=== PATIENT | male | born 1970 | race Caucasian/White ===

== ENCOUNTER → 2016-04-16 | Outpatient (CLI) | payer OTHER ==
--- NOTE | 2016-04-16 21:50 | PN ---
This patient is 45 with an established diagnosis of obstructive sleep apnea. His disease is severe. He has an AHI of 47.5. He was given CPAP therapy at a pressure of 11 cm of water. He is clinically better; however, his compliancy data has not been reflecting adequately his use and clinical improvement. I checked the data his CPAP machine today, and his average CPAP use is less than 4 hours, specifically around 3.2 hours per night. The patient is utilizing his CPAP only 25% of the time for more than 4 hours. His AHI while on treatment is only 5. His leak factor is at 20 liters. He needs to improve his compliance with the treatment, and he was made aware of that. BP is 141/97, pulse 94, respirations 18, temperature 98.0. Weight is 197. [place] score is at 8. GENERAL APPEARANCE: Calm, comfortable. HEENT: Negative for goiter or neck mass. LUNGS: Clear to auscultation. HEART: Sounds are regular rate and rhythm. Normal S1, S2. No S3. No S4. No murmurs. ABDOMEN: Soft, nontender. No organomegaly. EXTREMITIES: No edema. No cyanosis or clubbing. IMPRESSION: 1. Obstructive sleep apnea, severe. AHI of 45. Clinically improved, yet the compliancy with CPAP is suboptimal. 2. Hypersomnia, improving. PLAN: Will need to improve the compliance with his CPAP machine. He was asked to average at least 4 hours per night. He will be asked to come back in 3 months' time for a recheck, and we will make further recommendations regarding CPAP therapy. For now, he needs to wear it every night and become more compliant with the treatment; otherwise, he runs the risk of losing his CPAP machine. He was made aware of that.
== END ==
LOC: SLEEP 14:39
PROVIDERS: ATTEND Internal Medicine Critical Care Medicine
DX: G47.33 Obstructive sleep apnea (adult) (pediatric) (principal)

== ENCOUNTER 2016-08-16 12:20 | Emergency (ER) | payer OTHER ==
[2016-08-16 12:39] VITALS: TEMP 98.6
[2016-08-16 13:08] VITALS: RESP 18
[2016-08-16] MEDS ORDERED: LORazepam 1 MG TAB PO STA (13:10)
--- NOTE | 2016-08-16 13:34 | ED ---
Skin/Abscess/FB HPI - General Chief complaint: Skin/Abscess/Foreign Body Stated complaint: Rash Time Seen by Provider: 08/16/16 13:07 Source: patient, RN notes reviewed Mode of arrival: ambulatory Limitations: no limitations - History of Present Illness Initial comments: 46 yo male presents to the ER with cc of skin rash. Patient states that he was cutting hedges and he was exposed to poison aurelia. Patient states symptoms had an itchy rash to hands and legs. Patient states that he was concerned because just continued H they thought he might need steroids. Patient denies any other exposure to the poison aurelia patient denies any rash to the abdomen back or groin area. Patient denies any rash to the face. Patient states he is also feeling somewhat anxious today. Patient states that his father was recently diagnosed with cancer on top of his Parkinson dementia. Patient states he does have hypertension and he did take his blood pressure medication today but he came from that appointment and he is feeling anxious. Patient denies any suicidal or homicidal ideation with this he just is concerned about his father. Patient denies any recent fever, chills, shortness of breath, chest pain, back pain, abdominal pain, nausea vomiting, numbness or tingling, dysuria or hematuria, constipation or diarrhea, headaches or visual changes, or any other current symptoms. - Related Data Home Medications Medication Instructions Recorded Confirmed Levothyroxine Sodium [Synthroid] 75 mcg PO DAILY 11/05/13 10/05/15 Cholecalciferol [Vitamin D3] 1,000 unit PO DAILY 10/03/15 10/05/15 buPROPion HCL [Wellbutrin SR] 150 mg PO DAILY 10/03/15 10/05/15 Previous Rx's Medication Instructions Recorded methylPREDNISolone Dose Pack 4 mg PO DIRECTED #21 package 08/16/16 [Medrol Dose Pack] Allergies Allergy/AdvReac Type Severity Reaction Status Date / Time No Known Allergies Allergy Verified 08/16/16 12:39 Review of Systems ROS Statement: Those systems with pertinent positive or pertinent negative responses have been documented in the HPI. ROS Other: All systems not noted in ROS Statement are negative. Past Medical History Past Medical History: Hypertension, Thyroid Disorder Additional Past Medical History / Comment(s): VITAMIN B12 DEFICIENCY ANEMIA, rhabdomyolysis History of Any Multi-Drug Resistant Organisms: None Reported Past Surgical History: Orthopedic Surgery Additional Past Surgical History / Comment(s): BILAT Shoulder Surgery Past Anesthesia/Blood Transfusion Reactions: No Reported Reaction Past Psychological History: No Psychological Hx Reported Smoking Status: Current every day smoker Past Alcohol Use History: Occasional Past Drug Use History: None Reported - Past Family History Mother Family Medical History: No Reported History Father Family Medical History: Cancer General Exam Limitations: no limitations General appearance: alert, in no apparent distress Head exam: Present: atraumatic, normocephalic, normal inspection ENT exam: Present: normal exam, mucous membranes moist Neck exam: Present: normal inspection. Absent: tenderness, meningismus, lymphadenopathy Respiratory exam: Present: normal lung sounds bilaterally. Absent: respiratory distress, wheezes, rales, rhonchi, stridor Cardiovascular Exam: Present: regular rate, normal rhythm, normal heart sounds. Absent: systolic murmur, diastolic murmur, rubs, gallop, clicks Neurological exam: Present: alert, oriented X3 Psychiatric exam: Present: normal affect, normal mood Skin exam: Present: warm, dry, intact, normal color. Absent: rash Course Vital Signs 08/16/16 08/16/16 08/16/16 12:36 13:07 13:43 Temperature 98.6 F 98.6 F Pulse Rate 107 H 95 94 Respiratory 20 18 18 Rate Blood Pressure 164/103 151/106 158/110 O2 Sat by Pulse 97 97 97 Oximetry Medical Decision Making - Medical Decision Making 46-year-old male presents to the emergency department with a chief complaint of poison aurelia to arms and legs. Patient is also having a lot of anxiety and is found to have elevated blood pressure. We did give Ativan which did help with his blood pressure. We did discuss follow-up and they gave him counselors referral sheet to talk to. We did discuss return parameters all patient's questions. He stated he understood the plan. Patient will be discharged Disposition Clinical Impression: Anxiety, Poison aurelia dermatitis Disposition: HOME SELF-CARE Condition: Stable Instructions: Poison A[place]lia (ED) Additional Instructions: Please use medication as discussed. Please follow up with family doctor if symptoms have not improved over the next two days. Please return to the emergency room if your symptoms increase or worsen or for any other concerns. Prescriptions: methylPREDNISolone Dose Pack [Medrol Dose Pack] 4 mg PO DIRECTED #21 package Referrals: Deion Alvarez MD [Primary Care Provider] - 1-2 days Time of Disposition: 18:33
[2016-08-16 13:45] VITALS: BP 158/110; PULSE 94
== END 2016-08-16 13:43 | disposition home or self-care (01) ==
LOC: EC 12:20
DX: L23.7 Allergic contact dermatitis due to plants, except food (principal); F41.9 Anxiety disorder, unspecified; E07.9 Disorder of thyroid, unspecified; F17.200 Nicotine dependence, unspecified, uncomplicated; Z79.899 Other long term (current) drug therapy
CPT/HCPCS: 99282

== ENCOUNTER → 2016-08-21 | Outpatient (CLI) | payer OTHER ==
--- NOTE | 2016-08-21 15:35 | XR ---
EXAMINATION TYPE: XR hand complete RT DATE OF EXAM: 08/21/2016 COMPARISON: NONE HISTORY: Injury to right wrist pain 2-3 weeks TECHNIQUE: Three-view right hand FINDINGS: No acute fractures evident. Soft tissues appear normal. Joint spaces are preserved. IMPRESSION: 1. Normal three-view right hand
== END | disposition home or self-care (01) ==
LOC: RADXRMAIN 15:09
PROVIDERS: ATTEND Family Medicine
DX: S69.81XA Other specified injuries of right wrist, hand and finger(s), initial encounter (principal)

== ENCOUNTER → 2016-10-04 | Outpatient (CLI) | payer OTHER ==
--- NOTE | 2016-10-04 12:16 | XR ---
EXAMINATION TYPE: XR chest 2V DATE OF EXAM: 10/04/2016 COMPARISON: 11/05/2013 INDICATION: Contusion of the thorax TECHNIQUE: Frontal and lateral views of the chest are obtained. FINDINGS: The heart size is normal. The pulmonary vasculature is normal. The lungs are clear. Left nipple ring is present. No pneumothorax is evident. No displaced rib fractures are evident. IMPRESSION: 1. No acute pulmonary process. 2. No acute posttraumatic change is evident.
== END | disposition home or self-care (01) ==
LOC: RADXRMAIN 11:37
PROVIDERS: ATTEND Physician Assistant
DX: S20.20XA Contusion of thorax, unspecified, initial encounter (principal)
CPT/HCPCS: 71020

== ENCOUNTER 2016-11-24 18:31 | Inpatient (IN) | payer OTHER ==
[2016-11-24] MEDS ORDERED: SODIUM CHLORIDE 0.9% 1,000 ML IV ONE ×2 (18:46)
--- NOTE | 2016-11-24 18:52 | ED ---
General Adult HPI - General Chief complaint: Altered Mental Status Stated complaint: Alter Mental Status Time Seen by Provider: 11/24/16 18:37 Source: patient, EMS, RN notes reviewed Mode of arrival: EMS Limitations: no limitations - History of Present Illness Initial comments: Patient is a pleasant 46-year-old male presenting to the emergency department for possible syncopal episode. Patient states he was loading boats up after kayaking and then passed out. Patient denies any significant injury. Patient states he has felt somewhat lightheaded recently. Patient states he was recently told by his doctor to increase his lisinopril. Patient is unclear what dose she currently is on. Patient states several days prior to that his blood pressure was as high as 178/100. Patient only feels lightheaded at this time without any other complaints. No chest pain or dyspnea. No neck or back pain. No abdominal pain. No headache or confusion or weakness. EMS reports that patient was picked up from the [facility]. Nursing staff reports patient' s history is not consistent with history provided by EMS or provided to her. - Related Data Home Medications Medication Instructions Recorded Confirmed Disulfiram [Antabuse] 250 mg PO DAILY 11/24/16 11/24/16 LORazepam [Ativan] 1 mg PO TID 11/24/16 11/24/16 Zolpidem [Ambien] 10 mg PO HS PRN 11/24/16 11/24/16 buPROPion XL [Wellbutrin Xl] 150 mg PO DAILY 11/24/16 11/24/16 Allergies Allergy/AdvReac Type Severity Reaction Status Date / Time No Known Allergies Allergy Verified 08/16/16 12:39 Review of Systems ROS Statement: Those systems with pertinent positive or pertinent negative responses have been documented in the HPI. ROS Other: All systems not noted in ROS Statement are negative. Constitutional: Denies: fever Eyes: Denies: eye pain ENT: Denies: ear pain Respiratory: Denies: cough Cardiovascular: Denies: chest pain, palpitations Endocrine: Reports: fatigue Gastrointestinal: Denies: abdominal pain Genitourinary: Denies: dysuria Musculoskeletal: Denies: back pain Skin: Denies: rash Neurological: Denies: headache Psychiatric: Denies: depression Past Medical History Past Medical History: Hypertension, Thyroid Disorder Additional Past Medical History / Comment(s): VITAMIN B12 DEFICIENCY ANEMIA, rhabdomyolysis History of Any Multi-Drug Resistant Organisms: None Reported Past Surgical History: Orthopedic Surgery Additional Past Surgical History / Comment(s): BILAT Shoulder Surgery Past Anesthesia/Blood Transfusion Reactions: No Reported Reaction Past Psychological History: No Psychological Hx Reported Smoking Status: Current some day smoker Past Alcohol Use History: Occasional Past Drug Use History: None Reported - Past Family History Mother Family Medical History: No Reported History Father Family Medical History: Cancer General Exam Limitations: no limitations General appearance: alert, in no apparent distress Head exam: Present: atraumatic Eye exam: Present: normal appearance, PERRL, EOMI. Absent: nystagmus ENT exam: Present: normal oropharynx Neck exam: Present: normal inspection. Absent: tenderness, meningismus Respiratory exam: Present: normal lung sounds bilaterally Cardiovascular Exam: Present: regular rate, normal rhythm GI/Abdominal exam: Present: soft. Absent: tenderness Extremities exam: Present: normal inspection Neurological exam: Present: alert, CN II-XII intact. Absent: motor sensory deficit Expanded Patient oriented to: Present: person, place, time Speech: Present: fluid speech Cranial nerves: EOM's Intact: Normal, Facial Sensation: Normal Sensory exam: Upper Extremity Light Touch: Normal, Lower Extremity Light Touch: Normal Motor strength exam: RUE: 5, LUE: 5, RLE: 5, LLE: 5 Eye Response: (4) open spontaneously Motor Response: (6) obeys commands Verbal Response: (5) oriented Psychiatric exam: Present: normal affect, normal mood Skin exam: Present: normal color Course Vital Signs 11/24/16 11/24/16 11/24/16 18:42 19:16 20:05 Temperature 98.3 F Pulse Rate 119 H 110 H 110 H Respiratory 18 16 18 Rate Blood Pressure 76/43 86/52 109/56 O2 Sat by Pulse 99 99 99 Oximetry EKG Findings - EKG Comments: EKG Findings:: Sinus tachycardia 110. IL 132. QRS 84. QT 332. QTC 449. Normal axis. Normal QRS. Normal ST-T. Medical Decision Making - Medical Decision Making Patient reexamined and improved. Blood pressure has improved to 90 systolic. Patient updated on results and plan. Case discussed in detail with Dr. Brown, who will admit for Dr. Alvarez. - Lab Data Result diagrams: 11/24/16 18:59 11/24/16 18:59 Lab Results 11/24/16 11/24/16 11/24/16 Range/Units 18:59 18:59 18:59 WBC 8.7 (3.8-10.6) k/uL RBC 4.08 L (4.30-5.90) m/uL Hgb 14.5 (13.0-17.5) gm/dL Hct 45.1 (39.0-53.0) % MCV 110.3 H (80.0-100.0) fL MCH 35.6 H (25.0-35.0) pg MCHC 32.3 (31.0-37.0) g/dL RDW 13.6 (11.5-15.5) % Plt Count 240 (150-450) k/uL Neutrophils % 83 % Lymphocytes % 8 % Monocytes % 6 % Eosinophils % 1 % Basophils % 1 % Neutrophils # 7.3 (1.3-7.7) k/uL Lymphocytes # 0.7 L (1.0-4.8) k/uL Monocytes # 0.5 (0-1.0) k/uL Eosinophils # 0.1 (0-0.7) k/uL Basophils # 0.1 (0-0.2) k/uL Manual Slide Review Performed Macrocytosis Marked PT (9.0-12.0) sec INR (<1.2) APTT (22.0-30.0) sec D-Dimer (<0.60) mg/L FEU Sodium 141 (137-145) mmol/L Potassium 4.5 (3.5-5.1) mmol/L Chloride 107 (98-107) mmol/L Carbon Dioxide 17 L (22-30) mmol/L Anion Gap 17 mmol/L BUN 32 H (9-20) mg/dL Creatinine 3.23 H (0.66-1.25) mg/dL Est GFR (MDRD) Af Amer 25 (>60 ml/min/1.73 sqM) Est GFR (MDRD) Non-Af 21 (>60 ml/min/1.73 sqM) Glucose 100 H (74-99) mg/dL POC Glucose (mg/dL) (75-99) mg/dL POC Glu [place] ID Calcium 10.0 (8.4-10.2) mg/dL Total Bilirubin 0.9 (0.2-1.3) mg/dL AST 114 H (17-59) U/L ALT 165 H (21-72) U/L Alkaline Phosphatase 175 H (38-126) U/L Total Creatine Kinase 336 H (55-170) U/L CK-MB (CK-2) 3.8 H* (0.0-2.4) ng/mL CK-MB (CK-2) Rel Index 1.1 Troponin I <0.012 (0.000-0.034) ng/mL Total Protein 7.7 (6.3-8.2) g/dL Albumin 4.3 (3.5-5.0) g/dL Urine Color Urine Appearance (Clear) Urine pH (5.0-8.0) Ur Specific [place] (1.001-1.035) Urine Protein (Negative) Urine Glucose (UA) (Negative) Urine Ketones (Negative) Urine Blood (Negative) Urine Nitrite (Negative) Urine Bilirubin (Negative) Urine Urobilinogen (<2.0) mg/dL Ur Leukocyte Esterase (Negative) Urine RBC (0-5) /hpf Urine WBC (0-5) /hpf Ur Squamous Epith Cells (0-4) /hpf Hyaline Casts (0-2) /lpf Granular Casts (0) /lpf Urine Mucus (None) /hpf Urine Opiates Screen (NotDetected) Ur Oxycodone Screen (NotDetected) Urine Methadone Screen (NotDetected) Ur Propoxyphene Screen (NotDetected) Ur Barbiturates Screen (NotDetected) U Tricyclic Antidepress (NotDetected) Ur Phencyclidine Scrn (NotDetected) Ur Amphetamines Screen (NotDetected) U Methamphetamines Scrn (NotDetected) U Benzodiazepines Scrn (NotDetected) Urine Cocaine Screen (NotDetected) U Marijuana (THC) Screen (NotDetected) Serum Alcohol <10 mg/dL 11/24/16 11/24/16 11/24/16 Range/Units 18:59 18:59 18:59 WBC (3.8-10.6) k/uL RBC (4.30-5.90) m/uL Hgb (13.0-17.5) gm/dL Hct (39.0-53.0) % MCV (80.0-100.0) fL MCH (25.0-35.0) pg MCHC (31.0-37.0) g/dL RDW (11.5-15.5) % Plt Count (150-450) k/uL Neutrophils % % Lymphocytes % % Monocytes % % Eosinophils % % Basophils % % Neutrophils # (1.3-7.7) k/uL Lymphocytes # (1.0-4.8) k/uL Monocytes # (0-1.0) k/uL Eosinophils # (0-0.7) k/uL Basophils # (0-0.2) k/uL Manual Slide Review Macrocytosis PT 10.6 (9.0-12.0) sec INR 1.1 (<1.2) APTT 21.8 L (22.0-30.0) sec D-Dimer 0.34 (<0.60) mg/L FEU Sodium (137-145) mmol/L Potassium (3.5-5.1) mmol/L Chloride (98-107) mmol/L Carbon Dioxide (22-30) mmol/L Anion Gap mmol/L BUN (9-20) mg/dL Creatinine (0.66-1.25) mg/dL Est GFR (MDRD) Af Amer (>60 ml/min/1.73 sqM) Est GFR (MDRD) Non-Af (>60 ml/min/1.73 sqM) Glucose (74-99) mg/dL POC Glucose (mg/dL) (75-99) mg/dL POC Glu [place] ID Calcium (8.4-10.2) mg/dL Total Bilirubin (0.2-1.3) mg/dL AST (17-59) U/L ALT (21-72) U/L Alkaline Phosphatase (38-126) U/L Total Creatine Kinase (55-170) U/L CK-MB (CK-2) (0.0-2.4) ng/mL CK-MB (CK-2) Rel Index Troponin I (0.000-0.034) ng/mL Total Protein (6.3-8.2) g/dL Albumin (3.5-5.0) g/dL Urine Color Dark Yellow Urine Appearance Cloudy (Clear) Urine pH 5.5 (5.0-8.0) Ur Specific [place] 1.023 (1.001-1.035) Urine Protein 2+ H (Negative) Urine Glucose (UA) Negative (Negative) Urine Ketones Negative (Negative) Urine Blood Negative (Negative) Urine Nitrite Negative (Negative) Urine Bilirubin Negative (Negative) Urine Urobilinogen 2.0 (<2.0) mg/dL Ur Leukocyte Esterase Moderate H (Negative) Urine RBC 4 (0-5) /hpf Urine WBC 20 H (0-5) /hpf Ur Squamous Epith Cells <1 (0-4) /hpf Hyaline Casts 32 H (0-2) /lpf Granular Casts 6 (0) /lpf Urine Mucus Moderate H (None) /hpf Urine Opiates Screen Detected H (NotDetected) Ur Oxycodone Screen Not Detected (NotDetected) Urine Methadone Screen Not Detected (NotDetected) Ur Propoxyphene Screen Not Detected (NotDetected) Ur Barbiturates Screen Not Detected (NotDetected) U Tricyclic Antidepress Detected H (NotDetected) Ur Phencyclidine Scrn Not Detected (NotDetected) Ur Amphetamines Screen Detected H (NotDetected) U Methamphetamines Scrn Not Detected (NotDetected) U Benzodiazepines Scrn Detected H (NotDetected) Urine Cocaine Screen Not Detected (NotDetected) U Marijuana (THC) Screen Not Detected (NotDetected) Serum Alcohol mg/dL 11/24/16 Range/Units 19:14 WBC (3.8-10.6) k/uL RBC (4.30-5.90) m/uL Hgb (13.0-17.5) gm/dL Hct (39.0-53.0) % MCV (80.0-100.0) fL MCH (25.0-35.0) pg MCHC (31.0-37.0) g/dL RDW (11.5-15.5) % Plt Count (150-450) k/uL Neutrophils % % Lymphocytes % % Monocytes % % Eosinophils % % Basophils % % Neutrophils # (1.3-7.7) k/uL Lymphocytes # (1.0-4.8) k/uL Monocytes # (0-1.0) k/uL Eosinophils # (0-0.7) k/uL Basophils # (0-0.2) k/uL Manual Slide Review Macrocytosis PT (9.0-12.0) sec INR (<1.2) APTT (22.0-30.0) sec D-Dimer (<0.60) mg/L FEU Sodium (137-145) mmol/L Potassium (3.5-5.1) mmol/L Chloride (98-107) mmol/L Carbon Dioxide (22-30) mmol/L Anion Gap mmol/L BUN (9-20) mg/dL Creatinine (0.66-1.25) mg/dL Est GFR (MDRD) Af Amer (>60 ml/min/1.73 sqM) Est GFR (MDRD) Non-Af (>60 ml/min/1.73 sqM) Glucose (74-99) mg/dL POC Glucose (mg/dL) 122 H (75-99) mg/dL POC Glu [place] ID Edilma Mcdonald Calcium (8.4-10.2) mg/dL Total Bilirubin (0.2-1.3) mg/dL AST (17-59) U/L ALT (21-72) U/L Alkaline Phosphatase (38-126) U/L Total Creatine Kinase (55-170) U/L CK-MB (CK-2) (0.0-2.4) ng/mL CK-MB (CK-2) Rel Index Troponin I (0.000-0.034) ng/mL Total Protein (6.3-8.2) g/dL Albumin (3.5-5.0) g/dL Urine Color Urine Appearance (Clear) Urine pH (5.0-8.0) Ur Specific [place] (1.001-1.035) Urine Protein (Negative) Urine Glucose (UA) (Negative) Urine Ketones (Negative) Urine Blood (Negative) Urine Nitrite (Negative) Urine Bilirubin (Negative) Urine Urobilinogen (<2.0) mg/dL Ur Leukocyte Esterase (Negative) Urine RBC (0-5) /hpf Urine WBC (0-5) /hpf Ur Squamous Epith Cells (0-4) /hpf Hyaline Casts (0-2) /lpf Granular Casts (0) /lpf Urine Mucus (None) /hpf Urine Opiates Screen (NotDetected) Ur Oxycodone Screen (NotDetected) Urine Methadone Screen (NotDetected) Ur Propoxyphene Screen (NotDetected) Ur Barbiturates Screen (NotDetected) U Tricyclic Antidepress (NotDetected) Ur Phencyclidine Scrn (NotDetected) Ur Amphetamines Screen (NotDetected) U Methamphetamines Scrn (NotDetected) U Benzodiazepines Scrn (NotDetected) Urine Cocaine Screen (NotDetected) U Marijuana (THC) Screen (NotDetected) Serum Alcohol mg/dL - Radiology Data Radiology results: report reviewed (Computed tomography scan of the brain shows no acute process), image reviewed (Chest x-ray shows no acute process.) Disposition Clinical Impression: Acute renal insufficiency, Altered mental status Disposition: ADMITTED IP TO THIS [facility] Referrals: Deion Alvarez MD [Primary Care Provider] - 1-2 days Decision Time: 20:10
[2016-11-24 19:25] LABS: Basophils # (A) 0.1 k/uL (0-0.2); Basophils % (A) 1 %; CH 37.1; CHCM 33.8; Eosinophils # (A) 0.1 k/uL (0-0.7); Eosinophils % (A) 1 %; HCT 45.1 % (39.0-53.0); HDW 2.18; HGB 14.5 gm/dL (13.0-17.5); Luc # (Auto) 0.12; Luc % (Auto) 1; Lymphocytes # (A) 0.7 k/uL (1.0-4.8); Lymphocytes % (A) 8 %; MCH 35.6 pg (25.0-35.0); MCHC 32.3 g/dL (31.0-37.0); MCV 110.3 fL (80.0-100.0); Macrocytosis Marked; Mean Platelet Volume 8.2; Monocytes # (A) 0.5 k/uL (0-1.0); Monocytes % (A) 6 %; Neutrophils # (A) 7.3 k/uL (1.3-7.7); Neutrophils % (A) 83 %; RBC 4.08 m/uL (4.30-5.90); RDW 13.6 % (11.5-15.5); WBC 8.7 k/uL (3.8-10.6); WBC (Perox) 8.91
[2016-11-24 19:31] LABS: Appearance,Urine Cloudy (Clear); Bilirubin,Urine Negative (Negative); Glucose,Urine (UA) Negative (Negative); Granular Casts,Urine 6 /lpf (0); Ketones,Urine Negative (Negative); Leukocyte Esterase,Urine Moderate (Negative); Mucus,Urine Moderate /hpf; Nitrite,Urine Negative (Negative); PH, Urine 5.5 (5.0-8.0); Particle Count 19482; Protein,Urine 2+ (Negative); RBC,Urine 4 /hpf (0-5); Specific Gravity,Urine 1.023 (1.001-1.035); Squamous Epithelial Cell,Urine <1 /hpf (0-4); UA Billing (MACRO vs. MICRO) MICRO; WBC,Urine 20 /hpf (0-5)
--- NOTE | 2016-11-24 19:33 | XR ---
EXAMINATION TYPE: XR chest 2V DATE OF EXAM: 11/24/2016 COMPARISON: 10/04/2016 HISTORY: Chest pain TECHNIQUE: Frontal and lateral views of the chest are obtained. FINDINGS: Heart and mediastinum are normal. Lungs are clear. Diaphragm is normal. Bony thorax is int act. IMPRESSION: Normal chest. No change.
[2016-11-24 19:34] LABS: Glucose,Whole Blood 122 mg/dL (75-99)
[2016-11-24 19:36] LABS: ALT 165 U/L (21-72); AST 114 U/L (17-59); Alcohol <10 mg/dL; Alkaline Phosphatase 175 U/L (38-126); Anion Gap 17 mmol/L; Blood Urea Nitrogen 32 mg/dL (9-20); Carbon Dioxide 17 mmol/L (22-30); Chloride 107 mmol/L (98-107); Glucose 100 mg/dL (74-99); Non-African American GFR(MDRD) 21 (>60 ml/min/1.73 sqM); Potassium 4.5 mmol/L (3.5-5.1); Sodium 141 mmol/L (137-145); Total Bilirubin 0.9 mg/dL (0.2-1.3); Total Protein 7.7 g/dL (6.3-8.2)
[2016-11-24 19:37] LABS: Manual Review Performed
[2016-11-24 19:39] LABS: Creatine Kinase 336 U/L (55-170); INR 1.1 (<1.2); Prothrombin Time 10.6 sec (9.0-12.0)
--- NOTE | 2016-11-24 19:50 | CT ---
EXAMINATION TYPE: CT brain wo con DATE OF EXAM: 11/24/2016 COMPARISON: NONE HISTORY: Mental status changes CT DLP: 1064.3 mGycm. Automated Exposure Control for Dose Reduction was Utilized. TECHNIQUE: CT scan of the head is performed without contrast. FINDINGS: Ventricles have normal size. There is no mass effect nor midline shift. There is no sign of intracranial hemorrhage. Calvarium is intact. CONCLUSION: Normal unenhanced head CT scan.
[2016-11-24 19:52] LABS: Troponin I <0.012 ng/mL (0.000-0.034)
[2016-11-24 19:53] LABS: Partial Thromboplastin Time 21.8 sec (22.0-30.0)
[2016-11-24 19:55] LABS: Creatine Kinase MB 3.8 ng/mL (0.0-2.4)
[2016-11-24] MEDS ORDERED: NALOXONE 0.4 MG/ML 1 ML VIAL IV PRN (20:10)
[2016-11-24] MEDS: SODIUM CHLORIDE 0.9% 1,000 ML IV SCH (22:26)
[2016-11-24 22:42] VITALS: BMI 25.4
[2016-11-25 02:02] VITALS: RESP 16
[2016-11-25] MEDS: SODIUM CHLORIDE 0.9% 1,000 ML IV SCH ×3 (05:41→20:33)
[2016-11-25 07:08] LABS: Calcium 8.9 mg/dL (8.4-10.2); Potassium 4.5 mmol/L (3.5-5.1); Total Bilirubin 0.6 mg/dL (0.2-1.3); Total Protein 6.4 g/dL (6.3-8.2)
[2016-11-25] MEDS ORDERED: ACETAMINOPHEN TAB 325 MG TAB PO PRN (08:47)
--- NOTE | 2016-11-25 14:21 | P.CN ---
Psychiatric Consult - . Consult date: 11/25/16 Consult:: Identification and Reason for Consult: Patient is a 46-year-old male who is admitted for altered mental status and a consultation was requested for that. Patient was brought to hospital by EMS. Patient's chart was reviewed, spoke with nursing staff, patient was seen in his room and his girlfriend was present during the interview. History of Present Illness: Patient states that he was recently seen by his primary care physician's nurse practitioner told the patient to double up on his antihypertensive medications the patient states that yesterday he thinks he took too many muscle relaxers versus taking double his antihypertensives. Patient is also taking Ativan 1 mg 3 times a day, Wellbutrin 150 mg a day, Antabuse daily Ambien 10 mg at bedtime and an unknown dosage of Adderall extended release on an as-needed basis. Patient states that he was doing well until things are all a blur late in the afternoon, his girlfriend commented that she had seen him around 2:15 in the afternoon and when she spoke with him at 5 PM he was not making sense. 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 He states he went there and apparently was not making sense and they called EMS. Patient states he recalls nothing after that. Patient was admitted and was found to have an elevated creatinine and also has elevated liver enzymes. Patient states he has a history of alcohol use over 20 years ago where he was using it on a daily basis, did have blackouts and reports no seizures her difficulties when he withdrew states he was sober for the last 14 years until the last several months when he relapsed. He states he began Antabuse at the beginning of November when he returned his PCP he had relapsed. Patient also states that he has been treated in the past at [facility] where he was started on Wellbutrin for depression. He was then seen at [facility] by Dr. Del Toro and he discontinued going there when he was told that he no longer needed treatment. He states that he stopped everything over 8 years ago and only recently restarted the Wellbutrin. Patient is also receiving Ativan 1 mg 3 times a day which the patient states he used twice a day and for the last week she's been using 2 mg a day for his anxiety. Patient also states he is on Ambien because he has sleep apnea but is unable to use a CPAP machine. Patient also states that he was diagnosed with ADD and is on Adderall at an unknown dosage and he uses this when necessary. Patient denied denies any prior suicide attempts, is unable to endorse any manic symptoms or psychotic symptoms. Patient states he was not feeling suicidal and was was not a suicide attempt, he denies any alcohol use recently or any other drug use. Past Psychiatric History: Patient states that he has no prior inpatient psychiatric treatment but was treated as an inpatient for alcohol regret at [facility] in the past. He has been seen as an outpatient at [facility] and then at [facility] but has not been seen in the last 8 years. Patient is currently on Ativan 1 mg 3 times a day, Wellbutrin 150 mg extended release every morning, Antabuse, Ambien 10 mg and an unknown dose of Adderall Past Medical/Surgical History: A she has a history of hypertension, hypothyroidism, pernicious anemia, sleep apnea and states he has degenerative disc disease in his back. He states he has had laparoscopic surgery on his right shoulder for rotator cuff injury as well as on his left shoulder after he fell at work. Home Medications Medication Instructions Recorded Confirmed Disulfiram [Antabuse] 250 mg PO DAILY 11/24/16 11/25/16 LORazepam [Ativan] 1 mg PO TID 11/24/16 11/25/16 Lisinopril [Zestril] 10 mg PO DAILY 11/24/16 11/25/16 Zolpidem [Ambien] 10 mg PO HS PRN 11/24/16 11/25/16 buPROPion XL [Wellbutrin Xl] 150 mg PO DAILY 11/24/16 11/25/16 Albuterol Inhaler [Ventolin Hfa 1 - 2 puff INHALATION RT-Q6H PRN 11/25/16 Inhaler] Cyanocobalamin [Vitamin B-12 1,000 mcg SQ QMONTH 11/25/16 11/25/16 Injection] Ibuprofen [Motrin] 800 mg PO TID-W/MEALS 11/25/16 11/25/16 Levothyroxine Sodium [Synthroid] 75 mcg PO DAILY 11/25/16 11/25/16 Montelukast [Singulair] 10 mg PO DAILY 11/25/16 11/25/16 Triamcinolone Acetonide 1 applic TOPICAL BID 11/25/16 11/25/16 [Triamcinolone Acetonide 0.025%] Social History: Patient was born and raised in [place] both of his parents are alive and he has 2 siblings. Patient completed high school and has a college degree in criminal justice. 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 Patient has been 2 times in the past and is and has 4 children ages 21 , 20, 8 and 7 years of age. The youngest 2 are living with their mother. Patient's girlfriend was present during the interview. 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 He reports no history of abuse in the past. Substance Use History: Patient states that he began using alcohol heavily 20 years ago, drank daily for 6 years and reported he had blackouts but no seizures and states he has been sober for the last 14 years but several months ago he had a relapse. Patient denies any current or prior drug use and states that he does use tobacco products. Legal History: Patient denies any legal history. Mental Status:Appearance/Attitude: Patient is sitting up in his bed in no acute distress and makes good eye contact and is cooperative. Behavior: Patient does not display any psychomotor agitation or retardation. Speech/Language: Patient's speech is spontaneous, normal volume and rhythm and he is coherent. Thought Process: Patient is goal-directed there is no evidence of circumstantial or tangential thought and no loose associations or flight of ideas. Thought Content: Patient denies any auditory or visual hallucinations no delusions or paranoid ideation were elicited. Patient states that he thinks he took too much of his muscle relaxer combined with his other medications and became confused. Patient states he had recently begun earlier this month Antabuse 250 mg daily and has been using Ambien, Ativan as well. Suicidal/Homicidal Ideation: Patient denies any current suicidal or homicidal ideation Sensorium/Cognition: Patient is alert and oriented to person, place, and time and his memory is grossly intact. Mood/Affect: Patient's mood is pleasant and his affect is appropriate Insight/Judgement: Patient's insight and judgment are fair. Assessment: Patient has a history of alcohol use and has been using Ativan 2 mg a day for the last week prior to that he was using it on an as-needed basis, he is also on Wellbutrin to treat his depression which he states worked well as well as Ambien for his insomnia and Adderall for his attention deficit disorder. Patient has been seen by his primary care physician who is being treating the patient's anxiety and depression. Patient had a relapse several months ago and requested Antabuse from his primary care physician which he has been taking. Patient prior to this had a 14 year history of sobriety. Patient is not currently having any suicidal ideation, homicidal ideation and there is no evidence of a psychotic process. Laboratory Last Values WBC 8.7 k/uL (3.8-10.6) 11/24/16 18:59 RBC 4.08 m/uL (4.30-5.90) L 11/24/16 18:59 Hgb 14.5 gm/dL (13.0-17.5) 11/24/16 18:59 Hct 45.1 % (39.0-53.0) 11/24/16 18:59 MCV 110.3 fL (80.0-100.0) H 11/24/16 18:59 MCH 35.6 pg (25.0-35.0) H 11/24/16 18:59 MCHC 32.3 g/dL (31.0-37.0) 11/24/16 18:59 RDW 13.6 % (11.5-15.5) 11/24/16 18:59 Plt Count 240 k/uL (150-450) 11/24/16 18:59 Neutrophils % 83 % 11/24/16 18:59 Lymphocytes % 8 % 11/24/16 18:59 Monocytes % 6 % 11/24/16 18:59 Eosinophils % 1 % 11/24/16 18:59 Basophils % 1 % 11/24/16 18:59 Neutrophils # 7.3 k/uL (1.3-7.7) 11/24/16 18:59 Lymphocytes # 0.7 k/uL (1.0-4.8) L 11/24/16 18:59 Monocytes # 0.5 k/uL (0-1.0) 11/24/16 18:59 Eosinophils # 0.1 k/uL (0-0.7) 11/24/16 18:59 Basophils # 0.1 k/uL (0-0.2) 11/24/16 18:59 Manual Slide Review Performed 11/24/16 18:59 Macrocytosis Marked 11/24/16 18:59 PT 10.6 sec (9.0-12.0) 11/24/16 18:59 INR 1.1 (<1.2) 11/24/16 18:59 APTT 21.8 sec (22.0-30.0) L 11/24/16 18:59 D-Dimer 0.34 mg/L FEU (<0.60) 11/24/16 18:59 Sodium 140 mmol/L (137-145) 11/25/16 05:39 Potassium 4.5 mmol/L (3.5-5.1) 11/25/16 05:39 Chloride 112 mmol/L (98-107) H 11/25/16 05:39 Carbon Dioxide 17 mmol/L (22-30) L 11/25/16 05:39 Anion Gap 11 mmol/L 11/25/16 05:39 BUN 35 mg/dL (9-20) H 11/25/16 05:39 Creatinine 2.17 mg/dL (0.66-1.25) H 11/25/16 05:39 Est GFR (MDRD) Af Amer 40 (>60 ml/min/1.73 sqM) 11/25/16 05:39 Est GFR (MDRD) Non-Af 33 (>60 ml/min/1.73 sqM) 11/25/16 05:39 Glucose 90 mg/dL (74-99) 11/25/16 05:39 POC Glucose (mg/dL) 122 mg/dL (75-99) H 11/24/16 19:14 POC Glu [employer] [facility]AR[facility] Edilma Mcdonald 11/24/16 19:14 Calcium 8.9 mg/dL (8.4-10.2) 11/25/16 05:39 Total Bilirubin 0.6 mg/dL (0.2-1.3) 11/25/16 05:39 AST 84 U/L (17-59) H 11/25/16 05:39 ALT 131 U/L (21-72) H 11/25/16 05:39 Alkaline Phosphatase 137 U/L (38-126) H 11/25/16 05:39 Total Creatine Kinase 336 U/L (55-170) H 11/24/16 18:59 CK-MB (CK-2) 3.8 ng/mL (0.0-2.4) H* 11/24/16 18:59 CK-MB (CK-2) Rel Index 1.1 11/24/16 18:59 Troponin I <0.012 ng/mL (0.000-0.034) 11/24/16 18:59 Total Protein 6.4 g/dL (6.3-8.2) 11/25/16 05:39 Albumin 3.4 g/dL (3.5-5.0) L 11/25/16 05:39 Urine Color Dark Yellow 11/24/16 18:59 Urine Appearance Cloudy (Clear) 11/24/16 18:59 Urine pH 5.5 (5.0-8.0) 11/24/16 18:59 Ur Specific [place] 1.023 (1.001-1.035) 11/24/16 18:59 Urine Protein 2+ (Negative) H 11/24/16 18:59 Urine Glucose (UA) Negative (Negative) 11/24/16 18:59 Urine Ketones Negative (Negative) 11/24/16 18:59 Urine Blood Negative (Negative) 11/24/16 18:59 Urine Nitrite Negative (Negative) 11/24/16 18:59 Urine Bilirubin Negative (Negative) 11/24/16 18:59 Urine Urobilinogen 2.0 mg/dL (<2.0) 11/24/16 18:59 Ur Leukocyte Esterase Moderate (Negative) H 11/24/16 18:59 Urine RBC 4 /hpf (0-5) 11/24/16 18:59 Urine WBC 20 /hpf (0-5) H 11/24/16 18:59 Ur Squamous Epith Cells <1 /hpf (0-4) 11/24/16 18:59 Hyaline Casts 32 /lpf (0-2) H 11/24/16 18:59 Granular Casts 6 /lpf (0) 11/24/16 18:59 Urine Mucus Moderate /hpf (None) H 11/24/16 18:59 Urine Opiates Screen Detected (NotDetected) H 11/24/16 18:59 Ur Oxycodone Screen Not Detected (NotDetected) 11/24/16 18:59 Urine Methadone Screen Not Detected (NotDetected) 11/24/16 18:59 Ur Propoxyphene Screen Not Detected (NotDetected) 11/24/16 18:59 Ur Barbiturates Screen Not Detected (NotDetected) 11/24/16 18:59 U Tricyclic Antidepress Detected (NotDetected) H 11/24/16 18:59 Ur Phencyclidine Scrn Not Detected (NotDetected) 11/24/16 18:59 Ur Amphetamines Screen Detected (NotDetected) H 11/24/16 18:59 U Methamphetamines Scrn Not Detected (NotDetected) 11/24/16 18:59 U Benzodiazepines Scrn Detected (NotDetected) H 11/24/16 18:59 Urine Cocaine Screen Not Detected (NotDetected) 11/24/16 18:59 U Marijuana (THC) Screen Not Detected (NotDetected) 11/24/16 18:59 Serum Alcohol <10 mg/dL 11/24/16 18:59 Diagnosis: Depressive disorder not otherwise specified, alcohol use disorder Plan: Patient can be continued on Wellbutrin 150 mg in the morning extended release to target his depression, but I would not recommend and I discussed this with the patient continuing Ativan due to his prior history of alcohol use disorder. Patient and I discussed a referral for outpatient psychiatric care which at this time he declined but is aware of how to obtain services in the future. Patient is not currently suicidal or homicidal, there is no evidence of a psychotic process and the patient does not require inpatient psychiatric treatment. I also discussed with the patient that a camper state or naltrexone could also be considered in place of Antabuse to treat his cravings for alcohol. I will sign off the case please don't hesitate to contact me should there be any further questions or concerns. 11/25/16 14:09 11/25/16 14:20
[2016-11-25] MEDS: HEPARIN SODIUM,PORCINE 5,000 UNIT/ML 1 ML VIAL SQ SCH (20:31)
--- NOTE | 2016-11-25 21:54 | P.HPIM ---
History of Present Illness H&P Date: 11/25/16 Chief Complaint: Altered mental status Patient is a pleasant 46-year-old male with a known history of hypertension, history of alcohol abuse, depression and hypothyroidism presenting to the emergency department for possible syncopal episode. Patient states he was loading boats up after kayaking and then passed out. Patient denies any significant injury. Patient was told to double up his blood pressure medications by his primary care physician recently. Patient is also taking Ativan 1 mg 3 times a day, Wellbutrin 150 mg a day, Antabuse daily Ambien 10 mg at bedtime and an unknown dosage of Adderall extended release on an as-needed basis. Patient states he has felt somewhat lightheaded recently. Patient was found to be confused at home and EMS was called. Patient is more awake and oriented today. No fever no chills. No recent illnesses. Patient denied any suicidal ideation and says that he took medications accidentally. UDS is positive for opiates, benzodiazepines, tricyclic antidepressants and amphetamines. Review of Systems CONSTITUTIONAL: No fever, no malaise, no fatigue. HEENT: No recent visual problems or hearing problems. Denied any sore throat. CARDIOVASCULAR: No chest pain, orthopnea, PND, no palpitations, no syncope. PULMONARY: , no hemoptysis. GASTROINTESTINAL: No diarrhea, no nausea, no vomiting, no abdominal pain. Normoactive bowel sounds. NEUROLOGICAL: No headaches, no weakness, no numbness. Patient is confused. HEMATOLOGICAL: Denies any bleeding or petechiae. GENITOURINARY: Denies any burning micturition, frequency, or urgency. MUSCULOSKELETAL/RHEUMATOLOGICAL: Denies any joint pain, swelling, or any muscle pain. ENDOCRINE: Denies any polyuria or polydipsia. The rest of the 14-point review of systems is negative. Past Medical History Past Medical History: Hypertension, Thyroid Disorder Additional Past Medical History / Comment(s): VITAMIN B12 DEFICIENCY ANEMIA, rhabdomyolysis History of Any Multi-Drug Resistant Organisms: None Reported Past Surgical History: Orthopedic Surgery Additional Past Surgical History / Comment(s): BILAT Shoulder Surgery; 2 surgery on left side; one surgery on right Past Anesthesia/Blood Transfusion Reactions: No Reported Reaction Past Psychological History: Anxiety, Depression Additional Psychological History / Comment(s): Major depresion disorder Smoking Status: Current some day smoker Past Alcohol Use History: Occasional Additional Past Alcohol Use History / Comment(s): < 1/2 PPD FOR 20 YRS Past Drug Use History: None Reported - Past Family History Mother Family Medical History: No Reported History Father Family Medical History: Cancer Medications and Allergies Home Medications Medication Instructions Recorded Confirmed Type Disulfiram [Antabuse] 250 mg PO DAILY 11/24/16 11/25/16 History LORazepam [Ativan] 1 mg PO TID 11/24/16 11/25/16 History Lisinopril [Zestril] 10 mg PO DAILY 11/24/16 11/25/16 History Zolpidem [Ambien] 10 mg PO HS PRN 11/24/16 11/25/16 History buPROPion XL [Wellbutrin Xl] 150 mg PO DAILY 11/24/16 11/25/16 History Albuterol Inhaler [Ventolin Hfa 1 - 2 puff INHALATION RT-Q6H PRN 11/25/16 History Inhaler] Cyanocobalamin [Vitamin B-12 1,000 mcg SQ QMONTH 11/25/16 11/25/16 History Injection] Ibuprofen [Motrin] 800 mg PO TID-W/MEALS 11/25/16 11/25/16 History Levothyroxine Sodium [Synthroid] 75 mcg PO DAILY 11/25/16 11/25/16 History Montelukast [Singulair] 10 mg PO DAILY 11/25/16 11/25/16 History Triamcinolone Acetonide 1 applic TOPICAL BID 11/25/16 11/25/16 History [Triamcinolone Acetonide 0.025%] Allergies Allergy/AdvReac Type Severity Reaction Status Date / Time No Known Allergies Allergy Verified 11/25/16 10:34 Physical Exam Vitals: Vital Signs Temp Pulse Pulse Resp BP BP BP 11/25/16 12:00 83 16 129/90 133/90 11/25/16 08:00 98.3 F 95 16 11/25/16 03:42 97 F L 84 16 11/25/16 00:00 97 F L 97 16 11/24/16 21:52 98.2 F 86 18 92/57 11/24/16 21:23 97 F L 98 16 11/24/16 21:17 105 H 16 99/55 11/24/16 20:05 110 H 18 109/56 11/24/16 19:16 110 H 16 86/52 11/24/16 18:42 98.3 F 119 H 18 76/43 BP Pulse Ox 11/25/16 12:00 99 11/25/16 08:00 114/78 97 11/25/16 03:42 102/59 97 11/25/16 00:00 97/56 97 11/24/16 21:52 100 11/24/16 21:23 99/61 96 11/24/16 21:17 99 11/24/16 20:05 99 11/24/16 19:16 99 11/24/16 18:42 99 Intake and Output 11/24/16 11/25/16 11/25/16 22:59 06:59 14:59 Intake Total 100 700 860 Output Total 400 200 Balance 100 300 660 Intake: IV 100 700 500 Sodium Chloride 0.9% 1, 100 700 500 000 ml @ 100 mls/hr IV . Q10H ONE Rx#:[id number] Oral 360 Output: Urine 400 200 Other: Voiding Method Urinal # Voids 1 Weight 80.5 kg 80.6 kg 80.6 kg Patient Weight 11/26/16 06:59 Weight 80.6 kg PHYSICAL EXAMINATION: Patient is lying in the bed comfortably, no acute distress, awake alert and oriented. But confused and lethargic. HEENT: Normocephalic. Neck is supple. Pupils reactive. Nostrils clear. Oral cavity is moist. Ears reveal no drainage. Neck reveals no JVD, carotid bruits, or thyromegaly. CHEST EXAMINATION: Trachea is central. Symmetrical expansion. Lung hilliard clear to auscultation and percussion. CARDIAC: Normal S1, S2 with no gallops. No murmurs ABDOMEN: Soft. Bowel sounds normal. No organomegaly. No abdominal bruits. Extremities reveal no edema. No clubbing or cyanosis Neurologically awake, alert, oriented x3 with well-coordinated movements. Skin: no rash or skin lesions Musculoskeletal: no joint swelling or deformity. Results CBC & Chem 7: 11/24/16 18:59 11/25/16 05:39 Labs: Abnormal Lab Results - Last 24 Hours (Table) 11/24/16 11/24/16 11/24/16 Range/Units 18:59 18:59 18:59 RBC 4.08 L (4.30-5.90) m/uL MCV 110.3 H (80.0-100.0) fL MCH 35.6 H (25.0-35.0) pg Lymphocytes # 0.7 L (1.0-4.8) k/uL APTT (22.0-30.0) sec Chloride (98-107) mmol/L Carbon Dioxide 17 L (22-30) mmol/L BUN 32 H (9-20) mg/dL Creatinine 3.23 H (0.66-1.25) mg/dL Glucose 100 H (74-99) mg/dL POC Glucose (mg/dL) (75-99) mg/dL AST 114 H (17-59) U/L ALT 165 H (21-72) U/L Alkaline Phosphatase 175 H (38-126) U/L Total Creatine Kinase 336 H (55-170) U/L CK-MB (CK-2) 3.8 H* (0.0-2.4) ng/mL Albumin (3.5-5.0) g/dL Urine Protein (Negative) Ur Leukocyte Esterase (Negative) Urine WBC (0-5) /hpf Hyaline Casts (0-2) /lpf Urine Mucus (None) /hpf Urine Opiates Screen (NotDetected) U Tricyclic Antidepress (NotDetected) Ur Amphetamines Screen (NotDetected) U Benzodiazepines Scrn (NotDetected) 11/24/16 11/24/16 11/24/16 Range/Units 18:59 18:59 18:59 RBC (4.30-5.90) m/uL MCV (80.0-100.0) fL MCH (25.0-35.0) pg Lymphocytes # (1.0-4.8) k/uL APTT 21.8 L (22.0-30.0) sec Chloride (98-107) mmol/L Carbon Dioxide (22-30) mmol/L BUN (9-20) mg/dL Creatinine (0.66-1.25) mg/dL Glucose (74-99) mg/dL POC Glucose (mg/dL) (75-99) mg/dL AST (17-59) U/L ALT (21-72) U/L Alkaline Phosphatase (38-126) U/L Total Creatine Kinase (55-170) U/L CK-MB (CK-2) (0.0-2.4) ng/mL Albumin (3.5-5.0) g/dL Urine Protein 2+ H (Negative) Ur Leukocyte Esterase Moderate H (Negative) Urine WBC 20 H (0-5) /hpf Hyaline Casts 32 H (0-2) /lpf Urine Mucus Moderate H (None) /hpf Urine Opiates Screen Detected H (NotDetected) U Tricyclic Antidepress Detected H (NotDetected) Ur Amphetamines Screen Detected H (NotDetected) U Benzodiazepines Scrn Detected H (NotDetected) 11/24/16 11/25/16 Range/Units 19:14 05:39 RBC (4.30-5.90) m/uL MCV (80.0-100.0) fL MCH (25.0-35.0) pg Lymphocytes # (1.0-4.8) k/uL APTT (22.0-30.0) sec Chloride 112 H (98-107) mmol/L Carbon Dioxide 17 L (22-30) mmol/L BUN 35 H (9-20) mg/dL Creatinine 2.17 H (0.66-1.25) mg/dL Glucose (74-99) mg/dL POC Glucose (mg/dL) 122 H (75-99) mg/dL AST 84 H (17-59) U/L ALT 131 H (21-72) U/L Alkaline Phosphatase 137 H (38-126) U/L Total Creatine Kinase (55-170) U/L CK-MB (CK-2) (0.0-2.4) ng/mL Albumin 3.4 L (3.5-5.0) g/dL Urine Protein (Negative) Ur Leukocyte Esterase (Negative) Urine WBC (0-5) /hpf Hyaline Casts (0-2) /lpf Urine Mucus (None) /hpf Urine Opiates Screen (NotDetected) U Tricyclic Antidepress (NotDetected) Ur Amphetamines Screen (NotDetected) U Benzodiazepines Scrn (NotDetected) Thrombosis Risk Factor Assmnt - DVT/VTE Prophylaxis DVT/VTE Prophylaxis: Pharmacologic Prophylaxis ordered - Choose All That Apply Each Factor Represents 1 point: Age 41-60 years, Obesity (BMI >25) Each Risk Factor Represents 2 Points: Major surgery Thrombosis Risk Factor Assessment Total Risk Factor Score: 4 Thrombosis Risk Factor Assessment Level: Moderate Risk Assessment and Plan Plan: #1 acute metabolic and toxic encephalopathy due to drug overdose #2 history of alcohol abuse. #3 elevated liver enzymes/transaminitis #4 acute kidney injury most likely prerenal with creatinine level 3.23 #5 macrocytosis due to history of alcohol abuse #6 uncontrolled hypertension #7 metabolic acidosis Plan: Patient will be continued on IV hydration. Continue with symptomatic management. Blood pressure is not elevated this time. Psychiatric has been consulted. Recommended outpatient mental health clinic follow-up. Continue the current management and follow closely. We will repeat CBC and BMP for tomorrow and monitor renal function. Further recommendations based on the clinical course. Time with Patient: Greater than 30
[2016-11-26] MEDS: SODIUM CHLORIDE 0.9% 1,000 ML IV SCH ×2 (04:18→16:48)
[2016-11-26 05:56] LABS: CH 36.5; CHCM 33.1; HCT 39.8 % (39.0-53.0); HDW 2.18; HGB 12.9 gm/dL (13.0-17.5); MCH 35.9 pg (25.0-35.0); MCHC 32.4 g/dL (31.0-37.0); MCV 110.6 fL (80.0-100.0); Macrocytosis Marked; RDW 13.3 % (11.5-15.5); WBC 4.7 k/uL (3.8-10.6); WBC (Perox) 4.64
[2016-11-26 06:14] LABS: Anion Gap 8 mmol/L; Blood Urea Nitrogen 23 mg/dL (9-20); Calcium 9.4 mg/dL (8.4-10.2); Carbon Dioxide 21 mmol/L (22-30); Chloride 111 mmol/L (98-107); Glucose 85 mg/dL (74-99); Non-African American GFR(MDRD) >60 (>60 ml/min/1.73 sqM); Potassium 4.8 mmol/L (3.5-5.1); Sodium 140 mmol/L (137-145)
[2016-11-26 07:09] LABS: Add Differential Manual Differential
[2016-11-26 07:14] LABS: Band Neutrophils % 1 %; Nucleated Red Blood Cells 0 /100 WBC (0-0); Total Cells Counted 100
[2016-11-26 07:19] LABS: Polychromasia Present
[2016-11-26 07:22] LABS: Manual Review Performed
[2016-11-26] MEDS: HEPARIN SODIUM,PORCINE 5,000 UNIT/ML 1 ML VIAL SQ SCH ×2 (08:34→08:40)
--- NOTE | 2016-11-26 09:13 | CONS ---
CONSULTATION DATE OF CONSULTATION: 11/25/2016 CHIEF COMPLAINT: Syncope. HISTORY OF PRESENT ILLNESS: Mr. Sun is a 46-year-old, male, who was being evaluated by the Neurology Service today on 11/25/2016 per the request of Dr. Deion Alvarez for a syncopal spell. The patient was brought into [facility] Emergency Room after he had an episode where he did pass out. The patient was loading his kayak after he had been kayaking and did pass out. According to the chart, no seizure-like activity was described. He does report that he has been having some dizziness recently which he described as a lightheaded sensation. The patient has history of hypertension and was on lisinopril but he informs me that his lisinopril was recently increased due to continued elevation of his blood pressure. In the emergency room, his blood pressure was found to be low at 76/43. The patient was started on IV hydration and admitted for further workup and management. I did review his laboratory workup. His CBC was normal. His comprehensive metabolic profile showed renal insufficiency with a BUN of 35 and creatinine of 2.17. He also had hepatic insufficiency with an AST of 114 and an ALT of 165. His urinalysis showed 20 WBCs with moderate leukocyte esterase. His urine drug screen was positive for opiates, benzodiazepine, barbiturates, and amphetamine. According to the hospital admission, it is unclear why the urine drug screen was positive for amphetamines and opiates, but the patient does tell me that he has been on Adderall for several years and he was recently prescribed [place] for back pain. At the time of my evaluation, the patient is sitting in his bed and appears to be in no acute distress. He has been ambulating down the hallway with no difficulties. He denies any recurrence of any presyncopal or syncopal symptoms. His cardiac enzymes showed slightly elevated CPK and CK-MB but his troponin I was normal. PAST MEDICAL HISTORY: Hypertension, attention deficit disorder, hypothyroidism, anxiety disorder. PAST SURGICAL HISTORY: Orthopedic surgeries. FAMILY HISTORY: Noncontributory. HOME MEDICATIONS: Reviewed in the chart. ALLERGIES: No known drug allergies. REVIEW OF SYSTEM: As mentioned above and otherwise negative. PHYSICAL EXAM: Vital signs show a temperature of 98.3, pulse 95, respirations 16, blood pressure 114/78. GENERAL APPEARANCE: The patient is a well-developed male, who appears to be in no acute distress. HEENT: Normocephalic, atraumatic, no facial asymmetry is seen. Neck is supple with no masses felt. CARDIOVASCULAR: Regular rate and rhythm. ABDOMEN: Nontender nondistended. Extremities showed no edema or clubbing. NEUROLOGICAL EXAM: The patient is alert, aware and oriented x3. No lateralizing weakness is seen. Sensory exam was normal to light touch in all 4 extremities. No tremors or seizure-like activity is seen. No facial asymmetry is noticed on cranial nerve testing. IMPRESSION: 1. Syncopal spell. 2. Renal insufficiency. 3. Hepatic insufficiency. 4. Hypotension. 5. History of hypertension. 6. Acute urinary tract infection. RECOMMENDATION: The patient's syncopal spell was likely due to hypotensive episode. The patient had been feeling lightheaded and his blood pressure was very low when he arrived to the emergency room. His lisinopril was recently increased as mentioned above. I do recommend adjustments of his blood pressure medications. An EEG has been ordered. Continue IV hydration for his renal insufficiency. I do recommend antibiotic therapy for his urinary tract infection. I also recommend further workup for his abnormal hepatic profile. I will continue to follow with you as needed. Thank you, Dr. Alvarez for allowing me to participate in the care of your patient. If you have any questions, please feel free to contact me. JORDAN / ELIZABETH: [id number] /
--- NOTE | 2016-11-26 10:50 | P.PN ---
Subjective Patient resting in bed without complaint at this point. Patient states accidental overdose of his medication. Patient has had psychiatric rate evaluation recommended outpatient therapy. Had neurology consultation regarding syncope Objective - Vital Signs Vital signs: Vital Signs Temp 97.2 F L 11/26/16 08:00 Pulse 77 11/26/16 08:00 Resp 16 11/26/16 08:00 BP 124/79 11/26/16 08:00 Pulse Ox 98 11/26/16 08:00 Intake & Output 11/25/16 11/26/16 11/26/16 18:59 06:59 18:59 Intake Total 980 900 Output Total 200 1475 400 Balance 780 575 -400 Weight 80.6 kg 82.1 kg Intake: IV 500 900 Sodium Chloride 0.9% 1, 500 900 000 ml @ 100 mls/hr IV . Q10H ONE Rx#:[id number] Oral 480 Output: Urine 200 1475 400 Other: Voiding Method Urinal Urinal # Voids 1 1 # Bowel Movements 0 1 - Constitutional General appearance: Present: average body habitus - EENT Eyes: Present: PERRLA Ears: bilateral: normal - Neck Neck: Present: normal ROM - Respiratory Respiratory: bilateral: CTA - Cardiovascular Rhythm: regular - Gastrointestinal General gastrointestinal: Present: soft - Integumentary Integumentary: Present: normal - Neurologic Neurologic: Present: CNII-XII intact - Psychiatric Psychiatric: Present: A&O x's 3, appropriate affect, intact judgment & insight - Labs CBC & Chem 7: 11/26/16 05:38 11/26/16 05:38 Labs: Abnormal Lab Results - Last 24 Hours (Table) 11/26/16 11/26/16 Range/Units 05:38 05:38 RBC 3.60 L (4.30-5.90) m/uL Hgb 12.9 L (13.0-17.5) gm/dL MCV 110.6 H (80.0-100.0) fL MCH 35.9 H (25.0-35.0) pg Chloride 111 H (98-107) mmol/L Carbon Dioxide 21 L (22-30) mmol/L BUN 23 H (9-20) mg/dL - Imaging and Cardiology Chest x-ray: report reviewed CT Scan - head: report reviewed Assessment and Plan Plan: Assessment Acute metabolic and toxic encephalopathy secondary to drug abuse History of alcohol abuse Elevated liver enzymes secondary to alcohol use enzymes improving Acute kidney injury most likely prerenal recovering Macro cytosis secondary to alcohol abuse Hypotension history of hypertension Syncope metabolic acidosis Plan Hopeful discharge home soon to follow-up with psychiatry will adjust the medication
[2016-11-26 15:32] VITALS: BP 135/86; PULSE 71; TEMP 96.2
--- NOTE | 2016-11-26 15:49 | P.PN ---
Subjective Principal diagnosis: Patient is a pleasant 46-year-old male who is being followed by the neurology service for syncopal episode. Patient states he had taken his pain medication, Ativan, and muscle relaxer all at the same time. Patient states less than an hour later he felt dizzy and lightheaded and had a syncopal episode. Patient does have history of hypertension and is also on lisinopril. On admission patient's blood pressure was 76/43. Computed tomography scan of the brain at admission was without any acute abnormality. Patient was given IV hydration and was admitted for further workup. At the time of my evaluation, patient is ambulating well in the hallway. Patient appears to be in no acute distress. Objective - Vital Signs Vital signs: Vital Signs Temp 96.2 F L 11/26/16 12:00 Pulse 71 11/26/16 12:00 Resp 16 11/26/16 12:00 BP 135/86 11/26/16 12:00 Pulse Ox 97 11/26/16 12:00 Intake & Output 11/25/16 11/26/16 11/26/16 18:59 06:59 18:59 Intake Total 980 900 240 Output Total 200 1475 400 Balance 780 -575 -160 Weight 80.6 kg 82.1 kg Intake: IV 500 900 Sodium Chloride 0.9% 1, 500 900 000 ml @ 100 mls/hr IV . Q10H ONE Rx#:[id number] Oral 480 240 Output: Urine 200 1475 400 Other: Voiding Method Urinal Toilet # Voids 1 1 # Bowel Movements 0 1 - Exam PHYSICAL EXAM: GENERAL APPEARANCE: Patient is a well-developed, male who appears to be in no acute distress. HEENT: Normocephalic, atraumatic, no facial asymmetry is seen. Neck is supple with no masses felt. CARDIOVASCULAR: Regular rate and rhythm. ABDOMEN: Nontender, nondistended. EXTREMITIES: Show no edema or clubbing. NEUROLOGICAL EXAM: Patient is awake, alert, and oriented 3. Speech and language are normal. Strength is full in all 4 extremities. Sensory exam is normal to light touch in all 4 extremities. No facial asymmetry is seen on cranial nerve testing. No tremors or seizure-like activity is noted. - Labs CBC & Chem 7: 11/26/16 05:38 11/26/16 05:38 Labs: Abnormal Lab Results - Last 24 Hours (Table) 11/26/16 11/26/16 Range/Units 05:38 05:38 RBC 3.60 L (4.30-5.90) m/uL Hgb 12.9 L (13.0-17.5) gm/dL MCV 110.6 H (80.0-100.0) fL MCH 35.9 H (25.0-35.0) pg Chloride 111 H (98-107) mmol/L Carbon Dioxide 21 L (22-30) mmol/L BUN 23 H (9-20) mg/dL Assessment and Plan Plan: Impression: 1. Syncopal episode 2. Renal insufficiency 3. Hepatic insufficiency 4. Hypotension 5. History of hypertension 6. Acute urinary tract infection Recommendations: Patient syncopal episode was most likely related to hypotensive episode. Patient recently had KRISHNA inhibitor increased. Patient also took multiple medications together which could have contributed to his syncopal episode. Patient was cautioned not to take his pain medication, Ativan , and muscle relaxer together. I advised patient stop either muscle relaxer or Ativan and he agrees. EEG was done and results are pending. I recommend continuing antibiotic therapy for urinary tract infection. Continue medical management. Continue neurological checks. From a neurological standpoint, patient is stable for discharge. I will continue to follow with you on an as- needed basis. Feel free to call with any questions or concerns. I performed an examination of the patient and discussed the management with the PROTECTION OFFICER. I have reviewed the PROTECTION OFFICER notes and agree with the findings and plan of care.
--- NOTE | 2016-11-26 16:28 | P.DS ---
Providers Date of admission: 11/24/16 20:10 Expected date of discharge: 11/26/16 Attending physician: Deion Alvarez Consults: 11/24/16 20:11 Consult Physician Urgent Consulting Provider: Monica Basurto Consult Reason/Comments: ams Do you want consulting provider notified?: Yes Consult Physician Urgent Consulting Provider: Zahra Pizarro Consult Reason/Comments: ams Do you want consulting provider notified?: Yes Primary care physician: Deion Alvarez Hospital Course: 46-year-old male presented to the emergency room for EMS with the change in mental status patient had taken several medications altogether and made them hypotensive. Patient states that he was not being suicidal. Patient was evaluated by psychiatry and neurology and cleared for discharge. Patient is follow up with family physician. Control medication antihypertensive medication held at this time. Patient had recently restarted use of alcohol Assessment acute metabolic and toxic encephalopathy secondary drug overdose history of alcohol abuse elevated liver enzymes improved acute kidney injury improved macros psychosis secondary to alcohol abuse history of hypertension treated for hypotension metabolic acidosis syncope secondary to hypotension Plan discharge home follow up with family physician and psychiatry Plan - Discharge Summary New Discharge Prescriptions: Continue Disulfiram [Antabuse] 250 mg PO DAILY buPROPion XL [Wellbutrin XL] 150 mg PO DAILY Albuterol Inhaler [Ventolin Hfa Inhaler] 1 - 2 puff INHALATION RT-Q6H PRN PRN Reason: Shortness Of Breath Triamcinolone Acetonide [Triamcinolone Acetonide 0.025%] 1 applic TOPICAL BID Montelukast [Singulair] 10 mg PO DAILY Levothyroxine Sodium [Synthroid] 75 mcg PO DAILY Discontinued LORazepam [Ativan] 1 mg PO TID Zolpidem [Ambien] 10 mg PO HS PRN PRN Reason: Insomnia Lisinopril [Zestril] 10 mg PO DAILY Ibuprofen [Motrin] 800 mg PO TID-W/MEALS No Action Cyanocobalamin [Vitamin B-12 Injection] 1,000 mcg SQ QMONTH Discharge Medication List Disulfiram [Antabuse] 250 mg PO DAILY 11/24/16 [History] buPROPion XL [Wellbutrin XL] 150 mg PO DAILY 11/24/16 [History] Albuterol Inhaler [Ventolin Hfa Inhaler] 1 - 2 puff INHALATION RT-Q6H PRN [History] Cyanocobalamin [Vitamin B-12 Injection] 1,000 mcg SQ QMONTH 11/25/16 [History] Levothyroxine Sodium [Synthroid] 75 mcg PO DAILY 11/25/16 [History] Montelukast [Singulair] 10 mg PO DAILY 11/25/16 [History] Triamcinolone Acetonide [Triamcinolone Acetonide 0.025%] 1 applic TOPICAL BID [History] Follow up Appointment(s)/Referral(s): Deion Alvarez MD [Primary Care Provider] - 11/29/16 9:40 am Ray Romero DO [Medical Doctor] - 1 Week Discharge Disposition: HOME SELF-CARE
--- NOTE | 2016-11-26 19:18 | EEG ---
ELECTROENCEPHALOGRAM REPORT DATE OF SERVICE: 11/26/2016. REASON FOR TESTING: Syncope. PROCEDURE: This EEG was performed using a 21 channel digital electroencephalograph, following international 10-20 system. DESCRIPTION OF THE RECORDING: From the beginning of the tracing, and with patient's eyes closed, the background rhythm was mostly consisting of 9-10 hertz alpha frequency in the posterior occipital leads. No obvious asymmetry is seen. Frequent movement and muscle artifacts are seen. Hyperventilation was not performed. The patient remains awake throughout the tracing. No epileptiform discharges were seen. His EKG lead showed a regular rate and rhythm. INTERPRETATION: This awake EEG can be considered within normal limits. There was no asymmetry seen. No epileptiform discharges were noticed. The absence of epileptiform discharges does not rule out the diagnosis of epilepsy, therefore clinical correlation is recommended. MMODL / IJN: [id number] /
== END 2016-11-26 16:56 | disposition home or self-care (01) | DRG 917 ==
LOC: EC 18:31 → 6SEL 20:10
PROVIDERS: ADMIT Family Medicine; ATTEND Family Medicine
DX: T50.901A Poisoning by unspecified drugs, medicaments and biological substances, accidental (unintentional), initial encounter (principal); G92 Toxic encephalopathy; N17.9 Acute kidney failure, unspecified; E87.2 Acidosis; D51.9 Vitamin B12 deficiency anemia, unspecified; I95.2 Hypotension due to drugs; N39.0 Urinary tract infection, site not specified; F10.188 Alcohol abuse with other alcohol-induced disorder; I10 Essential (primary) hypertension; R74.0 Nonspecific elevation of levels of transaminase and lactic acid dehydrogenase [LDH]; M54.9 Dorsalgia, unspecified; G47.00 Insomnia, unspecified; R00.0 Tachycardia, unspecified; G47.30 Sleep apnea, unspecified; E03.9 Hypothyroidism, unspecified; F41.9 Anxiety disorder, unspecified; F32.9 Major depressive disorder, single episode, unspecified; D75.89 Other specified diseases of blood and blood-forming organs; F17.200 Nicotine dependence, unspecified, uncomplicated; Z79.899 Other long term (current) drug therapy; Z79.1 Long term (current) use of non-steroidal anti-inflammatories (NSAID); Z71.3 Dietary counseling and surveillance; Z80.9 Family history of malignant neoplasm, unspecified; Z79.891 Long term (current) use of opiate analgesic; Z91.81 History of falling; Z87.828 Personal history of other (healed) physical injury and trauma; Y90.0 Blood alcohol level of less than 20 mg/100 ml
CPT/HCPCS: 36415; 70450; 71020; 80048; 80053; 80306; 80320; 81001; 82550; 82553; 84484; 85025; 85379; 85610; 85730; 93005; 95819; 96360; 96361; 99285

== ENCOUNTER 2016-12-12 12:46 | Emergency (ER) | payer OTHER ==
[2016-12-12] MEDS ORDERED: SODIUM CHLORIDE 0.9% 500 ML IV STA (13:14)
[2016-12-12 14:22] LABS: ALT 76 U/L (21-72); AST 92 U/L (17-59); Alkaline Phosphatase 150 U/L (38-126); Anion Gap 19 mmol/L; Blood Urea Nitrogen 27 mg/dL (9-20); Calcium 8.6 mg/dL (8.4-10.2); Carbon Dioxide 18 mmol/L (22-30); Chloride 101 mmol/L (98-107); Glucose 91 mg/dL (74-99); Magnesium 1.5 mg/dL (1.6-2.3); Non-African American GFR(MDRD) 52 (>60 ml/min/1.73 sqM); Potassium 3.7 mmol/L (3.5-5.1); Sodium 138 mmol/L (137-145); Total Bilirubin 0.4 mg/dL (0.2-1.3); Total Protein 7.3 g/dL (6.3-8.2)
[2016-12-12 14:23] LABS: Basophils % (A) 0 %; CH 36.6; CHCM 35.5; Eosinophils % (A) 0 %; HCT 45.9 % (39.0-53.0); HDW 2.32; HGB 15.5 gm/dL (13.0-17.5); Luc # (Auto) 0.16; Luc % (Auto) 2; Lymphocytes # (A) 0.9 k/uL (1.0-4.8); Lymphocytes % (A) 10 %; MCHC 33.8 g/dL (31.0-37.0); Macrocytosis Slight; Monocytes # (A) 0.5 k/uL (0-1.0); Monocytes % (A) 6 %; Neutrophils # (A) 6.8 k/uL (1.3-7.7); Neutrophils % (A) 81 %; RBC 4.44 m/uL (4.30-5.90); RDW 13.5 % (11.5-15.5); WBC 8.5 k/uL (3.8-10.6); WBC (Perox) 8.28
[2016-12-12 14:24] LABS: Appearance,Urine Cloudy (Clear); Bacteria,Urine Occasional /hpf; Bilirubin,Urine Negative (Negative); Glucose,Urine (UA) Negative (Negative); Ketones,Urine Negative (Negative); Leukocyte Esterase,Urine Trace (Negative); Mucus,Urine Rare /hpf; Nitrite,Urine Negative (Negative); PH, Urine 5.5 (5.0-8.0); Particle Count 3230; Protein,Urine Trace (Negative); RBC,Urine <1 /hpf (0-5); Specific Gravity,Urine 1.007 (1.001-1.035); Squamous Epithelial Cell,Urine <1 /hpf (0-4); UA Billing (MACRO vs. MICRO) MICRO; Urobilinogen,Urine <2.0 mg/dL (<2.0); WBC,Urine 19 /hpf (0-5)
--- NOTE | 2016-12-12 14:25 | ED ---
Arrhythmia/Palpitations HPI - General Chief Complaint: Arrhythmia/Palpitations Stated Complaint: Tachycardia Time Seen by Provider: 12/12/16 13:07 Source: patient, RN notes reviewed Mode of arrival: ambulatory Limitations: no limitations - History of Present Illness Initial Comments: 45-year-old male presents emergency department to complaint of tachycardia. Patient was sent over here from care physician's office to be evaluated secondary to elevated heart rate. Patient states he was in the 130s. Patient states he has no pain, shortness breath, headache, dizziness. 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 Patient denies any nausea, vomiting diarrhea constipation. Patient does have a history of hypertension. Patient has no focal weakness. Patient offers no other complaints. - Related Data Home Medications Medication Instructions Recorded Confirmed Disulfiram [Antabuse] 250 mg PO DAILY 11/24/16 12/12/16 buPROPion XL [Wellbutrin XL] 150 mg PO DAILY 11/24/16 12/12/16 Albuterol Inhaler [Ventolin Hfa 1 - 2 puff INHALATION RT-Q6H PRN 11/25/16 Inhaler] Cyanocobalamin [Vitamin B-12 1,000 mcg SQ QMONTH 11/25/16 12/12/16 Injection] Levothyroxine Sodium [Synthroid] 75 mcg PO DAILY 11/25/16 12/12/16 Montelukast [Singulair] 10 mg PO DAILY 11/25/16 12/12/16 Cyclobenzaprine [Flexeril] 10 mg PO HS PRN 12/12/16 12/12/16 Ibuprofen [Motrin] 800 mg PO TID PRN 12/12/16 12/12/16 LORazepam [Ativan] 1 mg PO HS PRN 12/12/16 12/12/16 Allergies Allergy/AdvReac Type Severity Reaction Status Date / Time No Known Allergies Allergy Verified 12/12/16 13:13 Review of Systems ROS Statement: Those systems with pertinent positive or pertinent negative responses have been documented in the HPI. ROS Other: All systems not noted in ROS Statement are negative. Past Medical History Past Medical History: Hypertension, Thyroid Disorder Additional Past Medical History / Comment(s): VITAMIN B12 DEFICIENCY ANEMIA, rhabdomyolysis History of Any Multi-Drug Resistant Organisms: None Reported Past Surgical History: Orthopedic Surgery Additional Past Surgical History / Comment(s): BILAT Shoulder Surgery; 2 surgery on left side; one surgery on right Past Anesthesia/Blood Transfusion Reactions: No Reported Reaction Past Psychological History: Anxiety, Depression Smoking Status: Current some day smoker Past Alcohol Use History: Occasional Past Drug Use History: None Reported - Past Family History Mother Family Medical History: No Reported History Father Family Medical History: Cancer General Exam Limitations: no limitations General appearance: alert, in no apparent distress Head exam: Present: atraumatic, normocephalic, normal inspection Neck exam: Present: normal inspection, full ROM. Absent: tenderness, meningismus, lymphadenopathy Respiratory exam: Present: normal lung sounds bilaterally. Absent: respiratory distress, wheezes, rales, rhonchi, stridor Cardiovascular Exam: Present: normal rhythm, tachycardia, normal heart sounds. Absent: systolic murmur, diastolic murmur, rubs, gallop, clicks GI/Abdominal exam: Present: soft, normal bowel sounds. Absent: distended, tenderness, guarding, rebound, rigid Neurological exam: Present: alert, oriented X3, CN II-XII intact Skin exam: Present: warm, dry, intact, normal color. Absent: rash Course Vital Signs 12/12/16 12/12/16 12/12/16 12:50 14:06 14:30 Temperature 98.4 F Pulse Rate 127 H 109 H 111 H Respiratory 18 18 20 Rate Blood Pressure 124/85 114/69 108/73 O2 Sat by Pulse 97 99 97 Oximetry 12/12/16 15:45 Temperature Pulse Rate 119 H Respiratory 16 Rate Blood Pressure 116/66 O2 Sat by Pulse 97 Oximetry EKG Findings - EKG Comments: EKG Findings:: EKG performed at 13:17 sinus tachycardia with a rate of 112 WI interval 134 QRS duration 90 QT/QTC 338/461 Medical Decision Making - Medical Decision Making 46-year-old male presented for tachycardia. Patient tolerated improved after some IV fluids. Patient CT does not show any evidence of PE secondary to elevated d-dimer this was performed. Patient is intoxicated though mother is here to take patient home. I did discuss case with Holly Streeter his primary physician who didn't hear. She felt that if he is able: The patient may be discharged. Patient is advised to discontinue all as directed by PCP she is to follow-up for recheck and return for any worsening symptoms. - Lab Data Result diagrams: 12/12/16 13:47 12/12/16 13:47 Lab Results 12/12/16 12/12/16 12/12/16 Range/Units 13:47 13:47 13:47 WBC 8.5 (3.8-10.6) k/uL RBC 4.44 (4.30-5.90) m/uL Hgb 15.5 (13.0-17.5) gm/dL Hct 45.9 (39.0-53.0) % MCV 103.5 H D (80.0-100.0) fL MCH 35.0 (25.0-35.0) pg MCHC 33.8 (31.0-37.0) g/dL RDW 13.5 (11.5-15.5) % Plt Count 100 L (150-450) k/uL Neutrophils % 81 % Lymphocytes % 10 % Monocytes % 6 % Eosinophils % 0 % Basophils % 0 % Neutrophils # 6.8 (1.3-7.7) k/uL Lymphocytes # 0.9 L (1.0-4.8) k/uL Monocytes # 0.5 (0-1.0) k/uL Eosinophils # 0.0 (0-0.7) k/uL Basophils # 0.0 (0-0.2) k/uL Macrocytosis Slight PT (9.0-12.0) sec INR (<1.2) APTT (22.0-30.0) sec D-Dimer (<0.60) mg/L FEU Sodium 138 (137-145) mmol/L Potassium 3.7 (3.5-5.1) mmol/L Chloride 101 (98-107) mmol/L Carbon Dioxide 18 L (22-30) mmol/L Anion Gap 19 mmol/L BUN 27 H (9-20) mg/dL Creatinine 1.48 H (0.66-1.25) mg/dL Est GFR (MDRD) Af Amer >60 (>60 ml/min/1.73 sqM) Est GFR (MDRD) Non-Af 52 (>60 ml/min/1.73 sqM) Glucose 91 (74-99) mg/dL Calcium 8.6 (8.4-10.2) mg/dL Magnesium 1.5 L (1.6-2.3) mg/dL Total Bilirubin 0.4 (0.2-1.3) mg/dL AST 92 H (17-59) U/L ALT 76 H (21-72) U/L Alkaline Phosphatase 150 H (38-126) U/L Total Creatine Kinase 214 H (55-170) U/L CK-MB (CK-2) 1.8 (0.0-2.4) ng/mL CK-MB (CK-2) Rel Index 0.8 Troponin I <0.012 (0.000-0.034) ng/mL Total Protein 7.3 (6.3-8.2) g/dL Albumin 4.1 (3.5-5.0) g/dL TSH 1.020 (0.465-4.680) mIU/L Urine Color Urine Appearance (Clear) Urine pH (5.0-8.0) Ur Specific [place] (1.001-1.035) Urine Protein (Negative) Urine Glucose (UA) (Negative) Urine Ketones (Negative) Urine Blood (Negative) Urine Nitrite (Negative) Urine Bilirubin (Negative) Urine Urobilinogen (<2.0) mg/dL Ur Leukocyte Esterase (Negative) Urine RBC (0-5) /hpf Urine WBC (0-5) /hpf Ur Squamous Epith Cells (0-4) /hpf Urine Bacteria (None) /hpf Urine Mucus (None) /hpf Urine Opiates Screen (NotDetected) Ur Oxycodone Screen (NotDetected) Urine Methadone Screen (NotDetected) Ur Propoxyphene Screen (NotDetected) Ur Barbiturates Screen (NotDetected) U Tricyclic Antidepress (NotDetected) Ur Phencyclidine Scrn (NotDetected) Ur Amphetamines Screen (NotDetected) U Methamphetamines Scrn (NotDetected) U Benzodiazepines Scrn (NotDetected) Urine Cocaine Screen (NotDetected) U Marijuana (THC) Screen (NotDetected) Serum Alcohol 224 mg/dL 12/12/16 12/12/16 Range/Units 13:47 13:51 WBC (3.8-10.6) k/uL RBC (4.30-5.90) m/uL Hgb (13.0-17.5) gm/dL Hct (39.0-53.0) % MCV (80.0-100.0) fL MCH (25.0-35.0) pg MCHC (31.0-37.0) g/dL RDW (11.5-15.5) % Plt Count (150-450) k/uL Neutrophils % % Lymphocytes % % Monocytes % % Eosinophils % % Basophils % % Neutrophils # (1.3-7.7) k/uL Lymphocytes # (1.0-4.8) k/uL Monocytes # (0-1.0) k/uL Eosinophils # (0-0.7) k/uL Basophils # (0-0.2) k/uL Macrocytosis PT 10.4 (9.0-12.0) sec INR 1.0 (<1.2) APTT 24.7 (22.0-30.0) sec D-Dimer 1.24 H (<0.60) mg/L FEU Sodium (137-145) mmol/L Potassium (3.5-5.1) mmol/L Chloride (98-107) mmol/L Carbon Dioxide (22-30) mmol/L Anion Gap mmol/L BUN (9-20) mg/dL Creatinine (0.66-1.25) mg/dL Est GFR (MDRD) Af Amer (>60 ml/min/1.73 sqM) Est GFR (MDRD) Non-Af (>60 ml/min/1.73 sqM) Glucose (74-99) mg/dL Calcium (8.4-10.2) mg/dL Magnesium (1.6-2.3) mg/dL Total Bilirubin (0.2-1.3) mg/dL AST (17-59) U/L ALT (21-72) U/L Alkaline Phosphatase (38-126) U/L Total Creatine Kinase (55-170) U/L CK-MB (CK-2) (0.0-2.4) ng/mL CK-MB (CK-2) Rel Index Troponin I (0.000-0.034) ng/mL Total Protein (6.3-8.2) g/dL Albumin (3.5-5.0) g/dL TSH (0.465-4.680) mIU/L Urine Color Yellow Urine Appearance Cloudy (Clear) Urine pH 5.5 (5.0-8.0) Ur Specific [place] 1.007 (1.001-1.035) Urine Protein Trace H (Negative) Urine Glucose (UA) Negative (Negative) Urine Ketones Negative (Negative) Urine Blood Negative (Negative) Urine Nitrite Negative (Negative) Urine Bilirubin Negative (Negative) Urine Urobilinogen <2.0 (<2.0) mg/dL Ur Leukocyte Esterase Trace H (Negative) Urine RBC <1 (0-5) /hpf Urine WBC 19 H (0-5) /hpf Ur Squamous Epith Cells <1 (0-4) /hpf Urine Bacteria Occasional H (None) /hpf Urine Mucus Rare H (None) /hpf Urine Opiates Screen Not Detected (NotDetected) Ur Oxycodone Screen Not Detected (NotDetected) Urine Methadone Screen Not Detected (NotDetected) Ur Propoxyphene Screen Not Detected (NotDetected) Ur Barbiturates Screen Not Detected (NotDetected) U Tricyclic Antidepress Not Detected (NotDetected) Ur Phencyclidine Scrn Not Detected (NotDetected) Ur Amphetamines Screen Not Detected (NotDetected) U Methamphetamines Scrn Not Detected (NotDetected) U Benzodiazepines Scrn Detected H (NotDetected) Urine Cocaine Screen Not Detected (NotDetected) U Marijuana (THC) Screen Not Detected (NotDetected) Serum Alcohol mg/dL Disposition Clinical Impression: Dehydration, Tachycardia, Alcohol intoxication Disposition: HOME SELF-CARE Condition: Stable Instructions: Tachycardia (ED) Additional Instructions: Increase your fluid intake and follow-up with PCP.Please return to the Emergency Department if symptoms worsen or any other concerns. Referrals: Deion Alvarez MD [Primary Care Provider] - 1-2 days Time of Disposition: 16:09
[2016-12-12 14:26] LABS: MCV 103.5 fL (80.0-100.0)
[2016-12-12 14:29] LABS: Partial Thromboplastin Time 24.7 sec (22.0-30.0); Prothrombin Time 10.4 sec (9.0-12.0)
[2016-12-12] MEDS ORDERED: RX INFO: IV CONTRAST WAS GIVEN 1 EACH MISC MISCELLANE PRN (14:31)
[2016-12-12 14:35] LABS: Creatine Kinase 214 U/L (55-170)
[2016-12-12 14:48] LABS: Creatine Kinase MB 1.8 ng/mL (0.0-2.4); Troponin I <0.012 ng/mL (0.000-0.034)
--- NOTE | 2016-12-12 14:49 | XR ---
EXAMINATION TYPE: XR chest 2V DATE OF EXAM: 12/12/2016 CLINICAL HISTORY: Chest pain TECHNIQUE: Frontal and lateral views of the chest are obtained. COMPARISON: 11/24/2016 FINDINGS: There is no focal air space opacity, pleural effusion, or pneumothorax seen. The cardiac silhouette size is within normal limits. The osseous structures are intact. IMPRESSION: No acute cardiopulmonary process.
[2016-12-12 14:53] LABS: Alcohol 224 mg/dL
[2016-12-12] MEDS ORDERED: SODIUM CHLORIDE 0.9% 1,000 ML IV ONE (14:56)
--- NOTE | 2016-12-12 15:38 | CT ---
EXAMINATION TYPE: CT chest angio for PE DATE OF EXAM: 12/12/2016 COMPARISON: NONE HISTORY: Patient complains of tachycardia. CT DLP: 460 mGycm CONTRAST: CT chest with contrast and 3D reconstruction with MIP imaging is performed with IV Contrast, patient injected with 80 mL of Visipaque 320. Contrast-enhanced CT of the chest was performed through the course of the pulmonary arteries with ilana g and mediastinal window settings submitted. 3D reconstruction with MIP imaging was also performed. PULMONARY ARTERIES: The pulmonary arteries and their major tributaries are patent. I do not see ash dence for sizable filling defect to suggest pulmonary embolic process. LUNGS: The lungs are clear and free of infiltrate. No evidence for atelectasis. No pulmonary nodule or mass is detected. No pleural effusion. MEDIASTINUM: Thoracic aorta is of normal caliber . The heart is not enlarged. No evidence for media stinal mass. No mediastinal lymph nodes greater than 1cm. HILAR STRUCTURES: No evidence for mass. No hilar lymph nodes greater than 1 cm. UPPER ABDOMEN: No significant abnormality is seen. IMPRESSION: 1. No evidence for Pulmonary embolism at this time.
[2016-12-12 16:41] VITALS: BP 125/66; PULSE 118; RESP 18; TEMP 97.8
== END 2016-12-12 16:40 | disposition home or self-care (01) ==
LOC: EC 12:46
DX: E86.0 Dehydration (principal); R00.0 Tachycardia, unspecified; F10.120 Alcohol abuse with intoxication, uncomplicated; I10 Essential (primary) hypertension; E07.9 Disorder of thyroid, unspecified; D51.9 Vitamin B12 deficiency anemia, unspecified; F41.9 Anxiety disorder, unspecified; F32.9 Major depressive disorder, single episode, unspecified; F17.200 Nicotine dependence, unspecified, uncomplicated; Z79.899 Other long term (current) drug therapy
CPT/HCPCS: 99285 ×2; 96360 ×2; 36415; 93005; 85379; 80053; 82550; 82553; 83735; 84443; 84484; 85025; 85610; 85730; 81001; 80306; 80320; 87086; 71020; 71275; Q9967

== ENCOUNTER 2017-01-25 15:17 | Observation (INO) | payer OTHER ==
[2017-01-25] MEDS ORDERED: ONDANSETRON 4 MG/2 ML VIAL IVP STA (15:39)
[2017-01-25] MEDS ORDERED: SODIUM CHLORIDE 0.9% 1,000 ML IV STA (15:39)
--- NOTE | 2017-01-25 15:50 | ED ---
General Adult HPI - General Chief complaint: Nausea/Vomiting/Diarrhea Stated complaint: Syncope Time Seen by Provider: 01/25/17 15:32 Source: patient, family, RN notes reviewed Mode of arrival: wheelchair Limitations: no limitations - History of Present Illness Initial comments: Patient 46-year-old male significant past medical history for alcohol use, who presents emergency room today with a chief complaint of withdrawal type symptoms. He doesn't that he's had increased nausea vomiting over the last 2 days. He states last drink was 2 days ago. He does admit that he had a syncopal episode prior to coming in the emergency room today. His mother is at bedside stating that she didn't witness. States that he was just talking to her when he fell down. Patient states he did not hurt himself. He states he did not remember getting lightheaded or dizzy. He states stillsome nausea at this time. Some abdominal cramping. Denies any other complaints. Patient denies any recent fever, chills, shortness of breath, chest pain, back pain, numbness or tingling, dysuria or hematuria, constipation or diarrhea, headaches or visual changes, or any other complaints. - Related Data Home Medications Medication Instructions Recorded Confirmed Disulfiram [Antabuse] 250 mg PO DAILY 11/24/16 01/25/17 buPROPion XL [Wellbutrin XL] 150 mg PO DAILY 11/24/16 01/25/17 Albuterol Inhaler [Ventolin Hfa 1 - 2 puff INHALATION RT-Q6H PRN 11/25/16 Inhaler] Cyanocobalamin [Vitamin B-12 1,000 mcg SQ QMONTH 11/25/16 01/25/17 Injection] Levothyroxine Sodium [Synthroid] 75 mcg PO DAILY 11/25/16 01/25/17 Montelukast [Singulair] 10 mg PO DAILY 11/25/16 01/25/17 Cyclobenzaprine [Flexeril] 10 mg PO HS PRN 12/12/16 01/25/17 Ibuprofen [Motrin] 800 mg PO TID PRN 12/12/16 01/25/17 LORazepam [Ativan] 1 mg PO HS PRN 12/12/16 01/25/17 Allergies Allergy/AdvReac Type Severity Reaction Status Date / Time No Known Allergies Allergy Verified 01/25/17 15:43 Review of Systems ROS Statement: Those systems with pertinent positive or pertinent negative responses have been documented in the HPI. ROS Other: All systems not noted in ROS Statement are negative. Past Medical History Past Medical History: Hypertension, Thyroid Disorder Additional Past Medical History / Comment(s): VITAMIN B12 DEFICIENCY ANEMIA, rhabdomyolysis History of Any Multi-Drug Resistant Organisms: None Reported Past Surgical History: Orthopedic Surgery Additional Past Surgical History / Comment(s): BILAT Shoulder Surgery; 2 surgery on left side; one surgery on right Past Anesthesia/Blood Transfusion Reactions: No Reported Reaction Past Psychological History: Anxiety, Depression Smoking Status: Current some day smoker Past Alcohol Use History: Abuse, Daily, Heavy Past Drug Use History: None Reported - Past Family History Mother Family Medical History: No Reported History Father Family Medical History: Cancer General Exam - General Exam Comments Initial Comments: General: The patient is awake and alert, in no distress, and does not appear acutely ill. Eye: Pupils are equal, round and reactive to light, extra-ocular movements are intact. No nystagmus. There is normal conjunctiva bilaterally. No signs of icterus. Ears, nose, mouth and throat: There are moist mucous membranes and no oral lesions. Neck: The neck is supple, there is no tenderness or JVD. Cardiovascular: There is a regular rate and rhythm. No murmur, rub or gallop is appreciated. Respiratory: Lungs are clear to auscultation, respirations are non-labored, breath sounds are equal. No wheezes, stridor, rales, or rhonchi. Gastrointestinal: Soft, non-distended. Mild tenderness epigastric. There is no rebound or guarding present. No CVA tenderness. Bowel sounds are unremarkable. Musculoskeletal: Normal ROM, no tenderness. Strength 5/5. Sensation intact. Pulses equal bilaterally 2+. Neurological: A&O x 3. CN II-XII intact, There are no obvious motor or sensory deficits. Coordination appears grossly intact. Speech is normal. Skin: Skin is warm and dry and no rashes or lesions are noted. Psychiatric: Cooperative, appropriate mood & affect, normal judgment. Limitations: no limitations Course Vital Signs 01/25/17 01/25/17 15:26 17:30 Temperature 97.0 F L Pulse Rate 93 Respiratory 18 18 Rate Blood Pressure 167/98 O2 Sat by Pulse 99 Oximetry Medical Decision Making - Medical Decision Making Case discussed in detail with attending physician Patient reexamined at this time shows no signs of distress resting comfortably. Patient labs been reviewed does show mild elevation of the liver enzymes compared to previous. Patient's EKG shows normal sinus rhythm no acute abnormalities. Patient did have similar episode. Patient is an alcoholic. Patient's been monitored by nursing staff with CIWA scale requiring doses of Ativan. He'll be admitted for sickle episode and alcohol withdrawal. - Lab Data Result diagrams: 01/25/17 15:45 01/25/17 15:45 Lab Results 01/25/17 01/25/17 01/25/17 Range/Units 15:45 15:45 15:45 WBC 5.5 (3.8-10.6) k/uL RBC 4.29 L (4.30-5.90) m/uL Hgb 14.2 (13.0-17.5) gm/dL Hct 42.7 (39.0-53.0) % MCV 99.7 (80.0-100.0) fL MCH 33.0 (25.0-35.0) pg MCHC 33.1 (31.0-37.0) g/dL RDW 15.5 (11.5-15.5) % Plt Count 110 L (150-450) k/uL Neutrophils % 75 % Lymphocytes % 12 % Monocytes % 10 % Eosinophils % 1 % Basophils % 1 % Neutrophils # 4.1 (1.3-7.7) k/uL Lymphocytes # 0.6 L (1.0-4.8) k/uL Monocytes # 0.6 (0-1.0) k/uL Eosinophils # 0.0 (0-0.7) k/uL Basophils # 0.0 (0-0.2) k/uL Macrocytosis Slight Sodium 141 (137-145) mmol/L Potassium 3.5 (3.5-5.1) mmol/L Chloride 102 (98-107) mmol/L Carbon Dioxide 25 (22-30) mmol/L Anion Gap 14 mmol/L BUN 21 H (9-20) mg/dL Creatinine 0.69 (0.66-1.25) mg/dL Est GFR (MDRD) Af Amer >60 (>60 ml/min/1.73 sqM) Est GFR (MDRD) Non-Af >60 (>60 ml/min/1.73 sqM) Glucose 103 H (74-99) mg/dL Calcium 9.6 (8.4-10.2) mg/dL Total Bilirubin 2.4 H (0.2-1.3) mg/dL AST 256 H (17-59) U/L ALT 138 H (21-72) U/L Alkaline Phosphatase 211 H (38-126) U/L Total Creatine Kinase 116 (55-170) U/L CK-MB (CK-2) 1.1 (0.0-2.4) ng/mL CK-MB (CK-2) Rel Index 0.9 Troponin I <0.012 (0.000-0.034) ng/mL Total Protein 8.5 H (6.3-8.2) g/dL Albumin 4.5 (3.5-5.0) g/dL Urine Color Urine Appearance (Clear) Urine pH (5.0-8.0) Ur Specific [place] (1.001-1.035) Urine Protein (Negative) Urine Glucose (UA) (Negative) Urine Ketones (Negative) Urine Blood (Negative) Urine Nitrite (Negative) Urine Bilirubin (Negative) Urine Urobilinogen (<2.0) mg/dL Ur Leukocyte Esterase (Negative) Urine WBC (0-5) /hpf Ur Squamous Epith Cells (0-4) /hpf Urine Mucus (None) /hpf 01/25/17 Range/Units 15:45 WBC (3.8-10.6) k/uL RBC (4.30-5.90) m/uL Hgb (13.0-17.5) gm/dL Hct (39.0-53.0) % MCV (80.0-100.0) fL MCH (25.0-35.0) pg MCHC (31.0-37.0) g/dL RDW (11.5-15.5) % Plt Count (150-450) k/uL Neutrophils % % Lymphocytes % % Monocytes % % Eosinophils % % Basophils % % Neutrophils # (1.3-7.7) k/uL Lymphocytes # (1.0-4.8) k/uL Monocytes # (0-1.0) k/uL Eosinophils # (0-0.7) k/uL Basophils # (0-0.2) k/uL Macrocytosis Sodium (137-145) mmol/L Potassium (3.5-5.1) mmol/L Chloride (98-107) mmol/L Carbon Dioxide (22-30) mmol/L Anion Gap mmol/L BUN (9-20) mg/dL Creatinine (0.66-1.25) mg/dL Est GFR (MDRD) Af Amer (>60 ml/min/1.73 sqM) Est GFR (MDRD) Non-Af (>60 ml/min/1.73 sqM) Glucose (74-99) mg/dL Calcium (8.4-10.2) mg/dL Total Bilirubin (0.2-1.3) mg/dL AST (17-59) U/L ALT (21-72) U/L Alkaline Phosphatase (38-126) U/L Total Creatine Kinase (55-170) U/L CK-MB (CK-2) (0.0-2.4) ng/mL CK-MB (CK-2) Rel Index Troponin I (0.000-0.034) ng/mL Total Protein (6.3-8.2) g/dL Albumin (3.5-5.0) g/dL Urine Color Light Brown Urine Appearance Clear (Clear) Urine pH 7.0 (5.0-8.0) Ur Specific [place] 1.026 (1.001-1.035) Urine Protein 2+ H (Negative) Urine Glucose (UA) Negative (Negative) Urine Ketones 3+ H (Negative) Urine Blood Negative (Negative) Urine Nitrite Negative (Negative) Urine Bilirubin 2+ H (Negative) Urine Urobilinogen >12.0 (<2.0) mg/dL Ur Leukocyte Esterase Negative (Negative) Urine WBC 1 (0-5) /hpf Ur Squamous Epith Cells <1 (0-4) /hpf Urine Mucus Many H (None) /hpf Disposition Clinical Impression: Syncope, Alcohol withdrawal Disposition: ADMITTED IP TO THIS HOSP Condition: Stable Referrals: Deion Alvarez MD [Primary Care Provider] - 1-2 days Time of Disposition: 17:40
[2017-01-25] MEDS ORDERED: THIAMINE 100 MG/ML 2 ML VIAL IM STA (16:04)
[2017-01-25] MEDS ORDERED: LORazepam 2 MG/ML INJ IV PRN ×2 (16:04)
[2017-01-25 16:20] LABS: Basophils % (A) 1 %; Eosinophils % (A) 1 %; HCT 42.7 % (39.0-53.0); HGB 14.2 gm/dL (13.0-17.5); Lymphocytes # (A) 0.6 k/uL (1.0-4.8); Lymphocytes % (A) 12 %; MCHC 33.1 g/dL (31.0-37.0); MCV 99.7 fL (80.0-100.0); Macrocytosis Slight; Mean Platelet Volume 8.1; Monocytes # (A) 0.6 k/uL (0-1.0); Monocytes % (A) 10 %; Neutrophils # (A) 4.1 k/uL (1.3-7.7); Neutrophils % (A) 75 %; Platelet Count 110 k/uL (150-450); RBC 4.29 m/uL (4.30-5.90); RDW 15.5 % (11.5-15.5); WBC 5.5 k/uL (3.8-10.6)
[2017-01-25 16:21] LABS: Appearance,Urine Clear (Clear); Bilirubin,Urine 2+ (Negative); Blood,Urine Negative (Negative); Color,Urine Light Brown; Glucose,Urine (UA) Negative (Negative); Ketones,Urine 3+ (Negative); Leukocyte Esterase,Urine Negative (Negative); Mucus,Urine Many /hpf; Nitrite,Urine Negative (Negative); Protein,Urine 2+ (Negative); Specific Gravity,Urine 1.026 (1.001-1.035); Squamous Epithelial Cell,Urine <1 /hpf (0-4); Urobilinogen,Urine >12.0 mg/dL (<2.0); WBC,Urine 1 /hpf (0-5)
[2017-01-25 16:26] LABS: ALT 138 U/L (21-72); AST 256 U/L (17-59); Albumin 4.5 g/dL (3.5-5.0); Alkaline Phosphatase 211 U/L (38-126); Anion Gap 14 mmol/L; Blood Urea Nitrogen 21 mg/dL (9-20); Calcium 9.6 mg/dL (8.4-10.2); Carbon Dioxide 25 mmol/L (22-30); Chloride 102 mmol/L (98-107); Glucose 103 mg/dL (74-99); Potassium 3.5 mmol/L (3.5-5.1); Sodium 141 mmol/L (137-145); Total Bilirubin 2.4 mg/dL (0.2-1.3); Total Protein 8.5 g/dL (6.3-8.2)
[2017-01-25 16:27] LABS: Creatine Kinase 116 U/L (55-170)
--- NOTE | 2017-01-25 16:36 | XR ---
EXAMINATION TYPE: XR chest 2V DATE OF EXAM: 01/25/2017 COMPARISON: 12/12/2016 HISTORY: 46-year-old male with syncope TECHNIQUE: PA and lateral views FINDINGS: The cardiomediastinal silhouette, aorta, and pulmonary vasculature are within normal limits. Lungs an d pleural spaces are clear. IMPRESSION: No acute cardiopulmonary process.
[2017-01-25 16:39] LABS: Creatine Kinase MB 1.1 ng/mL (0.0-2.4); Troponin I <0.012 ng/mL (0.000-0.034)
[2017-01-25] MEDS: LORazepam 2 MG/ML INJ IV PRN ×2 (16:44→20:27)
[2017-01-25] MEDS ORDERED: SODIUM CHLORIDE 0.9% 1,000 ML with MVI, ADULT NO.4 WITH VIT K 10 ML, THIAMINE 100 MG, F... IV ONE ×4 (17:36)
[2017-01-25] MEDS ORDERED: ONDANSETRON 4 MG/2 ML VIAL IVP PRN (17:52)
[2017-01-25] MEDS ORDERED: NALOXONE 0.4 MG/ML 1 ML VIAL IV PRN (17:52)
--- NOTE | 2017-01-25 17:59 | CT ---
EXAMINATION TYPE: CT brain wo con DATE OF EXAM: 01/25/2017 COMPARISON: 11/24/2016 HISTORY: 46-year-old male Syncope today. TECHNIQUE: Examination was done in axial plane without intravenous contrast. Coronal and sagittal r econstructions performed. CT DLP: 1123.5 mGycm Automated exposure control for dose reduction was used. FINDINGS: There is no evidence of acute intracranial hemorrhage, acute ischemic changes, mass, mass-effect, or extra-axial fluid collection. There is no effacement of cerebral sulci or basal subarachnoid cister ns. There is no hydrocephalus. There is no midline shift. Williamson-white matter distinction is preserv ed. Incidental minimal 3 mm right-sided cerebellar tonsillar ectopia. 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 Paranasal sinuses and mastoid air cells are well pneumatized. Orbits and globes are intact. IMPRESSION: No acute intracranial abnormality seen.
[2017-01-25] MEDS ORDERED: CYCLOBENZAPRINE 10 MG TAB PO PRN (18:40)
[2017-01-25] MEDS ORDERED: IBUPROFEN 800 MG TAB PO PRN (18:40)
[2017-01-25] MEDS ORDERED: hydrALAZINE HCL 20 MG/ML 1 ML VIAL IVP PRN (19:17)
[2017-01-25] MEDS ORDERED: cloNIDine HCL 0.1 MG TAB PO PRN (19:17)
[2017-01-25] MEDS ORDERED: HYDROcodone/APAP 5-325MG 1 EACH TAB PO PRN (19:17)
[2017-01-25] MEDS ORDERED: TEMAZEPAM 15 MG CAP PO PRN (19:17)
[2017-01-25] MEDS ORDERED: ALBUTEROL NEBULIZED 2.5 MG/3 ML INHALATION SCH (20:00)
[2017-01-25] MEDS: cloNIDine HCL 0.1 MG TAB PO SCH (20:29)
[2017-01-25] MEDS: HEPARIN SODIUM,PORCINE 5,000 UNIT/ML 1 ML VIAL SQ SCH (20:29)
--- NOTE | 2017-01-25 20:40 | HP ---
HISTORY AND PHYSICAL CHIEF COMPLAINT: Syncope. HISTORY OF PRESENT ILLNESS: This 46-year-old gentleman the past medical history significant for history of alcohol as well as history of hypertension, hypothyroidism, history of vitamin D deficiency, anemia, history of bilateral shoulder surgery, anxiety and depression being followed by Dr. Deion Alvarez in the outpatient setting. Apparently drank up to a fifth of alcohol. Patient stopped alcohol a couple days ago, but today when the patient was talking to the mother, the patient had a syncopal episode lasting about 10 seconds. Patient taken to [facility] for further evaluation and treatment. The patient also complaining of tingling and numbness of the feet, also. A CT scan of the brain was done to rule out the possibility of acute stroke, which showed no acute abnormality. Chest x-ray was also noted. Blood pressure is found to be elevated. There is no history of any fever, rigors, chills. No history of any chest pain, palpitations, hematochezia or melena at this time. PAST MEDICAL HISTORY: Hypertension, hypothyroidism, vitamin B12, deficiency, anemia, orthopedic surgery, anxiety, depression. MEDICATIONS PRIOR TO ADMISSION: Include: 1. Wellbutrin XR 150 mg daily. 2. Singulair 10 mg daily. 3. Synthroid 100 mcg p.o. daily. 4. Ativan 1 mg q.h.s. p.r.n. 5. Motrin 800 mg t.i.d. p.r.n. 6. Antabuse 250 mg q.i.d. 7. Flexeril 10 mg q.h.s. 8. Vitamin B12 1000 mcg p.o. daily. 9. Ventolin HFA 1 to 2 puffs q.i.d. ALLERGIES: None. FAMILY HISTORY: History of cancer in the family. SOCIAL HISTORY: History of smoking. Occasional alcohol intake as mentioned. REVIEW OF SYSTEMS: ENT: No diminished hearing. No diminished vision. CARDIOVASCULAR: No angina, palpitations. RESPIRATORY: As mentioned earlier. GI: No nausea. : No dysuria. NERVOUS: No numbness, weakness. ALLERGY/IMMUNOLOGY: No asthma, hay fever. MUSCULOSKELETAL: As mentioned earlier. HEMATOLOGY/ONCOLOGY: No history of anemia. ENDOCRINE: As mentioned earlier. CONSTITUTIONAL: As mentioned earlier. DERMATOLOGY: Negative. RHEUMATOLOGY: As mentioned earlier. PSYCHIATRIC: As mentioned earlier. PHYSICAL EXAM: Patient is alert and oriented x3. Pulse is 88, blood pressure 140/78, respirations 18, temperature 98 degrees, pulse ox 98% room air. Blood pressure is 170/110. HEENT: Conjunctivae normal. NECK: No jugular venous distention. CARDIOVASCULAR: S1, S2 muffled. RESPIRATORY: Breath sounds diminished in the bases. A few rhonchi. No crackles. ABDOMEN: Soft, nontender. No mass palpable. LEGS: No edema. No swelling. NERVOUS SYSTEM: Higher functions as mentioned earlier. Moves all 4 limbs. No focal motor or sensory deficit. LYMPHATIC: No lymphadenopathy in neck, axillae or groins. SKIN: No ulcers, rash or bleeding. LABS: WBC 5.8, hemoglobin is 14.2. Total bilirubin is 2.4, AST is 256, ALT is 138. ASSESSMENT: 1. Syncope for evaluation, possible acute delirium tremens or vasovagal syncope. 2. Elevated LFTs as well as bilirubin, acute alcoholic hepatitis. 3. Peripheral neuropathy. 4. Thrombocytopenia, possibly secondary to alcohol. 5. Hypertension. 6. Hypothyroidism. 7. Vitamin B12 deficiency. 8. History of rhabdomyolysis. 9. Degenerative joint disease, bilateral shoulder surgery. 10.Anxiety and depression. 11.History of nicotine dependence. 12.FULL CODE. RECOMMENDATIONS AND DISCUSSION: In this 46-year-old gentleman who presented with multiple complex medical issues, will monitor the patient closely continue the current medical management and continue symptomatic treatment. Otherwise at this time, I would recommend to continue with the current medication, vitamin supplementation, orthostatic vitals, to have clonidine and use p.r.n., CIWA protocol. Patient addressed alcohol withdrawal precautions and recommend outpatient rehab and AA meetings. Otherwise, currently the patient did not have any and significant features of stroke; however, will continue to monitor. Prognosis guarded because of multiple complex medical issues and further recommendations to follow. Discussed with the patient. See orders for further details. MMODL / IJN: [id number] /
[2017-01-25] MEDS: FAMOTIDINE 20 MG TAB PO SCH (21:55)
[2017-01-25] MEDS ORDERED: ALBUTEROL NEBULIZED 2.5 MG/3 ML INHALATION PRN (22:14)
[2017-01-26] MEDS: LORazepam 2 MG/ML INJ IV PRN ×6 (04:38→21:27)
[2017-01-26] MEDS: LEVOTHYROXINE 75 MCG TAB PO SCH (06:35)
[2017-01-26] MEDS: ALBUTEROL NEBULIZED 2.5 MG/3 ML INHALATION SCH ×3 (07:36→21:50)
[2017-01-26] MEDS: MONTELUKAST 10 MG TAB PO SCH (07:53)
[2017-01-26] MEDS: cloNIDine HCL 0.1 MG TAB PO SCH ×3 (07:53→21:26)
[2017-01-26] MEDS: NICOTINE 14MG/24HR PATCH TRANSDERM SCH (07:53)
[2017-01-26] MEDS: HEPARIN SODIUM,PORCINE 5,000 UNIT/ML 1 ML VIAL SQ SCH ×2 (07:53→21:37)
[2017-01-26] MEDS: FAMOTIDINE 20 MG TAB PO SCH ×2 (07:53→21:27)
[2017-01-26] MEDS: buPROPion XL 150 MG TAB.ER.24H PO SCH (07:53)
[2017-01-26 08:02] LABS: Basophils % (A) 1 %; Eosinophils # (A) 0.1 k/uL (0-0.7); Eosinophils % (A) 3 %; HCT 36.8 % (39.0-53.0); HGB 12.2 gm/dL (13.0-17.5); Lymphocytes # (A) 0.8 k/uL (1.0-4.8); Lymphocytes % (A) 27 %; MCH 33.7 pg (25.0-35.0); MCHC 33.2 g/dL (31.0-37.0); MCV 101.5 fL (80.0-100.0); Macrocytosis Slight; Monocytes # (A) 0.3 k/uL (0-1.0); Monocytes % (A) 9 %; Neutrophils # (A) 1.6 k/uL (1.3-7.7); Neutrophils % (A) 56 %; RBC 3.62 m/uL (4.30-5.90); WBC 2.9 k/uL (3.8-10.6)
[2017-01-26 08:04] LABS: ALT 143 U/L (21-72); AST 268 U/L (17-59); Albumin 3.3 g/dL (3.5-5.0); Alkaline Phosphatase 157 U/L (38-126); Anion Gap 9 mmol/L; Blood Urea Nitrogen 17 mg/dL (9-20); Calcium 9.1 mg/dL (8.4-10.2); Carbon Dioxide 26 mmol/L (22-30); Chloride 105 mmol/L (98-107); Glucose 93 mg/dL (74-99); Potassium 3.5 mmol/L (3.5-5.1); Sodium 140 mmol/L (137-145); Total Bilirubin 1.7 mg/dL (0.2-1.3); Total Protein 6.7 g/dL (6.3-8.2)
[2017-01-26 08:16] LABS: Platelet Count 84 k/uL (150-450)
[2017-01-27] MEDS: LEVOTHYROXINE 75 MCG TAB PO SCH (06:20)
[2017-01-27 07:28] VITALS: BP 146/99; RESP 20; TEMP 97.3
[2017-01-27] MEDS: ALBUTEROL NEBULIZED 2.5 MG/3 ML INHALATION SCH (07:49)
[2017-01-27 08:00] VITALS: PULSE 90
[2017-01-27] MEDS: cloNIDine HCL 0.1 MG TAB PO SCH (08:01)
[2017-01-27] MEDS: NICOTINE 14MG/24HR PATCH TRANSDERM SCH (08:02)
[2017-01-27] MEDS: FAMOTIDINE 20 MG TAB PO SCH (08:02)
[2017-01-27] MEDS: MONTELUKAST 10 MG TAB PO SCH (08:02)
[2017-01-27] MEDS: HEPARIN SODIUM,PORCINE 5,000 UNIT/ML 1 ML VIAL SQ SCH (08:02)
[2017-01-27] MEDS: buPROPion XL 150 MG TAB.ER.24H PO SCH (08:03)
--- NOTE | 2017-01-27 08:19 | PN ---
PROGRESS NOTE DATE OF SERVICE: 01/26/2017 This is a 46-year-old gentleman who was admitted with syncope, also had features of acute delirium tremens. No chest pain. No palpitations. No fever. Patient also with alcoholic hepatitis, also. PHYSICAL EXAM: Alert and oriented x3. The pulse is 84, blood pressure 160/99, respirations 16, temperature 98.4, pulse ox 98% on room air. HEENT: Conjunctivae normal. CARDIOVASCULAR: S1, S2, muffled. RESPIRATORY: Breath sounds diminished at the bases, a few scattered rhonchi, no crackles. ABDOMEN: Soft, nontender. LEGS: No edema, no swelling. NERVOUS SYSTEM: Diffuse tremors and weakness present. LABS: WBC is 2.9, hemoglobin is 12.2, platelets 84. ASSESSMENT: 1. Syncope for evaluation and possible acute delirium tremens with vasovagal syncope. 2. Elevated LFTs as well as bilirubin and acute alcoholic hepatitis. 3. 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 4. Thrombocytopenia, positive secondary to alcohol. 5. Hypertension. 6. Hypothyroidism. 7. Vitamin B12 deficiency. 8. History of rhabdomyolysis. 9. Degenerative joint disease, bilateral shoulder surgery. 10.Anxiety, depression. 11.History of nicotine dependence. 12.FULL CODE. RECOMMENDATION: Recommend to continue current medication, continue with symptomatic treatment. Otherwise at this time, will monitor the patient closely. Continue to monitor. Prognosis guarded. Further recommendations to follow. Continue with AtBENJAMIN schroeder protocol, multivitamin supplements. MMODL / IJN: [id number] /
[2017-01-27 08:52] LABS: Basophils # (A) 0.1 k/uL (0-0.2); Basophils % (A) 1 %; Eosinophils # (A) 0.1 k/uL (0-0.7); Eosinophils % (A) 3 %; HCT 38.3 % (39.0-53.0); HGB 12.7 gm/dL (13.0-17.5); Lymphocytes # (A) 0.6 k/uL (1.0-4.8); Lymphocytes % (A) 19 %; MCH 33.7 pg (25.0-35.0); MCV 102.1 fL (80.0-100.0); Macrocytosis Slight; Mean Platelet Volume 8.1; Monocytes # (A) 0.4 k/uL (0-1.0); Monocytes % (A) 12 %; Neutrophils # (A) 1.9 k/uL (1.3-7.7); Neutrophils % (A) 60 %; RBC 3.75 m/uL (4.30-5.90); RDW 14.2 % (11.5-15.5); WBC 3.2 k/uL (3.8-10.6)
[2017-01-27 09:01] LABS: ALT 179 U/L (21-72); AST 303 U/L (17-59); Albumin 3.7 g/dL (3.5-5.0); Alkaline Phosphatase 161 U/L (38-126); Anion Gap 10 mmol/L; Blood Urea Nitrogen 12 mg/dL (9-20); Calcium 9.2 mg/dL (8.4-10.2); Carbon Dioxide 24 mmol/L (22-30); Chloride 104 mmol/L (98-107); Glucose 87 mg/dL (74-99); Potassium 3.7 mmol/L (3.5-5.1); Sodium 138 mmol/L (137-145); Total Bilirubin 1.8 mg/dL (0.2-1.3); Total Protein 7.4 g/dL (6.3-8.2)
[2017-01-27] MEDS: LORazepam 2 MG/ML INJ IV PRN ×2 (09:13→11:18)
[2017-01-27 09:52] LABS: Platelet Count 92 k/uL (150-450); Poikilocytosis (M) Present
--- NOTE | 2017-01-27 14:18 | P.DS ---
Providers Date of admission: 01/25/17 17:52 Attending physician: Andrey Torres Primary care physician: Deion Alvarez [facility] Course: This 46-year-old [employer] was admitted with syncope possibly vasovagal and acute delirium tremens. Patient treated with ciwa protocol. Patient improved significantly. Recommended outpatient follow-up and as well as AA meetings. Patient is discharged in a stable condition with guarded prognosis. Alcohol cessation has been advised. On exam vitals are stable. Abdomen soft nontender. Nervous system minimal tremors present abdomen soft nontender. cardio system S1-S2 normal. Final diagnosis 1. Acute delirium tremens from alcohol withdrawal. 2. Syncope possibly vasovagal. 3. Acute alcoholic hepatitis with elevated LFTs. 4. Peripheral neuropathy. 5. Thrombocytopenia secondary to alcohol. 6. Hypertension. Patient Condition at Discharge: Stable Plan - Discharge Summary Discharge Rx Participant: No New Discharge Prescriptions: New cloNIDine HCL [Catapres] 0.1 mg PO TID #30 tab Famotidine [Pepcid] 20 mg PO BID #60 tab Nicotine 14Mg/24Hr Patch [Habitrol] 1 patch TRANSDERM DAILY #30 patch Continue Disulfiram [Antabuse] 250 mg PO DAILY buPROPion XL [Wellbutrin XL] 150 mg PO DAILY Montelukast [Singulair] 10 mg PO DAILY Levothyroxine Sodium [Synthroid] 75 mcg PO DAILY Cyanocobalamin [Vitamin B-12 Injection] 1,000 mcg SQ QMONTH Cyclobenzaprine [Flexeril] 10 mg PO HS PRN PRN Reason: Muscle Spasm Ibuprofen [Motrin] 800 mg PO TID PRN PRN Reason: Pain Changed Albuterol Inhaler [Ventolin Hfa Inhaler] 2 puff INHALATION RT-Q6H #1 inh LORazepam [Ativan] 1 mg PO TID #20 tab Discharge Medication List Disulfiram [Antabuse] 250 mg PO DAILY 11/24/16 [History] buPROPion XL [Wellbutrin XL] 150 mg PO DAILY 11/24/16 [History] Cyanocobalamin [Vitamin B-12 Injection] 1,000 mcg SQ QMONTH 11/25/16 [History] Levothyroxine Sodium [Synthroid] 75 mcg PO DAILY 11/25/16 [History] Montelukast [Singulair] 10 mg PO DAILY 11/25/16 [History] Cyclobenzaprine [Flexeril] 10 mg PO HS PRN 12/12/16 [History] Ibuprofen [Motrin] 800 mg PO TID PRN 12/12/16 [History] Albuterol Inhaler [Ventolin Hfa Inhaler] 2 puff INHALATION RT-Q6H #1 inh [Rx] Famotidine [Pepcid] 20 mg PO BID #60 tab 01/27/17 [Rx] LORazepam [Ativan] 1 mg PO TID #20 tab 01/27/17 [Rx] Nicotine 14Mg/24Hr Patch [Habitrol] 1 patch TRANSDERM DAILY #30 patch 01/27/17 [ Rx] cloNIDine HCL [Catapres] 0.1 mg PO TID #30 tab 01/27/17 [Rx] Follow up Appointment(s)/Referral(s): Deion Alvarez MD [Primary Care Provider] - 01/29/17 9:00 am Ambulatory/Diagnostic Orders: Comprehensive Metabolic Panel [LAB.AMB] Time Frame: 3 Days, Location: Determined By Patient Patient Instructions/Handouts: How to Stop Smoking (DC), Abuse of Alcohol (DC) Discharge Disposition: HOME SELF-CARE
== END 2017-01-27 11:34 | disposition home or self-care (01) ==
LOC: EC 15:17 → INTOOBSV 17:52 → 4MS4W 17:52 → UNDODISIN 01-27 11:34
PROVIDERS: ADMIT Hospitalist; ATTEND Hospitalist
DX: F10.231 Alcohol dependence with withdrawal delirium (principal); R55 Syncope and collapse; D69.59 Other secondary thrombocytopenia; K70.10 Alcoholic hepatitis without ascites; E03.9 Hypothyroidism, unspecified; D51.9 Vitamin B12 deficiency anemia, unspecified; G62.9 Polyneuropathy, unspecified; F17.200 Nicotine dependence, unspecified, uncomplicated; I10 Essential (primary) hypertension; F32.9 Major depressive disorder, single episode, unspecified; F41.9 Anxiety disorder, unspecified; M19.90 Unspecified osteoarthritis, unspecified site; E55.9 Vitamin D deficiency, unspecified; Z79.899 Other long term (current) drug therapy; W18.30XA Fall on same level, unspecified, initial encounter; Z87.39 Personal history of other diseases of the musculoskeletal system and connective tissue
CPT/HCPCS: 96375 ×3; 96361 ×2; 96372 ×2; 99285 ×2; 96376 ×3; 96365; 96366 ×2; 36415; 94640 ×4; 93005; 80053 ×3; 82550; 82553; 84484; 85025 ×3; 81001; 71020; 70450; G0378 ×3; J2060 ×3; J3411; J2405; 96374

== ENCOUNTER → 2017-02-28 | Outpatient (CLI) | payer OTHER ==
--- NOTE | 2017-02-28 14:38 | XR ---
EXAMINATION TYPE: XR chest 2V DATE OF EXAM: 02/28/2017 COMPARISON: Chest x-ray January 25, 2017. CTA chest December 12, 2016 HISTORY: Hiccups. Hiccoughs (R06.6 per order) TECHNIQUE: Frontal and lateral views of the chest are obtained. FINDINGS: There is no focal air space opacity, pleural effusion, or pneumothorax seen. The cardiac silhouette size is within normal limits. The osseous structures are intact. IMPRESSION: No acute cardiopulmonary process. No significant change from prior.
== END | disposition home or self-care (01) ==
LOC: RADXRMAIN 14:20
PROVIDERS: ATTEND Family Medicine
DX: R06.6 Hiccough (principal)
CPT/HCPCS: 71020

== ENCOUNTER → 2017-04-11 | Outpatient (CLI) | payer OTHER ==
--- NOTE | 2017-04-11 12:03 | US ---
EXAMINATION TYPE: US abdomen complete DATE OF EXAM: 04/11/2017 COMPARISON: NONE CLINICAL HISTORY: R94.5 Abnormal Liver Function Test. EXAM MEASUREMENTS: Liver Length: 14.9 cm Gallbladder Wall: 0.5 cm CBD: 0.4 cm Spleen: 13.4 cm Right Kidney: 12.2 x 4.6 x 5.5 cm Left Kidney: 10.9 x 5.5 x 5.8 cm Pancreas: visualized portions wnl Liver: wnl Gallbladder: full of shadowing stones, very little lumen seen. Gallbladder wall is 0.5 cm. Normal le ss than 0.3 cm. No pericholecystic fluid is evident. Evidence for sonographic Peralta's sign: No CBD: wnl Spleen: wnl Right Kidney: No hydronephrosis or masses seen Left Kidney: No hydronephrosis or masses seen Upper IVC: wnl Abd Aorta: wnl IMPRESSION: 1. Cholelithiasis. Gallbladder wall is 0.5 cm. This is thickened. Consider cholecystitis within the d ifferential.
== END | disposition home or self-care (01) ==
LOC: RADUSWWP 10:59
PROVIDERS: ATTEND Family Medicine
DX: K80.20 Calculus of gallbladder without cholecystitis without obstruction (principal); R94.5 Abnormal results of liver function studies
CPT/HCPCS: 76700

== ENCOUNTER 2017-05-15 11:08 | Day surgery (SDC) | payer OTHER ==
[~2017-05-15 11:08] MED LIST: LACTATED RINGERS 1,000 ML IV SCH
[2017-05-15 12:19] VITALS: RESP 16; TEMP 97.9
[2017-05-15] MEDS ORDERED: LIDOCAINE 1% 20 ML VIAL (10MG/ML) FOR IV START INTRADERMA ONE (12:27)
[2017-05-15] MEDS ORDERED: LIDOCAINE 1% INJ 10MG/ML (20 ML MDV) ONE (12:40)
[2017-05-15] MEDS ORDERED: PROPOFOL 10 MG/ML 20 ML VIAL IV ONE (12:40)
--- NOTE | 2017-05-15 13:18 | P.PCN ---
Date of Procedure: 05/15/17 Procedure(s) Performed: BRIEF HISTORY: Patient is a 46-year-old, pleasant, white male, scheduled for an upper endoscopy as a part of evaluation of epigastric discomfort and down long- standing history of pernicious anemia.. PROCEDURE PERFORMED: Esophagogastroduodenoscopy with biopsy. PREOPERATIVE DIAGNOSIS: Epigastric pain and history of pernicious anemia. IV sedation per anesthesia. PROCEDURE: After informed consent was obtained, the patient was brought into the endoscopy unit. IV sedation was administered by Anesthesia under continuous monitoring. Initially the Olympus GIF-140 video endoscope was inserted into the mouth. Esophagus intubated without any difficulty. It was gradually advanced into the stomach and duodenum and carefully examined. The bulb and the second part of the duodenum appeared normal. The scope at this time was withdrawn to the stomach, adequately insufflated with air, and upon careful examination, mucosa of the antrum, body, had changes consistent with gastritis and biopsies were done from this area. There was a 2-3 mm small polyp in the distal body of the stomach which was also biopsied. There was large amount of retained solid food noted in the cardia and the fundus and hence the mucosa could not be visualized.. The scope was then withdrawn into the esophagus. The GE junction was located at 39 cm from the incisors. It appeared irregular but there were no erosions or ulcerations seen. The rest of the esophagus appeared normal and the patient tolerated the procedure well. IMPRESSION: 1. Diffuse gastritis and a 3 mm polyp in the distal body the stomach status post biopsy. 2. Retained food in the stomach suggestive of gastroparesis but no evidence of gastric outlet obstruction RECOMMENDATIONS: The findings of this examination were discussed with the patient well as his family. He was advised to follow with the biopsy results. He was recommended to have small frequent meals.
[2017-05-15 13:23] VITALS: BP 122/88; PULSE 99
== END 2017-05-15 13:43 | disposition home or self-care (01) ==
LOC: ORWHC2ENDO 11:08
PROVIDERS: ATTEND Internal Medicine Gastroenterology
DX: K29.50 Unspecified chronic gastritis without bleeding (principal); K20.9 Esophagitis, unspecified; K31.7 Polyp of stomach and duodenum; D51.0 Vitamin B12 deficiency anemia due to intrinsic factor deficiency; F17.200 Nicotine dependence, unspecified, uncomplicated; I10 Essential (primary) hypertension; E07.9 Disorder of thyroid, unspecified; Z79.890 Hormone replacement therapy; Z79.899 Other long term (current) drug therapy
CPT/HCPCS: 88305; 43239; J2001; J2704

== ENCOUNTER → 2017-10-15 | Outpatient (CLI) | payer OTHER ==
--- NOTE | 2017-10-15 15:23 | CT ---
EXAMINATION TYPE: CT brain wo/w con DATE OF EXAM: 10/15/2017 COMPARISON: 01/25/2017 HISTORY: Benign tremors that are increasing, dizziness, gait disturbances, memory issues, stuttering CT DLP: 1997.9 mGycm, Automated exposure control for dose reduction was used. CONTRAST: Patient injected with 100 mL of Isovue 300. CT of the brain is performed utilizing 3 mm thick sections through the posterior fossa and 3 mm thick sections through the remaining calvarium. Study is performed within 24 hours of arrival to the hospital. No abnormal hyperdensity is present to suggest an acute intracranial hemorrhage. No mass lesion is evident. No acute infarcts are evident. Ventricles and sulci are appropriate for the patient age. Paranasal sinuses and mastoid air cells within the [id number] are clear. IMPRESSIONS: 1. Normal pre and postcontrast CT brain.
== END | disposition home or self-care (01) ==
LOC: RADCTMAIN 14:24
PROVIDERS: ATTEND Midwife
DX: R49.0 Dysphonia (principal)
CPT/HCPCS: 70470; Q9967

== ENCOUNTER → 2017-10-16 | Outpatient (CLI) | payer OTHER ==
--- NOTE | 2017-10-20 19:04 | EEG ---
ELECTROENCEPHALOGRAM REPORT DATE OF SERVICE: 08/16/2017. REASON FOR TESTING: Syncope, slurred speech, weakness. DESCRIPTION OF THE PROCEDURE: This EEG was performed using a 21 channel digital electroencephalograph, following international 10-20 system. DESCRIPTION OF THE RECORDING: From the beginning of the tracing, and with patient's eyes closed, the background rhythm was mostly consisting of 9 Hz alpha frequency in the posterior occipital leads. No obvious asymmetry is seen. Frequent movement artifacts and muscle artifacts are seen. Photic stimulation was performed with a good driving response seen. No pathological waves were elicited. Hyperventilation was not performed. The patient remains awake throughout the tracing. No epileptiform discharges were seen. His EKG lead showed a regular rate and rhythm. INTERPRETATION: This awake EEG can be considered within normal limits. There was no asymmetry seen. No epileptiform discharges were noticed. The absence of epileptiform discharges does not rule out the diagnosis of epilepsy; therefore clinical correlation is recommended. Thank you, Dr. Alvarez for allowing me to participate in the care of your patient. If you have any questions, please feel free to contact me. MMSHANIQUEL / IJN: [id number] /
== END | disposition home or self-care (01) ==
LOC: NEUROMAIN 09:02
PROVIDERS: ATTEND Family Medicine
DX: R26.9 Unspecified abnormalities of gait and mobility (principal)
CPT/HCPCS: 95816

== ENCOUNTER → 2017-10-17 | Outpatient (CLI) | payer OTHER ==
--- NOTE | 2017-10-17 16:26 | US ---
EXAMINATION TYPE: US carotid duplex BILAT DATE OF EXAM: 10/17/2017 COMPARISON: NONE CLINICAL HISTORY: R49.0 Dysphonia. Slurred speech, loss of balance, memory loss. EXAM MEASUREMENTS: RIGHT: Peak Systolic Velocity (PSV) cm/sec ----- Right CCA: 104.3 ----- Right ICA: 76.9 ----- Right ECA: 87.9 ICA/CCA ratio: 0.7 RIGHT: End Diastole cm/sec ----- Right CCA: 34.9 ----- Right ICA: 32.7 ----- Right ECA: 13.6 LEFT: Peak Systolic Velocity (PSV) cm/sec ----- Left CCA: 94.9 ----- Left ICA: 77.5 ----- Left ECA: 85.1 ICA/CCA ratio: 0.8 LEFT: End Diastole cm/sec ----- Left CCA: 34.1 ----- Left ICA: 36.8 ----- Left ECA: 28.1 VERTEBRALS (direction of flow): Right Vertebral: Antegrade Left Vertebral: Antegrade Rhythm: Normal No elevated velocities, no significant stenosis. Grayscale images show no significant focal plaque at carotid bulb level bilaterally. IMPRESSION: No hemodynamically significant stenosis is seen in either internal carotid artery. Criteria for Assigning % of Stenosis / Diameter reduction (Estimation based on the indirect measurements of the internal carotid artery velocities (ICA PSV). 1. Normal (no stenosis)=ICA PSV < 125 cm/s: ratio < 2.0: ICA EDV<40 cm/s. 2. Less than 50% stenosis=ICA PSV < 125 cm/s: ratio < 2.0: ICA EDV<40 cm/s. 3. 50 to 69% stenosis=ICA PSV of 125 to 230 cm/s: ration 2.0 ? 4.0: ICA EDV 40-100 cm/s. 4. Greater than 70% stenosis to near occlusion= ICA PSV > 230 cm/s: ratio > 4.0: ICA EDV > 100 cm/s. 5. Near occlusion= ICA PSV velocities may be low or undetectable: variable ratio and ICA EDV. 6. Total occlusion=unable to detect flow.
[2017-10-17 16:52] LABS: Blood Urea Nitrogen 22 mg/dL (9-20)
--- NOTE | 2017-10-18 10:43 | MR ---
EXAMINATION TYPE: MR brain wo/w con DATE OF EXAM: 10/17/2017 COMPARISON: Most recent CT brain from 2 days ago and older studies HISTORY: Dysphonia per order. Speech stuttering and memory loss per patient with left-sided weakness. TECHNIQUE: Multiplanar, multisequence images of the brain and brainstem is performed without and with IV contras t, utilizing 10 mL intravenous Gadavist . FINDINGS: Diffusion weighted images demonstrate no evidence of a recent infarct or other diffusion ab normality. There is no extra-axial fluid collection or significant white matter signal abnormality. The ventricular system and cisternal spaces are normal in size and appearance. The brain volume is age appropriate. Midline structures demonstrate normal morphology. The craniocervical junction appears within normal limits. Post contrast images demonstrate no abnormal enhancement. The dural venous sinuses appear pa tent. The visualized sinuses are clear and the globes are intact. IMPRESSION: Unremarkable study. No significant finding is seen to account for patient's symptoms.
--- NOTE | 2017-10-18 10:46 | MR ---
EXAMINATION TYPE: MR angio head wo con DATE OF EXAM: 10/17/2017 COMPARISON: Same day contrast-enhanced brain MRI. CT brain from 2 days earlier. HISTORY: Dysphonia per order. Speech stuttering and memory loss per patient with left-sided weakness. TECHNIQUE: Time of flight images focusing on the [place] of [place] were performed without contrast.. 2-D and 3-D postprocessing imaging is performed in MRI scanner.. FINDINGS: There is codominant vertebrobasilar system. Vertebral arteries are patent basilar junction. There are hypoplastic posterior to indicating arteries noted bilaterally. There is no significant fo maria m stenosis or aneurysmal change in the posterior circulation. Images of the anterior circulation show abnormal eccentric outpouching along the medial aspect of the distal right internal carotid artery supraclinoid segment measuring 1.7 x 2.7 mm on raw dataset imag e 65 consistent with small saccular type aneurysm. There is a patent anterior communicating artery se en on image 93. No significant stenosis or an additional aneurysmal change is present. 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
== END | disposition home or self-care (01) ==
LOC: RADMRIMAIN 15:42
PROVIDERS: ATTEND Family Medicine
DX: I67.1 Cerebral aneurysm, nonruptured (principal); R49.0 Dysphonia
CPT/HCPCS: 82565; 84520; 93880; 70544; 70553; 36415; A9581

== ENCOUNTER → 2017-10-22 | Outpatient (CLI) | payer OTHER ==
[2017-10-22 08:47] LABS: Cholesterol 167 mg/dL (<200); HDL Cholesterol 25 mg/dL (40-60); LDL Cholesterol,Calculated 83 mg/dL (0-99); Triglycerides 295 mg/dL (<150)
== END | disposition home or self-care (01) ==
LOC: LABWHC1 07:52
PROVIDERS: ATTEND Nurse Practitioner Acute Care
DX: G45.9 Transient cerebral ischemic attack, unspecified (principal)
CPT/HCPCS: 36415; 80061; 83090

== ENCOUNTER → 2017-11-10 | Outpatient (CLI) | payer OTHER ==
--- NOTE | 2017-11-10 23:08 | MR ---
EXAMINATION TYPE: MR lumbar spine wo con DATE OF EXAM: 11/10/2017 COMPARISON: MRI lumbar spine September 12, 2011 HISTORY: Low back pain for 10 years. TECHNIQUE: Multiplanar, multisequence imaging of the lumbar spine is performed without IV contrast. FINDINGS: Same counting system that was utilized on prior MRI is used on current report. Sagittal mattie ges of the lumbar spine show vertebral body heights to remain satisfactory. There is new slight grade 1 retrolisthesis of L2 on L3. There is multilevel disc desiccation moderate disc space narrowing wit h progression from prior MRI. Multilevel posterior disc herniations are now seen on sagittal images m ore prominent from prior study except L1-L2 level which is less prominent. The conus medullaris [place] ins normal in position and signal ending T12-L1 disc space level. Heterogeneous endplate changes are seen in anterior and posterior L3-L4 and posterior L5-S1 levels predominantly Modic type III degenera tive changes. Hemangioma is redemonstrated L1 vertebra on sagittal image 9. Axial images at the T12-L1 level remains within normal limits. Axial images at the L1-L2 level shows broad disc bulge mildly effacing anterior thecal sac and extend s 23, bilateral neuroforamina are patent. Herniation less prominent versus prior. Axial images at L2-L3 level show new moderate broad-based left paracentral/foraminal disc protrusion effacing anterolateral thecal sac and causing mild to moderate anterior-inferior left-sided neural fo raminal narrowing maximum of 17. Right-sided neuroforamen is patent. Axial images at the L3-L4 level shows new broad-based posterior disc protrusion mildly facing anterio r thecal sac and causing mild to moderate bilateral anterior inferior neural foraminal narrowing. Axial images at the L4-L5 level shows central disc protrusion mildly effacing the anterior thecal sac with mild bilateral neural foraminal narrowing. No significant change from prior. Axial images at L5-S1 level are felt within normal limits on axial image 1. No suspicious retroperitoneal findings are seen. IMPRESSION: Multilevel degenerative changes in the lumbar spine with new findings mid lumbar spine no ana from prior MRI.
== END | disposition home or self-care (01) ==
LOC: RADMRIMAIN 15:46
PROVIDERS: ATTEND Psychiatry & Neurology Neurology
DX: M47.816 Spondylosis without myelopathy or radiculopathy, lumbar region (principal)
CPT/HCPCS: 72148

== ENCOUNTER → 2017-11-25 | Outpatient (CLI) | payer OTHER ==
--- NOTE | 2017-11-25 22:50 | CT ---
EXAMINATION TYPE: CT angio head DATE OF EXAM: 11/25/2017 COMPARISON: Correlation brain 10/16/2019 HISTORY: 47-year-old male Slurred speech, stuttering, memory loss and dizziness x couple days. Ruptured cerebral aneurysm. TECHNIQUE: Contiguous axial scanning of the head performed without and with IV Contrast, patient inje cted with 100 mL of Isovue 370. Coronal/sagittal MIP reconstructions performed. 3-D reconstructions g enerated on a dedicated independent workstation. CT DLP: 1412.6 mGycm Automated exposure control for dose reduction was used. FINDINGS: No evidence for acute intracranial hemorrhage, acute ischemic change, mass, mass effect, midline shif t, or extra-axial fluid collection. No hydrocephalus. No effacement of cerebral sulci or basal subara chnoid cisterns. Williamson-white matter differentiation is maintained. 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 No aneurysmal change. No significant stenosis or arterial occlusion seen. Paranasal sinuses and mastoid air cells well pneumatized. Orbits and globes are intact. IMPRESSION: 1. NO ACUTE INTRACRANIAL ABNORMALITY SEEN. 2. LOW-LYING RIGHT-SIDED CEREBELLAR TONSILS MEASURING 4.5 MM BELOW THE FORAMEN MAGNUM SUGGESTS BENIGN CEREBELLAR TONSILLAR ECTOPIA RATHER THAN CHIARI I MALFORMATION. CLINICALLY CORRELATE. 3. NO EVIDENCE FOR SIGNIFICANT STENOSIS, ARTERIAL OCCLUSION, OR ANEURYSMAL CHANGE.
== END ==
LOC: RADCTMAIN 16:48
PROVIDERS: ATTEND Neurological Surgery
DX: I67.1 Cerebral aneurysm, nonruptured (principal)
CPT/HCPCS: 70496; Q9967

== ENCOUNTER 2018-04-07 10:25 | Emergency (ER) | payer OTHER ==
[2018-04-07 10:31] VITALS: RESP 18
--- NOTE | 2018-04-07 12:39 | XR ---
EXAMINATION TYPE: XR chest 2V DATE OF EXAM: 04/07/2018 COMPARISON: 02/28/2017 INDICATION: Pain cough congestion, hemoptysis TECHNIQUE: Frontal and lateral views of the chest are obtained. FINDINGS: The heart size is normal. The pulmonary vasculature is normal. Very vague infiltrates are within the right upper and left midlung. These aren't interval change. Ear ly for infectious etiology. Follow-up is recommended. IMPRESSION: 1. Probable infectious infiltrates within the left midlung and right upper lobes. Correlate for pneum onia. Consider atypical forms of pneumonia. Follow-up exams are recommended.
--- NOTE | 2018-04-07 13:29 | ED ---
URI HPI - General Chief Complaint: Recheck/Abnormal Lab/Rx Stated Complaint: hemoptysis Time Seen by Provider: 04/07/18 12:06 Source: patient, RN notes reviewed, old records reviewed Mode of arrival: ambulatory Limitations: no limitations - History of Present Illness Initial Comments: This is a 47-year-old male to the ER for evaluation of cough and coughing up blood. Positive for hemoptysis. At this point patient states he is not having active fevers but has been on antibiotics as of recent for bronchitis. No recent travel history no sick contacts. Patient has been on outpatient antibiotics with no help. Patient coughing up blood today. MD Complaint: cough -: week(s) Severity: mild Severity scale (1-10): 3 Quality: other (No pain) Consistency: constant Worsens With: nothing Associated Symptoms: fever Treatments Prior to Arrival: none - Related Data Home Medications Medication Instructions Recorded Confirmed Levothyroxine Sodium [Synthroid] 75 mcg PO DAILY 11/25/16 04/07/18 Cyclobenzaprine [Flexeril] 10 mg PO HS PRN 12/12/16 04/07/18 Ibuprofen [Motrin] 800 mg PO TID PRN 12/12/16 04/07/18 Cetirizine HCl [Zyrtec] 10 mg PO DAILY 04/07/18 04/07/18 Lisinopril [Prinivil] 10 mg PO DAILY 04/07/18 04/07/18 Montelukast Sodium [Singulair] 10 mg PO DAILY 04/07/18 04/07/18 Ranitidine HCl [Zantac] 150 mg PO BID 04/07/18 04/07/18 buPROPion XL [Wellbutrin Xl] 150 mg PO DAILY 04/07/18 04/07/18 traZODone HCL [Desyrel] 50 mg PO HS 04/07/18 04/07/18 Previous Rx's Medication Instructions Recorded LORazepam [Ativan] 1 mg PO TID #20 tab 01/27/17 Levofloxacin 750 mg PO DAILY #7 tablet 04/07/18 Allergies Allergy/AdvReac Type Severity Reaction Status Date / Time No Known Allergies Allergy Verified 04/07/18 13:44 Review of Systems ROS Statement: Those systems with pertinent positive or pertinent negative responses have been documented in the HPI. ROS Other: All systems not noted in ROS Statement are negative. Past Medical History Past Medical History: Hypertension, Thyroid Disorder Additional Past Medical History / Comment(s): VITAMIN B12 DEFICIENCY ANEMIA, rhabdomyolysis History of Any Multi-Drug Resistant Organisms: None Reported Past Surgical History: Orthopedic Surgery Additional Past Surgical History / Comment(s): BILAT Shoulder Surgery; 2 surgery on left side; one surgery on right Past Anesthesia/Blood Transfusion Reactions: No Reported Reaction Past Psychological History: Anxiety, Depression Smoking Status: Current some day smoker Past Alcohol Use History: Abuse, Daily, Heavy Past Drug Use History: None Reported - Past Family History Mother Family Medical History: No Reported History Father Family Medical History: Cancer General Exam Limitations: no limitations General appearance: alert, in no apparent distress Head exam: Present: atraumatic, normocephalic, normal inspection Eye exam: Present: normal appearance, PERRL, EOMI. Absent: scleral icterus, conjunctival injection, periorbital swelling ENT exam: Present: normal exam, mucous membranes moist Neck exam: Present: normal inspection. Absent: tenderness, meningismus, lymphadenopathy Respiratory exam: Present: normal lung sounds bilaterally. Absent: respiratory distress, wheezes, rales, rhonchi, stridor Cardiovascular Exam: Present: regular rate, normal rhythm, normal heart sounds. Absent: systolic murmur, diastolic murmur, rubs, gallop, clicks GI/Abdominal exam: Present: soft, normal bowel sounds. Absent: distended, tenderness, guarding, rebound, rigid Extremities exam: Present: normal inspection, full ROM, normal capillary refill. Absent: tenderness, pedal edema, joint swelling, calf tenderness Back exam: Present: normal inspection Neurological exam: Present: alert, oriented X3, CN II-XII intact Psychiatric exam: Present: normal affect, normal mood Skin exam: Present: warm, dry, intact, normal color. Absent: rash Course Vital Signs 04/07/18 04/07/18 04/07/18 10:29 13:11 13:54 Temperature 98.3 F 98.5 F Pulse Rate 98 99 Respiratory 18 18 18 Rate Blood Pressure 128/86 131/92 O2 Sat by Pulse 96 96 Oximetry - Reevaluation(s) Reevaluation #1: Medical record is reviewed Patient no acute distress no respiratory distress Medical Decision Making - Medical Decision Making 47 male the ER for evaluation of cough congestion or hemoptysis. Positive to be required pneumonia. Will place on Levaquin patient does not want inpatient evaluation currently. Patient return if symptoms worse - Radiology Data Radiology results: report reviewed (Chest x-rays positive for pneumonia), image reviewed Disposition Clinical Impression: Community acquired pneumonia Disposition: HOME SELF-CARE Condition: Good Instructions (If sedation given, give patient instructions): Community Acquired Pneumonia (ED) Prescriptions: Levofloxacin 750 mg PO DAILY #7 tablet Is patient prescribed a controlled substance at d/c from ED?: No Referrals: Deion Alvarez MD [Primary Care Provider] - 1-2 days
[2018-04-07 13:57] VITALS: BP 131/92; PULSE 99; TEMP 98.5
== END 2018-04-07 13:57 | disposition home or self-care (01) ==
LOC: EC 10:25
DX: J18.9 Pneumonia, unspecified organism (principal); I10 Essential (primary) hypertension; E07.9 Disorder of thyroid, unspecified; F32.9 Major depressive disorder, single episode, unspecified; F17.200 Nicotine dependence, unspecified, uncomplicated; Z79.890 Hormone replacement therapy; Z79.899 Other long term (current) drug therapy
CPT/HCPCS: 71046; 99284

== ENCOUNTER → 2018-05-20 | Outpatient (CLI) | payer OTHER ==
[2018-05-20 16:42] LABS: T4, Free (Free Thyroxine) 1.3 ng/dL (0.80-1.80)
== END | disposition home or self-care (01) ==
LOC: LABWHC1 11:58
PROVIDERS: ATTEND Internal Medicine Cardiovascular Disease
DX: R00.2 Palpitations (principal)
CPT/HCPCS: 36415; 84439; 84443

== ENCOUNTER → 2018-07-30 | Outpatient (CLI) | payer OTHER ==
--- NOTE | 2018-07-30 10:44 | XR ---
EXAMINATION TYPE: XR chest 2V DATE OF EXAM: 07/30/2018 COMPARISON: 04/07/2018 INDICATION: Cough x2 weeks TECHNIQUE: Frontal and lateral views of the chest are obtained. FINDINGS: The heart size is normal. The pulmonary vasculature is normal. The lungs are clear. IMPRESSION: 1. No acute pulmonary process.
== END | disposition home or self-care (01) ==
LOC: RADXRMAIN 10:20
PROVIDERS: ATTEND Family Medicine
DX: J18.9 Pneumonia, unspecified organism (principal)
CPT/HCPCS: 71046

== ENCOUNTER 2018-08-15 08:23 | Emergency (ER) | payer OTHER ==
[2018-08-15 08:30] VITALS: BP 134/83; PULSE 117; RESP 18; TEMP 98.5
--- NOTE | 2018-08-15 08:40 | ED ---
Fall HPI - General Chief Complaint: Fall Stated Complaint: Poss fx tailbone Time Seen by Provider: 08/15/18 08:32 Source: patient, RN notes reviewed Mode of arrival: ambulatory Limitations: no limitations - History of Present Illness Initial Comments: 48-year-old male presents emergency Department chief complaint of low back, tailbone pain. Patient states his rollerblading yesterday states that he fell directly onto his buttocks. Denies any bowel bladder incontinence or retention. Patient states he is able to ambulate but is painful to sit down. Patient that there is bruising swollen. He denies any head injury no loss conscious. Denies any prior fractures of his lower lumbar sacral region - Related Data Home Medications Medication Instructions Recorded Confirmed Levothyroxine Sodium [Synthroid] 75 mcg PO DAILY 11/25/16 04/07/18 Cyclobenzaprine [Flexeril] 10 mg PO HS PRN 12/12/16 04/07/18 Ibuprofen [Motrin] 800 mg PO TID PRN 12/12/16 04/07/18 Cetirizine HCl [Zyrtec] 10 mg PO DAILY 04/07/18 04/07/18 Lisinopril [Prinivil] 10 mg PO DAILY 04/07/18 04/07/18 Montelukast Sodium [Singulair] 10 mg PO DAILY 04/07/18 04/07/18 Ranitidine HCl [Zantac] 150 mg PO BID 04/07/18 04/07/18 buPROPion XL [Wellbutrin Xl] 150 mg PO DAILY 04/07/18 04/07/18 traZODone HCL [Desyrel] 50 mg PO HS 04/07/18 04/07/18 Previous Rx's Medication Instructions Recorded LORazepam [Ativan] 1 mg PO TID #20 tab 01/27/17 Levofloxacin 750 mg PO DAILY #7 tablet 04/07/18 Ibuprofen [Motrin] 600 mg PO Q8HR PRN #30 tab 08/15/18 Allergies Allergy/AdvReac Type Severity Reaction Status Date / Time No Known Allergies Allergy Verified 08/15/18 08:31 Review of Systems ROS Statement: Those systems with pertinent positive or pertinent negative responses have been documented in the HPI. ROS Other: All systems not noted in ROS Statement are negative. Past Medical History Past Medical History: Hypertension, Thyroid Disorder Additional Past Medical History / Comment(s): VITAMIN B12 DEFICIENCY ANEMIA, rhabdomyolysis History of Any Multi-Drug Resistant Organisms: None Reported Past Surgical History: Orthopedic Surgery Additional Past Surgical History / Comment(s): BILAT Shoulder Surgery; 2 surgery on left side; one surgery on right Past Anesthesia/Blood Transfusion Reactions: No Reported Reaction Past Psychological History: Anxiety, Depression Smoking Status: Current some day smoker Past Alcohol Use History: Abuse, Daily, Heavy Past Drug Use History: None Reported - Past Family History Mother Family Medical History: No Reported History Father Family Medical History: Cancer General Exam Limitations: no limitations General appearance: alert, in no apparent distress Head exam: Present: atraumatic, normocephalic, normal inspection Respiratory exam: Present: normal lung sounds bilaterally. Absent: respiratory distress, wheezes, rales, rhonchi, stridor Cardiovascular Exam: Present: regular rate (Patient was tachycardic on triage no heart rate 99 exam), normal rhythm, normal heart sounds. Absent: systolic murmur, diastolic murmur, rubs, gallop, clicks GI/Abdominal exam: Present: soft, normal bowel sounds. Absent: distended, tenderness, guarding, rebound, rigid Back exam: Present: full ROM, tenderness (Lower lumbar, sacral region), vertebral tenderness. Absent: CVA tenderness (R), CVA tenderness (L), paraspinal tenderness Neurological exam: Present: alert, oriented X3, CN II-XII intact, reflexes normal. Absent: motor sensory deficit Skin exam: Present: warm, dry, intact, normal color. Absent: rash Course Vital Signs 08/15/18 08:29 Temperature 98.5 F Pulse Rate 117 H Respiratory 18 Rate Blood Pressure 134/83 O2 Sat by Pulse 99 Oximetry Medical Decision Making - Medical Decision Making 48-year-old male presented for a fall, low back Pain. X-rays reviewed there are no acute fracture that noted on x-ray. Clinically I feel that he has sacral coccyx fracture. Patient will be discharged with, codeine. We discussed sitting on a pillow or donut. Patient will follow-up PCP and return for any worsening symptoms. Disposition Clinical Impression: Fall, Injury of coccyx Disposition: HOME SELF-CARE Condition: Stable Instructions (If sedation given, give patient instructions): Coccyx Injury (ED) Additional Instructions: Please return to the Emergency Department if symptoms worsen or any other concerns. Prescriptions: Ibuprofen [Motrin] 600 mg PO Q8HR PRN #30 tab PRN Reason: Pain Is patient prescribed a controlled substance at d/c from ED?: No Referrals: Deion Alvarez MD [Primary Care Provider] - 1-2 days Time of Disposition: 09:04
[2018-08-15] MEDS ORDERED: ACET/COD 300 MG/30 MG STARTER PACK 6 TAB BTL PO STA (09:04)
--- NOTE | 2018-08-15 09:06 | XR ---
EXAMINATION TYPE: XR pelvis AP view , ONE VIEW DATE OF EXAM ORDERED: 08/15/2018 HISTORY: Pain following trauma. COMPARISON: None. FINDINGS: Bony structures about the pelvis are unremarkable. No fracture is identified. The hip join ts are maintained. IMPRESSION: NO ACUTE OSSEOUS LESION.
--- NOTE | 2018-08-15 09:08 | XR ---
EXAMINATION TYPE: XR lumbosacral spine min 4V , 6 VIEWS DATE OF EXAM ORDERED: 08/15/2018 HISTORY: Pain following trauma. COMPARISON: Previous study dated 06/17/2014. FINDINGS: Vertebral body height and alignment are maintained. There is no spondylolisthesis or spond ylolysis. There is disc space loss at L5-S1 and also at L3-4. There is mild hypertrophic spondylosis present at L3-4. There is mild facet arthropathy at L4-5 and L5-S1. The pedicles are intact. IMPRESSION: 1. NO ACUTE OSSEOUS LESION. 2. DEGENERATIVE DISC DISEASE.
== END 2018-08-15 09:24 | disposition home or self-care (01) ==
LOC: EC 08:23
DX: S39.92XA Unspecified injury of lower back, initial encounter (principal); I10 Essential (primary) hypertension; E07.9 Disorder of thyroid, unspecified; F41.9 Anxiety disorder, unspecified; F32.9 Major depressive disorder, single episode, unspecified; F17.200 Nicotine dependence, unspecified, uncomplicated; Z79.890 Hormone replacement therapy; Z79.899 Other long term (current) drug therapy; W19.XXXA Unspecified fall, initial encounter; Y93.51 Activity, roller skating (inline) and skateboarding; Y92.89 Other specified places as the place of occurrence of the external cause
CPT/HCPCS: 72110; 72170; 99283

== ENCOUNTER 2018-11-09 17:12 | Emergency (ER) | payer OTHER ==
[2018-11-09 17:18] VITALS: TEMP 98.2
[2018-11-09] MEDS ORDERED: MULTIVITAMINS, THERA 1 EACH TAB PO STA (18:21)
[2018-11-09] MEDS ORDERED: LORazepam 2 MG/ML INJ IV STA ×2 (18:21→20:33)
[2018-11-09] MEDS ORDERED: THIAMINE 100 MG/ML 2 ML VIAL IVPB STA (18:21)
[2018-11-09] MEDS ORDERED: SODIUM CHLORIDE 0.9% 1,000 ML IV STA ×2 (18:21)
[2018-11-09] MEDS ORDERED: SODIUM CHLORIDE 0.9% 500 ML 500 ML IV STA (18:21)
[2018-11-09] MEDS ORDERED: ONDANSETRON 4 MG/2 ML VIAL IVP STA (18:22)
--- NOTE | 2018-11-09 18:22 | ED ---
Alcohol HPI - General Chief Complaint: Psychiatric Symptoms Stated Complaint: detox Time Seen by Provider: 11/09/18 17:37 Source: patient, family, RN notes reviewed, old records reviewed Mode of arrival: wheelchair Limitations: no limitations - History of Present Illness Initial Comments: This is a 48-year-old male the ER today. He presents today for evaluation possible need for alcoholism or alcohol detox. Patient admits to depression is a depression medication. Not actively suicidal. Patient's last drink was at about 9 AM this morning. Patient denies any other issues, no other drug abuse. No current thoughts of suicide MD Complaint: alcohol intoxication, alcohol withdrawal, alcohol dependence, desires rehab Last Drink: just [employer] ([id number]) -: hour(s) Previous Visits for Alcohol Intoxication?: Yes Recent Trauma: No Associated Symptoms: hematemesis, depression Chronic Alcohol Use: Yes - Related Data Home Medications Medication Instructions Recorded Confirmed Levothyroxine Sodium [Synthroid] 75 mcg PO DAILY 11/25/16 11/09/18 Cetirizine HCl [Zyrtec] 10 mg PO DAILY 04/07/18 11/09/18 Lisinopril [Prinivil] 10 mg PO DAILY 04/07/18 11/09/18 buPROPion XL [Wellbutrin Xl] 150 mg PO DAILY 04/07/18 11/09/18 Fluticasone Nasal [place] [Flonase 1 spray EA NOSTRIL DAILY PRN 08/15/18 11/09/18 Nasal [place]] Albuterol Inhaler [Ventolin Hfa 1 - 2 puff INHALATION RT-Q6H PRN 11/09/18 11/09/18 Inhaler] Cyanocobalamin [Vitamin B-12 1,000 mcg SQ Q28D 11/09/18 11/09/18 Injection] Meloxicam [Mobic] 15 mg PO DAILY 11/09/18 11/09/18 Allergies Allergy/AdvReac Type Severity Reaction Status Date / Time No Known Allergies Allergy Verified 11/09/18 18:34 Review of Systems ROS Statement: Those systems with pertinent positive or pertinent negative responses have been documented in the HPI. ROS Other: All systems not noted in ROS Statement are negative. Past Medical History Past Medical History: Hypertension, Thyroid Disorder Additional Past Medical History / Comment(s): VITAMIN B12 DEFICIENCY ANEMIA, rhabdomyolysis History of Any Multi-Drug Resistant Organisms: None Reported Past Surgical History: Orthopedic Surgery Additional Past Surgical History / Comment(s): BILAT Shoulder Surgery; 2 surgery on left side; one surgery on right Past Anesthesia/Blood Transfusion Reactions: No Reported Reaction Past Psychological History: Anxiety, Depression Smoking Status: Current some day smoker Past Alcohol Use History: Abuse, Daily, Heavy Past Drug Use History: None Reported - Past Family History Mother Family Medical History: No Reported History Father Family Medical History: Cancer General Exam Limitations: no limitations General appearance: alert, in no apparent distress Head exam: Present: atraumatic, normocephalic, normal inspection Eye exam: Present: normal appearance, EOMI. Absent: scleral icterus, conjunctival injection, periorbital swelling ENT exam: Present: normal exam, mucous membranes moist Neck exam: Present: normal inspection. Absent: tenderness, meningismus, lymphadenopathy Respiratory exam: Present: normal lung sounds bilaterally. Absent: respiratory distress, wheezes, rales, rhonchi, stridor Cardiovascular Exam: Present: regular rate, normal rhythm, normal heart sounds. Absent: systolic murmur, diastolic murmur, rubs, gallop, clicks GI/Abdominal exam: Present: soft, normal bowel sounds. Absent: distended, tenderness, guarding, rebound, rigid Extremities exam: Present: normal inspection, full ROM, normal capillary refill. Absent: tenderness, pedal edema, joint swelling, calf tenderness Back exam: Present: normal inspection Neurological exam: Present: alert, oriented X3, CN II-XII intact Psychiatric exam: Present: normal affect, depressed Skin exam: Present: warm, dry, intact, normal color. Absent: rash Course Vital Signs 11/09/18 11/09/18 17:14 19:39 Temperature 98.2 F Pulse Rate 80 105 H Respiratory 16 18 Rate Blood Pressure 91/63 144/95 O2 Sat by Pulse 96 98 Oximetry - Reevaluation(s) Reevaluation #1: 11/09/18 18:32 Medical record is reviewed Reevaluation #2: 11/09/18 20:19 Patient advised at length regarding with elevated alcohol not going thru withdrawal, patient for return if symptoms worsen and he can stop drinking Medical Decision Making - Medical Decision Making 48 male the ER for evaluation, patient's here for depression and alcohol intoxication. Patient can be discharged home - Lab Data Result diagrams: 11/09/18 15:32 11/09/18 15:32 Lab Results 11/09/18 11/09/18 11/09/18 Range/Units 15:32 15:32 15:32 WBC 5.8 (3.8-10.6) k/uL RBC 5.16 (4.30-5.90) m/uL Hgb 17.4 (13.0-17.5) gm/dL Hct 52.9 (39.0-53.0) % MCV 102.5 H (80.0-100.0) fL MCH 33.6 (25.0-35.0) pg MCHC 32.8 (31.0-37.0) g/dL RDW 15.5 (11.5-15.5) % Plt Count 203 (150-450) k/uL Neutrophils % 72 % Lymphocytes % 17 % Monocytes % 6 % Eosinophils % 2 % Basophils % 2 % Neutrophils # 4.1 (1.3-7.7) k/uL Lymphocytes # 1.0 (1.0-4.8) k/uL Monocytes # 0.3 (0-1.0) k/uL Eosinophils # 0.1 (0-0.7) k/uL Basophils # 0.1 (0-0.2) k/uL Macrocytosis Slight PT 10.9 (9.0-12.0) sec INR 1.0 (<1.2) Sodium 144 (137-145) mmol/L Potassium 4.9 (3.5-5.1) mmol/L Chloride 106 (98-107) mmol/L Carbon Dioxide 24 (22-30) mmol/L Anion Gap 14 mmol/L BUN 17 (9-20) mg/dL Creatinine 1.13 (0.66-1.25) mg/dL Est GFR (CKD-EPI)AfAm >90 (>60 ml/min/1.73 sqM) Est GFR (CKD-EPI)NonAf 78 (>60 ml/min/1.73 sqM) Glucose 101 H (74-99) mg/dL Calcium 9.0 (8.4-10.2) mg/dL Phosphorus 4.2 (2.5-4.5) mg/dL Magnesium 1.6 (1.6-2.3) mg/dL Total Bilirubin 0.9 (0.2-1.3) mg/dL AST 277 H (17-59) U/L ALT 211 H (21-72) U/L Alkaline Phosphatase 151 H (38-126) U/L Total Protein 8.7 H (6.3-8.2) g/dL Albumin 4.7 (3.5-5.0) g/dL Lipase 222 (23-300) U/L Serum Alcohol 214 H* mg/dL Disposition Clinical Impression: Depression, Alcohol intoxication Disposition: HOME SELF-CARE Condition: Good Instructions (If sedation given, give patient instructions): Alcohol Intoxication (ED) Is patient prescribed a controlled substance at d/c from ED?: No Referrals: Deion Alvarez MD [Primary Care Provider] - 1-2 days
[2018-11-09 18:58] LABS: Basophils # (A) 0.1 k/uL (0-0.2); Basophils % (A) 2 %; Eosinophils # (A) 0.1 k/uL (0-0.7); Eosinophils % (A) 2 %; HCT 52.9 % (39.0-53.0); HGB 17.4 gm/dL (13.0-17.5); Lymphocytes % (A) 17 %; MCH 33.6 pg (25.0-35.0); MCHC 32.8 g/dL (31.0-37.0); MCV 102.5 fL (80.0-100.0); Macrocytosis Slight; Mean Platelet Volume 6.9; Monocytes # (A) 0.3 k/uL (0-1.0); Monocytes % (A) 6 %; Neutrophils # (A) 4.1 k/uL (1.3-7.7); Neutrophils % (A) 72 %; Platelet Count 203 k/uL (150-450); RBC 5.16 m/uL (4.30-5.90); RDW 15.5 % (11.5-15.5); WBC 5.8 k/uL (3.8-10.6)
[2018-11-09 19:03] LABS: Prothrombin Time 10.9 sec (9.0-12.0)
[2018-11-09 19:07] LABS: ALT 211 U/L (21-72); AST 277 U/L (17-59); African American GFR (CKD) >90 (>60 ml/min/1.73 sqM); Albumin 4.7 g/dL (3.5-5.0); Alkaline Phosphatase 151 U/L (38-126); Anion Gap 14 mmol/L; Blood Urea Nitrogen 17 mg/dL (9-20); Carbon Dioxide 24 mmol/L (22-30); Chloride 106 mmol/L (98-107); Glucose 101 mg/dL (74-99); Magnesium 1.6 mg/dL (1.6-2.3); Phosphorus 4.2 mg/dL (2.5-4.5); Potassium 4.9 mmol/L (3.5-5.1); Sodium 144 mmol/L (137-145); Total Bilirubin 0.9 mg/dL (0.2-1.3); Total Protein 8.7 g/dL (6.3-8.2)
[2018-11-09 19:19] LABS: Alcohol 214 mg/dL
[2018-11-09 19:41] VITALS: BP 144/95; PULSE 105; RESP 18
== END 2018-11-09 20:51 | disposition home or self-care (01) ==
LOC: EC 17:12
DX: F10.229 Alcohol dependence with intoxication, unspecified (principal); F32.9 Major depressive disorder, single episode, unspecified; F10.239 Alcohol dependence with withdrawal, unspecified; E07.9 Disorder of thyroid, unspecified; I10 Essential (primary) hypertension; D51.9 Vitamin B12 deficiency anemia, unspecified; F17.200 Nicotine dependence, unspecified, uncomplicated; Z79.899 Other long term (current) drug therapy; Z79.890 Hormone replacement therapy
CPT/HCPCS: 99284; 96374; 96376; 96375; 96361 ×2; 36415; 80053; 83690; 83735; 84100; 85025; 85610; G0480; J2060; J3411; J2405; 80320

== ENCOUNTER → 2018-12-16 | Outpatient (CLI) | payer OTHER ==
--- NOTE | 2018-12-16 16:56 | CT ---
EXAMINATION TYPE: CT abdomen pelvis wo con DATE OF EXAM: 12/16/2018 HISTORY: Left upper quadrant abdominal pain. Diverticulitis per order. CT DLP: 636.1 mGycm. Automated Exposure Control for Dose Reduction was Utilized. TECHNIQUE: CT scan of the abdomen and pelvis is performed without oral or IV contrast. COMPARISON: NONE FINDINGS: Within the limitations of a non-contrast study, the following observations are made. LUNG BASES: No significant abnormality is appreciated. LIVER/GB: Liver is diffusely low dense consistent with diffuse fatty infiltration. Gallbladder not vi sualized presumably surgically absent. PANCREAS: No significant abnormality is seen. SPLEEN: No significant abnormality is seen. ADRENALS: No significant abnormality is seen. KIDNEYS: No ureteral calculi or hydronephrosis is seen bilaterally. BOWEL: Evaluation while suboptimal study due to lack of enteric contrast. No suspicious small or larg e bowel dilatation. Normal-appearing appendix from base of cecum in the right upper pelvis. Focal mil d wall thickening proximal transverse colon axial image 50 and coronal image 19. Areas of mild wall t hickening throughout the sigmoid colon are present. Some scattered colonic diverticula in the left an d sigmoid colon. No CT evidence for acute diverticulitis. GENITAL ORGANS: No gross abnormality seen. LYMPH NODES: No greater than 1cm abdominal or pelvic lymph nodes are appreciated. OSSEOUS STRUCTURES: Transitional-type vertebra at lumbosacral junction. OTHER: No significant additional abnormality is seen. IMPRESSION: A few scattered colonic diverticula without CT evidence for acute diverticulitis. Cannot exclude areas of mild colitis. Favor focal nondistention cannot exclude small concentric neoplasm pro ximal transverse colon level. Consider colonoscopy follow-up to better evaluate.
== END | disposition home or self-care (01) ==
LOC: RADCTMAIN 14:38
PROVIDERS: ATTEND Surgery Plastic and Reconstructive Surgery
DX: K57.30 Diverticulosis of large intestine without perforation or abscess without bleeding (principal)
CPT/HCPCS: 74176

== ENCOUNTER 2019-01-21 12:12 | Day surgery (SDC) | payer OTHER ==
[2019-01-19 16:04] VITALS: BMI 27.2
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
[~2019-01-21 12:12] MED LIST changes: +LIDOCAINE 1% 20 ML VIAL (10MG/ML) FOR IV START INTRADERMA PRN
[2019-01-21 12:35] VITALS: TEMP 97.1
[2019-01-21] MEDS ORDERED: fentaNYL (PF) 50 MCG/ML 2 ML AMP ONE (13:14)
[2019-01-21] MEDS ORDERED: LIDOCAINE 1% INJ 10MG/ML (20 ML MDV) ONE (13:14)
[2019-01-21] MEDS ORDERED: PROPOFOL 10 MG/ML 20 ML VIAL IV ONE (13:14)
[2019-01-21] MEDS ORDERED: MIDAZOLAM 2 MG/2 ML VIAL ONE (13:14)
[2019-01-21 13:51] VITALS: RESP 18
[2019-01-21 14:00] VITALS: BP 143/89; PULSE 109
--- NOTE | 2019-01-21 14:04 | P.PCN ---
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 SURGEON: Manjula Webster MD. ANESTHESIA: MAC. INDICATIONS: The patient is a 48-year-old male who had a CT of the abdomen pelvis demonstrated findings of transverse colon neoplasm including change in bowel habits. He has family history of colon cancer. Endoscopy was offered for assessment. Benefits and risks were described and informed consent was obtained. DESCRIPTION OF PROCEDURE: The patient had undergone Gatorade, MiraLAX and Dulcolax prep. He had been brought into the operating room and laid in the left lateral decubitus position. After adequate intravenous sedation, the rectum was examined with 2% lidocaine jelly. No external hemorrhoids were encountered. The rectal tone was within normal limits. No lesions were palpated in the rectal vault. An Olympus colonoscope was advanced until the ileocecal valve was clearly viewed. The prep was poor. Scattered diverticulosis was encountered. No colonic polyps were found. Active sigmoid colitis was found. Retroflexion of the scope demonstrated grade 1 internal hemorrhoids without active bleeding or inflammation. The colon was desufflated. The patient had tolerated the procedure well. Withdrawal time was over 6 minutes. FINDINGS: Aronchick preparation quality scale 3 (1-5) Internal hemorrhoids, grade 1 No external prolapsed hemorrhoids. No arteriovenous malformations. No adenomatous polyps. Active sigmoid diverticulitis No findings of transverse colon neoplasm RECOMMENDATIONS: Repeat colonoscopy at age 52 Plan - Discharge Summary New Discharge Prescriptions: New Ciprofloxacin HCl [Cipro] 500 mg PO Q12HR #20 tablet metroNIDAZOLE [Flagyl] 500 mg PO TID #30 tab No Action Levothyroxine Sodium [Synthroid] 75 mcg PO DAILY buPROPion XL [Wellbutrin Xl] 150 mg PO DAILY Lisinopril [Prinivil] 10 mg PO DAILY Cetirizine HCl [Zyrtec] 10 mg PO DAILY Fluticasone Nasal [place] [Flonase Nasal [place]] 1 spray EA NOSTRIL DAILY PRN PRN Reason: Allergy Symptoms Meloxicam [Mobic] 15 mg PO DAILY Cyanocobalamin [Vitamin B-12 Injection] 1,000 mcg SQ QMONTH Albuterol Inhaler [Ventolin Hfa Inhaler] 1 - 2 puff INHALATION RT-Q6H PRN PRN Reason: Shortness Of Breath Ibuprofen [Motrin] 800 mg PO TID PRN PRN Reason: Pain Discharge Medication List Levothyroxine Sodium [Synthroid] 75 mcg PO DAILY 11/25/16 [History] Cetirizine HCl [Zyrtec] 10 mg PO DAILY 04/07/18 [History] Lisinopril [Prinivil] 10 mg PO DAILY 04/07/18 [History] buPROPion XL [Wellbutrin Xl] 150 mg PO DAILY 04/07/18 [History] Fluticasone Nasal [place] [Flonase Nasal [place]] 1 spray EA NOSTRIL DAILY PRN 08/15/18 [History] Albuterol Inhaler [Ventolin Hfa Inhaler] 1 - 2 puff INHALATION RT-Q6H PRN 11/09/18 [History] Cyanocobalamin [Vitamin B-12 Injection] 1,000 mcg SQ QMONTH 11/09/18 [History] Meloxicam [Mobic] 15 mg PO DAILY 11/09/18 [History] Ibuprofen [Motrin] 800 mg PO TID PRN 01/19/19 [History] Ciprofloxacin HCl [Cipro] 500 mg PO Q12HR #20 tablet 01/21/19 [Rx] metroNIDAZOLE [Flagyl] 500 mg PO TID #30 tab 01/21/19 [Rx] Follow up Appointment(s)/Referral(s): Manjula Webster MD [STAFF PHYSICIAN] - 01/26/19 Patient Instructions/Handouts: *[facility]gery [facility] - (Anesthesia) Endoscopy Discharge Instructions, Diverticulitis (GEN), Diverticulitis Diet (DC), Colonoscopy (DC) Discharge Disposition: HOME SELF-CARE
== END 2019-01-21 14:30 | disposition home or self-care (01) ==
LOC: ORWHC2ENDO 12:12
PROVIDERS: ATTEND Surgery Plastic and Reconstructive Surgery
DX: K57.30 Diverticulosis of large intestine without perforation or abscess without bleeding (principal); K52.9 Noninfective gastroenteritis and colitis, unspecified; K64.0 First degree hemorrhoids; I10 Essential (primary) hypertension; E78.5 Hyperlipidemia, unspecified; G47.33 Obstructive sleep apnea (adult) (pediatric); K21.9 Gastro-esophageal reflux disease without esophagitis; E07.9 Disorder of thyroid, unspecified; D51.0 Vitamin B12 deficiency anemia due to intrinsic factor deficiency; Z87.39 Personal history of other diseases of the musculoskeletal system and connective tissue; Z90.49 Acquired absence of other specified parts of digestive tract; F41.9 Anxiety disorder, unspecified; F32.9 Major depressive disorder, single episode, unspecified; F17.210 Nicotine dependence, cigarettes, uncomplicated; Z80.9 Family history of malignant neoplasm, unspecified; Z79.1 Long term (current) use of non-steroidal anti-inflammatories (NSAID); Z79.890 Hormone replacement therapy; Z79.899 Other long term (current) drug therapy
CPT/HCPCS: 45378; J2250; J2001; J3010; J2704

== ENCOUNTER 2019-01-25 16:50 | Inpatient (IN) | payer OTHER ==
[2019-01-25 17:42] LABS: Appearance,Urine Clear (Clear); Bilirubin,Urine Negative (Negative); Blood,Urine Negative (Negative); Color,Urine Yellow; Glucose,Urine (UA) Negative (Negative); Ketones,Urine 1+ (Negative); Leukocyte Esterase,Urine Negative (Negative); Nitrite,Urine Negative (Negative); Protein,Urine Trace (Negative); Urobilinogen,Urine <2.0 mg/dL (<2.0)
[2019-01-25 17:52] LABS: Amphetamine Screen,Urine Not Detected (NotDetected); Barbiturate Screen,Urine Not Detected (NotDetected); Benzodiazepines Screen,Urine Detected (NotDetected); Cocaine Screen,Urine Not Detected (NotDetected); Methadone Screen, Urine Not Detected (NotDetected); Opiate Screen,Urine Not Detected (NotDetected); Oxycodone Screen, Urine Not Detected (NotDetected); Phencyclidine Screen,Urine Not Detected (NotDetected); Tricyclic Antidepressant,Urine Not Detected (NotDetected); Urn Cannabinoid Scrn Detected (NotDetected)
[2019-01-25 18:41] LABS: Basophils % (A) 1 %; Eosinophils # (A) 0.1 k/uL (0-0.7); Eosinophils % (A) 1 %; HCT 44.2 % (39.0-53.0); HGB 15.4 gm/dL (13.0-17.5); Lymphocytes # (A) 2.1 k/uL (1.0-4.8); Lymphocytes % (A) 26 %; MCH 33.5 pg (25.0-35.0); MCHC 34.9 g/dL (31.0-37.0); MCV 95.8 fL (80.0-100.0); Mean Platelet Volume 5.7; Monocytes # (A) 0.4 k/uL (0-1.0); Monocytes % (A) 5 %; Neutrophils # (A) 5.4 k/uL (1.3-7.7); Neutrophils % (A) 66 %; Platelet Count 188 k/uL (150-450); RBC 4.61 m/uL (4.30-5.90); RDW 12.6 % (11.5-15.5); WBC 8.2 k/uL (3.8-10.6)
[2019-01-25 19:10] LABS: ALT 46 U/L (21-72); AST 68 U/L (17-59); African American GFR (CKD) >90 (>60 ml/min/1.73 sqM); Albumin 4.3 g/dL (3.5-5.0); Alkaline Phosphatase 113 U/L (38-126); Anion Gap 14 mmol/L; Blood Urea Nitrogen 18 mg/dL (9-20); Calcium 8.7 mg/dL (8.4-10.2); Carbon Dioxide 24 mmol/L (22-30); Chloride 107 mmol/L (98-107); Glucose 85 mg/dL (74-99); Non-African American GFR(CKD) >90 (>60 ml/min/1.73 sqM); Potassium 3.8 mmol/L (3.5-5.1); Sodium 145 mmol/L (137-145); Total Bilirubin 0.5 mg/dL (0.2-1.3); Total Protein 7.4 g/dL (6.3-8.2)
[2019-01-25 19:25] LABS: Alcohol 357 mg/dL
--- NOTE | 2019-01-25 19:30 | ED ---
General Adult HPI - General Chief complaint: Psychiatric Symptoms Stated complaint: EPS eval Time Seen by Provider: 01/25/19 17:08 Source: patient Mode of arrival: wheelchair Limitations: no limitations - History of Present Illness Initial comments: The patient is a 48 year old male with past medical history of hypertension, thyroid disorder and alcohol abuse who presents to the emergency room with reported alcohol intoxication and suicidal ideations. The patient reports that he has been drinking daily for the past month. He normally drinks more than 2 5th a day. States that he last drank around 3 PM today. He ingested a fifth. He has been having thoughts of suicide. States that he wants to drink himself to . Reports that he has been in rehab before for etoh abuse however has not had treatment for mental health. Patient reports that he has fallen and injured his left shoulder. Also reports to pain in his lumbar spine. No saddle anesthesia or bowel/bladder incontinence. Denies any blunt head trauma. Denies any other substance abuse. Reports to visual hallucinations. There are no other alleviating, precipitating or modifying factors - Related Data Home Medications Medication Instructions Recorded Confirmed Levothyroxine Sodium [Synthroid] 75 mcg PO DAILY 11/25/16 01/25/19 Cetirizine HCl [Zyrtec] 10 mg PO DAILY 04/07/18 01/25/19 Lisinopril [Prinivil] 10 mg PO DAILY 04/07/18 01/25/19 buPROPion XL [Wellbutrin XL] 150 mg PO DAILY 04/07/18 01/25/19 Fluticasone Nasal [place] [Flonase 2 spray EA NOSTRIL DAILY PRN 08/15/18 01/26/19 Nasal [place]] Cyanocobalamin [Vitamin B-12 1,000 mcg SQ QMONTH 11/09/18 01/25/19 Injection] Meloxicam [Mobic] 15 mg PO DAILY 11/09/18 01/25/19 Cyclobenzaprine [Flexeril] 10 mg PO TID PRN 01/25/19 01/25/19 Gabapentin [Neurontin] 300 mg PO DIRECTED 01/25/19 01/25/19 Glycopyrrolate 1 mg PO BID 01/25/19 01/25/19 HYDROcodone/APAP 7.5-325MG [[place] 1 tab PO BID 01/25/19 01/25/19 7.5-325] Metoprolol Tartrate [Lopressor] 25 mg PO BID 01/25/19 01/25/19 Previous Rx's Medication Instructions Recorded Ciprofloxacin HCl [Cipro] 500 mg PO Q12HR #20 tablet 01/21/19 metroNIDAZOLE [Flagyl] 500 mg PO TID #30 tab 01/21/19 LORazepam [Ativan] 1 mg PO TID PRN #9 tab 01/27/19 Thiamine [Vitamin B-1] 100 mg PO BID-W/MEALS tab 01/27/19 Allergies Allergy/AdvReac Type Severity Reaction Status Date / Time No Known Allergies Allergy Verified 01/25/19 19:15 Review of Systems ROS Statement: Those systems with pertinent positive or pertinent negative responses have been documented in the HPI. ROS Other: All systems not noted in ROS Statement are negative. Past Medical History Past Medical History: Hypertension, Thyroid Disorder Additional Past Medical History / Comment(s): VITAMIN B12 DEFICIENCY ANEMIA, rhabdomyolysis History of Any Multi-Drug Resistant Organisms: None Reported Past Surgical History: Orthopedic Surgery Additional Past Surgical History / Comment(s): BILAT Shoulder Surgery; 2 surgery on left side; one surgery on right Past Anesthesia/Blood Transfusion Reactions: No Reported Reaction Past Psychological History: Anxiety, Depression Past Alcohol Use History: Abuse, Daily, Heavy - Past Family History Mother Family Medical History: No Reported History Father Family Medical History: Cancer General Exam Limitations: no limitations General appearance: alert, appears intoxicated, anxious Head exam: Present: atraumatic, normocephalic Eye exam: Present: normal appearance, PERRL ENT exam: Present: normal exam Neck exam: Present: normal inspection. Absent: tenderness, meningismus Respiratory exam: Present: normal lung sounds bilaterally. Absent: respiratory distress, wheezes Cardiovascular Exam: Present: regular rate, tachycardia GI/Abdominal exam: Present: soft. Absent: tenderness, guarding, rebound, rigid Extremities exam: Present: normal inspection, full ROM, tenderness (right shoulder to palpation. No deformities or external signs of injury) Back exam: Present: normal inspection Neurological exam: Present: alert Psychiatric exam: Present: depressed, suicidal ideation Skin exam: Present: warm, dry, intact Course Vital Signs 01/25/19 01/25/19 01/25/19 16:57 21:01 22:30 Temperature 98.3 F 97.9 F Pulse Rate 131 H 115 H 106 H Respiratory 20 10 L Rate Blood Pressure 135/91 136/86 136/90 O2 Sat by Pulse 99 94 L Oximetry 01/26/19 01/26/19 08:03 10:50 Temperature 98.6 F 98.2 F Pulse Rate 82 80 Respiratory 18 18 Rate Blood Pressure 123/73 134/85 O2 Sat by Pulse 96 99 Oximetry EKG Findings - EKG Comments: EKG Findings:: EKG demonstrates a sinus tachycardia with ventricular rate of 106. SD interval 142. QRS E4. QTC of 446. No acute ST segment elevations or depressions concerning for ischemic changes. Medical Decision Making - Medical Decision Making Upon arrival the patient is placed in room 9. Vitals are obtain and the patient is tachycardic at 130. I did recommend laboratory studies. CBC and CMP are unremarkable. Urinalysis shows 1+ ketones. UDS is positive for benzodiazepines and marijuana. Alcohol is elevated at 357. Shoulder x-ray demonstrates no fracture seen widening of the AC joint. X-ray of the low spine demonstrates no acute fracture. I discussed results with the patient. Because of his elevated alcohol level of 354 I did recommend hospitalization with psychiatric consult. I called and discussed the case with Dr. Alvarez who accepted admission. Patient is awaiting a bed on the floor - Lab Data Result diagrams: 01/25/19 18:30 01/25/19 18:30 Lab Results 01/25/19 01/25/19 01/25/19 Range/Units 17:30 18:30 18:30 WBC 8.2 (3.8-10.6) k/uL RBC 4.61 (4.30-5.90) m/uL Hgb 15.4 (13.0-17.5) gm/dL Hct 44.2 (39.0-53.0) % MCV 95.8 (80.0-100.0) fL MCH 33.5 (25.0-35.0) pg MCHC 34.9 (31.0-37.0) g/dL RDW 12.6 (11.5-15.5) % Plt Count 188 (150-450) k/uL Neutrophils % 66 % Lymphocytes % 26 % Monocytes % 5 % Eosinophils % 1 % Basophils % 1 % Neutrophils # 5.4 (1.3-7.7) k/uL Lymphocytes # 2.1 (1.0-4.8) k/uL Monocytes # 0.4 (0-1.0) k/uL Eosinophils # 0.1 (0-0.7) k/uL Basophils # 0.0 (0-0.2) k/uL Sodium 145 (137-145) mmol/L Potassium 3.8 (3.5-5.1) mmol/L Chloride 107 (98-107) mmol/L Carbon Dioxide 24 (22-30) mmol/L Anion Gap 14 mmol/L BUN 18 (9-20) mg/dL Creatinine 0.79 (0.66-1.25) mg/dL Est GFR (CKD-EPI)AfAm >90 (>60 ml/min/1.73 sqM) Est GFR (CKD-EPI)NonAf >90 (>60 ml/min/1.73 sqM) Glucose 85 (74-99) mg/dL Calcium 8.7 (8.4-10.2) mg/dL Total Bilirubin 0.5 (0.2-1.3) mg/dL AST 68 H (17-59) U/L ALT 46 (21-72) U/L Alkaline Phosphatase 113 (38-126) U/L Total Protein 7.4 (6.3-8.2) g/dL Albumin 4.3 (3.5-5.0) g/dL Lipase 332 H (23-300) U/L Urine Color Yellow Urine Appearance Clear (Clear) Urine pH 6.0 (5.0-8.0) Ur Specific [place] 1.010 (1.001-1.035) Urine Protein Trace H (Negative) Urine Glucose (UA) Negative (Negative) Urine Ketones 1+ H (Negative) Urine Blood Negative (Negative) Urine Nitrite Negative (Negative) Urine Bilirubin Negative (Negative) Urine Urobilinogen <2.0 (<2.0) mg/dL Ur Leukocyte Esterase Negative (Negative) Urine Opiates Screen Not Detected (NotDetected) Ur Oxycodone Screen Not Detected (NotDetected) Urine Methadone Screen Not Detected (NotDetected) Ur Propoxyphene Screen Not Detected (NotDetected) Ur Barbiturates Screen Not Detected (NotDetected) U Tricyclic Antidepress Not Detected (NotDetected) Ur Phencyclidine Scrn Not Detected (NotDetected) Ur Amphetamines Screen Not Detected (NotDetected) U Methamphetamines Scrn Not Detected (NotDetected) U Benzodiazepines Scrn Detected H (NotDetected) Urine Cocaine Screen Not Detected (NotDetected) U Marijuana (THC) Screen Detected H (NotDetected) Serum Alcohol 357 H* mg/dL Disposition Clinical Impression: Alcohol intoxication, Depression, Impending delirium tremens Disposition: ADMITTED IP TO THIS [facility] Condition: Stable Is patient prescribed a controlled substance at d/c from ED?: No Decision to Admit Reason: Admit from EC Decision Date: 01/25/19 Decision Time: 19:32
--- NOTE | 2019-01-25 19:46 | XR ---
EXAMINATION TYPE: XR lumbar spine 2 or 3V DATE OF EXAM: 01/25/2019 COMPARISON: 08/15/2018 HISTORY: Pain TECHNIQUE: 3 views FINDINGS: There is some narrowing at the L5-S1 disc space. There is a rudimentary disc at S1-S2. Vert ebra have normal alignment. Posterior elements are intact. There is no compression fracture. IMPRESSION: No acute abnormality of the lumbar spine. No change. Disc space narrowing at L5-S1.
--- NOTE | 2019-01-25 19:47 | XR ---
EXAMINATION TYPE: XR shoulder complete LT DATE OF EXAM: 01/25/2019 COMPARISON: 06/17/2014 HISTORY: Pain. TECHNIQUE: 3 views. FINDINGS: There is some widening of the AC joint space. I see no fracture nor dislocation. There are no patholo gic calcifications. IMPRESSION: No fracture seen. Widening of the AC joint space suggestive of ligamentous tear that is n ew compared to old exam.
[2019-01-25] MEDS ORDERED: NALOXONE 0.4 MG/ML 1 ML VIAL IV PRN (19:53)
[2019-01-25] MEDS ORDERED: THIAMINE 100 MG/ML 2 ML VIAL IM STA (20:08)
[2019-01-25] MEDS ORDERED: LORazepam 2 MG/ML INJ IV PRN ×2 (20:08)
[2019-01-25] MEDS: SODIUM CHLORIDE 0.9% 1,000 ML IV SCH (20:44)
[2019-01-26] MEDS: SODIUM CHLORIDE 0.9% 1,000 ML IV SCH ×2 (05:57→21:05)
[2019-01-26] MEDS: LORazepam 2 MG/ML INJ IV PRN ×3 (05:58→21:04)
[2019-01-26] MEDS: THIAMINE 100 MG TAB PO SCH ×2 (08:04→17:26)
[2019-01-26] MEDS: METOPROLOL TARTRATE 25 MG TAB PO SCH ×3 (08:04→21:04)
[2019-01-26] MEDS: LEVOTHYROXINE 75 MCG TAB PO SCH (08:05)
[2019-01-26] MEDS: LISINOPRIL 10 MG TAB PO SCH (08:05)
--- NOTE | 2019-01-26 11:25 | P.HPIM ---
History of Present Illness 48-year-old male was brought to the emergency room with overall intoxication. Patient has a history of same. Patient states he has chronic shoulder pain from a industrial accident. X-ray shows some progressive injury. On exam patient awake and alert denies suicidal ideation. Patient states he was drinking alcohol to control the pain and he has in his low back. Patient sees pain management for chronic back pain Review of Systems Constitutional: Reports chronic pain Musculoskeletal: left: shoulder pain Past Medical History Past Medical History: Hypertension, Thyroid Disorder Additional Past Medical History / Comment(s): VITAMIN B12 DEFICIENCY ANEMIA, rhabdomyolysis History of Any Multi-Drug Resistant Organisms: None Reported Past Surgical History: Orthopedic Surgery Additional Past Surgical History / Comment(s): BILAT Shoulder Surgery; 2 surgery on left side; one surgery on right Past Anesthesia/Blood Transfusion Reactions: No Reported Reaction Past Psychological History: Anxiety, Depression Past Alcohol Use History: Abuse, Daily, Heavy - Past Family History Mother Family Medical History: No Reported History Father Family Medical History: Cancer Medications and Allergies Home Medications Medication Instructions Recorded Confirmed Type Levothyroxine Sodium [Synthroid] 75 mcg PO DAILY 11/25/16 01/25/19 History Cetirizine HCl [Zyrtec] 10 mg PO DAILY 04/07/18 01/25/19 History Lisinopril [Prinivil] 10 mg PO DAILY 04/07/18 01/25/19 History buPROPion XL [Wellbutrin Xl] 150 mg PO DAILY 04/07/18 01/25/19 History Fluticasone Nasal [place] [Flonase 2 spray EA NOSTRIL DAILY PRN 08/15/18 01/26/19 History Nasal [place]] Cyanocobalamin [Vitamin B-12 1,000 mcg SQ QMONTH 11/09/18 01/25/19 History Injection] Meloxicam [Mobic] 15 mg PO DAILY 11/09/18 01/25/19 History Ciprofloxacin HCl [Cipro] 500 mg PO Q12HR #20 tablet 01/21/19 01/25/19 Rx metroNIDAZOLE [Flagyl] 500 mg PO TID #30 tab 01/21/19 01/25/19 Rx Cyclobenzaprine [Flexeril] 10 mg PO TID PRN 01/25/19 01/25/19 History Gabapentin [Neurontin] 300 mg PO DIRECTED 01/25/19 01/25/19 History Glycopyrrolate 1 mg PO BID 01/25/19 01/25/19 History HYDROcodone/APAP 7.5-325MG [[place] 1 tab PO BID 01/25/19 01/25/19 History 7.5-325] LORazepam [Ativan] 1 mg PO TID PRN 01/25/19 01/25/19 History Metoprolol Tartrate [Lopressor] 25 mg PO BID 01/25/19 01/25/19 History Allergies Allergy/AdvReac Type Severity Reaction Status Date / Time No Known Allergies Allergy Verified 01/25/19 19:15 Physical Exam Vitals: Vital Signs Temp Pulse Resp BP Pulse Ox 01/26/19 10:50 98.2 F 80 18 134/85 99 01/26/19 08:03 98.6 F 82 18 123/73 96 01/25/19 22:30 106 H 10 L 136/90 01/25/19 21:01 97.9 F 115 H 136/86 94 L 01/25/19 16:57 98.3 F 131 H 20 135/91 99 Intake and Output 01/25/19 01/26/19 01/26/19 22:59 06:59 14:59 Other: Weight 86.183 kg - Constitutional General appearance: mild distress - EENT Eyes: PERRLA Ears: bilateral: normal - Neck Neck: normal ROM - Respiratory Respiratory: bilateral: CTA - Cardiovascular Rhythm: regular - Gastrointestinal General gastrointestinal: soft - Integumentary Integumentary: normal - Neurologic Neurologic: CNII-XII intact - Musculoskeletal Left shoulder pain - Psychiatric Psychiatric: A&O x's 3, appropriate affect, intact judgment & insight Results CBC & Chem 7: 01/25/19 18:30 01/25/19 18:30 Labs: Abnormal Lab Results - Last 24 Hours (Table) 01/25/19 01/25/19 Range/Units 17:30 18:30 AST 68 H (17-59) U/L Lipase 332 H (23-300) U/L Urine Protein Trace H (Negative) Urine Ketones 1+ H (Negative) U Benzodiazepines Scrn Detected H (NotDetected) U Marijuana (THC) Screen Detected H (NotDetected) Serum Alcohol 357 H* mg/dL Assessment and Plan Plan: Assessment Acute alcoholic intoxication history of alcohol abuse Depression Left shoulder pain History of hypertension Thyroid disorder History of low shoulder surgery Plan Psychiatric evaluation Orthopedic evaluation left shoulder patient may decline History of Workmen's Comp. case
[2019-01-27] MEDS: LEVOTHYROXINE 75 MCG TAB PO SCH (05:57)
[2019-01-27] MEDS: SODIUM CHLORIDE 0.9% 1,000 ML IV SCH ×2 (05:57→08:38)
[2019-01-27] MEDS: METOPROLOL TARTRATE 25 MG TAB PO SCH (08:27)
[2019-01-27] MEDS: LISINOPRIL 10 MG TAB PO SCH (08:27)
[2019-01-27] MEDS: THIAMINE 100 MG TAB PO SCH (08:27)
[2019-01-27] MEDS: LORazepam 2 MG/ML INJ IV PRN (08:35)
--- NOTE | 2019-01-27 10:53 | P.CN ---
Psychiatric Consult - . Consult date: 01/27/19 Consult:: IDENTIFYING DATA: He is a 48-year-old male admitted to medicine service for of acute alcohol intoxication and chronic pain. The emergency physician consult to psychiatry because he apparently made suicidal statements while he was in the emergency room. HISTORY OF PRESENT ILLNESS: I reviewed the medical record and interviewed the patient. He has no recollection of making suicidal statements or talking about suicide when he presented to the emergency room. He recognizes that he has an alcohol use problems and was intoxicated. He stated that he experiences blackouts when he is intoxicated. He has a long history of alcohol use problems and has received both residential and outpatient treatment. He currently attends Alcoholics Anonymous "several days per week." He alleges that his alcohol use has increased recently and he was drinking most days over the week prior to his presentation. He was vague about the amount and frequency of his alcohol use. He alleged that he uses alcohol to relieve some of the chronic pain from a degenerative disc disease and a shoulder injury. He admits to feeling depressed but denied thoughts of or suicide. His primary care provider prescribes Wellbutrin for the treatment of depression and he is [facility] He has been meeting with Nella Cheng'Brien for about 2 years. He alleges that he feels depressed most days. He lost interest in many activities and feels fatigued nearly every day. He has persistent feelings of worthlessness but denies significant weight loss, persistent insomnia, psychomotor agitation or retardation, indecisiveness reincarnate thoughts of . He described persistent anxiety for which his primary care provider prescribes Ativan 1 mg 3 times a day when necessary. He denied periods of increased anxiety consistent with panic attacks, obsessions or compulsions. He denied experiencing such psychotic symptoms as auditory, visual or olfactory hallucinations, ideas reference, thought insertion etc. PAST PSYCHIATRIC HISTORY: He is never met with a psychiatrist. He still been admitted to psychiatric hospital. As mentioned above, he is been involved with water counseling/to 3 years. ALLERGIES: NO KNOWN DRUG ALLERGIES. SUBSTANCE USE HISTORY:. He has been using alcohol throughout his adult life. He is had multiple operating under the influence convictions and had a felony conviction following his third offense resulting in incarceration. FAMILY PSYCHIATRIC/SUBSTANCE USE HISTORY: He is unaware of family history of substance abuse or mental health problems in his family. SOCIAL HISTORY: His born and raised in [place] to an intact family. He graduated from high school and earned a associates degree from [employer]. He was once. He has 4 children from 2 relationships. He has been on disability for 4 years following an industrial actual accident resulted in injury to her shoulder. He lives with his parents. He is had multiple felony convictions related to multiple domestic violence convictions, multiple operating under the influence convictions and resisting arrest. He was released from legal supervision in June 2018. MENTAL STATUS EXAM: He presented as a casually groomed middle-aged male who is laying comfortably in bed. He made eye contact and attended to the interview. He had no distinguishing features or prominent physical abnormalities. He had a blunted facial expression. He was alert and oriented to person, place and time. He showed some slight psychomotor retardation but no abnormal movements. His speech was spontaneous with decreased rate, rhythm and volume. His affect was depressed but stable and appropriate. He denied suicidal ideation or wishes. He denied homicidal ideation he expressed feelings of worthlessness but denied hopelessness or helplessness. He did not express phobias, ideas reference, paranoid ideation, magical ideation or delusions. His thinking was abstract and associations were coherent, logical and goal directed. He denied hallucinations did not appear to be responding to internal stimuli. Global impression of intellect is average. He is aware of his alcohol use problem and need for substance abuse treatment.. IMPRESSIONS: Alcohol use disorder severe, alcohol withdrawal, alcohol induced mood disorder, rule out major depressive disorder PLAN: There is no indication for inpatient psychiatric hospitalization at this time. He may benefit from referral for residential substance abuse treatment. Continue outpatient mental health treatment through [facility] counseling and continued attendance to Alcoholics Anonymous. Thank you for the consult.. 01/27/19 10:36
--- NOTE | 2019-01-27 11:05 | P.DS ---
Providers Date of admission: 01/27/19 08:31 Expected date of discharge: 01/27/19 Attending physician: Deion Alvarez Consults: 01/25/19 19:58 Consult Physician Urgent Consulting Provider: Audi Lopez Consult Reason/Comments: depression, suicidal statements Do you want consulting provider notified?: Yes 01/26/19 08:59 Consult Physician Urgent Consulting Provider: Ghanshyam Peralta Consult Reason/Comments: lt shoulder internal derangement fall Do you want consulting provider notified?: Yes Primary care physician: Deion Alvarez Hospital Course: 48-year-old male was admitted to the emergency room with alcohol intoxication. Patient had an made some suicidal ideation comments while under the influence. Patient was evaluated by mental health nurse and psychiatry and cleared for discharge. Patient states he has support with AA. Patient states he drinks alcohol to try to control his back pain Assessment Alcohol intoxication Depression Hypertension Thyroid disorder Chronic low back pain History of bilateral shoulder surgery Plan Follow-up with family physician Dr. Deion Alvarez I continue AA meetings Patient Condition at Discharge: Stable Plan - Discharge Summary Discharge Rx Participant: No New Discharge Prescriptions: New Thiamine [Vitamin B-1] 100 mg PO BID-W/MEALS tab Continue Levothyroxine Sodium [Synthroid] 75 mcg PO DAILY buPROPion XL [Wellbutrin XL] 150 mg PO DAILY Lisinopril [Prinivil] 10 mg PO DAILY Cetirizine HCl [Zyrtec] 10 mg PO DAILY Fluticasone Nasal [place] [Flonase Nasal [place]] 2 spray EA NOSTRIL DAILY PRN PRN Reason: Allergy Symptoms Meloxicam [Mobic] 15 mg PO DAILY Cyanocobalamin [Vitamin B-12 Injection] 1,000 mcg SQ QMONTH Ciprofloxacin HCl [Cipro] 500 mg PO Q12HR #20 tablet metroNIDAZOLE [Flagyl] 500 mg PO TID #30 tab Cyclobenzaprine [Flexeril] 10 mg PO TID PRN PRN Reason: Spasms Gabapentin [Neurontin] 300 mg PO DIRECTED Glycopyrrolate 1 mg PO BID HYDROcodone/APAP 7.5-325MG [[place] 7.5-325] 1 tab PO BID Metoprolol Tartrate [Lopressor] 25 mg PO BID LORazepam [Ativan] 1 mg PO TID PRN #9 tab PRN Reason: Anxiety Discharge Medication List Levothyroxine Sodium [Synthroid] 75 mcg PO DAILY 11/25/16 [History] Cetirizine HCl [Zyrtec] 10 mg PO DAILY 04/07/18 [History] Lisinopril [Prinivil] 10 mg PO DAILY 04/07/18 [History] buPROPion XL [Wellbutrin XL] 150 mg PO DAILY 04/07/18 [History] Fluticasone Nasal [place] [Flonase Nasal [place]] 2 spray EA NOSTRIL DAILY PRN 08/15/18 [History] Cyanocobalamin [Vitamin B-12 Injection] 1,000 mcg SQ QMONTH 11/09/18 [History] Meloxicam [Mobic] 15 mg PO DAILY 11/09/18 [History] Ciprofloxacin HCl [Cipro] 500 mg PO Q12HR #20 tablet 01/21/19 [Rx] metroNIDAZOLE [Flagyl] 500 mg PO TID #30 tab 01/21/19 [Rx] Cyclobenzaprine [Flexeril] 10 mg PO TID PRN 01/25/19 [History] Gabapentin [Neurontin] 300 mg PO DIRECTED 01/25/19 [History] Glycopyrrolate 1 mg PO BID 01/25/19 [History] HYDROcodone/APAP 7.5-325MG [[place] 7.5-325] 1 tab PO BID 01/25/19 [History] Metoprolol Tartrate [Lopressor] 25 mg PO BID 01/25/19 [History] LORazepam [Ativan] 1 mg PO TID PRN #9 tab 01/27/19 [Rx] Thiamine [Vitamin B-1] 100 mg PO BID-W/MEALS tab 01/27/19 [Rx] Follow up Appointment(s)/Referral(s): Deion Alvarez MD [Primary Care Provider] - 1-2 days
[2019-01-27 11:47] VITALS: BP 144/91; PULSE 79; RESP 16; TEMP 96.7
== END 2019-01-27 12:20 | disposition home or self-care (01) | DRG 897 ==
LOC: EC 16:50 → 3NMEDONC 19:53 → OBSVTOIN 01-27 08:31
PROVIDERS: ADMIT Family Medicine; ATTEND Family Medicine
DX: F10.129 Alcohol abuse with intoxication, unspecified (principal); R45.851 Suicidal ideations; F32.9 Major depressive disorder, single episode, unspecified; E07.9 Disorder of thyroid, unspecified; F41.9 Anxiety disorder, unspecified; I10 Essential (primary) hypertension; G89.29 Other chronic pain; Y90.8 Blood alcohol level of 240 mg/100 ml or more; Z79.1 Long term (current) use of non-steroidal anti-inflammatories (NSAID); Z79.890 Hormone replacement therapy; Z79.899 Other long term (current) drug therapy
CPT/HCPCS: 36415; 72100; 80053; 80306; 80320; 81003; 82075; 83690; 85025; 93005; 96361; 96372; 96374; 99285

== ENCOUNTER → 2019-02-18 | Outpatient (CLI) | payer OTHER ==
--- NOTE | 2019-02-18 14:11 | MR ---
EXAMINATION TYPE: MR angio head wo con DATE OF EXAM: 02/18/2019 COMPARISON: 10/18/2019 HISTORY: Cerebral Aneurysm TECHNIQUE: Time of flight images focusing on the [place] were performed without contrast.. 2-D and 3-D postprocessing imaging is performed. FINDINGS: There is no interval enlargement of the medial projecting saccular aneurysm of the supracli noid portion of the distal right internal carotid artery measuring 2 x 3 mm on images 80 and 81. No n ew intracranial aneurysm is seen. Vertebral arteries are codominant. Posterior circulation is patent and unremarkable. No focal hemodyn amically significant stenosis. Anterior [place] arteries are seen however they do not clearly conne ct with the posterior circulation and [place] cannot be definitively said to be intact. [place] cerebral arteries and anterior cerebral arteries are grossly unremarkable. Atherosclerosis is seen of the supraclinoid portions and cavernous portions of the internal carotid arteries although mild. 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 No new intracranial aneurysm.
== END | disposition home or self-care (01) ==
LOC: RADMRIMAIN 10:51
PROVIDERS: ATTEND Neurological Surgery
DX: I67.1 Cerebral aneurysm, nonruptured (principal)
CPT/HCPCS: 70544

== ENCOUNTER → 2019-02-23 | Outpatient (CLI) | payer OTHER ==
--- NOTE | 2019-02-23 13:02 | CT ---
EXAMINATION TYPE: CT sinus wo con DATE OF EXAM: 02/23/2019 COMPARISON: MRI brain October 17, 2017 HISTORY: Sinus congestion. Headache with double and change in vision and dizziness per patient. CT DLP: 679.3 mGycm. Automated Exposure Control for Dose Reduction was Utilized. TECHNIQUE: CT scan of the sinuses is performed without contrast, axial images are obtained, coronal r eformatted images are also reviewed. FINDINGS: There is mild mucosal thickening involving anterior ethmoid sinuses bilaterally redemonstra ana. Remainder of paranasal sinuses are clear without suspicious opacification or air-fluid levels. The ostiomeatal complex is patent bilaterally seen best on coronal image 26. Visualized portion of mastoid air cells show no abnormal opacification. The globes are intact bilate rally. Visualized brain parenchyma is unremarkable. IMPRESSION: Mild anterior chronic ethmoid sinus disease. No acute sinusitis.
== END | disposition home or self-care (01) ==
LOC: RADCTMAIN 12:35
DX: J32.2 Chronic ethmoidal sinusitis (principal); J32.4 Chronic pansinusitis
CPT/HCPCS: 70486

== ENCOUNTER → 2019-03-17 | Outpatient (CLI) | payer OTHER ==
[2019-03-17 14:57] LABS: Basophils # (A) 0.1 k/uL (0-0.2); Basophils % (A) 1 %; Eosinophils # (A) 0.2 k/uL (0-0.7); Eosinophils % (A) 3 %; HCT 44.5 % (39.0-53.0); HGB 14.7 gm/dL (13.0-17.5); Lymphocytes # (A) 1.4 k/uL (1.0-4.8); Lymphocytes % (A) 20 %; MCH 31.6 pg (25.0-35.0); MCV 95.9 fL (80.0-100.0); Monocytes # (A) 0.4 k/uL (0-1.0); Monocytes % (A) 6 %; Neutrophils # (A) 4.6 k/uL (1.3-7.7); Neutrophils % (A) 67 %; Platelet Count 177 k/uL (150-450); RBC 4.63 m/uL (4.30-5.90); RDW 12.8 % (11.5-15.5); WBC 6.9 k/uL (3.8-10.6)
== END | disposition home or self-care (01) ==
LOC: LABPAT 13:41
PROVIDERS: ATTEND Anesthesiology
DX: Z01.812 Encounter for preprocedural laboratory examination (principal)
CPT/HCPCS: 85025

== ENCOUNTER 2019-03-19 06:05 | Day surgery (SDC) | payer OTHER ==
[2019-03-17 11:17] VITALS: BMI 27.6
--- NOTE | 2019-03-18 20:18 | P.GSHP ---
History of Present Illness H&P Date: 03/19/19 CHIEF COMPLAINT: Ventral hernia HISTORY OF PRESENT ILLNESS: The patient is a 48-year-old male who presents with a history of swelling and pain along the abdomen from a hernia. Now he presents for surgical intervention. PAST MEDICAL HISTORY: Please see list. PAST SURGICAL HISTORY: Please see list. MEDICATIONS: Please see list. ALLERGIES: Please see list. SOCIAL HISTORY: No illicit drug use FAMILY HISTORY: No reports of Crohn disease or ulcerative colitis. REVIEW OF ORGAN SYSTEMS: CONSTITUTIONAL: No reports of fevers or chills. No reports of weight loss despite prior attempts. GI: Denies any blood in stools or constipation. PHYSICAL EXAM: VITAL SIGNS: Stable GENERAL: Well-developed pleasant male in no acute distress. HEENT: No scleral icterus. Extraocular movements grossly intact. Moist buccal mucosa. NECK: Supple without lymphadenopathy. CHEST: Unlabored respirations. Equal bilateral excursions. CARDIOVASCULAR: Regular rate and rhythm. Distal 2+ pulses. ABDOMEN: Soft, nondistended. Palpable defect of the abdomen of the left upper quadrant pain. No peritoneal signs. MUSCULOSKELETAL: No clubbing, cyanosis, or edema. ASSESSMENT: 1. Ventral hernia, left upper quadrant. PLAN: 1. Recommend proceeding with robotic ventral hernia repair with mesh. 2. Benefits and risks of surgical intervention was discussed including possibility of open technique. 3. DVT prophylaxis. 4. Antibiotic prophylaxis. Past Medical History Past Medical History: Hypertension, Thyroid Disorder Additional Past Medical History / Comment(s): VITAMIN B12 DEFICIENCY ANEMIA, rhabdomyolysis, hypothyroidism History of Any Multi-Drug Resistant Organisms: None Reported Past Surgical History: Orthopedic Surgery Additional Past Surgical History / Comment(s): BILAT Shoulder Surgery; 2 surgery on left side; one surgery on right Past Anesthesia/Blood Transfusion Reactions: No Reported Reaction Additional Psychological History / Comment(s): Major depression disorder-takes wellbutrin Past Alcohol Use History: Abuse, Daily, Heavy Past Drug Use History: Marijuana - Past Family History Mother Family Medical History: No Reported History Father Family Medical History: Cancer Additional Family Medical History / Comment(s): prostate, lymphoma Medications and Allergies Home Medications Medication Instructions Recorded Confirmed Type Levothyroxine Sodium [Synthroid] 75 mcg PO DAILY 11/25/16 03/17/19 History Cetirizine HCl [Zyrtec] 10 mg PO DAILY 04/07/18 03/17/19 History buPROPion XL [Wellbutrin XL] 150 mg PO DAILY 04/07/18 03/17/19 History Fluticasone Nasal [place] [Flonase 2 spray EA NOSTRIL DAILY PRN 08/15/18 03/17/19 History Nasal [place]] Cyanocobalamin [Vitamin B-12 1,000 mcg SQ QMONTH 11/09/18 03/17/19 History Injection] Meloxicam [Mobic] 15 mg PO DAILY 11/09/18 03/17/19 History Cyclobenzaprine [Flexeril] 10 mg PO TID PRN 01/25/19 03/17/19 History Gabapentin [Neurontin] 300 mg PO TID 01/25/19 03/17/19 History Glycopyrrolate 1 mg PO BID 01/25/19 03/17/19 History HYDROcodone/APAP 7.5-325MG [[place] 1 tab PO BID 01/25/19 03/17/19 History 7.5-325] Metoprolol Tartrate [Lopressor] 25 mg PO BID 01/25/19 03/17/19 History LORazepam [Ativan] 1 mg PO TID PRN #9 tab 01/27/19 03/17/19 Rx Eye Drop For Glaucom(Name Unk) 1 drop BOTH EYES BID 03/17/19 03/17/19 History Lisinopril 20 mg PO DAILY 03/17/19 03/17/19 History Allergies Allergy/AdvReac Type Severity Reaction Status Date / Time No Known Allergies Allergy Verified 03/17/19 11:06
[~2019-03-19 06:05] MED LIST changes: +ACETAMINOPHEN TAB 500 MG TAB PO STA; +DEXAMETHASONE SOD PHOSPHATE 10 MG/ML 1 ML VIAL IV ONE; +GABAPENTIN 300 MG CAP PO STA; +HEPARIN SODIUM,PORCINE 5,000 UNIT/ML 1 ML VIAL SQ ONE; +HYDROmorphone 0.5 MG/0.5 ML SYRINGE IVP PRN; +ONDANSETRON 4 MG/2 ML VIAL IVP ONE; +TAMSULOSIN 0.4 MG CAP.ER.24H PO STA; +fentaNYL (PF) 50 MCG/ML 2 ML AMP IV PRN
[2019-03-19] MEDS ORDERED: MIDAZOLAM 2 MG/2 ML VIAL IV ONE (06:55)
[2019-03-19] MEDS ORDERED: fentaNYL (PF) 50 MCG/ML 2 ML AMP IV ONE (06:56)
[2019-03-19] MEDS ORDERED: ROCURONIUM BROMIDE 10 MG/ML 10 ML VIAL IV ONE (07:26)
[2019-03-19] MEDS ORDERED: ROPIVACAINE 5 MG/ML 30 ML VIAL ONE (07:26)
[2019-03-19] MEDS ORDERED: LIDOCAINE 1% INJ 10MG/ML (20 ML MDV) ONE (07:26)
[2019-03-19] MEDS ORDERED: GLYCOPYRROLATE 0.2 MG/ML 2 ML VIAL ONE (07:26)
[2019-03-19] MEDS ORDERED: LABETALOL 5 MG/ML VIAL MDV ONE (07:26)
[2019-03-19] MEDS ORDERED: LIDOCAINE 1%-EPI 1:100,000 20 ML VIAL ONE (07:26)
[2019-03-19] MEDS ORDERED: SUCCINYLCHOLINE CHLORIDE 100 MG/5 ML SYR IV ONE (07:26)
[2019-03-19] MEDS ORDERED: NEOSTIGMINE 1 MG/ML 10 ML VIAL ONE (07:26)
[2019-03-19] MEDS ORDERED: fentaNYL (PF) 50 MCG/ML 2 ML AMP ONE (07:26)
[2019-03-19] MEDS ORDERED: PROPOFOL 10 MG/ML 20 ML VIAL IV ONE (07:26)
[2019-03-19] MEDS ORDERED: KETOROLAC 30 MG/ML 1 ML VIAL ONE (07:26)
[2019-03-19] MEDS ORDERED: BUPIVACAIN-EPI 0.25%-1:200,000 30 ML VIAL SQ ONE (08:05)
--- NOTE | 2019-03-19 08:38 | P.OP ---
Date of Procedure: 03/19/19 Description of Procedure: SURGEON: MANJULA WEBSTER MD PREOPERATIVE DIAGNOSES: 1. Initial incisional hernia left upper quadrant with incarceration 2. Hypertensive heart disease 3. Depressive disorder 4. Anxiety disorder 5. Chronic pain syndrome 6. Hypothyroidism POSTOPERATIVE DIAGNOSES: 1. Initial incisional hernia left upper quadrant with incarceration, 1.5 cm 2. Hypertensive heart disease 3. Depressive disorder 4. Anxiety disorder 5. Chronic pain syndrome 6. Hypothyroidism OPERATION: 1. Robotic-assisted da Axel Xi laparoscopic repair of initial incarcerated incisional hernia 1.5 cm without mesh ANESTHESIA: General with local ESTIMATED BLOOD LOSS: 5 mL. SPECIMENS: None. COMPLICATIONS: None. INDICATIONS: The patient is a 48-year-old male who presents with initial incisional hernia with incarceration. Surgical intervention with laparoscopic versus robotic and open techniques were reviewed. Placement of mesh was also reviewed. Benefits and risks were thoroughly described. Informed consent was obtained. DESCRIPTION OF PROCEDURE: The patient was brought into the operating room and laid in supine position. After general induction, the abdomen had been prepped and draped in standard sterile fashion. [place] draping was also placed. Prior to incision, a timeout protocol was confirmed with surgical team regarding the patient's name including procedures to be performed. The robot was primed prior to the procedure. A field block using local anesthetic was placed along hernia site including the proposed port sites. Initial incision was made with an #11 blade along the right upper quadrant. A 0 degree 5 mm laparoscopic trocar entry was performed. Diagnostic laparoscopy demonstrated an incarcerated incisional hernia at the left upper quadrant. Three 8 mm trocars were placed along the right lateral abdominal wall. Placements of the ports were 15 cm from the target anatomy and 9 cm apart. The da Axel Xi robot was previously primed, prepped and draped then docked along the right side of the patient. I then sat at the robot Da Axel Xi console where working arms of the robot were scissors, needle tour bus driver/guide, and graspers placed by the water quality assistant. Attention was brought to the umbilicus where an incarcerated incisional hernia was identified containing fat and omentum. The incarcerated contents was reduced as the peritoneal fat was cleaned from the abdominal wall. Next, hemostasis was checked with cautery. The hernia defect of 1.5-cm was oversewn using #1 VLOC with fascial imbrication 3. A final endoscopic imaging was obtained. All instruments and pneumoperitoneum were evacuated from the abdominal cavity. The da Axel Xi robot was undocked from the patient. I re-scrubbed into the case for closure of incisions. The incisions were reapproximated using 4-0 Monocryl in an interrupted subcuticular fashion. Exofin liquid glue was applied to the skin after cleansing the skin with normal saline and dilute hydrogen peroxide. An abdominal binder was placed. At the end of the procedure, needle, sponge, and instrument count had been verified correct by surgical services manager. The patient was taken to the postanesthesia care unit in stable condition. FINDINGS: 1. Initial incarcerated incisional hernia, 1.5 cm with contents of omentum Plan - Discharge Summary Discharge Rx Participant: Yes New Discharge Prescriptions: New Ibuprofen [Motrin] 600 mg PO Q8HR PRN #30 tab PRN Reason: Pain Acetaminophen Tab [Tylenol Tab] 500 mg PO Q6H PRN #30 tablet PRN Reason: Pain No Action Levothyroxine Sodium [Synthroid] 75 mcg PO DAILY buPROPion XL [Wellbutrin XL] 150 mg PO DAILY Cetirizine HCl [Zyrtec] 10 mg PO DAILY Fluticasone Nasal [place] [Flonase Nasal [place]] 2 spray EA NOSTRIL DAILY PRN PRN Reason: Allergy Symptoms Meloxicam [Mobic] 15 mg PO DAILY Cyanocobalamin [Vitamin B-12 Injection] 1,000 mcg SQ QMONTH Cyclobenzaprine [Flexeril] 10 mg PO TID PRN PRN Reason: Spasms Gabapentin [Neurontin] 300 mg PO TID Glycopyrrolate 1 mg PO BID HYDROcodone/APAP 7.5-325MG [[place] 7.5-325] 1 tab PO BID Metoprolol Tartrate [Lopressor] 25 mg PO BID LORazepam [Ativan] 1 mg PO TID PRN #9 tab PRN Reason: Anxiety Lisinopril 20 mg PO DAILY Eye Drop For Glaucom(Name Unk) 1 drop BOTH EYES BID Discharge Medication List Levothyroxine Sodium [Synthroid] 75 mcg PO DAILY 11/25/16 [History] Cetirizine HCl [Zyrtec] 10 mg PO DAILY 04/07/18 [History] buPROPion XL [Wellbutrin XL] 150 mg PO DAILY 04/07/18 [History] Fluticasone Nasal [place] [Flonase Nasal [place]] 2 spray EA NOSTRIL DAILY PRN 08/15/18 [History] Cyanocobalamin [Vitamin B-12 Injection] 1,000 mcg SQ QMONTH 11/09/18 [History] Meloxicam [Mobic] 15 mg PO DAILY 11/09/18 [History] Cyclobenzaprine [Flexeril] 10 mg PO TID PRN 01/25/19 [History] Gabapentin [Neurontin] 300 mg PO TID 01/25/19 [History] Glycopyrrolate 1 mg PO BID 01/25/19 [History] HYDROcodone/APAP 7.5-325MG [[place] 7.5-325] 1 tab PO BID 01/25/19 [History] Metoprolol Tartrate [Lopressor] 25 mg PO BID 01/25/19 [History] LORazepam [Ativan] 1 mg PO TID PRN #9 tab 01/27/19 [Rx] Eye Drop For [place]au[place](Name Unk) 1 drop BOTH EYES BID 03/17/19 [History] Lisinopril 20 mg PO DAILY 03/17/19 [History] Acetaminophen Tab [Tylenol Tab] 500 mg PO Q6H PRN #30 tablet 03/19/19 [Rx] Ibuprofen [Motrin] 600 mg PO Q8HR PRN #30 tab 03/19/19 [Rx] Follow up Appointment(s)/Referral(s): Manjula Webster MD [STAFF PHYSICIAN] - 03/23/19 Patient Instructions/Handouts: Ventral Hernia Repair (GEN) Activity/Diet/Wound Care/Special Instructions: No lifting for 4 pounds in 4 weeks, Apr 19. July shower. No bathtub soaks for 2 weeks until Apr 02. Wear abdominal binder daily for comfort except for showering. DO NOT TAKE NORCO AND XANAX TOGETHER. DO NOT DRIVE WHILE ON NARCOTICS. Discharge Disposition: HOME SELF-CARE
[2019-03-19] MEDS ORDERED: LACTATED RINGERS 1,000 ML IV ONE (08:41)
[2019-03-19 08:52] VITALS: TEMP 97.4
[2019-03-19] MEDS ORDERED: HYDROcodone/APAP 7.5-325MG 1 EACH TAB PO ONE (09:30)
--- NOTE | 2019-03-19 09:51 | P.ANPRN ---
Procedure Note - Anesthesia - Nerve Block Performed Left Rectus Abdominis Single Time Out Performed: Yes Date of Procedure: 03/19/19 Procedure Start Time: 06:56 Procedure Stop Time: 07:00 Location of Patient: PreOp Indication: Acute Post-Operative Pain, Requested by Surgeon Specifically requested for management of pain by DrNidhi: Manjula Webster Sedation Type: Sedate with meaningful contact maintained Preparation: Sterile Prep Position: Supine Catheter: None Needle Types: Pajunk Needle Gauge: 20 Ultrasound used to visualize needle placement: Yes Ultrasound used to observe medication spread: Yes Injectate: Other (see comment) (0.25% ropivacaine/0.5% lidocaine 25 mL) Blood Aspirated: No Pain Paresthesia on Injection Noted: No Resistance on Injection: Normal Image Stored and Saved: Yes Events: Uneventful and Well Tolerated
--- NOTE | 2019-03-19 09:53 | P.ANPRN ---
Procedure Note - Anesthesia - Nerve Block Performed Left Transversus Abdominis Single Time Out Performed: Yes Date of Procedure: 03/19/19 Procedure Start Time: : Procedure Stop Time: : Location of Patient: PreOp Indication: Acute Post-Operative Pain, Requested by Surgeon Specifically requested for management of pain by DrNidhi: Manjula Webster Sedation Type: Sedate with meaningful contact maintained Preparation: Sterile Prep Position: Supine Catheter: None Needle Types: Pajunk Needle Gauge: 20 Ultrasound used to visualize needle placement: Yes Ultrasound used to observe medication spread: Yes Injectate: Other (see comment) (Ropivacaine 0.25%/lidocaine 0.5% when he 5 mL) Adjunct: Epinephrine (see comment for dilution ratio) (1:200,000) Blood Aspirated: No Pain Paresthesia on Injection Noted: No Resistance on Injection: Normal Image Stored and Saved: Yes Events: Uneventful and Well Tolerated
[2019-03-19 10:06] VITALS: RESP 16
[2019-03-19 10:33] VITALS: BP 128/82; PULSE 72
== END 2019-03-19 10:35 | disposition home or self-care (01) ==
LOC: OR 06:05
PROVIDERS: ATTEND Surgery Plastic and Reconstructive Surgery
DX: K43.0 Incisional hernia with obstruction, without gangrene (principal); D51.9 Vitamin B12 deficiency anemia, unspecified; E03.9 Hypothyroidism, unspecified; M62.82 Rhabdomyolysis; I11.9 Hypertensive heart disease without heart failure; Z72.0 Tobacco use; G89.4 Chronic pain syndrome; F32.9 Major depressive disorder, single episode, unspecified; F41.9 Anxiety disorder, unspecified; F39 Unspecified mood [affective] disorder; F10.10 Alcohol abuse, uncomplicated; Z80.42 Family history of malignant neoplasm of prostate; Z80.7 Family history of other malignant neoplasms of lymphoid, hematopoietic and related tissues; Z79.1 Long term (current) use of non-steroidal anti-inflammatories (NSAID); Z79.890 Hormone replacement therapy; Z79.891 Long term (current) use of opiate analgesic; Z79.899 Other long term (current) drug therapy
CPT/HCPCS: 49655; S2900; 64486; 64488

== ENCOUNTER 2019-07-23 11:28 | Emergency (ER) | payer OTHER ==
[2019-07-23 11:34] VITALS: RESP 20; TEMP 98.7
[2019-07-23] MEDS ORDERED: SODIUM CHLORIDE 0.9% 2,000 ML IV STA (11:51)
[2019-07-23 12:07] LABS: Basophils % (A) 0 %; Eosinophils # (A) 0.2 k/uL (0-0.7); Eosinophils % (A) 1 %; HCT 44.9 % (39.0-53.0); HGB 14.7 gm/dL (13.0-17.5); Lymphocytes # (A) 1.2 k/uL (1.0-4.8); Lymphocytes % (A) 9 %; MCH 32.4 pg (25.0-35.0); MCHC 32.8 g/dL (31.0-37.0); MCV 98.9 fL (80.0-100.0); Mean Platelet Volume 7.8; Monocytes # (A) 0.6 k/uL (0-1.0); Monocytes % (A) 5 %; Neutrophils # (A) 11.1 k/uL (1.3-7.7); Neutrophils % (A) 84 %; Platelet Count 210 k/uL (150-450); RBC 4.54 m/uL (4.30-5.90); RDW 12.2 % (11.5-15.5); WBC 13.2 k/uL (3.8-10.6)
[2019-07-23 12:16] LABS: ALT 52 U/L (4-49); AST 29 U/L (17-59); African American GFR (CKD) >90 (>60 ml/min/1.73 sqM); Alkaline Phosphatase 91 U/L (38-126); Amylase 63 U/L (30-110); Anion Gap 11 mmol/L; Blood Urea Nitrogen 19 mg/dL (9-20); Calcium 9.3 mg/dL (8.4-10.2); Carbon Dioxide 20 mmol/L (22-30); Chloride 107 mmol/L (98-107); Glucose 123 mg/dL (74-99); Magnesium 1.6 mg/dL (1.6-2.3); Non-African American GFR(CKD) >90 (>60 ml/min/1.73 sqM); Potassium 3.9 mmol/L (3.5-5.1); Sodium 138 mmol/L (137-145); Total Bilirubin 0.3 mg/dL (0.2-1.3); Total Protein 7.2 g/dL (6.3-8.2)
--- NOTE | 2019-07-23 12:26 | ED ---
Abdominal Pain HPI - General Source: patient, RN notes reviewed Mode of arrival: ambulatory Limitations: no limitations <Raj Clemente - Last Filed: 07/23/19 13:16> <Debra Benavides - Last Filed: 07/26/19 23:44> - General Chief Complaint: Abdominal Pain Stated Complaint: Abd pain Time Seen by Provider: 07/23/19 11:37 - History of Present Illness Initial Comments: 49-year-old male presents emergency Department chief complaint of lower abdominal pain. Patient states has been bothersome over the last week or so. Patient was seen by PCP for physical yesterday was recommended to emergency from for lab work and CT to rule out diverticulitis as he has history of diverticulosis based on colonoscopy. Patient denies any fevers or chills she's had intermittent nausea vomiting no diarrhea no melena hematochezia. Patient denies any dysuria hematuria. Patient states all his pain is his umbilicus and to the left lower quadrant. (Raj Clemente) - Related Data Home Medications Medication Instructions Recorded Confirmed Levothyroxine Sodium [Synthroid] 75 mcg PO DAILY 11/25/16 03/19/19 Cetirizine HCl [Zyrtec] 10 mg PO DAILY 04/07/18 03/19/19 buPROPion XL [Wellbutrin XL] 150 mg PO DAILY 04/07/18 03/19/19 Fluticasone Nasal Anderson [Flonase 2 spray EA NOSTRIL DAILY PRN 08/15/18 03/19/19 Nasal Anderson] Cyanocobalamin [Vitamin B-12 1,000 mcg SQ QMONTH 11/09/18 03/19/19 Injection] Meloxicam [Mobic] 15 mg PO DAILY 11/09/18 03/19/19 Cyclobenzaprine [Flexeril] 10 mg PO TID PRN 01/25/19 03/19/19 Gabapentin [Neurontin] 300 mg PO TID 01/25/19 03/19/19 Glycopyrrolate 1 mg PO BID 01/25/19 03/19/19 HYDROcodone/APAP 7.5-325MG [[place] 1 tab PO BID 01/25/19 03/19/19 7.5-325] Metoprolol Tartrate [Lopressor] 25 mg PO BID 01/25/19 03/19/19 Eye Drop For Glaucom(Name Unk) 1 drop BOTH EYES BID 03/17/19 03/19/19 Lisinopril 20 mg PO DAILY 03/17/19 03/19/19 Previous Rx's Medication Instructions Recorded LORazepam [Ativan] 1 mg PO TID PRN #9 tab 01/27/19 Acetaminophen Tab [Tylenol Tab] 500 mg PO Q6H PRN #30 tablet 03/19/19 Ibuprofen [Motrin] 600 mg PO Q8HR PRN #30 tab 03/19/19 Ondansetron Odt [Zofran Odt] 4 mg PO Q8HR PRN #14 tab 07/23/19 Allergies Allergy/AdvReac Type Severity Reaction Status Date / Time No Known Allergies Allergy Verified 07/25/19 21:27 Review of Systems ROS Other: All systems not noted in ROS Statement are negative. <Raj Clemente - Last Filed: 07/23/19 13:16> ROS Other: All systems not noted in ROS Statement are negative. <Debra Benavides - Last Filed: 07/26/19 23:44> ROS Statement: Those systems with pertinent positive or pertinent negative responses have been documented in the HPI. Past Medical History Past Medical History: Hypertension, Thyroid Disorder Additional Past Medical History / Comment(s): VITAMIN B12 DEFICIENCY ANEMIA, rhabdomyolysis, hypothyroidism, diverticulosis History of Any Multi-Drug Resistant Organisms: None Reported Past Surgical History: Orthopedic Surgery Additional Past Surgical History / Comment(s): BILAT Shoulder Surgery; 2 surgery on left side; one surgery on right Past Anesthesia/Blood Transfusion Reactions: No Reported Reaction Past Psychological History: Anxiety, Depression Smoking Status: Current every day smoker Past Alcohol Use History: Abuse, Daily, Heavy Past Drug Use History: Marijuana - Past Family History Mother Family Medical History: No Reported History Father Family Medical History: Cancer Additional Family Medical History / Comment(s): prostate, lymphoma <Raj Clemente - Last Filed: 07/23/19 13:16> General Exam Limitations: no limitations General appearance: alert, in no apparent distress Head exam: Present: atraumatic, normocephalic, normal inspection Eye exam: Present: normal appearance, PERRL, EOMI. Absent: scleral icterus, conjunctival injection, periorbital swelling ENT exam: Present: normal exam, normal oropharynx, mucous membranes moist Neck exam: Present: normal inspection, full ROM. Absent: tenderness, meningismus, lymphadenopathy Respiratory exam: Present: normal lung sounds bilaterally. Absent: respiratory distress, wheezes, rales, rhonchi, stridor Cardiovascular Exam: Present: regular rate, normal rhythm, normal heart sounds. Absent: systolic murmur, diastolic murmur, rubs, gallop, clicks GI/Abdominal exam: Present: soft, tenderness (Moderate lower), normal bowel so unds. Absent: distended, guarding, rebound, rigid Back exam: Absent: CVA tenderness (R), CVA tenderness (L) Neurological exam: Present: alert, oriented X3 Skin exam: Present: warm, dry, intact, normal color. Absent: rash <Raj Clemente - Last Filed: 07/23/19 13:16> Course Vital Signs 07/23/19 07/23/19 11:32 13:25 Temperature 98.7 F Pulse Rate 89 74 Respiratory 20 20 Rate Blood Pressure 119/77 135/95 O2 Sat by Pulse 98 100 Oximetry Medical Decision Making - Lab Data Result diagrams: 07/23/19 11:50 07/23/19 11:50 <Raj Clemente - Last Filed: 07/23/19 13:16> - Lab Data Result diagrams: 07/23/19 11:50 07/23/19 11:50 <Debra Benavides - Last Filed: 07/26/19 23:44> - Medical Decision Making 49-year-old male male presented for lower abdominal pain. Patient was seen by PCP and recommended to come emergency department yesterday for evaluation. Labs CT were obtained shows mild ileus. Patient labs are otherwise unremarkable. Patient will be discharged to [facility] follow-up PCP and GI. (Raj Clemente) I was available for consultation in the emergency department. The history and physical exam were done by the midlevel provider. I was consulted for this patients care. I reviewed the case with the midlevel provider and based on their presentation of the patient, I agree with the assessment, medical decision making and plan of care as documented. Chart was dictated using [email or web address] dictation software. Attempts were made to correct any dictation errors however some typographical errors may persist. Patient was seen during a national state of emergency due to the Covid-19 pandemic. (Debra Benavides) - Lab Data Lab Results 07/23/19 07/23/19 07/23/19 Range/Units 11:50 11:50 11:50 WBC 13.2 H (3.8-10.6) k/uL RBC 4.54 (4.30-5.90) m/uL Hgb 14.7 (13.0-17.5) gm/dL Hct 44.9 (39.0-53.0) % MCV 98.9 (80.0-100.0) fL MCH 32.4 (25.0-35.0) pg MCHC 32.8 (31.0-37.0) g/dL RDW 12.2 (11.5-15.5) % Plt Count 210 (150-450) k/uL Neutrophils % 84 % Lymphocytes % 9 % Monocytes % 5 % Eosinophils % 1 % Basophils % 0 % Neutrophils # 11.1 H (1.3-7.7) k/uL Lymphocytes # 1.2 (1.0-4.8) k/uL Monocytes # 0.6 (0-1.0) k/uL Eosinophils # 0.2 (0-0.7) k/uL Basophils # 0.0 (0-0.2) k/uL Sodium 138 (137-145) mmol/L Potassium 3.9 (3.5-5.1) mmol/L Chloride 107 (98-107) mmol/L Carbon Dioxide 20 L (22-30) mmol/L Anion Gap 11 mmol/L BUN 19 (9-20) mg/dL Creatinine 0.82 (0.66-1.25) mg/dL Est GFR (CKD-EPI)AfAm >90 (>60 ml/min/1.73 sqM) Est GFR (CKD-EPI)NonAf >90 (>60 ml/min/1.73 sqM) Glucose 123 H (74-99) mg/dL Plasma Lactic Acid Agu[place] 1.4 (0.7-2.0) mmol/L Calcium 9.3 (8.4-10.2) mg/dL Magnesium 1.6 (1.6-2.3) mg/dL Total Bilirubin 0.3 (0.2-1.3) mg/dL AST 29 (17-59) U/L ALT 52 H (4-49) U/L Alkaline Phosphatase 91 (38-126) U/L Total Protein 7.2 (6.3-8.2) g/dL Albumin 4.0 (3.5-5.0) g/dL Amylase 63 (30-110) U/L Lipase 120 (23-300) U/L Urine Color Urine Appearance (Clear) Urine pH (5.0-8.0) Ur Specific [place] (1.001-1.035) Urine Protein (Negative) Urine Glucose (UA) (Negative) Urine Ketones (Negative) Urine Blood (Negative) Urine Nitrite (Negative) Urine Bilirubin (Negative) Urine Urobilinogen (<2.0) mg/dL Ur Leukocyte Esterase (Negative) 07/23/19 Range/Units 12:30 WBC (3.8-10.6) k/uL RBC (4.30-5.90) m/uL Hgb (13.0-17.5) gm/dL Hct (39.0-53.0) % MCV (80.0-100.0) fL MCH (25.0-35.0) pg MCHC (31.0-37.0) g/dL RDW (11.5-15.5) % Plt Count (150-450) k/uL Neutrophils % % Lymphocytes % % Monocytes % % Eosinophils % % Basophils % % Neutrophils # (1.3-7.7) k/uL Lymphocytes # (1.0-4.8) k/uL Monocytes # (0-1.0) k/uL Eosinophils # (0-0.7) k/uL Basophils # (0-0.2) k/uL Sodium (137-145) mmol/L Potassium (3.5-5.1) mmol/L Chloride (98-107) mmol/L Carbon Dioxide (22-30) mmol/L Anion Gap mmol/L BUN (9-20) mg/dL Creatinine (0.66-1.25) mg/dL Est GFR (CKD-EPI)AfAm (>60 ml/min/1.73 sqM) Est GFR (CKD-EPI)NonAf (>60 ml/min/1.73 sqM) Glucose (74-99) mg/dL Plasma Lactic Acid Agu[place] (0.7-2.0) mmol/L Calcium (8.4-10.2) mg/dL Magnesium (1.6-2.3) mg/dL Total Bilirubin (0.2-1.3) mg/dL AST (17-59) U/L ALT (4-49) U/L Alkaline Phosphatase (38-126) U/L Total Protein (6.3-8.2) g/dL Albumin (3.5-5.0) g/dL Amylase (30-110) U/L Lipase (23-300) U/L Urine Color Light Yellow Urine Appearance Clear (Clear) Urine pH 6.5 (5.0-8.0) Ur Specific [place] 1.015 (1.001-1.035) Urine Protein Negative (Negative) Urine Glucose (UA) Negative (Negative) Urine Ketones Negative (Negative) Urine Blood Negative (Negative) Urine Nitrite Negative (Negative) Urine Bilirubin Negative (Negative) Urine Urobilinogen <2.0 (<2.0) mg/dL Ur Leukocyte Esterase Negative (Negative) Disposition Is patient prescribed a controlled substance at d/c from ED?: No Time of Disposition: 13:18 <Raj Clemente - Last Filed: 07/23/19 13:16> <Debra Benavides - Last Filed: 07/26/19 23:44> Clinical Impression: Abdominal pain, Ileus, Nausea & vomiting Disposition: HOME SELF-CARE Condition: Stable Instructions (If sedation given, give patient instructions): Abdominal Pain (ED) Additional Instructions: Please return to the Emergency Department if symptoms worsen or any other concerns. Prescriptions: Ondansetron Odt [Zofran Odt] 4 mg PO Q8HR PRN #14 tab PRN Reason: Nausea Referrals: Deion Alvarez MD [Primary Care Provider] - 1-2 days
[2019-07-23 12:44] LABS: Appearance,Urine Clear (Clear); Bilirubin,Urine Negative (Negative); Blood,Urine Negative (Negative); Color,Urine Light Yellow; Glucose,Urine (UA) Negative (Negative); Ketones,Urine Negative (Negative); Leukocyte Esterase,Urine Negative (Negative); Nitrite,Urine Negative (Negative); PH, Urine 6.5 (5.0-8.0); Protein,Urine Negative (Negative); Specific Gravity,Urine 1.015 (1.001-1.035); Urobilinogen,Urine <2.0 mg/dL (<2.0)
--- NOTE | 2019-07-23 13:09 | CT ---
EXAMINATION TYPE: CT abdomen pelvis w con DATE OF EXAM: 07/23/2019 COMPARISON: 12/16/2018 INDICATION: Abdominal pain DLP: 1040.7 mGycm, Automated exposure control for dose reduction was used. CONTRAST: 100 mL of Isovue 300. Study performed without Oral Contrast TECHNIQUE: Axial images were obtained from above the diaphragm to the pubic rami in the axial plane a t 5 mm thick sections. Reconstructed images are reviewed on the computer in the coronal plane. FINDINGS: Limited CT sections are obtained the lung bases. The lung bases are clear. CT ABDOMEN: Liver: Normal Spleen: Normal. Small splenule is medial and posterior to the spleen. Pancreas: Slightly atrophic Adrenal glands: The adrenal glands are normal. Gallbladder: Not visualized. Correlate for surgical history Kidneys: No masses are evident. No hydronephrosis is present. No cysts are present. Delayed images were obtained through the kidneys, which remain unremarkable. Aorta: Vascular calcification is within the aorta. Inferior vena cava: Normal. CT PELVIS: Loops of bowel within the abdomen and pelvis are normal. There are fluid-filled small bowel loops which are at the upper limits for normal for size. Some mild ileus could be considered. No evidence of obstruction is evident. Scattered diverticuli are within the sigmoid colon Appendix: Normal as visualized. Urinary bladder: Normal. Genitourinary structures: Prostate is unremarkable. Osseous structures: No suspicious lytic or sclerotic lesions. Degenerative disc changes are present L 5-S1. IMPRESSIONS: 1. There may be some mild ileus present. No obstruction is identified.
[2019-07-23 13:54] VITALS: BP 135/95; PULSE 74
== END 2019-07-23 13:27 | disposition home or self-care (01) ==
LOC: EC 11:28
DX: K56.7 Ileus, unspecified (principal); R11.2 Nausea with vomiting, unspecified; I10 Essential (primary) hypertension; F41.9 Anxiety disorder, unspecified; F32.9 Major depressive disorder, single episode, unspecified; E03.9 Hypothyroidism, unspecified; F17.200 Nicotine dependence, unspecified, uncomplicated; Z79.890 Hormone replacement therapy; Z79.899 Other long term (current) drug therapy; Z79.1 Long term (current) use of non-steroidal anti-inflammatories (NSAID)
CPT/HCPCS: 36415; 80053; 82150; 83605; 83690; 83735; 85025; 81003; 74177; 99284; 96360; 96361; Q9967

== ENCOUNTER 2019-07-25 17:29 | Inpatient (IN) | payer OTHER ==
--- NOTE | 2019-07-25 18:18 | ED ---
General Adult HPI <Toan Andrea - Last Filed: 07/25/19 20:06> - General Source: patient, RN notes reviewed, old records reviewed Mode of arrival: ambulatory Limitations: no limitations <Jaime Robles - Last Filed: 07/26/19 00:04> - General Chief complaint: Dizziness Stated complaint: Blood in stool, dizzy Time Seen by Provider: 07/25/19 17:45 - History of Present Illness Initial comments: 49-year-old male patient presents history of hypertension presents to ED for multiple complaints. Patient reports that beginning yesterday he began to experience forgetfulness, states that he is dropping things on his left hand. Also reports a left-sided parenthesis in his hand. States had a bout of diarrhea yesterday that may of have some blood in it. Denies recent falls or trauma. Denies alcohol or drug abuse. Denies chest pain shortness of breath. Systemic: Pt denies fatigue, fever/chills, rash. Pt denies weakness, night sweats, weight loss. Neuro: Pt denies headache, visual disturbances, syncope or pre-syncope. HEENT: Pt denies ocular discharge or irritation, otalgia, rhinorrhea, pharyngiti s or notable lymphadenopathy. Cardiopulmonary: Pt denies chest pain, SOB, heart palpitations, dyspnea on exertion. Abdominal/GI: Pt denies abdominal pain, n/v/d. : Pt denies dysuria, burning w/ urination, frequency/urgency. Denies new onset urinary or bowel incontinence. MSK: Pt denies myalgia, Neuro: Pt denies new onset weakness. (Jaime Robles) - Related Data Home Medications Medication Instructions Recorded Confirmed Levothyroxine Sodium [Synthroid] 75 mcg PO DAILY 11/25/16 03/19/19 Cetirizine HCl [Zyrtec] 10 mg PO DAILY 04/07/18 03/19/19 buPROPion XL [Wellbutrin XL] 150 mg PO DAILY 04/07/18 03/19/19 Fluticasone Nasal [place] [Flonase 2 spray EA NOSTRIL DAILY PRN 08/15/18 03/19/19 Nasal [place]] Cyanocobalamin [Vitamin B-12 1,000 mcg SQ QMONTH 11/09/18 03/19/19 Injection] Meloxicam [Mobic] 15 mg PO DAILY 11/09/18 03/19/19 Cyclobenzaprine [Flexeril] 10 mg PO TID PRN 01/25/19 03/19/19 Gabapentin [Neurontin] 300 mg PO TID 01/25/19 03/19/19 Glycopyrrolate 1 mg PO BID 01/25/19 03/19/19 HYDROcodone/APAP 7.5-325MG [[place] 1 tab PO BID 01/25/19 03/19/19 7.5-325] Metoprolol Tartrate [Lopressor] 25 mg PO BID 01/25/19 03/19/19 Eye Drop For Glaucom(Name Unk) 1 drop BOTH EYES BID 03/17/19 03/19/19 Lisinopril 20 mg PO DAILY 03/17/19 03/19/19 Previous Rx's Medication Instructions Recorded LORazepam [Ativan] 1 mg PO TID PRN #9 tab 01/27/19 Acetaminophen Tab [Tylenol Tab] 500 mg PO Q6H PRN #30 tablet 03/19/19 Ibuprofen [Motrin] 600 mg PO Q8HR PRN #30 tab 03/19/19 Ondansetron Odt [Zofran Odt] 4 mg PO Q8HR PRN #14 tab 07/23/19 Allergies Allergy/AdvReac Type Severity Reaction Status Date / Time No Known Allergies Allergy Verified 07/25/19 21:27 Review of Systems ROS Other: All systems not noted in ROS Statement are negative. <Toan Andrea - Last Filed: 07/25/19 20:06> ROS Other: All systems not noted in ROS Statement are negative. <Jaime Robles - Last Filed: 07/26/19 00:04> ROS Statement: Those systems with pertinent positive or pertinent negative responses have been documented in the HPI. Past Medical History Past Medical History: Hypertension, Thyroid Disorder Additional Past Medical History / Comment(s): VITAMIN B12 DEFICIENCY ANEMIA, rhabdomyolysis, hypothyroidism, diverticulosis History of Any Multi-Drug Resistant Organisms: None Reported Past Surgical History: Orthopedic Surgery Additional Past Surgical History / Comment(s): BILAT Shoulder Surgery; 2 surgery on left side; one surgery on right Past Anesthesia/Blood Transfusion Reactions: No Reported Reaction Past Psychological History: Anxiety, Depression Smoking Status: Current every day smoker Past Alcohol Use History: Abuse, Daily, Heavy Past Drug Use History: Marijuana - Past Family History Mother Family Medical History: No Reported History Father Family Medical History: Cancer Additional Family Medical History / Comment(s): prostate, lymphoma <Jaime Robles - Last Filed: 07/26/19 00:04> General Exam Limitations: no limitations <Jaime Robles - Last Filed: 07/26/19 00:04> - General Exam Comments Initial Comments: Constitutional: NAD, AOX3, Pt has pleasant affect. HEENT: NC/AT, trachea midline, neck supple, no lymphadenopathy. Posterior pharynx non erythematous, without exudates. External ears appear normal, without discharge. Mucous membranes moist. Eyes PERRLA, EOM intact. There is no scleral icterus. No pallor noted. Cardiopulmonary: RRR, no murmurs, rubs or gallops, no JVD noted. Lungs CTAB in anterior and posterior hilliard. No peripheral edema. Abdominal exam: Abdomen soft and non-distended. Abdomen non-tender to palpation in all 4 quadrants. Bowel sounds active in LLQ. No hepatosplenomegaly. No ecchymosis Neuro: CN II-XII intact. Left furnace brazer strength is weaker. Two touch sensation is slightly diminished. Difficulty with finger to nose. NIH 3. No nuchal rigidity. No raccon eyes, no hammond sign, no hemotympanum. No cervical spinal tenderness. MSK: No posterior calf tenderness bilaterally, homans sign negative bilaterally. Posterior tibialis and radial pulse +2 bilaterally. Full active ROM in upper and lower extremities. (Jaime Robles) Course Vital Signs 07/25/19 07/25/19 07/25/19 17:32 18:58 20:00 Temperature 98.4 F Pulse Rate 79 72 68 Respiratory 18 18 18 Rate Blood Pressure 93/60 117/66 99/66 O2 Sat by Pulse 97 94 L 97 Oximetry 07/25/19 20:57 Temperature 97.9 F Pulse Rate 63 Respiratory 18 Rate Blood Pressure 108/71 O2 Sat by Pulse 97 Oximetry Medical Decision Making - Lab Data Result diagrams: 07/25/19 18:46 07/25/19 18:46 <Toan Andrea - Last Filed: 07/25/19 20:06> - Lab Data Result diagrams: 07/25/19 18:46 07/25/19 18:46 - EKG Data -: EKG Interpreted by Me <Jaime Robles - Last Filed: 07/26/19 00:04> - Medical Decision Making Patient was also evaluated by myself, Dr. Andrea. Patient states onset of symptoms was yesterday morning. Patient states last known well was evening p rior to that. On exam patient does have mild left arm and left leg weakness. CT report reviewed. Patient updated. Case was discussed with Dr. Brown, who will admit for Dr. Alvarez. Case also discussed with Dr. Cr who agreed patient is not a TPA candidate. He also agrees no CTA. He agrees with concern for renal function. He will evaluate stroke robot and recommends not emergent MRI/MRV. (Toan Andrea) 49-year-old male patient presents history of hypertension presents to ED for multiple complaints. Patient reports that beginning yesterday he began to experience forgetfulness, states that he is dropping things on his left hand. Also reports a left-sided parenthesis in his hand. States had a bout of diarrhea yesterday that may of have some blood in it. Denies recent falls or trauma. Denies alcohol or drug abuse. Denies chest pain shortness of breath. Patient will signs are stable, afebrile. Physical exam displayed NIH of 3. A investigations reveal acute kidney injury. Urinary tract infection. Patient reportedly is sexually active and does wish to be treated empirically for STI. Administered Rocephin and azithromycin. Troponin is negative. Toxicology positive for barbiturates tricyclic antidepressants, phencyclidine, marijuanna. CT brain displayed subacute infarct. Case is discussed with Dr. Layton who discussed case with neurology. Neurology consult recommended aspirin, statin,, subcu heparin, do not recommend CT angiogram due to kidney function rather MRA. We'll be admitted for further evaluation. (Jaime Robles) - Lab Data Lab Results 07/25/19 07/25/19 07/25/19 Range/Units 18:46 18:46 18:46 WBC 10.5 (3.8-10.6) k/uL RBC 4.34 (4.30-5.90) m/uL Hgb 14.2 (13.0-17.5) gm/dL Hct 43.3 (39.0-53.0) % MCV 99.7 (80.0-100.0) fL MCH 32.7 (25.0-35.0) pg MCHC 32.8 (31.0-37.0) g/dL RDW 12.5 (11.5-15.5) % Plt Count 226 (150-450) k/uL Neutrophils % 70 % Lymphocytes % 16 % Monocytes % 9 % Eosinophils % 3 % Basophils % 1 % Neutrophils # 7.3 (1.3-7.7) k/uL Lymphocytes # 1.7 (1.0-4.8) k/uL Monocytes # 0.9 (0-1.0) k/uL Eosinophils # 0.3 (0-0.7) k/uL Basophils # 0.1 (0-0.2) k/uL PT 9.4 (9.0-12.0) sec INR 0.9 (<1.2) APTT 21.3 L (22.0-30.0) sec Sodium (137-145) mmol/L Potassium (3.5-5.1) mmol/L Chloride (98-107) mmol/L Carbon Dioxide (22-30) mmol/L Anion Gap mmol/L BUN (9-20) mg/dL Creatinine (0.66-1.25) mg/dL Est GFR (CKD-EPI)AfAm (>60 ml/min/1.73 sqM) Est GFR (CKD-EPI)NonAf (>60 ml/min/1.73 sqM) Glucose (74-99) mg/dL Plasma Lactic Acid [place] (0.7-2.0) mmol/L Calcium (8.4-10.2) mg/dL Total Bilirubin (0.2-1.3) mg/dL AST (17-59) U/L ALT (4-49) U/L Alkaline Phosphatase (38-126) U/L Ammonia (<30) umol/L Troponin I (0.000-0.034) ng/mL Total Protein (6.3-8.2) g/dL Albumin (3.5-5.0) g/dL Lipase (23-300) U/L Urine Color Urine Appearance (Clear) Urine pH (5.0-8.0) Ur Specific [place] (1.001-1.035) Urine Protein (Negative) Urine Glucose (UA) (Negative) Urine Ketones (Negative) Urine Blood (Negative) Urine Nitrite (Negative) Urine Bilirubin (Negative) Urine Urobilinogen (<2.0) mg/dL Ur Leukocyte Esterase (Negative) Urine RBC (0-5) /hpf Urine WBC (0-5) /hpf Urine WBC Clumps (None) /hpf Ur Squamous Epith Cells (0-4) /hpf Urine Bacteria (None) /hpf Cellular Casts (0) /lpf Hyaline Casts (0-2) /lpf Urine Mucus (None) /hpf Stool Occult Blood Negative (Negative) Urine Opiates Screen (NotDetected) Ur Oxycodone Screen (NotDetected) Urine Methadone Screen (NotDetected) Ur Propoxyphene Screen (NotDetected) Ur Barbiturates Screen (NotDetected) U Tricyclic Antidepress (NotDetected) Ur Phencyclidine Scrn (NotDetected) Ur Amphetamines Screen (NotDetected) U Methamphetamines Scrn (NotDetected) U Benzodiazepines Scrn (NotDetected) Urine Cocaine Screen (NotDetected) U Marijuana (THC) Screen (NotDetected) Serum Alcohol mg/dL 07/25/19 07/25/19 07/25/19 Range/Units 18:46 18:46 18:46 WBC (3.8-10.6) k/uL RBC (4.30-5.90) m/uL Hgb (13.0-17.5) gm/dL Hct (39.0-53.0) % MCV (80.0-100.0) fL MCH (25.0-35.0) pg MCHC (31.0-37.0) g/dL RDW (11.5-15.5) % Plt Count (150-450) k/uL Neutrophils % % Lymphocytes % % Monocytes % % Eosinophils % % Basophils % % Neutrophils # (1.3-7.7) k/uL Lymphocytes # (1.0-4.8) k/uL Monocytes # (0-1.0) k/uL Eosinophils # (0-0.7) k/uL Basophils # (0-0.2) k/uL PT (9.0-12.0) sec INR (<1.2) APTT (22.0-30.0) sec Sodium 140 (137-145) mmol/L Potassium 4.7 (3.5-5.1) mmol/L Chloride 109 H (98-107) mmol/L Carbon Dioxide 18 L (22-30) mmol/L Anion Gap 13 mmol/L BUN 29 H (9-20) mg/dL Creatinine 3.25 H (0.66-1.25) mg/dL Est GFR (CKD-EPI)AfAm 25 (>60 ml/min/1.73 sqM) Est GFR (CKD-EPI)NonAf 21 (>60 ml/min/1.73 sqM) Glucose 92 (74-99) mg/dL Plasma Lactic Acid [place] 0.5 L (0.7-2.0) mmol/L Calcium 9.4 (8.4-10.2) mg/dL Total Bilirubin 0.3 (0.2-1.3) mg/dL AST 165 H (17-59) U/L ALT 214 H (4-49) U/L Alkaline Phosphatase 111 (38-126) U/L Ammonia 21 (<30) umol/L Troponin I <0.012 (0.000-0.034) ng/mL Total Protein 7.5 (6.3-8.2) g/dL Albumin 4.3 (3.5-5.0) g/dL Lipase 219 (23-300) U/L Urine Color Urine Appearance (Clear) Urine pH (5.0-8.0) Ur Specific [place] (1.001-1.035) Urine Protein (Negative) Urine Glucose (UA) (Negative) Urine Ketones (Negative) Urine Blood (Negative) Urine Nitrite (Negative) Urine Bilirubin (Negative) Urine Urobilinogen (<2.0) mg/dL Ur Leukocyte Esterase (Negative) Urine RBC (0-5) /hpf Urine WBC (0-5) /hpf Urine WBC Clumps (None) /hpf Ur Squamous Epith Cells (0-4) /hpf Urine Bacteria (None) /hpf Cellular Casts (0) /lpf Hyaline Casts (0-2) /lpf Urine Mucus (None) /hpf Stool Occult Blood (Negative) Urine Opiates Screen (NotDetected) Ur Oxycodone Screen (NotDetected) Urine Methadone Screen (NotDetected) Ur Propoxyphene Screen (NotDetected) Ur Barbiturates Screen (NotDetected) U Tricyclic Antidepress (NotDetected) Ur Phencyclidine Scrn (NotDetected) Ur Amphetamines Screen (NotDetected) U Methamphetamines Scrn (NotDetected) U Benzodiazepines Scrn (NotDetected) Urine Cocaine Screen (NotDetected) U Marijuana (THC) Screen (NotDetected) Serum Alcohol <10 mg/dL 07/25/19 Range/Units 18:46 WBC (3.8-10.6) k/uL RBC (4.30-5.90) m/uL Hgb (13.0-17.5) gm/dL Hct (39.0-53.0) % MCV (80.0-100.0) fL MCH (25.0-35.0) pg MCHC (31.0-37.0) g/dL RDW (11.5-15.5) % Plt Count (150-450) k/uL Neutrophils % % Lymphocytes % % Monocytes % % Eosinophils % % Basophils % % Neutrophils # (1.3-7.7) k/uL Lymphocytes # (1.0-4.8) k/uL Monocytes # (0-1.0) k/uL Eosinophils # (0-0.7) k/uL Basophils # (0-0.2) k/uL PT (9.0-12.0) sec INR (<1.2) APTT (22.0-30.0) sec Sodium (137-145) mmol/L Potassium (3.5-5.1) mmol/L Chloride (98-107) mmol/L Carbon Dioxide (22-30) mmol/L Anion Gap mmol/L BUN (9-20) mg/dL Creatinine (0.66-1.25) mg/dL Est GFR (CKD-EPI)AfAm (>60 ml/min/1.73 sqM) Est GFR (CKD-EPI)NonAf (>60 ml/min/1.73 sqM) Glucose (74-99) mg/dL Plasma Lactic Acid [place] (0.7-2.0) mmol/L Calcium (8.4-10.2) mg/dL Total Bilirubin (0.2-1.3) mg/dL AST (17-59) U/L ALT (4-49) U/L Alkaline Phosphatase (38-126) U/L Ammonia (<30) umol/L Troponin I (0.000-0.034) ng/mL Total Protein (6.3-8.2) g/dL Albumin (3.5-5.0) g/dL Lipase (23-300) U/L Urine Color Light Red Urine Appearance Cloudy (Clear) Urine pH 6.0 (5.0-8.0) Ur Specific [place] 1.025 (1.001-1.035) Urine Protein 1+ H (Negative) Urine Glucose (UA) Negative (Negative) Urine Ketones Negative (Negative) Urine Blood Trace H (Negative) Urine Nitrite Negative (Negative) Urine Bilirubin Negative (Negative) Urine Urobilinogen 2.0 (<2.0) mg/dL Ur Leukocyte Esterase Trace H (Negative) Urine RBC 1 (0-5) /hpf Urine WBC 37 H (0-5) /hpf Urine WBC Clumps Few H (None) /hpf Ur Squamous Epith Cells 1 (0-4) /hpf Urine Bacteria Rare H (None) /hpf Cellular Casts 36 (0) /lpf Hyaline Casts 61 H (0-2) /lpf Urine Mucus Occasional H (None) /hpf Stool Occult Blood (Negative) Urine Opiates Screen Not Detected (NotDetected) Ur Oxycodone Screen Not Detected (NotDetected) Urine Methadone Screen Not Detected (NotDetected) Ur Propoxyphene Screen Not Detected (NotDetected) Ur Barbiturates Screen Detected H (NotDetected) U Tricyclic Antidepress Detected H (NotDetected) Ur Phencyclidine Scrn Detected H (NotDetected) Ur Amphetamines Screen Not Detected (NotDetected) U Methamphetamines Scrn Not Detected (NotDetected) U Benzodiazepines Scrn Not Detected (NotDetected) Urine Cocaine Screen Not Detected (NotDetected) U Marijuana (THC) Screen Detected H (NotDetected) Serum Alcohol mg/dL - EKG Data EKG Comments: Ventricular rate 72, periumbilical and 58, QRS 90, QT/QTC 358/392 Normal sinus rhythm, possible left atrial enlargement. Borderlines EKG. No concern for acute ischemia. (Jaime Robles) Disposition <Toan Andrea - Last Filed: 07/25/19 20:06> Is patient prescribed a controlled substance at d/c from ED?: No <Jaime Robles - Last Filed: 07/26/19 00:04> Clinical Impression: CVA (cerebral vascular accident), PRUDENCE (acute kidney injury), UTI (urinary tract infection) Disposition: ADMITTED IP TO THIS HOSP Condition: Serious
[2019-07-25] MEDS ORDERED: SODIUM CHLORIDE 0.9% 1,000 ML IV ONE (18:21)
[2019-07-25 19:01] LABS: Basophils # (A) 0.1 k/uL (0-0.2); Basophils % (A) 1 %; Eosinophils # (A) 0.3 k/uL (0-0.7); Eosinophils % (A) 3 %; HCT 43.3 % (39.0-53.0); HGB 14.2 gm/dL (13.0-17.5); Lymphocytes # (A) 1.7 k/uL (1.0-4.8); Lymphocytes % (A) 16 %; MCH 32.7 pg (25.0-35.0); MCHC 32.8 g/dL (31.0-37.0); MCV 99.7 fL (80.0-100.0); Mean Platelet Volume 7.5; Monocytes # (A) 0.9 k/uL (0-1.0); Monocytes % (A) 9 %; Neutrophils # (A) 7.3 k/uL (1.3-7.7); Neutrophils % (A) 70 %; Platelet Count 226 k/uL (150-450); RBC 4.34 m/uL (4.30-5.90); RDW 12.5 % (11.5-15.5); WBC 10.5 k/uL (3.8-10.6)
[2019-07-25 19:08] LABS: Appearance,Urine Cloudy (Clear); Bacteria,Urine Rare /hpf; Bilirubin,Urine Negative (Negative); Blood,Urine Trace (Negative); Cellular Casts,Urine 36 /lpf (0); Color,Urine Light Red; Glucose,Urine (UA) Negative (Negative); Hyaline Casts,Urine 61 /lpf (0-2); Ketones,Urine Negative (Negative); Leukocyte Esterase,Urine Trace (Negative); Mucus,Urine Occasional /hpf; Nitrite,Urine Negative (Negative); Protein,Urine 1+ (Negative); RBC,Urine 1 /hpf (0-5); Specific Gravity,Urine 1.025 (1.001-1.035); Squamous Epithelial Cell,Urine 1 /hpf (0-4); WBC,Urine 37 /hpf (0-5)
[2019-07-25 19:09] LABS: Lactic Acid, Venous 0.5 mmol/L (0.7-2.0)
[2019-07-25 19:12] LABS: ALT 214 U/L (4-49); AST 165 U/L (17-59); African American GFR (CKD) 25 (>60 ml/min/1.73 sqM); Albumin 4.3 g/dL (3.5-5.0); Alcohol <10 mg/dL; Alkaline Phosphatase 111 U/L (38-126); Amphetamine Screen,Urine Not Detected (NotDetected); Anion Gap 13 mmol/L; Barbiturate Screen,Urine Detected (NotDetected); Benzodiazepines Screen,Urine Not Detected (NotDetected); Blood Urea Nitrogen 29 mg/dL (9-20); Calcium 9.4 mg/dL (8.4-10.2); Carbon Dioxide 18 mmol/L (22-30); Chloride 109 mmol/L (98-107); Cocaine Screen,Urine Not Detected (NotDetected); Glucose 92 mg/dL (74-99); Methadone Screen, Urine Not Detected (NotDetected); Non-African American GFR(CKD) 21 (>60 ml/min/1.73 sqM); Opiate Screen,Urine Not Detected (NotDetected); Oxycodone Screen, Urine Not Detected (NotDetected); Phencyclidine Screen,Urine Detected (NotDetected); Potassium 4.7 mmol/L (3.5-5.1); Sodium 140 mmol/L (137-145); Total Bilirubin 0.3 mg/dL (0.2-1.3); Total Protein 7.5 g/dL (6.3-8.2); Tricyclic Antidepressant,Urine Detected (NotDetected); Urn Cannabinoid Scrn Detected (NotDetected)
[2019-07-25 19:17] LABS: INR 0.9 (<1.2); Prothrombin Time 9.4 sec (9.0-12.0)
--- NOTE | 2019-07-25 19:20 | CT ---
EXAMINATION TYPE: CT brain wo con DATE OF EXAM: 07/25/2019 COMPARISON: Prior CT 11/25/2017 HISTORY: Altered mental status. Left arm numbness. CT DLP: 1131.4 mGycm. Automated Exposure Control for Dose Reduction was Utilized. TECHNIQUE: CT scan of the head is performed without contrast. FINDINGS: There is been interval development of low attenuation involving the right temporal and yuliya etal lobes, right occipital lobe, there is loss of fox-white differentiation, effacement of the sulc i. Some mild mass effect, pressure on the right lateral ventricle noted. No evident hemorrhage. The c alvarium is intact. Increased attenuation in the right middle cerebral artery may be due to atheroscl erotic calcification, thrombus. IMPRESSION: Subacute infarct as described
[2019-07-25] MEDS ORDERED: AZITHROMYCIN 500 MG TAB PO STA (19:25)
[2019-07-25] MEDS ORDERED: cefTRIAXone 1,000 MG VIAL (IM USE) IM STA (19:25)
[2019-07-25] MEDS ORDERED: ASPIRIN 325 MG TAB PO STA (19:25)
[2019-07-25 19:34] LABS: Partial Thromboplastin Time 21.3 sec (22.0-30.0)
[2019-07-25] MEDS ORDERED: ATORVASTATIN 80 MG TAB PO STA (20:36)
[2019-07-25] MEDS: ATORVASTATIN 40 MG TAB PO SCH (23:42)
[2019-07-26] MEDS ORDERED: HEPARIN SODIUM,PORCINE 5,000 UNIT/ML 1 ML VIAL SQ SCH
[2019-07-26] MEDS: HEPARIN SODIUM,PORCINE 5,000 UNIT/ML 1 ML VIAL SQ SCH ×2 (00:49→09:00)
[2019-07-26 01:20] VITALS: RESP 18
[2019-07-26 06:43] LABS: Cholesterol 155 mg/dL (<200); HDL Cholesterol 30 mg/dL (40-60); LDL Cholesterol,Calculated 101 mg/dL (0-99); Triglycerides 118 mg/dL (<150)
[2019-07-26] MEDS ORDERED: SODIUM CHLORIDE 0.9% 1,000 ML IV SCH (08:30)
[2019-07-26] MEDS: ATORVASTATIN 40 MG TAB PO SCH (08:54)
[2019-07-26] MEDS ORDERED: ACETAMINOPHEN TAB 325 MG TAB PO STA (10:12)
[2019-07-26] MEDS ORDERED: HYDROcodone/APAP 7.5-325MG 1 EACH TAB PO PRN (11:05)
[2019-07-26] MEDS ORDERED: ONDANSETRON ODT 4 MG TAB PO PRN (11:05)
[2019-07-26] MEDS ORDERED: CYCLOBENZAPRINE 10 MG TAB PO PRN (11:05)
[2019-07-26] MEDS ORDERED: FAMOTIDINE 20 MG/2 ML VIAL IV SCH (11:15)
[2019-07-26 11:39] VITALS: BP 112/71; PULSE 82; TEMP 97.2
--- NOTE | 2019-07-26 12:03 | P.HPIM ---
History of Present Illness Patient is a 49-year-old male came in with compensative from sudden onset of forgetfulness and tingling and numbness in the left hand as well as aggressive the left hand patient does have weakness of 4/5 strength in the left hand. P mynor was complaining of headache and patient did vomit today. Patient was having some nausea vomiting for few days. Patient had a CAT scan of the head which showed extensive subacute infarct involving the right parietal, frontal and occipital areas with the some significant edema and this a CAT scan without contrast unable to obtain a CAT scan with contrast a CT angios at this time because it is poor renal function. Neurology reviewed the CAT scans and will evaluate the patient because of the extensive nature of the stroke and edema she believes patient to be evaluated by neurosurgery discussed with the neurosurgeon in [facility] who accepted the patient Dr. Dain gonzales of the patient. The other multiple medical issues going on at this time patient denies any IV drug use his liver enzymes are elevated will need hepatitis panel ultrasound of the gallbladder once his other emergent issues were addressed and repeat the compress metabolic profile daily to make sure his liver enzymes are not going up. Patient baseline creatinine is around 0.8 he came in with creatinine of around 3.4 patient does use naproxen is also on KRISHNA inhibitor may be contributing to his acute renal failure. BUN/creatinine ratio is consistent with a renal etiology rather than treating left postural etiologies. I ordered urine random sodium urine random creatinine urine eosinophils. Patient doesn't have E3 has a symptomatically bacteriuria. Patient appears to have either ALLERGIC interstitial nephritis or acute tubular necrosis will need an ultrasound of the kidney as well and evaluation by nephrology Review of Systems REVIEW OF SYSTEMS: CONSTITUTIONAL: No fever, no malaise, no fatigue. HEENT: No recent visual problems or hearing problems. Denied any sore throat. CARDIOVASCULAR: No chest pain, orthopnea, PND, no palpitations, no syncope. PULMONARY: No shortness of breath, no cough, no hemoptysis. GASTROINTESTINAL: No diarrhea, no abdominal pain. NEUROLOGICAL: As mentioned in HPI HEMATOLOGICAL: Denies any bleeding or petechiae. GENITOURINARY: Denies any burning micturition, frequency, or urgency. MUSCULOSKELETAL/RHEUMATOLOGICAL: Denies any joint pain, swelling, or any muscle pain. ENDOCRINE: Denies any polyuria or polydipsia. The rest of the 14-point review of systems is negative. Past Medical History Past Medical History: Hypertension, Thyroid Disorder Additional Past Medical History / Comment(s): VITAMIN B12 DEFICIENCY ANEMIA, rhabdomyolysis, hypothyroidism, diverticulosis History of Any Multi-Drug Resistant Organisms: None Reported Past Surgical History: Orthopedic Surgery Additional Past Surgical History / Comment(s): BILAT Shoulder Surgery; 2 surgery on left side; one surgery on right Past Anesthesia/Blood Transfusion Reactions: No Reported Reaction Past Psychological History: Anxiety, Depression Smoking Status: Current every day smoker Past Alcohol Use History: Abuse, Daily, Heavy Past Drug Use History: Marijuana - Past Family History Mother Family Medical History: No Reported History Father Family Medical History: Cancer Additional Family Medical History / Comment(s): prostate, lymphoma Medications and Allergies Home Medications Medication Instructions Recorded Confirmed Type Levothyroxine Sodium [Synthroid] 75 mcg PO DAILY 11/25/16 03/19/19 History Cetirizine HCl [Zyrtec] 10 mg PO DAILY 04/07/18 03/19/19 History buPROPion XL [Wellbutrin XL] 150 mg PO DAILY 04/07/18 03/19/19 History Fluticasone Nasal [place] [Flonase 2 spray EA NOSTRIL DAILY PRN 08/15/18 03/19/19 History Nasal [place]] Cyanocobalamin [Vitamin B-12 1,000 mcg SQ QMONTH 11/09/18 03/19/19 History Injection] Meloxicam [Mobic] 15 mg PO DAILY 11/09/18 03/19/19 History Cyclobenzaprine [Flexeril] 10 mg PO TID PRN 01/25/19 03/19/19 History Gabapentin [Neurontin] 300 mg PO TID 01/25/19 03/19/19 History Glycopyrrolate 1 mg PO BID 01/25/19 03/19/19 History HYDROcodone/APAP 7.5-325MG [[place] 1 tab PO BID 01/25/19 03/19/19 History 7.5-325] Metoprolol Tartrate [Lopressor] 25 mg PO BID 01/25/19 03/19/19 History LORazepam [Ativan] 1 mg PO TID PRN #9 tab 01/27/19 03/19/19 Rx Eye Drop For Glaucom(Name Unk) 1 drop BOTH EYES BID 03/17/19 03/19/19 History Lisinopril 20 mg PO DAILY 03/17/19 03/19/19 History Acetaminophen Tab [Tylenol Tab] 500 mg PO Q6H PRN #30 tablet 03/19/19 Rx Ibuprofen [Motrin] 600 mg PO Q8HR PRN #30 tab 03/19/19 Rx Ondansetron Odt [Zofran Odt] 4 mg PO Q8HR PRN #14 tab 07/23/19 Rx Allergies Allergy/AdvReac Type Severity Reaction Status Date / Time No Known Allergies Allergy Verified 07/25/19 21:27 Physical Exam Vitals: Vital Signs Temp Pulse Pulse Resp BP BP Pulse Ox 07/26/19 11:39 97.2 F L 82 18 112/71 100 07/26/19 11:38 97.2 F L 82 18 112/71 100 07/26/19 08:00 97.3 F L 78 18 121/76 96 07/26/19 04:00 97.9 F 70 18 92/60 97 07/26/19 00:00 97.9 F 68 18 81/46 96 07/25/19 21:13 97.6 F 62 16 94/62 97 07/25/19 20:57 97.9 F 63 18 108/71 97 07/25/19 20:00 68 18 99/66 97 07/25/19 18:58 72 18 117/66 94 L 07/25/19 17:32 98.4 F 79 18 93/60 97 Intake and Output 07/25/19 07/26/19 07/26/19 22:59 06:59 14:59 Intake Total 120 Balance 120 Intake: Oral 120 Other: # Voids 1 1 Weight 88.451 kg 86.7 kg PHYSICAL EXAMINATION: GENERAL: The patient is alert and oriented x3, not in any acute distress. Well developed, well nourished. HEENT: Pupils are round and equally reacting to light. EOMI. No scleral icterus. No conjunctival pallor. Normocephalic, atraumatic. No pharyngeal erythema. No thyromegaly. CARDIOVASCULAR: S1 and S2 present. No murmurs, rubs, or gallops. PULMONARY: Chest is clear to auscultation, no wheezing or crackles. ABDOMEN: Soft, nontender, nondistended, normoactive bowel sounds. No palpable organomegaly. MUSCULOSKELETAL: No joint swelling or deformity. EXTREMITIES: No cyanosis, clubbing, or pedal edema. NEUROLOGICAL: Weakness in the left arm along with tingling numbness strength in the left arm/5 in May be weakness in the left leg as well for comprehensive neur ological exam please refer to neurology documentation SKIN: No rashes. Results CBC & Chem 7: 07/25/19 18:46 07/25/19 18:46 Labs: Abnormal Lab Results - Last 24 Hours (Table) 07/25/19 07/25/19 07/25/19 Range/Units 18:46 18:46 18:46 APTT 21.3 L (22.0-30.0) sec Chloride 109 H (98-107) mmol/L Carbon Dioxide 18 L (22-30) mmol/L BUN 29 H (9-20) mg/dL Creatinine 3.25 H (0.66-1.25) mg/dL Plasma Lactic Acid [place] 0.5 L (0.7-2.0) mmol/L AST 165 H (17-59) U/L ALT 214 H (4-49) U/L LDL Cholesterol, Calc (0-99) mg/dL HDL Cholesterol (40-60) mg/dL Urine Protein (Negative) Urine Blood (Negative) Ur Leukocyte Esterase (Negative) Urine WBC (0-5) /hpf Urine WBC Clumps (None) /hpf Urine Bacteria (None) /hpf Hyaline Casts (0-2) /lpf Urine Mucus (None) /hpf Ur Barbiturates Screen (NotDetected) U Tricyclic Antidepress (NotDetected) Ur Phencyclidine Scrn (NotDetected) U Marijuana (THC) Screen (NotDetected) 07/25/19 07/26/19 Range/Units 18:46 05:59 APTT (22.0-30.0) sec Chloride (98-107) mmol/L Carbon Dioxide (22-30) mmol/L BUN (9-20) mg/dL Creatinine (0.66-1.25) mg/dL Plasma Lactic Acid [place] (0.7-2.0) mmol/L AST (17-59) U/L ALT (4-49) U/L LDL Cholesterol, Calc 101 H (0-99) mg/dL HDL Cholesterol 30 L (40-60) mg/dL Urine Protein 1+ H (Negative) Urine Blood Trace H (Negative) Ur Leukocyte Esterase Trace H (Negative) Urine WBC 37 H (0-5) /hpf Urine WBC Clumps Few H (None) /hpf Urine Bacteria Rare H (None) /hpf Hyaline Casts 61 H (0-2) /lpf Urine Mucus Occasional H (None) /hpf Ur Barbiturates Screen Detected H (NotDetected) U Tricyclic Antidepress Detected H (NotDetected) Ur Phencyclidine Scrn Detected H (NotDetected) U Marijuana (THC) Screen Detected H (NotDetected) Microbiology - Last 24 Hours (Table) 07/25/19 18:46 Urine Culture - Preliminary Urine,Voided Thrombosis Risk Factor Assmnt - Choose All That Apply Any of the Below Risk Factors Present?: No Assessment and Plan Plan: Cerebrovascular accident involving right parietal frontal and occipital areas extensive stroke with some edema because of extensive DVT of the stroke anticipated extensive edema of the brain which will require neurosurgical evaluation patient will be transferred to [facility]. Patient may need do further evaluation for thrombi metabolic conditions echocardiogram need to be obtained and will require an MRI as well. -Acute renal failure possibly of acute tubular necrosis or ALLERGIC interstitial nephritis patient has good urine output further workup as mentioned above. Patient is on KRISHNA inhibitor and nonsteroidal anti-inflammatories at home -Elevated liver enzymes will need a liver ultrasound and acute hepatitis panel -Hypertension Hypothyroidism -Marijuana use -Depression -Nicotine use Patient is being transferred to [facility] for evaluation by neurosurgery
--- NOTE | 2019-07-26 12:04 | P.DS ---
Providers Date of admission: 07/25/19 20:39 Attending physician: Toan Andrea Consults: 07/26/19 00:00 Consult Physician Stat Consulting Provider: Lola Santoyo Consult Reason/Comments: CVA Do you want consulting provider notified?: Yes, Notify in am 07/26/19 11:13 Consult Physician Routine Consulting Provider: Yogesh Estrada Consult Reason/Comments: PRUDENCE Do you want consulting provider notified?: Yes Primary care physician: Deion Alvarez Hospital Course: Refer to my HPI for further details Patient Condition at Discharge: Serious Plan - Discharge Summary Discharge Rx Participant: No New Discharge Prescriptions: No Action Levothyroxine Sodium [Synthroid] 75 mcg PO DAILY buPROPion XL [Wellbutrin XL] 150 mg PO DAILY Cetirizine HCl [Zyrtec] 10 mg PO DAILY Fluticasone Nasal [place] [Flonase Nasal [place]] 2 spray EA NOSTRIL DAILY PRN PRN Reason: Allergy Symptoms Meloxicam [Mobic] 15 mg PO DAILY Cyanocobalamin [Vitamin B-12 Injection] 1,000 mcg SQ QMONTH Cyclobenzaprine [Flexeril] 10 mg PO TID PRN PRN Reason: Spasms Gabapentin [Neurontin] 300 mg PO TID Glycopyrrolate 1 mg PO BID HYDROcodone/APAP 7.5-325MG [[place] 7.5-325] 1 tab PO BID Metoprolol Tartrate [Lopressor] 25 mg PO BID LORazepam [Ativan] 1 mg PO TID PRN #9 tab PRN Reason: Anxiety Lisinopril 20 mg PO DAILY Eye Drop For Glaucom(Name Unk) 1 drop BOTH EYES BID Ibuprofen [Motrin] 600 mg PO Q8HR PRN #30 tab PRN Reason: Pain Acetaminophen Tab [Tylenol Tab] 500 mg PO Q6H PRN #30 tablet PRN Reason: Pain Ondansetron Odt [Zofran Odt] 4 mg PO Q8HR PRN #14 tab PRN Reason: Nausea Discharge Medication List Levothyroxine Sodium [Synthroid] 75 mcg PO DAILY 11/25/16 [History] Cetirizine HCl [Zyrtec] 10 mg PO DAILY 04/07/18 [History] buPROPion XL [Wellbutrin XL] 150 mg PO DAILY 04/07/18 [History] Fluticasone Nasal [place] [Flonase Nasal [place]] 2 spray EA NOSTRIL DAILY PRN 08/15/18 [History] Cyanocobalamin [Vitamin B-12 Injection] 1,000 mcg SQ QMONTH 11/09/18 [History] Meloxicam [Mobic] 15 mg PO DAILY 11/09/18 [History] Cyclobenzaprine [Flexeril] 10 mg PO TID PRN 01/25/19 [History] Gabapentin [Neurontin] 300 mg PO TID 01/25/19 [History] Glycopyrrolate 1 mg PO BID 01/25/19 [History] HYDROcodone/APAP 7.5-325MG [[place] 7.5-325] 1 tab PO BID 01/25/19 [History] Metoprolol Tartrate [Lopressor] 25 mg PO BID 01/25/19 [History] LORazepam [Ativan] 1 mg PO TID PRN #9 tab 01/27/19 [Rx] Eye Drop For [place]au[place](Name Unk) 1 drop BOTH EYES BID 03/17/19 [History] Lisinopril 20 mg PO DAILY 03/17/19 [History] Acetaminophen Tab [Tylenol Tab] 500 mg PO Q6H PRN #30 tablet 03/19/19 [Rx] Ibuprofen [Motrin] 600 mg PO Q8HR PRN #30 tab 03/19/19 [Rx] Ondansetron Odt [Zofran Odt] 4 mg PO Q8HR PRN #14 tab 07/23/19 [Rx] Follow up Appointment(s)/Referral(s): Deion Alvarez MD [Primary Care Provider] - 1-2 days
[2019-07-26] MEDS ORDERED: SODIUM CHLORIDE 0.9% 500 ML 500 ML IV ONE (12:22)
--- NOTE | 2019-07-26 12:31 | CT ---
EXAMINATION TYPE: CT brain wo con DATE OF EXAM: 07/26/2019 COMPARISON: CT dated 07/25/2019 HISTORY: increasing focal sign acute stroke mass effect CT DLP: 1095.4 mGycm. Automated Exposure Control for Dose Reduction was Utilized. TECHNIQUE: CT scan of the head is performed without contrast. FINDINGS: Redemonstration of an evolving right middle cerebral artery distribution subacute infarct w ith hyperdensity indicating thrombus in some branch vessels of the right MCA. This involves the poste rior frontal, parietal, and temporal lobes and overall is similar in size to the prior measuring up t o 9.8 cm on image 29. Mass effect in the peripheral sulci are seen. No hemorrhagic transformation. No midline shift. Calvarium is intact. Paranasal sinuses and mastoid air cells are well aerated. IMPRESSION: Similar-appearing large right middle cerebral artery subacute infarct in comparison to with no new hemorrhagic transformation or midline shift.
[2019-07-26] MEDS ORDERED: levETIRAcetam IV 500 MG in SODIUM CHLORIDE 0.9% 100 ML IVPB STA (12:54)
--- NOTE | 2019-07-26 13:13 | P.NPCON ---
History of Present Illness - Reason for Consult acute renal failure - History of Present Illness Reason for consultation: Acute kidney injury History of present illness: Patient is a 49-year-old male seen in consultation for acute kidney injury. Patient denies prior history of kidney disease. However he states he did have an episode of rhabdomyolysis several years ago. Patient's creatinine on admissi on was 3.25. Labs from today are pending. Patient presented to the hospital due to forgetfulness going on for the last few days. Additionally he's been complaining of numbness in his left hand. Patient had CAT scan of the brain done which revealed large right middle cerebral artery subacute infarct. Patient's blood pressure on admission was low in the systolic 80s to 90s. It was 112/71 this morning. He takes lisinopril at home which is currently held. He denies dizziness or syncopal episodes. He does admit to taking Motrin as needed. Patient states he took it a couple of times in the last week. He admits to good urine output. No hematuria or dysuria. No history of diabetes. Denies family history of renal disease. He has been evaluated by neurology and he will be transferred to a tertiary care center later today for further evaluation for the stroke. Vital signs are stable. General: The patient appeared well nourished and normally developed. HEENT: Head exam is unremarkable. Neck is without jugular venous distension. LUNGS: Lungs are clear to auscultation and percussion. Breath sounds decreased. HEART: Rate and Rhythm are regular. ABDOMEN: Abdominal exam reveals normal bowel sounds. Non-tender and non- distended. EXTREMITITES: No clubbing, cyanosis, or edema. Past Medical History Past Medical History: Hypertension, Thyroid Disorder Additional Past Medical History / Comment(s): VITAMIN B12 DEFICIENCY ANEMIA, rhabdomyolysis, hypothyroidism, diverticulosis History of Any Multi-Drug Resistant Organisms: None Reported Past Surgical History: Orthopedic Surgery Additional Past Surgical History / Comment(s): BILAT Shoulder Surgery; 2 surgery on left side; one surgery on right Past Anesthesia/Blood Transfusion Reactions: No Reported Reaction Past Psychological History: Anxiety, Depression Smoking Status: Current every day smoker Past Alcohol Use History: Abuse, Daily, Heavy Past Drug Use History: Marijuana - Past Family History Mother Family Medical History: No Reported History Father Family Medical History: Cancer Additional Family Medical History / Comment(s): prostate, lymphoma Medications and Allergies Home Medications Medication Instructions Recorded Confirmed Type Levothyroxine Sodium [Synthroid] 75 mcg PO DAILY 11/25/16 03/19/19 History Cetirizine HCl [Zyrtec] 10 mg PO DAILY 04/07/18 03/19/19 History buPROPion XL [Wellbutrin XL] 150 mg PO DAILY 04/07/18 03/19/19 History Fluticasone Nasal [place] [Flonase 2 spray EA NOSTRIL DAILY PRN 08/15/18 03/19/19 History Nasal [place]] Cyanocobalamin [Vitamin B-12 1,000 mcg SQ QMONTH 11/09/18 03/19/19 History Injection] Meloxicam [Mobic] 15 mg PO DAILY 11/09/18 03/19/19 History Cyclobenzaprine [Flexeril] 10 mg PO TID PRN 01/25/19 03/19/19 History Gabapentin [Neurontin] 300 mg PO TID 01/25/19 03/19/19 History Glycopyrrolate 1 mg PO BID 01/25/19 03/19/19 History HYDROcodone/APAP 7.5-325MG [[place] 1 tab PO BID 01/25/19 03/19/19 History 7.5-325] Metoprolol Tartrate [Lopressor] 25 mg PO BID 01/25/19 03/19/19 History LORazepam [Ativan] 1 mg PO TID PRN #9 tab 01/27/19 03/19/19 Rx Eye Drop For [place](Name Unk) 1 drop BOTH EYES BID 03/17/19 03/19/19 History Lisinopril 20 mg PO DAILY 03/17/19 03/19/19 History Acetaminophen Tab [Tylenol Tab] 500 mg PO Q6H PRN #30 tablet 03/19/19 Rx Ibuprofen [Motrin] 600 mg PO Q8HR PRN #30 tab 03/19/19 Rx Ondansetron Odt [Zofran Odt] 4 mg PO Q8HR PRN #14 tab 07/23/19 Rx Allergies Allergy/AdvReac Type Severity Reaction Status Date / Time No Known Allergies Allergy Verified 07/25/19 21:27 Physical Exam Vitals: Vital Signs Temp Pulse Pulse Resp BP BP Pulse Ox 07/26/19 11:39 97.2 F L 82 18 112/71 100 07/26/19 11:38 97.2 F L 82 18 112/71 100 07/26/19 08:00 97.3 F L 78 18 121/76 96 07/26/19 04:00 97.9 F 70 18 92/60 97 07/26/19 00:00 97.9 F 68 18 81/46 96 07/25/19 21:13 97.6 F 62 16 94/62 97 07/25/19 20:57 97.9 F 63 18 108/71 97 07/25/19 20:00 68 18 99/66 97 07/25/19 18:58 72 18 117/66 94 L 07/25/19 17:32 98.4 F 79 18 93/60 97 Intake and Output 07/25/19 07/26/19 07/26/19 22:59 06:59 14:59 Intake Total 480 Balance 480 Intake: Oral 480 Other: # Voids 1 1 1 Weight 88.451 kg 86.7 kg Results - Lab Results Most recent lab results Calcium 9.4 mg/dL (8.4-10.2) 07/25/19 18:46 07/25/19 18:46 07/25/19 18:46 Assessment and Plan Plan: Assessment: 1. Acute kidney injury mostly prerenal secondary to nonsteroidals and hypot ension. Further worsened with the use of lisinopril. Creatinine 3.25 on admission. 1+ proteinuria noted on UA. UA from 07/23/2019 revealed no proteinuria. 2. Acute CVA. Neurology following. Plan for transfer to [facility] later today. 3. Benign hypertension. Controlled. Blood pressure actually on the lower side. 4. Metabolic acidosis secondary to acute kidney injury. Plan: Maintain IV fluids. Continue to hold lisinopril. Avoid nephrotoxins. Plan for transfer to [facility] for further neurologic workup. Thank you for the consultation. I will continue to follow the patient with you during his hospital stay.
[2019-07-26 13:24] LABS: Calcium 8.8 mg/dL (8.4-10.2); Potassium 4.8 mmol/L (3.5-5.1)
--- NOTE | 2019-07-26 13:48 | P.CNNES ---
History of Present Illness Consult date: 07/26/19 Reason for Consult: Acute stroke Chief complaint: Increasing left arm weakness memory loss headache History of Present Illness: This is a new neurology consult for a 49-year-old gentleman with a known history for hypertension and glaucoma. Part of the history was provided by his sister and the patient himself. The patient was last well normal at 10 AM on Friday morning. His symptoms started shortly after he was leaving to go fishing. He returned later that evening around 6:30 PM. The patient reports that he was starting to become very forgetful. Frequent throughout the day he would put his phone down could not recall where he placed it. Then towards the end of the afternoon he began to feel that his left hand was burning. By the time he got home he was with his family and his sister who provides the following history: She reports that he became even more confused he fell in the shower twice. He w as very forgetful and his speech was becoming on and off garbled. Friday morning he had bowel incontinence and is attending take a shower he was unstable. By Friday his left hand was becoming weaker with increased burning sensation. He was brought to the emergency room out of assistance by family last night. CT of his head noncontrast on admission shows an extensive right middle cerebral artery infarct also with extension down at the right posterior cerebral artery territory. The initial NIH stroke scale on admission was 3 in the emergency room this morning is 5 based on the patient now having increasing visual impairment and limb ataxia and weakness. After thoroughly reviewing this case and the extent and size of this infarct with the mass effect, it was determined this patient should be transferred to higher level care with neurosurgery access. This is in the event the infarct evolves becomes more extensive lacing this patient as a potential candidate for hemispherectomy. [facility] was contacted per transfer center. I spoke directly with Dr. Gautam he agreed that this patient does show evidence of evolving mass effect and could be at increased risk for need for hemispherectomy. Transfer was accepted. A follow-up computed tomography scan was completed this morning during the process of transferring. This scan does continue to show the extensive infarct involving the right hemisphere with mass effect. Prior to transfer the patient was given a bolus of 500 mL of normal saline as well as loaded with 500 mg of Keppra IV. Keppra was given based on the history that the patient had bowel incontinence. High suspicion for possible subclinical seizure. Due to the patient's renal condition hypertonic saline was determined not to be started before transfer. Paperwork was completed the patient is stable for discharge by ground. Past Medical History Past Medical History: Hypertension, Thyroid Disorder Additional Past Medical History / Comment(s): VITAMIN B12 DEFICIENCY ANEMIA, rhabdomyolysis, hypothyroidism, diverticulosis History of Any Multi-Drug Resistant Organisms: None Reported Past Surgical History: Orthopedic Surgery Additional Past Surgical History / Comment(s): BILAT Shoulder Surgery; 2 surgery on left side; one surgery on right Past Anesthesia/Blood Transfusion Reactions: No Reported Reaction Past Psychological History: Anxiety, Depression Smoking Status: Current every day smoker Past Alcohol Use History: Abuse, Daily, Heavy Past Drug Use History: Marijuana - Past Family History Mother Family Medical History: No Reported History Father Family Medical History: Cancer Additional Family Medical History / Comment(s): prostate, lymphoma Medications and Allergies Home Medications Medication Instructions Recorded Confirmed Type Levothyroxine Sodium [Synthroid] 75 mcg PO DAILY 11/25/16 03/19/19 History Cetirizine HCl [Zyrtec] 10 mg PO DAILY 04/07/18 03/19/19 History buPROPion XL [Wellbutrin XL] 150 mg PO DAILY 04/07/18 03/19/19 History Fluticasone Nasal [place] [Flonase 2 spray EA NOSTRIL DAILY PRN 08/15/18 03/19/19 History Nasal [place]] Cyanocobalamin [Vitamin B-12 1,000 mcg SQ QMONTH 11/09/18 03/19/19 History Injection] Meloxicam [Mobic] 15 mg PO DAILY 11/09/18 03/19/19 History Cyclobenzaprine [Flexeril] 10 mg PO TID PRN 01/25/19 03/19/19 History Gabapentin [Neurontin] 300 mg PO TID 01/25/19 03/19/19 History Glycopyrrolate 1 mg PO BID 01/25/19 03/19/19 History HYDROcodone/APAP 7.5-325MG [[place] 1 tab PO BID 01/25/19 03/19/19 History 7.5-325] Metoprolol Tartrate [Lopressor] 25 mg PO BID 01/25/19 03/19/19 History LORazepam [Ativan] 1 mg PO TID PRN #9 tab 01/27/19 03/19/19 Rx Eye Drop For Glaucom(Name Unk) 1 drop BOTH EYES BID 03/17/19 03/19/19 History Lisinopril 20 mg PO DAILY 03/17/19 03/19/19 History Acetaminophen Tab [Tylenol Tab] 500 mg PO Q6H PRN #30 tablet 03/19/19 Rx Ibuprofen [Motrin] 600 mg PO Q8HR PRN #30 tab 03/19/19 Rx Ondansetron Odt [Zofran Odt] 4 mg PO Q8HR PRN #14 tab 07/23/19 Rx Allergies Allergy/AdvReac Type Severity Reaction Status Date / Time No Known Allergies Allergy Verified 07/25/19 21:27 Physical Examination - Vital Signs Vital Signs: Vital Signs Temp Pulse Pulse Resp BP BP Pulse Ox 07/26/19 11:39 97.2 F L 82 18 112/71 100 07/26/19 11:38 97.2 F L 82 18 112/71 100 07/26/19 08:00 97.3 F L 78 18 121/76 96 07/26/19 04:00 97.9 F 70 18 92/60 97 07/26/19 00:00 97.9 F 68 18 81/46 96 07/25/19 21:13 97.6 F 62 16 94/62 97 07/25/19 20:57 97.9 F 63 18 108/71 97 07/25/19 20:00 68 18 99/66 97 07/25/19 18:58 72 18 117/66 94 L 07/25/19 17:32 98.4 F 79 18 93/60 97 Intake and Output 07/25/19 07/26/19 07/26/19 22:59 06:59 14:59 Intake Total 480 Balance 480 Intake: Oral 480 Other: # Voids 1 1 1 Weight 88.451 kg 86.7 kg Gen. physical exam: Well-nourished HEENT: Mildly injected sclera. Neck is supple. Oropharynx is clear. Pulses: Radial pedal pulses are equal and symmetric. Extremities: No edema noted in the hands or feet. No clubbing of the digits noted. Skin: Multiple tattoos. No rash bruising or petechia noted. Neurologic exam NIH stroke scale 5 Pupils: Asymmetric 4 mm on the right 3 mm on the left sluggishly reactive to light. Cranial nerve examination: Extraocular movements are full. No nystagmus noted on vertical horizontal gaze. Face appears symmetric. Cranial nerve VIII is intact by clinical observation. Palate elevates symmetrically. Shoulder shrug symmetric. Tongue midline without fasciculations deviation. Motor examination normal muscle bulk and tone throughout. There is definite weakness proximally on the left upper extremity and proximally at the left hip flexor. No tremors or fasciculations noted. Strength on the right upper lower extremity is 5 over 5. Pronator drift positive on the left. Coordination testing intact finger to nose testing he'll ivory maneuver on the right. Patient is discoordinated spastic hand on the left for finger to nose testing. Due to the significant weakness he was unable to elicit he'll ivory maneuver on the left Deep tendon reflexes trace throughout. Sensory examination grossly intact to pinprick in the upper extremities bilaterally. Diminished sensation to pinprick in the left leg below the knee. Pinprick sensation is intact in the right lower extremity. Gait examination: Deferred Results - Laboratory Findings CBC and BMP: 07/25/19 18:46 07/26/19 05:59 Abnormal Lab Findings: Abnormal Labs 07/25/19 07/25/19 07/25/19 18:46 18:46 18:46 APTT 21.3 L Chloride 109 H Carbon Dioxide 18 L BUN 29 H Creatinine 3.25 H Plasma Lactic Acid [place] 0.5 L AST 165 H ALT 214 H LDL Cholesterol, Calc HDL Cholesterol Urine Protein Urine Blood Ur Leukocyte Esterase Urine WBC Urine WBC Clumps Urine Bacteria Hyaline Casts Urine Mucus Ur Barbiturates Screen U Tricyclic Antidepress Ur Phencyclidine Scrn U Marijuana (THC) Screen 07/25/19 07/26/19 07/26/19 18:46 05:59 05:59 APTT Chloride 111 H Carbon Dioxide 17 L BUN 25 H Creatinine 1.50 H Plasma Lactic Acid [place] AST ALT LDL Cholesterol, Calc 101 H HDL Cholesterol 30 L Urine Protein 1+ H Urine Blood Trace H Ur Leukocyte Esterase Trace H Urine WBC 37 H Urine WBC Clumps Few H Urine Bacteria Rare H Hyaline Casts 61 H Urine Mucus Occasional H Ur Barbiturates Screen Detected H U Tricyclic Antidepress Detected H Ur Phencyclidine Scrn Detected H U Marijuana (THC) Screen Detected H - Diagnostic Findings EKG: report reviewed Chest x-ray: report reviewed (CT scans of the head and neck reviewed.) Assessment and Plan Assessment: A 49-year-old gentleman who has a known stroke risk factor for hypertension. He came to the emergency room approximate 48 hours after onset of his symptoms Friday morning which involved progressive altered mental status, left upper and lower extremity weakness and paresthesias. On the urine drug screen there was a illegal substance found called phencyclidine which the patient attests that he has no understanding how he would've gotten this. Due to the large size of this infarct , potential for increased mass effect, transfer to [facility] was considered for neurosurgery support. The case was discussed with Dr. Gautam stroke team at [facility] who is agree to accept the patient for transfer. Additional transfer orders include bolus of normal saline prior to discharge as well as Keppra 500 mg IV stat. Summary 1. Acute right hemispheric stroke young adult 2. Positive urine drug screen for phencyclidine 3. Known stroke risk factor: Hypertension 4. Past medical history significant for hypertension and glaucoma 5. Acute kidney injury on admission with elevated creatinine of unclear etiology. Plan 1. Transfer arranged to [facility] for higher level care/neurosurgery/neuro ICU 2. Hold any further antiplatelet therapy due to increased risk for conversion to hemorrhagic infarct. 3. Keppra IV 500 mg stat prior to transfer. 4. Stat computed tomography scan of the head this morning: Completed 5. Give bolus normal saline 500 mL now. 6. Recommend comprehensive hypercoagulability workup for stroke in a young adult This patient's prognosis remains very guarded. Thank you for allowing me to produce pain care of your patient. Patient cleared for transfer. Lola Santoyo MD Board Certified in neurology & Sleep Medicine
[2019-07-26] MEDS ORDERED: GABAPENTIN 100 MG CAP PO SCH (16:00)
[2019-07-26] MEDS ORDERED: ASPIRIN 325 MG TAB PO SCH (20:38)
[2019-07-26] MEDS ORDERED: METOPROLOL TARTRATE 25 MG TAB PO SCH (21:00)
[2019-07-27] MEDS ORDERED: LEVOTHYROXINE 75 MCG TAB PO SCH (06:30)
[2019-07-27] MEDS ORDERED: buPROPion XL 150 MG TAB.ER.24H PO SCH (09:00)
[2019-07-27 13:27] LABS: C. trachomatis,PCR Negative (Neg,Equiv); Chlamydia trachomatis Source Urine; N. gonorrhoeae,PCR Negative (Neg,Equiv); Neisseria Source Urine
== END 2019-07-26 13:28 | disposition short-term general hospital (02) | DRG 64 ==
LOC: EC 17:29 → 3SCARD 20:39
PROVIDERS: ADMIT Emergency Medicine; ATTEND Emergency Medicine
DX: I63.9 Cerebral infarction, unspecified (principal); G93.6 Cerebral edema; N17.0 Acute kidney failure with tubular necrosis; E87.2 Acidosis; F32.9 Major depressive disorder, single episode, unspecified; F17.200 Nicotine dependence, unspecified, uncomplicated; F41.9 Anxiety disorder, unspecified; I10 Essential (primary) hypertension; E03.9 Hypothyroidism, unspecified; R74.8 Abnormal levels of other serum enzymes; R29.703 NIHSS score 3; H54.7 Unspecified visual loss; T39.395A Adverse effect of other nonsteroidal anti-inflammatory drugs [NSAID], initial encounter; R40.2363 Coma scale, best motor response, obeys commands, at hospital admission; R40.2143 Coma scale, eyes open, spontaneous, at hospital admission; R40.2253 Coma scale, best verbal response, oriented, at hospital admission; F12.90 Cannabis use, unspecified, uncomplicated; Z11.59 Encounter for screening for other viral diseases; Z79.899 Other long term (current) drug therapy; Z79.890 Hormone replacement therapy; Z79.1 Long term (current) use of non-steroidal anti-inflammatories (NSAID); Z98.890 Other specified postprocedural states; Z80.7 Family history of other malignant neoplasms of lymphoid, hematopoietic and related tissues; Z80.42 Family history of malignant neoplasm of prostate
CPT/HCPCS: 36415; 70450; 80048; 80053; 80061; 80306; 80320; 81001; 82140; 82272; 82570; 83605; 83690; 84300; 84484; 85025; 85610; 85730; 87086; 87205; 87491; 87591; 87635; 93005; 96360; 96372; 99285

== ENCOUNTER → 2019-09-09 | Outpatient (CLI) | payer OTHER ==
[2019-09-09 15:02] LABS: Basophils # (A) 0.1 k/uL (0-0.2); Basophils % (A) 1 %; Eosinophils # (A) 0.3 k/uL (0-0.7); Eosinophils % (A) 4 %; HGB 14.4 gm/dL (13.0-17.5); Lymphocytes # (A) 2.1 k/uL (1.0-4.8); Lymphocytes % (A) 28 %; MCH 31.5 pg (25.0-35.0); MCV 98.4 fL (80.0-100.0); Mean Platelet Volume 7.4; Monocytes # (A) 0.6 k/uL (0-1.0); Monocytes % (A) 8 %; Neutrophils # (A) 4.2 k/uL (1.3-7.7); Neutrophils % (A) 57 %; Platelet Count 215 k/uL (150-450); RBC 4.58 m/uL (4.30-5.90); WBC 7.3 k/uL (3.8-10.6)
[2019-09-09 20:50] LABS: T4, Free (Free Thyroxine) 1.3 ng/dL (0.80-1.80)
[2019-09-09 21:08] LABS: African American GFR (CKD) 117.5 (60.0-200.0); Albumin 4.4 g/dL (3.80-4.90); Albumin/Globulin Ratio 1.76 (1.60-3.17); Anion Gap 5.5 mmol/L (4.00-12.00); BUN/Creat Ratio 21.11 Ratio (12.00-20.00); Calcium 9.5 mg/dL (8.7-10.3); Carbon Dioxide 23.5 mmol/L (21.6-31.8); Chol/HDL Ratio 4.22; Globulin 2.5 g/dL (1.6-3.3); LDL Cholesterol,Calculated 50.2 mg/dL (0.0-131.0); Non-African American GFR(CKD) 101.4 (60.0-200.0); Potassium 4.5 mmol/L (3.5-5.5); Total Bilirubin 0.4 mg/dL (0.2-1.2); Total Protein 6.9 g/dL (6.2-8.2); VLDL Calculation 36.8 mg/dL (5.00-40.00)
== END | disposition home or self-care (01) ==
LOC: LABWHC1 13:01
PROVIDERS: ATTEND Nurse Practitioner Acute Care
DX: R42 Dizziness and giddiness (principal); E55.9 Vitamin D deficiency, unspecified; R53.83 Other fatigue; Z86.73 Personal history of transient ischemic attack (TIA), and cerebral infarction without residual deficits
CPT/HCPCS: 36415; 80053; 80061; 82306; 82607; 83090; 84207; 84439; 84443; 84481; 85025

== ENCOUNTER → 2019-09-10 | Outpatient (CLI) | payer OTHER ==
[2019-09-10 15:27] LABS: D-Dimer 0.39 mg/L FEU (<0.60)
[2019-09-10 19:33] LABS: C Reactive Protein <0.4 mg/dL (0.0-0.8)
[2019-09-10 20:05] LABS: Hepatitis A Antibody IgM Non-Reactive (Non-Reactive); Hepatitis B Core IgM Non-Reactive (Non-Reactive); Hepatitis B Surface Antigen Non-Reactive (Non-Reactive); Hepatitis C IgG Antibody Non-Reactive (Non-Reactive)
[2019-09-10 20:40] LABS: Cardiolipin Ab IgG Interp NEGATIVE (NEGATIVE); Cardiolipin Ab IgM Interp NEGATIVE (NEGATIVE); Cardiolipin IgM Antibody 0.6 U/mL
[2019-09-11 00:27] LABS: INR 0.9 (<1.2); Partial Thromboplastin Time 22.4 sec (22.0-30.0); Prothrombin Time 9.9 sec (9.0-12.0)
[2019-09-11 00:33] LABS: EBV-EA (IgG) <0.2 AI; EBV-EBNA(IgG) >8.0 AI; EBV-VCA (IgG) >8.0 AI; EBV-VCA (IgM) 0.2 AI
[2019-09-13 11:43] LABS: Protein S Antigen 85 % (50 - 140)
== END | disposition home or self-care (01) ==
LOC: LABWHC1 12:18
PROVIDERS: ATTEND Nurse Practitioner Acute Care
DX: I63.9 Cerebral infarction, unspecified (principal)
CPT/HCPCS: 36415; 80074; 81240; 81291; 83090; 84403; 85300; 85302; 85303; 85305; 85306; 85379; 85384; 85610; 85613; 85652; 85730; 86038; 86140; 86147; 86480; 86663; 86664; 86665; 86800

== ENCOUNTER 2020-04-11 22:50 | Observation (INO) | payer OTHER ==
[2020-04-11] MEDS ORDERED: KETAMINE 50 MG/ML 10 ML VIAL IM ONE ×2 (23:17→23:49)
[2020-04-11] MEDS ORDERED: LORazepam 2 MG/ML INJ IM STA (23:18)
--- NOTE | 2020-04-11 23:22 | ED ---
General Adult HPI - General Chief complaint: Overdose Stated complaint: Petition Time Seen by Provider: 04/11/20 22:59 Source: family Mode of arrival: wheelchair Limitations: altered mental status - History of Present Illness Initial comments: This patient is a 49-year-old man who is brought for evaluation after family had visited him and he apparently was not acting properly. They state that he was behaving in a bizarre and belligerent fashion. Patient reportedly has history of both alcohol abuse and abuse of prescription drugs. On arrival, the patient is not able to give any useful history, he is completely uncooperative and belligerent. He is also manifesting paranoid delusional thought content. -: unknown Associated Symptoms: denies other symptoms Treatments Prior to Arrival: none - Related Data Home Medications Medication Instructions Recorded Confirmed Levothyroxine Sodium [Synthroid] 75 mcg PO DAILY 11/25/16 03/19/19 Cetirizine HCl [Zyrtec] 10 mg PO DAILY 04/07/18 03/19/19 buPROPion XL [Wellbutrin XL] 150 mg PO DAILY 04/07/18 03/19/19 Fluticasone Nasal [place] [Flonase 2 spray EA NOSTRIL DAILY PRN 08/15/18 03/19/19 Nasal [place]] Cyanocobalamin [Vitamin B-12 1,000 mcg SQ QMONTH 11/09/18 03/19/19 Injection] Meloxicam [Mobic] 15 mg PO DAILY 11/09/18 03/19/19 Cyclobenzaprine [Flexeril] 10 mg PO TID PRN 01/25/19 03/19/19 Gabapentin [Neurontin] 300 mg PO TID 01/25/19 03/19/19 Glycopyrrolate 1 mg PO BID 01/25/19 03/19/19 HYDROcodone/APAP 7.5-325MG [[place] 1 tab PO BID 01/25/19 03/19/19 7.5-325] Metoprolol Tartrate [Lopressor] 25 mg PO BID 01/25/19 03/19/19 Eye Drop For Glaucom(Name Unk) 1 drop BOTH EYES BID 03/17/19 03/19/19 lisinopriL 20 mg PO DAILY 03/17/19 03/19/19 Previous Rx's Medication Instructions Recorded LORazepam [Ativan] 1 mg PO TID PRN #9 tab 01/27/19 Acetaminophen Tab [Tylenol Tab] 500 mg PO Q6H PRN #30 tablet 03/19/19 Ibuprofen [Motrin] 600 mg PO Q8HR PRN #30 tab 03/19/19 Ondansetron Odt [Zofran Odt] 4 mg PO Q8HR PRN #14 tab 07/23/19 Allergies Allergy/AdvReac Type Severity Reaction Status Date / Time No Known Allergies Allergy Verified 04/11/20 23:16 Review of Systems ROS Statement: Those systems with pertinent positive or pertinent negative responses have been documented in the HPI. ROS Other: All systems not noted in ROS Statement are negative. Limitations: ROS unobtainable due to patients medical condition (Patient appears acutely delirious) Past Medical History Past Medical History: Hypertension, Thyroid Disorder Additional Past Medical History / Comment(s): VITAMIN B12 DEFICIENCY ANEMIA, rhabdomyolysis, hypothyroidism, diverticulosis History of Any Multi-Drug Resistant Organisms: None Reported Past Surgical History: Orthopedic Surgery Additional Past Surgical History / Comment(s): BILAT Shoulder Surgery; 2 surgery on left side; one surgery on right Past Anesthesia/Blood Transfusion Reactions: No Reported Reaction Past Psychological History: Anxiety, Depression Smoking Status: Unknown if ever smoked Past Alcohol Use History: Abuse, Daily, Heavy Past Drug Use History: Marijuana - Past Family History Mother Family Medical History: No Reported History Father Family Medical History: Cancer Additional Family Medical History / Comment(s): prostate, lymphoma General Exam Limitations: altered mental status General appearance: alert, other (Patient appears agitated and delirious) Head exam: Present: atraumatic, normocephalic Eye exam: Present: PERRL, EOMI, nystagmus. Absent: scleral icterus, conjunctival injection ENT exam: Present: mucous membranes dry, TM's normal bilaterally Neck exam: Present: normal inspection, full ROM. Absent: tenderness, meningismus, lymphadenopathy Respiratory exam: Present: normal lung sounds bilaterally. Absent: respiratory distress, wheezes, rales, rhonchi, stridor, chest wall tenderness, accessory muscle use Cardiovascular Exam: Present: regular rate, normal rhythm, normal heart sounds. Absent: systolic murmur, diastolic murmur, rubs, gallop GI/Abdominal exam: Present: soft. Absent: distended, tenderness, guarding, rebound, rigid, mass, pulsatile mass Extremities exam: Present: other (There is some soft tissue swelling to the dorsum of left foot. In addition there may be some cyanosis to the distal tips of toes to the left foot. The toes are cool to the touch but there is good capillary refill. Pulse normal through left foot) Back exam: Present: normal inspection. Absent: CVA tenderness (R), CVA tenderness (L), vertebral tenderness Neurological exam: Present: alert, altered (GCS is 14. (E=4, V=4, M=6)), CN II-X II intact. Absent: oriented X3 (Unable to assess), motor sensory deficit Psychiatric exam: Present: manic Skin exam: Present: warm, dry, intact, cyanosis (Toes of left foot). Absent: rash Course Vital Signs 04/11/20 04/12/20 04/12/20 23:11 00:05 00:56 Temperature 97.6 F Pulse Rate 83 69 74 Respiratory 16 20 20 Rate Blood Pressure 108/74 117/80 113/89 O2 Sat by Pulse 97 96 98 Oximetry EKG Findings - EKG Results: EKG: interpreted by LÓPEZ MORALES, sinus rhythm (Rate 79 bpm), normal axis, normal QRS, normal ST/T, no acute changes - VT, Pacemaker, Normal: Normal tracing: normal tracing Procedures - Restraint - Face to Face Restraint Occurrence 1 Patient's Immediate Situation: Endangers self safety, Endangers others' safety, Violent behavior Patient's Reaction to the Intervention: Uncooperative, Angry, Bizarre, Suspicious, Combative Patient's Medical & Behavioral Condition: Agitated, Paranoid, Homicidal thoughts Need to Continue or Terminate Restraint or Seclusion: Continue Face to Face Eval of Restraint Date: 04/11/20 Face to Face Eval of Restraint Time: 23:17 Medical Decision Making - Medical Decision Making This patient is a 49-year-old man brought for concerns about possible medication abuse and possible overdose. The patient for a combative and delirious on arrival. Verbal de-escalation is attempted, patient is still attempting to strike and spit at people. Patient is initially placed into restraints and ketamine is administered. The patient remained somnolent and therefore will be admitted for telemetry monitoring. Case discussed with admitting service, he will also have psychiatry consultation. There is concern about exposure injury to toes of left foot, and this will require serial exams. - Lab Data Result diagrams: 04/12/20 00:09 04/12/20 00:09 Lab Results 04/12/20 04/12/20 04/12/20 Range/Units 00:09 00:09 00:09 WBC 13.0 H (3.8-10.6) k/uL RBC 4.76 (4.30-5.90) m/uL Hgb 15.9 (13.0-17.5) gm/dL Hct 46.3 (39.0-53.0) % MCV 97.4 (80.0-100.0) fL MCH 33.4 (25.0-35.0) pg MCHC 34.3 (31.0-37.0) g/dL RDW 12.0 (11.5-15.5) % Plt Count 198 (150-450) k/uL MPV 7.1 Neutrophils % 82 % Lymphocytes % 11 % Monocytes % 5 % Eosinophils % 1 % Basophils % 0 % Neutrophils # 10.6 H (1.3-7.7) k/uL Lymphocytes # 1.5 (1.0-4.8) k/uL Monocytes # 0.6 (0-1.0) k/uL Eosinophils # 0.1 (0-0.7) k/uL Basophils # 0.0 (0-0.2) k/uL Sodium 138 (137-145) mmol/L Potassium 4.9 (3.5-5.1) mmol/L Chloride 106 (98-107) mmol/L Carbon Dioxide 21 L (22-30) mmol/L Anion Gap 11 mmol/L BUN 21 H (9-20) mg/dL Creatinine 0.91 (0.66-1.25) mg/dL Est GFR (CKD-EPI)AfAm >90 (>60 ml/min/1.73 sqM) Est GFR (CKD-EPI)NonAf >90 (>60 ml/min/1.73 sqM) Glucose 90 (74-99) mg/dL Calcium 9.2 (8.4-10.2) mg/dL Total Bilirubin 0.5 (0.2-1.3) mg/dL AST 40 (17-59) U/L ALT 38 (4-49) U/L Alkaline Phosphatase 96 (38-126) U/L Total Protein 7.6 (6.3-8.2) g/dL Albumin 4.5 (3.5-5.0) g/dL Urine Color Yellow Urine Appearance Clear (Clear) Urine pH 6.0 (5.0-8.0) Ur Specific [place] 1.030 (1.001-1.035) Urine Protein Trace H (Negative) Urine Glucose (UA) Negative (Negative) Urine Ketones Negative (Negative) Urine Blood Negative (Negative) Urine Nitrite Negative (Negative) Urine Bilirubin Negative (Negative) Urine Urobilinogen <2.0 (<2.0) mg/dL Ur Leukocyte Esterase Negative (Negative) Salicylates <1.0 mg/dL Urine Opiates Screen Not Detected (NotDetected) Ur Oxycodone Screen Not Detected (NotDetected) Urine Methadone Screen Not Detected (NotDetected) Ur Propoxyphene Screen Not Detected (NotDetected) Acetaminophen <10.0 ug/mL Ur Barbiturates Screen Detected H (NotDetected) U Tricyclic Antidepress Not Detected (NotDetected) Ur Phencyclidine Scrn Not Detected (NotDetected) Ur Amphetamines Screen Not Detected (NotDetected) U Methamphetamines Scrn Not Detected (NotDetected) U Benzodiazepines Scrn Detected H (NotDetected) Urine Cocaine Screen Not Detected (NotDetected) U Marijuana (THC) Screen Detected H (NotDetected) Serum Alcohol <10 mg/dL Disposition Clinical Impression: Altered mental status, Dehydration Disposition: ADMITTED IP TO THIS HOSP Condition: Fair Is patient prescribed a controlled substance at d/c from ED?: No Referrals: Deion Alvarez MD [Primary Care Provider] - 1-2 days
[2020-04-12 00:23] LABS: Basophils % (A) 0 %; Eosinophils # (A) 0.1 k/uL (0-0.7); Eosinophils % (A) 1 %; HCT 46.3 % (39.0-53.0); HGB 15.9 gm/dL (13.0-17.5); Lymphocytes # (A) 1.5 k/uL (1.0-4.8); Lymphocytes % (A) 11 %; MCH 33.4 pg (25.0-35.0); MCHC 34.3 g/dL (31.0-37.0); MCV 97.4 fL (80.0-100.0); Mean Platelet Volume 7.1; Monocytes # (A) 0.6 k/uL (0-1.0); Monocytes % (A) 5 %; Neutrophils # (A) 10.6 k/uL (1.3-7.7); Neutrophils % (A) 82 %; Platelet Count 198 k/uL (150-450); RBC 4.76 m/uL (4.30-5.90)
[2020-04-12 00:30] LABS: ALT 38 U/L (4-49); AST 40 U/L (17-59); Acetaminophen <10.0 ug/mL; African American GFR (CKD) >90 (>60 ml/min/1.73 sqM); Albumin 4.5 g/dL (3.5-5.0); Alcohol <10 mg/dL; Alkaline Phosphatase 96 U/L (38-126); Anion Gap 11 mmol/L; Blood Urea Nitrogen 21 mg/dL (9-20); Calcium 9.2 mg/dL (8.4-10.2); Carbon Dioxide 21 mmol/L (22-30); Chloride 106 mmol/L (98-107); Glucose 90 mg/dL (74-99); Non-African American GFR(CKD) >90 (>60 ml/min/1.73 sqM); Potassium 4.9 mmol/L (3.5-5.1); Salicylate <1.0 mg/dL; Sodium 138 mmol/L (137-145); Total Bilirubin 0.5 mg/dL (0.2-1.3); Total Protein 7.6 g/dL (6.3-8.2)
[2020-04-12 00:36] LABS: Appearance,Urine Clear (Clear); Bilirubin,Urine Negative (Negative); Blood,Urine Negative (Negative); Color,Urine Yellow; Glucose,Urine (UA) Negative (Negative); Ketones,Urine Negative (Negative); Leukocyte Esterase,Urine Negative (Negative); Nitrite,Urine Negative (Negative); Protein,Urine Trace (Negative); Urobilinogen,Urine <2.0 mg/dL (<2.0)
--- NOTE | 2020-04-12 00:37 | CT ---
EXAM: CT Head Without Intravenous Contrast CLINICAL HISTORY: ITS.REASON CT Reason: altered mental status TECHNIQUE: Axial computed tomography images of the head/brain without intravenous contrast. CTDI is 49.27 mGy and DLP is 1158.4 mGy-cm. This CT exam was performed using one or more of the following dose reduction techniques: automated exposure control, adjustment of the mA and/or kV according to patient size, and/or use of iterative reconstruction technique. COMPARISON: 07/26/2019 FINDINGS: Brain: No acute intracranial hemorrhage. Continued decrease in density of encephalomalacia involving the right parietal and temporal lobes consistent with evolution of infarct seen on 07/26/2019. Williamson-white differentiation is otherwise preserved throughout the cerebral hemispheres. Posterior fossa is symmetric. There is patchy periventricular white matter which is nonspecific but most commonly seen in the setting of small vessel ischemic disease. There is mild intracranial internal carotid artery calcification. Ventricles: Ex vacuo dilatation of the right lateral ventricle. No ventriculomegaly. Basilar cisterns are widely patent. Bones/joints: Unremarkable. No acute fracture. Soft tissues: Unremarkable. Sinuses: Unremarkable as visualized. No acute sinusitis. Mastoid air cells: Unremarkable as visualized. No mastoid effusion. IMPRESSION: 1. No acute intracranial process. 2. Encephalomalacia involving the right parietal and temporal lobes consistent with prior infarct.
--- NOTE | 2020-04-12 00:40 | XR ---
EXAM: XR Left Foot Complete, 3 or More Views CLINICAL HISTORY: ITS.REASON XR Reason: swelling TECHNIQUE: Frontal, lateral and oblique views of the left foot. COMPARISON: none available FINDINGS: Bones/joints: Unremarkable. No acute fracture. No dislocation. Soft tissues: Unremarkable. No radiopaque foreign body. IMPRESSION: Normal left foot x-rays.
[2020-04-12 00:47] LABS: Amphetamine Screen,Urine Not Detected (NotDetected); Benzodiazepines Screen,Urine Detected (NotDetected); Cocaine Screen,Urine Not Detected (NotDetected); Methadone Screen, Urine Not Detected (NotDetected); Opiate Screen,Urine Not Detected (NotDetected); Phencyclidine Screen,Urine Not Detected (NotDetected); Tricyclic Antidepressant,Urine Not Detected (NotDetected)
[2020-04-12 00:48] LABS: Barbiturate Screen,Urine Detected (NotDetected); Oxycodone Screen, Urine Not Detected (NotDetected); Urn Cannabinoid Scrn Detected (NotDetected)
[2020-04-12] MEDS ORDERED: NALOXONE 0.4 MG/ML 1 ML VIAL IV PRN (02:05)
[2020-04-12] MEDS: SODIUM CHLORIDE 0.9% 1,000 ML IV SCH (03:16)
[2020-04-12] MEDS ORDERED: ZIPRASIDONE 20 MG VIAL IM STA (07:14)
[2020-04-12] MEDS ORDERED: LORazepam 2 MG/ML INJ IV STA (07:29)
--- NOTE | 2020-04-12 07:45 | P.MHFACE ---
Face to Face Restrain/Seclus - Evaluation Patient's Immediate Situation: Endangers others' safety, Endangers staff safety, Violent behavior Patient's Reaction to the Intervention: Uncooperative Patient's Medical & Behavioral Condition: Agitated, Bizarre behavior Need to Continue or Terminate Restraint or Seclusion: Continue
[2020-04-12] MEDS ORDERED: ALBUTEROL HFA INHALER INHALATION PRN (08:28)
[2020-04-12] MEDS ORDERED: FLUTICASONE 50MCG/SPRAY NASAL 16GM EA NOSTRIL PRN (08:28)
[2020-04-12 08:48] LABS: Basophils % (A) 0 %; Eosinophils # (A) 0.2 k/uL (0-0.7); Eosinophils % (A) 2 %; HGB 15.5 gm/dL (13.0-17.5); Lymphocytes # (A) 1.7 k/uL (1.0-4.8); Lymphocytes % (A) 14 %; MCH 32.4 pg (25.0-35.0); MCV 98.1 fL (80.0-100.0); Mean Platelet Volume 7.8; Monocytes % (A) 8 %; Neutrophils % (A) 75 %; Platelet Count 208 k/uL (150-450); RBC 4.79 m/uL (4.30-5.90); RDW 11.9 % (11.5-15.5); WBC 12.1 k/uL (3.8-10.6)
[2020-04-12 09:04] LABS: African American GFR (CKD) >90 (>60 ml/min/1.73 sqM); Albumin 4.2 g/dL (3.5-5.0); Albumin/Globulin Ratio 1.4; Blood Urea Nitrogen 19 mg/dL (9-20); Carbon Dioxide 21 mmol/L (22-30); Chloride 105 mmol/L (98-107); Globulin 3.1 g/dL; Non-African American GFR(CKD) >90 (>60 ml/min/1.73 sqM); Total Bilirubin 0.8 mg/dL (0.2-1.3); Total Protein 7.3 g/dL (6.3-8.2)
--- NOTE | 2020-04-12 09:05 | XR ---
EXAMINATION TYPE: XR chest 1V portable DATE OF EXAM: 04/12/2020 Comparison: 07/30/2018 Clinical History: 49-year-old male asthma/pneumonia Findings: Heart is upper limits of normal in size. Mild interstitial prominence. Some mild patchy medial right basilar opacity. No other consolidation or pleural effusion. Left-sided nipple ring. Impression: Mild interstitial prominence could reflect bronchitis or asthma. In addition, there is some patchy at electasis versus early infiltrate at the medial right base.
[2020-04-12 09:09] LABS: ALT 40 U/L (4-49); AST 45 U/L (17-59); Alkaline Phosphatase 111 U/L (38-126); Anion Gap 10 mmol/L; Creatine Kinase 698 U/L (55-170); Glucose 88 mg/dL (74-99); Magnesium 1.8 mg/dL (1.6-2.3); Potassium 4.6 mmol/L (3.5-5.1); Sodium 136 mmol/L (137-145)
[2020-04-12] MEDS: LACTATED RINGERS 1,000 ML IV SCH (10:20)
--- NOTE | 2020-04-12 13:47 | P.CN ---
Psychiatric Consult - . Consult date: 04/12/20 Consult:: IDENTIFYING DATA: This patient is a single, on disability, 49-year-old male who is brought to the emergency department due to bizarre and agitated behavior. HISTORY OF PRESENT ILLNESS: The patient was brought to the emergency department by his family due to bizarre and agitated behavior. During this hospitalization, the patient has been noted to be uncooperative and belligerent requiring multiple IM medications as well as 4 point restraints. This provider attempted to interview the patient but he was sedated and unarousable and therefore unable to participate in the psychiatric evaluation. Collateral information was provided by the patient's sons. The patient's son Alirio Sun petitioned the patient for mental health treatment stating that the patient has been taking too many prescriptions, attempted to harm other people, and that he was worried about his safety. They report that the patient has significant history of substance abuse. They state that he has been. He diagnosed with bipolar disorder and that he would engage in abusing his prescribed medications and alcohol when he was in the extremes of his mood whether depressed or euphoric. They report that the patient was left alone from his girlfriend for an hour and when returned he was found to be acting bizarre and paranoid. They state that the patient has had similar episodes in the past. They do not have any knowledge about the specific symptoms of his bipolar disorder. They do not recall if the patient has had any prior attempts at suicide. In regards to substance use, they report that the patient has history of abusing alcohol and prescription medications. Review of the patient's maps reveal that the patient has been prescribed hydrocodone. While in the emergency department the patient's urinary drug screen was positive for benzodiazepines, barbiturates, and marijuana. It was negative for opiates and oxycodone. PAST PSYCHIATRIC HISTORY: Patient has a a history of depression and bipolar disorder as reported by the family. They are unable to recall any past psychiatric medications the patient has taken. They believe that the patient has had 1 previous psychiatric hospitalization more than 20 years ago. They de ny any outpatient psychiatric follow-up. They are uncertain if the patient has had any prior attempts at suicide. PAST MEDICAL HISTORY: Hypertension, thyroid disorder, diverticulosis, and patient's family reports that the patient has had a stroke this past summer. ALLERGIES: NO KNOWN DRUG ALLERGIES CHEMICAL DEPENDENCY HISTORY: The patient's sons report that the patient abuses alcohol, marijuana, and his prescription medications. FAMILY PSYCHIATRIC/SUBSTANCE USE HISTORY: The patient's sons report no family psychiatric history or history of substance abuse. SOCIAL HISTORY: Patient was born and raised in [place]. He has 2 adult sons and 2 other children with whom he does not have custody over. Patient is single. He is on disability. MENTAL STATUS EXAM: General Appearance: Patient appears to be sedated and unable to participate in the psychiatric interview. He appears disheveled, has tattoos, and obese body habitus. Behavior: Patient is unarousable but does not appear to be in any acute distress. Speech: Unable to assess Mood/Affect: Unable to assess Suicidality/Homicidality: Unable to assess Perceptions: Unable to assess Though content/process: Unable to assess Memory and concentration: Unable to assess Judgment and insight: Grossly poor IMPRESSIONS: Altered mental status Rule out substance-induced psychosis PLAN: -Psychiatry will attempt to reevaluate the patient when he is more appropriate. -Delirium precautions recommended with patient including - avoiding use of narcotics and INSTRUMENT SPECIALIST sedatives, limit anticholinergic medications when possible, frequent re-orientation, minimize use of restraints, open window shades during the day and close them at night -The patient has been petitioned. -Would recommend the following medication changes/additions: We will start as needed medications for agitation. We will start Haldol 4 mg every 6 hours and Ativan 2 mg when necessary for agitation -Continue 1:1 sitter for safety -Cannot leave AMA at this time. Patient will need a petition and certification if attempting to leave AMA. -Will continue to follow along 04/12/20 13:54
[2020-04-12] MEDS ORDERED: HALOPERIDOL LACTATE 5 MG/ML 1 ML VIAL IM PRN (13:52)
[2020-04-12] MEDS ORDERED: LORazepam 2 MG/ML INJ IM PRN (13:53)
[2020-04-12] MEDS: AZITHROMYCIN 500 MG in SODIUM CHLORIDE 0.9% 250 ML IVPB SCH (15:30)
[2020-04-12] MEDS: DORZOLAMIDE HCL 2% DROPS 10 ML BTL BOTH EYES SCH ×2 (15:34→20:24)
[2020-04-12] MEDS: PROPRANOLOL 40 MG TAB PO SCH (15:35)
[2020-04-12] MEDS: ASPIRIN 81 MG PO SCH (15:35)
[2020-04-12] MEDS: LEVOTHYROXINE 75 MCG TAB PO SCH (15:35)
[2020-04-12] MEDS: CLOPIDOGREL 75 MG TAB PO SCH (15:35)
[2020-04-12] MEDS: lisinopriL 20 MG TAB PO SCH ×2 (15:35→20:24)
--- NOTE | 2020-04-12 18:46 | P.HPIM ---
History of Present Illness H&P Date: 04/12/20 Chief Complaint: Altered mental status/possible overdose 49-year-old male was brought to the emergency room by family for bizarre and belligerent behavior. On arrival to the emergency department patient was combative and striking out at staffpatient required ketamine for sedation in 4 point leather restraints. patient had diagnostic workup revealing polysubstance abuse. Evaluated patient this a.m. in the emergency department, patient was combative 4 point leather restraints ordered 20 mg of Geodon and 2 mg of Ativan. Reevaluate patient on medical surgical floorpatient was following commands able to remove restraints. Patient remained sedated throughout the day. Reevaluate patient this p.m. patient alert and answering questions appropriately. Per family and petition,patient has been abusing controlled substances and alcohol for the last few weeksconcern for patient to be able to take care of himself and possible suicidal ideation upon interview. patient denies suicidal ideation or homicidal ideation at this time. Patient denies fever, chills, chest discomfort, palpitations, shortness of breath, abdominal pain, nausea or vomiting or diarrhea. Review of Systems Constitutional: Reports as per HPI Cardiovascular: Reports as per HPI Respiratory: Reports as per HPI Gastrointestinal: Reports as per HPI Genitourinary: Reports as per HPI Musculoskeletal: Reports as per HPI Integumentary: Reports as per HPI Neurological: Reports as per HPI Psychiatric: Reports anxiety, Reports irritability Endocrine: Reports as per HPI Hematologic/Lymphatic: Reports as per HPI Allergic/Immunologic: Reports as per HPI Past Medical History Past Medical History: CVA/TIA, Hypertension, Thyroid Disorder Additional Past Medical History / Comment(s): VITAMIN B12 DEFICIENCY ANEMIA, rhabdomyolysis, hypothyroidism, diverticulosis History of Any Multi-Drug Resistant Organisms: None Reported Past Surgical History: Orthopedic Surgery Additional Past Surgical History / Comment(s): BILAT Shoulder Surgery; 2 surgery on left side; one surgery on right Past Anesthesia/Blood Transfusion Reactions: No Reported Reaction Past Psychological History: Anxiety, Depression Smoking Status: Unknown if ever smoked Past Alcohol Use History: Abuse, Daily, Heavy Past Drug Use History: Marijuana - Past Family History Mother Family Medical History: No Reported History Father Family Medical History: Cancer Additional Family Medical History / Comment(s): prostate, lymphoma Medications and Allergies Home Medications and Allergies Comment(s): Medications and ALLERGIES reviewed Home Medications Medication Instructions Recorded Confirmed Type Levothyroxine Sodium [Synthroid] 75 mcg PO DAILY 11/25/16 04/12/20 History Fluticasone Nasal [place] [Flonase 2 spray EA NOSTRIL DAILY PRN 08/15/18 04/12/20 History Nasal [place]] Cyanocobalamin [Vitamin B-12 1,000 mcg SQ QMONTH 11/09/18 04/12/20 History Injection] HYDROcodone/APAP 7.5-325MG [[place] 1 tab PO TID 01/25/19 04/12/20 History 7.5-325] lisinopriL 20 mg PO BID 03/17/19 04/12/20 History Albuterol Sulfate [Proair Hfa] 1 - 2 puff INHALATION RT-Q6H PRN 04/12/20 04/12/20 History Aspirin EC [Ecotrin Low Dose] 81 mg PO DAILY 04/12/20 04/12/20 History Atorvastatin [Lipitor] 20 mg PO HS 04/12/20 04/12/20 History Atorvastatin [Lipitor] 80 mg PO HS 04/12/20 04/12/20 History Butalb/APAP/Caff 50-325-40Mg 1 tab PO TID PRN 04/12/20 04/12/20 History [Fioricet 50-325-40] Clopidogrel [Plavix] 75 mg PO DAILY 04/12/20 04/12/20 History Dorzolamide HCl/Pf [Dorzolamide 2% 1 drop BOTH EYES BID 04/12/20 04/12/20 History Eye Drop] Loratadine [Claritin] 10 mg PO DAILY 04/12/20 04/12/20 History Methocarbamol [Robaxin-750] 750 mg PO BID 04/12/20 04/12/20 History Propranolol [Inderal] 40 mg PO DAILY 04/12/20 04/12/20 History Allergies Allergy/AdvReac Type Severity Reaction Status Date / Time No Known Allergies Allergy Verified 04/12/20 06:39 Physical Exam Vitals: Vital Signs Temp Pulse Pulse Resp BP BP Pulse Ox 04/12/20 15:54 98.2 F 93 16 115/72 100 04/12/20 08:00 98.8 F 80 16 118/80 94 L 04/12/20 07:50 88 18 119/86 95 04/12/20 06:12 68 20 118/87 99 04/12/20 05:00 98.0 F 71 20 132/90 99 04/12/20 04:05 69 20 127/91 99 04/12/20 03:16 73 20 117/79 99 04/12/20 02:00 68 20 133/96 98 04/12/20 00:56 74 20 113/89 98 04/12/20 00:05 69 20 117/80 96 04/11/20 23:11 97.6 F 83 16 108/74 97 Intake and Output 04/12/20 04/12/20 04/12/20 06:59 14:59 22:59 Other: Weight 94.211 kg - Constitutional General appearance: disheveled - EENT Eyes: EOMI, PERRLA ENT: normal oropharynx Ears: bilateral: normal - Neck Neck: normal ROM Carotids: bilateral: upstroke normal Thyroid: bilateral: normal size - Respiratory Respiratory: bilateral: CTA (Anterior lung hilliard), diminished (Posterior lung hilliard) - Cardiovascular Normal sinus rhythm Heart rate: 84 Rhythm: regular Heart sounds: normal: S1, S2 radial pulse Peripheral Pulses: bilateral: Normal dorsalis pedis Peripheral Pulses: bilateral: Normal - Gastrointestinal General gastrointestinal: normal bowel sounds - Integumentary Integumentary: normal - Neurologic Neurologic: CNII-XII intact - Musculoskeletal Musculoskeletal: strength equal bilaterally - Psychiatric Psychiatric: A&O x's 3 Results CBC & Chem 7: 04/12/20 07:42 04/12/20 07:42 Labs: Abnormal Lab Results - Last 24 Hours (Table) 04/12/20 04/12/20 04/12/20 Range/Units 00:09 00:09 00:09 WBC 13.0 H (3.8-10.6) k/uL Neutrophils # 10.6 H (1.3-7.7) k/uL Sodium (137-145) mmol/L Carbon Dioxide 21 L (22-30) mmol/L BUN 21 H (9-20) mg/dL Creatine Kinase (55-170) U/L Urine Protein Trace H (Negative) Ur Barbiturates Screen Detected H (NotDetected) U Benzodiazepines Scrn Detected H (NotDetected) U Marijuana (THC) Screen Detected H (NotDetected) 04/12/20 04/12/20 Range/Units 07:42 07:42 WBC 12.1 H (3.8-10.6) k/uL Neutrophils # 9.0 H (1.3-7.7) k/uL Sodium 136 L (137-145) mmol/L Carbon Dioxide 21 L (22-30) mmol/L BUN (9-20) mg/dL Creatine Kinase 698 H (55-170) U/L Urine Protein (Negative) Ur Barbiturates Screen (NotDetected) U Benzodiazepines Scrn (NotDetected) U Marijuana (THC) Screen (NotDetected) Comments: Foot x-ray reviewed Chest x-ray: report reviewed CT Scan - head: report reviewed Thrombosis Risk Factor Assmnt - Choose All That Apply Any of the Below Risk Factors Present?: Yes Each Factor Represents 1 point: Age 41-60 years, Obesity (BMI >25) Thrombosis Risk Factor Assessment Total Risk Factor Score: 2 Thrombosis Risk Factor Assessment Level: Low Risk Assessment and Plan Assessment: Altered mental statuscontinue IV hydration, monitor neuro status, consultation with psychiatry Polysubstance abusecontinue to monitor for sequential Tums related to yogi ysubstance Possible suicidal ideationconsultation with psychiatry Pneumoniacontinue broad-spectrum antibiotics Hypothyroidism Anxiety and depression Hypertension Hyperlipidemia History of TIA/CVA Continue home medications Continue medical management Time with Patient: Greater than 30
[2020-04-12] MEDS: ATORVASTATIN 80 MG TAB PO SCH (20:24)
[2020-04-13] MEDS: LACTATED RINGERS 1,000 ML IV SCH ×4 (01:53→20:10)
[2020-04-13] MEDS: SODIUM CHLORIDE 0.9% 1,000 ML IV SCH ×3 (01:53→11:35)
[2020-04-13] MEDS: LEVOTHYROXINE 75 MCG TAB PO SCH (05:26)
[2020-04-13 06:06] LABS: Basophils % (A) 1 %; Eosinophils # (A) 0.2 k/uL (0-0.7); Eosinophils % (A) 3 %; HCT 44.6 % (39.0-53.0); HGB 15.3 gm/dL (13.0-17.5); Lymphocytes # (A) 1.9 k/uL (1.0-4.8); Lymphocytes % (A) 21 %; MCH 33.1 pg (25.0-35.0); MCHC 34.3 g/dL (31.0-37.0); MCV 96.6 fL (80.0-100.0); Mean Platelet Volume 7.9; Monocytes # (A) 0.8 k/uL (0-1.0); Monocytes % (A) 9 %; Neutrophils # (A) 5.6 k/uL (1.3-7.7); Neutrophils % (A) 64 %; Platelet Count 138 k/uL (150-450); RBC 4.61 m/uL (4.30-5.90); RDW 11.8 % (11.5-15.5); WBC 8.8 k/uL (3.8-10.6)
[2020-04-13 07:21] LABS: ALT 32 U/L (4-49); African American GFR (CKD) >90 (>60 ml/min/1.73 sqM); Albumin 3.9 g/dL (3.5-5.0); Albumin/Globulin Ratio 1.3; Anion Gap 11 mmol/L; Blood Urea Nitrogen 25 mg/dL (9-20); Calcium 8.8 mg/dL (8.4-10.2); Carbon Dioxide 17 mmol/L (22-30); Chloride 107 mmol/L (98-107); Glucose 75 mg/dL (74-99); Non-African American GFR(CKD) >90 (>60 ml/min/1.73 sqM); Sodium 135 mmol/L (137-145); Total Bilirubin 0.9 mg/dL (0.2-1.3); Total Protein 6.9 g/dL (6.3-8.2)
--- NOTE | 2020-04-13 07:36 | XR ---
EXAMINATION TYPE: XR chest 1V DATE OF EXAM: 04/13/2020 COMPARISON: 04/12/2020 INDICATION: Pneumonia TECHNIQUE: Single frontal view of the chest is obtained. FINDINGS: The heart size is normal. The pulmonary vasculature is normal. The lungs are clear. Right lower lobe infiltrate is not evident at this time IMPRESSION: 1. No acute pulmonary process.
[2020-04-13 07:43] LABS: AST 48 U/L (17-59); Alkaline Phosphatase 104 U/L (38-126); Magnesium 1.7 mg/dL (1.6-2.3); Potassium 4.6 mmol/L (3.5-5.1)
--- NOTE | 2020-04-13 08:10 | P.CNOR ---
History of Present Illness - [facility] Consult date: 04/13/20 Consult reason: other (Left foot pain and swelling) History of present illness: The patient is a 49-year-old male who is seen and examined today at bedside. He has a sitter at bedside and he was admitted due to altered mental status. Apparently he had been having some changes in his mental status and his ability to cooperate and was quite belligerent and combative on admission yesterday. He was noted to have some pain and swelling in his left foot and we are involved in the case due to his left foot pain. He is unsure of any specific injury to his foot. He denies any prior trauma to his foot. He feels that it hurts globally over his whole foot. His cooperation is somewhat limited as he is essentially sleeping and will wake up for short questioning and some commands but is a relatively poor historian in terms of his foot. He denies other specific injury. He denies any pain at his ankle or knee or hip. He says the pain is mainly over the top of his foot and extends down to the bottom of his foot. He is unsure of any specific incident or trauma. He denies any prior injury at the foot. Review of Systems On admission he had history of altered mental status and polysubstance abuse with possible suicidal ideation anxiety and depression as per his chart. Past Medical History Past Medical History: CVA/TIA, Hypertension, Thyroid Disorder Additional Past Medical History / Comment(s): VITAMIN B12 DEFICIENCY ANEMIA, rhabdomyolysis, hypothyroidism, diverticulosis History of Any Multi-Drug Resistant Organisms: None Reported Past Surgical History: Orthopedic Surgery Additional Past Surgical History / Comment(s): BILAT Shoulder Surgery; 2 surgery on left side; one surgery on right Past Anesthesia/Blood Transfusion Reactions: No Reported Reaction Past Psychological History: Anxiety, Depression Additional Psychological History / Comment(s): Major depression disorder-takes wellbutrin Smoking Status: Unknown if ever smoked Past Alcohol Use History: Abuse, Daily, Heavy Additional Past Alcohol Use History / Comment(s): < 1/2 PPD FOR 20 YRS Past Drug Use History: Marijuana Additional Drug Use History / Comment(s): denies - Past Family History Mother Family Medical History: No Reported History Father Family Medical History: Cancer Additional Family Medical History / Comment(s): prostate, lymphoma Medications and Allergies Home Medications Medication Instructions Recorded Confirmed Type Levothyroxine Sodium [Synthroid] 75 mcg PO DAILY 11/25/16 04/12/20 History Fluticasone Nasal [place] [Flonase 2 spray EA NOSTRIL DAILY PRN 08/15/18 04/12/20 History Nasal [place]] Cyanocobalamin [Vitamin B-12 1,000 mcg SQ QMONTH 11/09/18 04/12/20 History Injection] HYDROcodone/APAP 7.5-325MG [[place] 1 tab PO TID 01/25/19 04/12/20 History 7.5-325] lisinopriL 20 mg PO BID 03/17/19 04/12/20 History Albuterol Sulfate [Proair Hfa] 1 - 2 puff INHALATION RT-Q6H PRN 04/12/20 04/12/20 History Aspirin EC [Ecotrin Low Dose] 81 mg PO DAILY 04/12/20 04/12/20 History Atorvastatin [Lipitor] 20 mg PO HS 04/12/20 04/12/20 History Atorvastatin [Lipitor] 80 mg PO HS 04/12/20 04/12/20 History Butalb/APAP/Caff 50-325-40Mg 1 tab PO TID PRN 04/12/20 04/12/20 History [Fioricet 50-325-40] Clopidogrel [Plavix] 75 mg PO DAILY 04/12/20 04/12/20 History Dorzolamide HCl/Pf [Dorzolamide 2% 1 drop BOTH EYES BID 04/12/20 04/12/20 History Eye Drop] Loratadine [Claritin] 10 mg PO DAILY 04/12/20 04/12/20 History Methocarbamol [Robaxin-750] 750 mg PO BID 04/12/20 04/12/20 History Propranolol [Inderal] 40 mg PO DAILY 04/12/20 04/12/20 History Allergies Allergy/AdvReac Type Severity Reaction Status Date / Time No Known Allergies Allergy Verified 04/12/20 06:39 Physical Examination Osteopathic Statement: *. No significant issues noted on an osteopathic struc tural exam other than those noted in the History and Physical/Consult. - Ankle & Foot left Foot appearance: swelling (At the left foot there is diffuse swelling over the dorsum of foot with ecchymosis extending plantarly. There is some blistering of the great toe. There is no significant erythema. There is no discrete fluid collection. There is no streaking. There is a small abrasion over the dorsum of this fo), abrasion (Small abrasion at the dorsum of the foot at the MTP junction. There is no bleeding. It appears clean. There is no evidence of infection. He is able to dorsiflex and plantar flex his toes. There is a blister at the great toe which appears clean), contusion (There is no pain over his lateral or medial malleolus. There is no pain over the calcaneus. He has tenderness over the dorsum of his foot globally. There is no crepitance.) Results - Labs Labs: Abnormal Lab Results - Last 24 Hours (Table) 04/12/20 04/12/20 04/13/20 Range/Units 07:42 07:42 05:32 WBC 12.1 H (3.8-10.6) k/uL Plt Count 138 L (150-450) k/uL Neutrophils # 9.0 H (1.3-7.7) k/uL Sodium 136 L (137-145) mmol/L Carbon Dioxide 21 L (22-30) mmol/L BUN (9-20) mg/dL Creatine Kinase 698 H (55-170) U/L 04/13/20 Range/Units 05:32 WBC (3.8-10.6) k/uL Plt Count (150-450) k/uL Neutrophils # (1.3-7.7) k/uL Sodium 135 L (137-145) mmol/L Carbon Dioxide 17 L (22-30) mmol/L BUN 25 H (9-20) mg/dL Creatine Kinase (55-170) U/L H & H 04/12/20 04/12/20 04/13/20 Range/Units 00:09 07:42 05:32 Hgb 15.9 15.5 15.3 (13.0-17.5) gm/dL Hct 46.3 47.0 44.6 (39.0-53.0) % Result Diagrams: 04/13/20 05:32 04/13/20 05:32 - Diagnostic results Ankle/Foot x-ray: report reviewed (There is no obvious bony fracture or dislocation. There is some diffuse soft tissue swelling of the dorsum of the foot. I did not see any foreign bodies.), image reviewed Assessment and Plan Assessment: Left foot contusion, likely due to injury during the time of the ligaments and prolonged positioning Left foot strain Small abrasion at the dorsum of the foot Blister at the great toe No evidence of bony injury or instability No evidence of infectious process at this point Plan: Left foot contusion, likely due to injury during the time of the ligaments and prolonged positioning Left foot strain Small abrasion at the dorsum of the foot Blister at the great toe No evidence of bony injury or instability No evidence of infectious process at this point we do not have a clear history of the nature of the patient's foot injury but it appears to be a direct traumatic injury that may have occurred during his period of belligerence. It appears as though his foot was hit or he kicked something and a cousin abrasion of the top of his foot and significant soft tissue swelling and injury. The bony makeup of his foot appears to be stable. I do not have any plans for surgical intervention. There is significant contusion over his foot and blistering over his great toe and he may do well with some protection of his foot with a Mika shoe for comfort. He may do well also with ice at his left foot and elevation as able. At this point I don't have further plans for further imaging or intervention. This should do well with expectant management.
[2020-04-13] MEDS: ASPIRIN 81 MG PO SCH (08:57)
[2020-04-13] MEDS: CLOPIDOGREL 75 MG TAB PO SCH (08:57)
[2020-04-13] MEDS: lisinopriL 20 MG TAB PO SCH ×2 (09:05→20:08)
[2020-04-13] MEDS: PROPRANOLOL 40 MG TAB PO SCH (09:05)
[2020-04-13] MEDS: AZITHROMYCIN 500 MG in SODIUM CHLORIDE 0.9% 250 ML IVPB SCH (09:07)
[2020-04-13] MEDS: DORZOLAMIDE HCL 2% DROPS 10 ML BTL BOTH EYES SCH ×2 (09:09→20:09)
--- NOTE | 2020-04-13 14:50 | P.PN ---
Progress Note - Text Progress Note Date: 04/13/20 Interval History: Patient was seen resting in bed and was arousable and agreeable to speak with the commercial underwriter. The patient states that he is feeling better. He is unable to recall the events leading up to the hospitalization but does acknowledge that he was taking Fioricet and trazodone prior to this admission. He states that he might have taken 3. Fioricet in order to manage a headache that he has been experiencing. He states that he has been having very severe headaches since his stroke last summer. He is currently not reporting any auditory or visualizations. He is denying any paranoia or delusions. He is denying any suicidal or homicidal ideation, intention, and/or plan. As per the patient's sitter and nurse, the patient remains mainly sleeping in bed all day but has been getting up for meals and to use the restroom. The patient is otherwise alert and oriented in all spheres aside from the events leading to this hospitalization. The patient was counseled at great length to avoid overtaking his prescribed medications. Mental Status Exam: General Appearance: Patient appears to be stated age is alert, directable, and cooperative. Obese body habitus. Has tattoos. Hygiene and grooming appear to be improved. Behavior: Patient is calmly seated without any agitated behavior. Psychomotor activity is normal. Speech: Patient's speech is fluent and nonpressured. Mood/Affect: Mood is improving mildly, affect is congruent and constricted. Suicidality/Homicidality: Patient denies having any suicidal or homicidal ideation intent or plan. Perceptions: Patient denies any visual hallucinationsand denies any auditory hallucination Though content/process: There is no evidence of any delusional thought content and thought process is linear and goal-directed Memory and concentration: AOX3, grossly intact for the purposes of this session Judgment and insight: Improving mildly Assessment Altered mental status, resolving - likely medication induced delirium secondary to Fioricet Plan: At this time, the patient DOES NOT meet criteria for inpatient psychiatric hospitalization. As per what was written on the petition, the patient's son was concerned that the patient was taking too many of his prescriptions and when altered was attempting to harm people. This current episode appears to be medication related and not from a primary psychiatric illness. -Counseled the patient at length to take his medications as prescribed and to follow-up with his outpatient providers for management of post stroke conditions. -Recommend outpatient follow-up for mental health and general medical conditions. -Medications: We will not start any psychotropic medications at this time. -When necessary Ativan and Haldol for agitation/aggression. -Discontinue one-to-one sitter Psychiatry will sign off at this point.
--- NOTE | 2020-04-13 19:19 | P.PN ---
Subjective Progress Note Date: 04/13/20 Principal diagnosis: Altered mental statuspolysubstance abusehospital overdose on prescription medications Evaluated 49-year-old female this a.m., resting comfortably in bed with sitter at bedside. Patient able to answer questions appropriately, following commands and moving all extremities. Patient states possibly took too much Fioricet for headache, possibly became drowsyunable to recall the events prior to admission to the emergency department and hospital. Patient denies suicidal, homicidal ideation or depression .patient denies fever, chills chest pain, palpitations, abdominal pain, nausea, vomiting, or diarrhea. Due to patient's multiple comorbidities we will continue broad-spectrum IV antibiotics for possible pneumonia with leukocytosis. Patient agreeable to medical treatment plan and to see psychiatry. Objective - Vital Signs Vital signs: Vital Signs Temp 97.8 F 04/13/20 13:29 Pulse 83 04/13/20 13:29 Resp 20 04/13/20 13:29 BP 106/65 04/13/20 13:29 Pulse Ox 96 04/13/20 13:29 Intake & Output 04/13/20 04/13/20 04/14/20 06:59 18:59 06:59 Output Total 600 Balance -600 Weight 94.211 kg Output: Urine 600 Other: # Voids 1 - Constitutional General appearance: Present: cooperative - EENT Eyes: Present: EOMI, PERRLA Ears: bilateral: normal - Neck Neck: Present: normal ROM Carotids: bilateral: upstroke normal Thyroid: bilateral: normal size - Respiratory Respiratory: bilateral: CTA (Anterior and posterior lung hilliard) - Cardiovascular Details: Normal sinus mechanism Heart rate: 74 Rhythm: regular Heart sounds: normal: S1, S2 - Peripheral pulses radial pulse Peripheral Pulses: bilateral: Normal dorsalis pedis Peripheral Pulses: bilateral: Normal - Gastrointestinal General gastrointestinal: Present: normal bowel sounds - Integumentary Integumentary: Present: normal turgor - Neurologic Neurologic: Present: CNII-XII intact - Musculoskeletal Musculoskeletal: Present: generalized weakness - Psychiatric Psychiatric: Present: A&O x's 3 - Allied health notes Allied health notes reviewed: nursing - Labs CBC & Chem 7: 04/13/20 05:32 04/13/20 05:32 Labs: Abnormal Lab Results - Last 24 Hours (Table) 04/13/20 04/13/20 Range/Units 05:32 05:32 Plt Count 138 L (150-450) k/uL Sodium 135 L (137-145) mmol/L Carbon Dioxide 17 L (22-30) mmol/L BUN 25 H (9-20) mg/dL Microbiology - Last 24 Hours (Table) 04/12/20 16:24 Blood Culture - Preliminary Blood No Growth after 24 hours 04/12/20 16:29 Blood Culture - Preliminary Blood No Growth after 24 hours - Imaging and Cardiology Chest x-ray: report reviewed Assessment and Plan Assessment: Altered mental statusimproved patient able to answer questions appropriate to person place time and situation Polysubstance abusecontinue to monitor for sequential events related to polysubstance Possible suicidal ideationconsultation with psychiatry Pneumoniacontinue broad-spectrum antibiotics Hypothyroidism Anxiety and depression Hypertension Hyperlipidemia History of TIA/CVA Continue home medications Continue medical management Time with Patient: Greater than 30
[2020-04-13] MEDS: ATORVASTATIN 80 MG TAB PO SCH (20:08)
[2020-04-13] MEDS: ACETAMINOPHEN TAB 325 MG TAB PO PRN (20:09)
[2020-04-14] MEDS: LACTATED RINGERS 1,000 ML IV SCH ×2 (05:25→17:56)
[2020-04-14] MEDS: LEVOTHYROXINE 75 MCG TAB PO SCH (05:26)
[2020-04-14 06:52] LABS: Basophils % (A) 1 %; Eosinophils # (A) 0.2 k/uL (0-0.7); Eosinophils % (A) 3 %; HCT 45.3 % (39.0-53.0); HGB 15.3 gm/dL (13.0-17.5); Lymphocytes # (A) 1.6 k/uL (1.0-4.8); Lymphocytes % (A) 18 %; MCH 32.8 pg (25.0-35.0); MCHC 33.8 g/dL (31.0-37.0); MCV 97.1 fL (80.0-100.0); Mean Platelet Volume 7.3; Monocytes # (A) 0.8 k/uL (0-1.0); Monocytes % (A) 9 %; Neutrophils % (A) 68 %; Platelet Count 182 k/uL (150-450); RBC 4.66 m/uL (4.30-5.90); RDW 11.7 % (11.5-15.5); WBC 8.8 k/uL (3.8-10.6)
[2020-04-14 07:13] LABS: ALT 30 U/L (4-49); AST 42 U/L (17-59); African American GFR (CKD) >90 (>60 ml/min/1.73 sqM); Albumin 4.3 g/dL (3.5-5.0); Albumin/Globulin Ratio 1.3; Alkaline Phosphatase 122 U/L (38-126); Anion Gap 9 mmol/L; Blood Urea Nitrogen 17 mg/dL (9-20); Calcium 9.6 mg/dL (8.4-10.2); Carbon Dioxide 24 mmol/L (22-30); Chloride 105 mmol/L (98-107); Globulin 3.2 g/dL; Glucose 112 mg/dL (74-99); Magnesium 1.6 mg/dL (1.6-2.3); Non-African American GFR(CKD) >90 (>60 ml/min/1.73 sqM); Potassium 4.4 mmol/L (3.5-5.1); Sodium 138 mmol/L (137-145); Total Bilirubin 0.4 mg/dL (0.2-1.3); Total Protein 7.5 g/dL (6.3-8.2)
[2020-04-14 07:31] VITALS: RESP 16
[2020-04-14] MEDS: ACETAMINOPHEN TAB 325 MG TAB PO PRN ×2 (07:54→16:04)
[2020-04-14] MEDS ORDERED: KETOROLAC 15 MG/ML 1 ML VIAL IVP STA (09:04)
[2020-04-14] MEDS ORDERED: ORPHENADRINE 30 MG/ML 2 ML VIAL IVP STA (09:05)
[2020-04-14] MEDS: ASPIRIN 81 MG PO SCH (10:26)
[2020-04-14] MEDS: AZITHROMYCIN 500 MG in SODIUM CHLORIDE 0.9% 250 ML IVPB SCH (10:27)
[2020-04-14] MEDS: CLOPIDOGREL 75 MG TAB PO SCH (10:45)
[2020-04-14] MEDS: PROPRANOLOL 40 MG TAB PO SCH (10:46)
[2020-04-14] MEDS: DORZOLAMIDE HCL 2% DROPS 10 ML BTL BOTH EYES SCH (10:46)
[2020-04-14] MEDS: lisinopriL 20 MG TAB PO SCH (10:51)
[2020-04-14 13:21] VITALS: BP 147/92; PULSE 69; TEMP 98.5
--- NOTE | 2020-05-04 12:58 | P.DS ---
Providers Date of admission: 04/12/20 02:08 Expected date of discharge: 04/14/20 Attending physician: Deion Alvarez Consults: 04/12/20 02:06 Consult Physician Routine Consulting Provider: Paras Cerda Consult Reason/Comments: Possible overdose Do you want consulting provider notified?: Yes Primary care physician: Deion Alvarez Hospital Course: 49-year-old male, was admitted to the hospital for altered mental status with associated suicidal ideation, polysubstance abuse, and aggressive behavior. Patient had extensive diagnostic workup emergency department, patient required intramuscular ketamine to decrease aggressive and physical behavior towards staff. During initial patient physical evaluated patient emergency department continued four point restraints for brief., Patient required atypical antipsychotics and benzodiazepines to decrease aggressive behavior and physical threats towards staff during history and physical. Patient found to have mild elevated CK levels increase hydration of lactated ringers at 125 an hour. Subsequently patient found pneumonia on chest x-ray. Patient evaluated by psychiatry for suicidal ideation patient cleared from psychiatry's point of view for suicidal ideation. Patient discharge alert and oriented times four following commands in no acute signs of encephalopathy. Assessment: Altered mental status polysubstance pneumonia hypothyroidism anxiety and depression hypertension hyperlipidemia hx of TIA/CVA Health Concerns: poly substances poor medical compliance Pertinent Studies: ct-scan- no acute changes cxr- infiltrates Procedures: none noted Patient Condition at Discharge: Fair Plan - Discharge Summary Discharge Rx Participant: No New Discharge Prescriptions: New Cefdinir 300 mg PO Q12HR #6 cap Azithromycin [Zithromax Tri-Aj (3 tabs)] 250 mg PO DAILY 3 Days #3 tab Continue Levothyroxine Sodium [Synthroid] 75 mcg PO DAILY Fluticasone Nasal [place] [Flonase Nasal [place]] 2 spray EA NOSTRIL DAILY PRN PRN Reason: Allergy Symptoms Cyanocobalamin [Vitamin B-12 Injection] 1,000 mcg SQ QMONTH lisinopriL 20 mg PO BID Propranolol [Inderal] 40 mg PO DAILY Albuterol Sulfate [Proair Hfa] 1 - 2 puff INHALATION RT-Q6H PRN PRN Reason: Shortness Of Breath Loratadine [Claritin] 10 mg PO DAILY Dorzolamide HCl/Pf [Dorzolamide 2% Eye Drop] 1 drop BOTH EYES BID Clopidogrel [Plavix] 75 mg PO DAILY Atorvastatin [Lipitor] 80 mg PO HS Aspirin EC [Ecotrin Low Dose] 81 mg PO DAILY Discontinued HYDROcodone/APAP 7.5-325MG [[place] 7.5-325] 1 tab PO TID Methocarbamol [Robaxin-750] 750 mg PO BID Butalb/APAP/Caff 50-325-40Mg [Fioricet 50-325-40] 1 tab PO TID PRN PRN Reason: Headache Atorvastatin [Lipitor] 20 mg PO HS Discharge Medication List Levothyroxine Sodium [Synthroid] 75 mcg PO DAILY 11/25/16 [History] Fluticasone Nasal [place] [Flonase Nasal [place]] 2 spray EA NOSTRIL DAILY PRN 08/15/18 [History] Cyanocobalamin [Vitamin B-12 Injection] 1,000 mcg SQ QMONTH 11/09/18 [History] lisinopriL 20 mg PO BID 03/17/19 [History] Albuterol Sulfate [Proair Hfa] 1 - 2 puff INHALATION RT-Q6H PRN 04/12/20 [History] Aspirin EC [Ecotrin Low Dose] 81 mg PO DAILY 04/12/20 [History] Atorvastatin [Lipitor] 80 mg PO HS 04/12/20 [History] Clopidogrel [Plavix] 75 mg PO DAILY 04/12/20 [History] Dorzolamide HCl/Pf [Dorzolamide 2% Eye Drop] 1 drop BOTH EYES BID 04/12/20 [History] Loratadine [Claritin] 10 mg PO DAILY 04/12/20 [History] Propranolol [Inderal] 40 mg PO DAILY 04/12/20 [History] Azithromycin [Zithromax Tri-Aj (3 tabs)] 250 mg PO DAILY 3 Days #3 tab 04/14/20 [Rx] Cefdinir 300 mg PO Q12HR #6 cap 04/14/20 [Rx] Follow up Appointment(s)/Referral(s): Deion Alvarez MD [Primary Care Provider] - 04/17/20 1:30 pm (With Gurinder) Patient Instructions/Handouts: Pneumonia (DC), Adult Overdose (ED) Discharge Disposition: HOME SELF-CARE
== END 2020-04-14 18:15 | disposition home or self-care (01) ==
LOC: EC 22:50 → 4SSUR 04-12 02:08 → OBSVTOIN 04-12 09:48 → INTOOBSV 04-12 09:48 → UNDODISIN 04-14 18:15
PROVIDERS: ADMIT Family Medicine; ATTEND Family Medicine
DX: R41.82 Altered mental status, unspecified (principal); J18.9 Pneumonia, unspecified organism; E03.9 Hypothyroidism, unspecified; F41.9 Anxiety disorder, unspecified; I10 Essential (primary) hypertension; E78.5 Hyperlipidemia, unspecified; Z86.73 Personal history of transient ischemic attack (TIA), and cerebral infarction without residual deficits; Z91.19 Patient's noncompliance with other medical treatment and regimen; Z78.1 Physical restraint status; E66.9 Obesity, unspecified; F31.9 Bipolar disorder, unspecified; R51.9 Headache, unspecified; F19.10 Other psychoactive substance abuse, uncomplicated; M62.82 Rhabdomyolysis; D51.9 Vitamin B12 deficiency anemia, unspecified; Z68.30 Body mass index [BMI] 30.0-30.9, adult; M79.89 Other specified soft tissue disorders; M79.672 Pain in left foot; S90.32XA Contusion of left foot, initial encounter; S96.912A Strain of unspecified muscle and tendon at ankle and foot level, left foot, initial encounter; S90.812A Abrasion, left foot, initial encounter; S90.425A Blister (nonthermal), left lesser toe(s), initial encounter; E86.0 Dehydration; F10.10 Alcohol abuse, uncomplicated; R45.850 Homicidal ideations; R45.1 Restlessness and agitation; Z87.19 Personal history of other diseases of the digestive system; Z98.890 Other specified postprocedural states; Z79.890 Hormone replacement therapy; Z20.822 Contact with and (suspected) exposure to COVID-19; Z79.1 Long term (current) use of non-steroidal anti-inflammatories (NSAID); Z79.82 Long term (current) use of aspirin; Z79.891 Long term (current) use of opiate analgesic; Z79.899 Other long term (current) drug therapy; Z79.02 Long term (current) use of antithrombotics/antiplatelets; Z80.42 Family history of malignant neoplasm of prostate; Z80.7 Family history of other malignant neoplasms of lymphoid, hematopoietic and related tissues
CPT/HCPCS: 96361 ×3; 96365; 96366 ×2; 96367; 96375 ×2; 96372 ×2; 99285; 36415; 93005 ×2; 80053 ×3; 85652; 82550; 83605; 83735 ×3; 85025 ×3; 86140; 81003; 87040; 80306; 80143; 84145 ×2; 87635; 73630; 71045 ×2; 70450; G0378 ×3; G0480; J2060; J2360; J0456 ×3; J0696 ×3; J3486; J1885; 80320; 96374

== ENCOUNTER 2020-05-24 16:08 | Inpatient (IN) | payer OTHER ==
--- NOTE | 2020-05-24 19:09 | ED ---
General Adult HPI - General Chief complaint: Psychiatric Symptoms Stated complaint: Alcohol/Suicide Time Seen by Provider: 05/24/20 18:21 Source: patient Mode of arrival: wheelchair Limitations: no limitations - History of Present Illness Initial comments: Dictation was produced using [employer] dictation software. please excuse any grammatical, word or spelling errors. This patient was cared for during a federal and state declared state of emergen cy secondary to Covid 19 Chief Complaint: 49-year-old male presents to the emergency Department for suicidal ideation, left foot pain and rash History of Present Illness: Patient is a 49-year-old male he was sent in from Dr. Alvarez's office for suicidal thoughts. Patient states he wants to jump off of a bridge. Patient states he's been very depressed. He has history of a copious injured 2.5 fifths of liquor daily. States he's been admitted to the hospital for alcohol withdrawal in the past. Patient states that his left foot got run over causing infection in his foot. Patient has history of staph infection to the left foot. Denies any homicidal ideation. No visual or audito ry hallucinations. He also has a diffuse rash. States it is nonpruritic. Denies any constitutional symptoms. His last drink was earlier today for just prior to come to the ER. The ROS documented in this emergency department record has been reviewed and confirmed by me. Those systems with pertinent positive or negative responses have been documented in the HPI. All other systems are other negative and/or noncontributory. PHYSICAL EXAM: General Impression: Alert and oriented x3, not in acute distress HEENT: Normocephalic atraumatic, extra-ocular movements intact, pupils equal and reactive to light bilaterally, mucous membranes moist. Cardiovascular: Heart regular rate and rhythm Chest: Able to complete full sentences, no retractions, no tachypnea Abdomen: abdomen soft, non-tender, non-distended, no organomegaly Musculoskeletal: Pulses present and equal in all extremities, no peripheral edema Motor: no focal deficits noted Neurological: CN II-XII grossly intact, no focal motor or sensory deficits noted Skin: Diffuse macular rash limited to his truncal area Psych: Normal affect and mood ED course: 49-year-old male presents with primary complaint of suicidal ideation. Patient has history of alcohol withdrawal. He was just prior to that coming to the emergency room. He has a rash that is consistent with contact dermatitis. On arrival are within acceptable limits. His foot wound is concern for cellulitic changes. Laboratory evaluation obtained. CBC unremarkable. Metabolic panel someone 49. Serum alcohol is 268. X-ray of the foot shows no acute processes. Patient given Keflex. Given patient's degree of alcohol intoxication O be admitted to observation. he'll be admitted to [facility] hospitalist group on behalf of Dr. zurita. Psychiatry we consulted. CIWA assessment ordered every 4 hours. Ativan protocol also ordered. - Related Data Home Medications Medication Instructions Recorded Confirmed Levothyroxine Sodium [Synthroid] 75 mcg PO DAILY 11/25/16 04/12/20 Fluticasone Nasal [place] [Flonase 2 spray EA NOSTRIL DAILY PRN 08/15/18 04/12/20 Nasal [place]] Cyanocobalamin [Vitamin B-12 1,000 mcg SQ QMONTH 11/09/18 04/12/20 Injection] lisinopriL 20 mg PO BID 03/17/19 04/12/20 Albuterol Sulfate [Proair Hfa] 1 - 2 puff INHALATION RT-Q6H PRN 04/12/20 04/12/20 Aspirin EC [Ecotrin Low Dose] 81 mg PO DAILY 04/12/20 04/12/20 Atorvastatin [Lipitor] 80 mg PO HS 04/12/20 04/12/20 Clopidogrel [Plavix] 75 mg PO DAILY 04/12/20 04/12/20 Dorzolamide HCl/Pf [Dorzolamide 2% 1 drop BOTH EYES BID 04/12/20 04/12/20 Eye Drop] Loratadine [Claritin] 10 mg PO DAILY 04/12/20 04/12/20 Propranolol [Inderal] 40 mg PO DAILY 04/12/20 04/12/20 Previous Rx's Medication Instructions Recorded Azithromycin [Zithromax Tri-Aj (3 250 mg PO DAILY 3 Days #3 tab 04/14/20 tabs)] Cefdinir 300 mg PO Q12HR #6 cap 04/14/20 Allergies Allergy/AdvReac Type Severity Reaction Status Date / Time No Known Allergies Allergy Verified 05/24/20 17:58 Review of Systems ROS Statement: Those systems with pertinent positive or pertinent negative responses have been documented in the HPI. ROS Other: All systems not noted in ROS Statement are negative. Past Medical History Past Medical History: CVA/TIA, Hypertension, Thyroid Disorder Additional Past Medical History / Comment(s): VITAMIN B12 DEFICIENCY ANEMIA, rhabdomyolysis, hypothyroidism, diverticulosis History of Any Multi-Drug Resistant Organisms: None Reported Past Surgical History: Orthopedic Surgery Additional Past Surgical History / Comment(s): BILAT Shoulder Surgery; 2 surgery on left side; one surgery on right Past Anesthesia/Blood Transfusion Reactions: No Reported Reaction Past Psychological History: Anxiety, Depression Smoking Status: Current every day smoker, Vaper Past Alcohol Use History: Abuse, Daily, Heavy Past Drug Use History: Marijuana - Past Family History Mother Family Medical History: No Reported History Father Family Medical History: Cancer Additional Family Medical History / Comment(s): prostate, lymphoma General Exam Limitations: no limitations Course Vital Signs 05/24/20 17:52 Temperature 97.9 F Pulse Rate 86 Respiratory 20 Rate Blood Pressure 133/84 O2 Sat by Pulse 98 Oximetry Medical Decision Making - Lab Data Result diagrams: 05/24/20 19:47 05/24/20 19:47 Lab Results 05/24/20 05/24/20 Range/Units 19:47 19:47 WBC 6.7 (3.8-10.6) k/uL RBC 5.14 (4.30-5.90) m/uL Hgb 16.8 (13.0-17.5) gm/dL Hct 50.0 (39.0-53.0) % MCV 97.2 (80.0-100.0) fL MCH 32.7 (25.0-35.0) pg MCHC 33.6 (31.0-37.0) g/dL RDW 13.1 (11.5-15.5) % Plt Count 170 (150-450) k/uL MPV 6.9 Neutrophils % 55 % Lymphocytes % 33 % Monocytes % 6 % Eosinophils % 3 % Basophils % 1 % Neutrophils # 3.7 (1.3-7.7) k/uL Lymphocytes # 2.2 (1.0-4.8) k/uL Monocytes # 0.4 (0-1.0) k/uL Eosinophils # 0.2 (0-0.7) k/uL Basophils # 0.0 (0-0.2) k/uL Sodium 147 H (137-145) mmol/L Potassium 4.3 (3.5-5.1) mmol/L Chloride 110 H (98-107) mmol/L Carbon Dioxide 26 (22-30) mmol/L Anion Gap 11 mmol/L BUN 15 (9-20) mg/dL Creatinine 0.88 (0.66-1.25) mg/dL Est GFR (CKD-EPI)AfAm >90 (>60 ml/min/1.73 sqM) Est GFR (CKD-EPI)NonAf >90 (>60 ml/min/1.73 sqM) Glucose 92 (74-99) mg/dL Calcium 8.8 (8.4-10.2) mg/dL Magnesium 1.9 (1.6-2.3) mg/dL Serum Alcohol 268 H* mg/dL Disposition Clinical Impression: Alcohol intoxication, Suicidal ideation, Cellulitis Disposition: ADMITTED IP TO THIS HOSP Condition: Fair Referrals: Deion Alvarez MD [Primary Care Provider] - 1-2 days Time of Disposition: 20:34
[2020-05-24 19:55] LABS: Basophils % (A) 1 %; Eosinophils # (A) 0.2 k/uL (0-0.7); Eosinophils % (A) 3 %; HGB 16.8 gm/dL (13.0-17.5); Lymphocytes # (A) 2.2 k/uL (1.0-4.8); Lymphocytes % (A) 33 %; MCH 32.7 pg (25.0-35.0); MCHC 33.6 g/dL (31.0-37.0); MCV 97.2 fL (80.0-100.0); Mean Platelet Volume 6.9; Monocytes # (A) 0.4 k/uL (0-1.0); Monocytes % (A) 6 %; Neutrophils # (A) 3.7 k/uL (1.3-7.7); Neutrophils % (A) 55 %; Platelet Count 170 k/uL (150-450); RBC 5.14 m/uL (4.30-5.90); RDW 13.1 % (11.5-15.5); WBC 6.7 k/uL (3.8-10.6)
--- NOTE | 2020-05-24 19:57 | XR ---
Result: History: Pain/cellulitis. Comparison: None available. Technique: 3 views of the left foot. Findings: The bone mineralization is appropriate for age. No acute fracture or dislocation is seen. The visualized osseous structures are in anatomic alignmen t. The joint spaces are preserved. No soft tissue gas or radiographic evidence of osteomyelitis. Impression: No acute osseous abnormality.
[2020-05-24 20:04] LABS: African American GFR (CKD) >90 (>60 ml/min/1.73 sqM); Anion Gap 11 mmol/L; Blood Urea Nitrogen 15 mg/dL (9-20); Calcium 8.8 mg/dL (8.4-10.2); Carbon Dioxide 26 mmol/L (22-30); Chloride 110 mmol/L (98-107); Glucose 92 mg/dL (74-99); Magnesium 1.9 mg/dL (1.6-2.3); Non-African American GFR(CKD) >90 (>60 ml/min/1.73 sqM); Potassium 4.3 mmol/L (3.5-5.1); Sodium 147 mmol/L (137-145)
[2020-05-24 20:15] LABS: Alcohol 268 mg/dL
[2020-05-24] MEDS ORDERED: NALOXONE 0.4 MG/ML 1 ML VIAL IV PRN (20:31)
[2020-05-24] MEDS ORDERED: THIAMINE 100 MG/ML 2 ML VIAL IM STA (20:34)
[2020-05-24] MEDS ORDERED: LORazepam 2 MG/ML INJ IV PRN ×2 (20:34)
[2020-05-24] MEDS: SODIUM CHLORIDE 0.9% 1,000 ML IV SCH (22:13)
[2020-05-24] MEDS: CEPHALEXIN 500 MG CAP PO SCH (22:14)
[2020-05-25] MEDS ORDERED: FLUTICASONE 50MCG/SPRAY NASAL 16GM EA NOSTRIL PRN (01:06)
[2020-05-25] MEDS: LEVOTHYROXINE 75 MCG TAB PO SCH (05:44)
[2020-05-25] MEDS: CLOPIDOGREL 75 MG TAB PO SCH (08:32)
[2020-05-25] MEDS: lisinopriL 20 MG TAB PO SCH ×2 (08:32→20:19)
[2020-05-25] MEDS: ASPIRIN 81 MG PO SCH (08:32)
[2020-05-25] MEDS: HEPARIN SODIUM,PORCINE 5,000 UNIT/ML 1 ML VIAL SQ SCH ×2 (08:32→20:19)
[2020-05-25] MEDS: THIAMINE 100 MG TAB PO SCH ×2 (08:32→15:14)
[2020-05-25] MEDS: PROPRANOLOL 40 MG TAB PO SCH (08:34)
[2020-05-25] MEDS: CEPHALEXIN 500 MG CAP PO SCH ×3 (08:34→18:05)
[2020-05-25] MEDS: DORZOLAMIDE HCL 2% DROPS 10 ML BTL BOTH EYES SCH ×2 (08:34→20:20)
[2020-05-25] MEDS ORDERED: FAMOTIDINE 20 MG/2 ML VIAL IV SCH (09:00)
[2020-05-25] MEDS: LORazepam 2 MG/ML INJ IV PRN ×3 (10:34→20:19)
--- NOTE | 2020-05-25 11:04 | P.HPIM ---
History of Present Illness This is a pleasant 49 years old male with past medical history of hypertension, sleep apnea on CPAP/BiPAP, hypothyroidism, vitamin B12 deficiency, diverticulosis, history of syncope and CVA/TIA. Also he has history of depression and anxiety. He smokes less than half pack per day for 20 years, smokes marijuana and alcohol abuser. Patient was sent from Dr. Alvarez's office for alcohol detox as he is with alcohol abuse and with plan to jump off the [employer]. Hx 1-2/5 every day, he smokes about half pack per day, and smokes marijuana occasionally. Also he was to see Dr. Alvarez because of his left foot pain for 1-2 months, he was recently treated for left foot infection and sent to his hospital, he finished his antibiotic therapy but he still have pain in his left foot since then about 7/10 increased with walking, his left foot is slightly swollen and more dusky compared to the right side. He has left foot pain, with history of staph infection. Foot x-ray showing no acute osseous abnormality Vitals and labs are stable including CBC, INR, BMP and liver enzymes. Coronavirus not detected. Alcohol level is elevated at 268 Upon admission patient was started on CIWA protocol and thiamine. Sitter At bedside Patient could not leave AMA and if he tries to then he may need to position him, currently he admits to stay in the hospital Review of Systems CONSTITUTIONAL: No fever, no malaise, no fatigue. HEENT: No recent visual problems or hearing problems. Denied any sore throat. CARDIOVASCULAR: No orthopnea, PND, no palpitations, no syncope. PULMONARY: No shortness of breath, no cough, no hemoptysis. GASTROINTESTINAL: No diarrhea, no nausea, no vomiting, no abdominal pain. No rmoactive bowel sounds. NEUROLOGICAL: No headaches, no weakness, no numbness. HEMATOLOGICAL: Denies any bleeding or petechiae. GENITOURINARY: Denies any burning micturition, frequency, or urgency. MUSCULOSKELETAL/RHEUMATOLOGICAL: Denies any joint pain, swelling, or any muscle pain. ENDOCRINE: Denies any polyuria or polydipsia. Past Medical History Past Medical History: CVA/TIA, Hypertension, Pneumonia, Sleep Apnea/CPAP/BIPAP, Syncope, Thyroid Disorder Additional Past Medical History / Comment(s): VITAMIN B12 DEFICIENCY ANEMIA, rhabdomyolysis, hypothyroidism, diverticulosis History of Any Multi-Drug Resistant Organisms: None Reported Past Surgical History: Orthopedic Surgery Additional Past Surgical History / Comment(s): BILAT Shoulder Surgery; 3 surgery on left side; one surgery on right Past Anesthesia/Blood Transfusion Reactions: No Reported Reaction Past Psychological History: Anxiety, Depression Additional Psychological History / Comment(s): Major depression disorder-takes wellbutrin Smoking Status: Current every day smoker, Vaper Past Alcohol Use History: Abuse, Daily, Heavy Additional Past Alcohol Use History / Comment(s): < 1/2 PPD FOR 20 YRS Past Drug Use History: Marijuana Additional Drug Use History / Comment(s): denies - Past Family History Mother Family Medical History: No Reported History Father Family Medical History: Cancer Additional Family Medical History / Comment(s): prostate, lymphoma Medications and Allergies Home Medications Medication Instructions Recorded Confirmed Type Levothyroxine Sodium [Synthroid] 75 mcg PO DAILY 11/25/16 05/24/20 History Fluticasone Nasal [place] [Flonase 2 spray EA NOSTRIL DAILY PRN 08/15/18 05/24/20 History Nasal [place]] Cyanocobalamin [Vitamin B-12 1,000 mcg SQ QMONTH 11/09/18 05/24/20 History Injection] lisinopriL 20 mg PO BID 03/17/19 05/24/20 History Albuterol Sulfate [Proair Hfa] 2 puff INHALATION RT-Q6H PRN 04/12/20 05/24/20 History Aspirin EC [Ecotrin Low Dose] 81 mg PO DAILY 04/12/20 05/24/20 History Atorvastatin [Lipitor] 80 mg PO HS 04/12/20 05/24/20 History Clopidogrel [Plavix] 75 mg PO DAILY 04/12/20 05/24/20 History Dorzolamide HCl/Pf [Dorzolamide 2% 1 drop BOTH EYES BID 04/12/20 05/24/20 History Eye Drop] Loratadine [Claritin] 10 mg PO DAILY 04/12/20 05/24/20 History Propranolol [Inderal] 40 mg PO DAILY 04/12/20 05/24/20 History Atorvastatin [Lipitor] 20 mg PO HS 05/24/20 05/24/20 History Allergies Allergy/AdvReac Type Severity Reaction Status Date / Time No Known Allergies Allergy Verified 05/24/20 21:13 Physical Exam Vitals: Vital Signs Temp Pulse Pulse Resp BP BP Pulse Ox 05/25/20 00:04 97.7 F 82 16 128/81 95 05/24/20 21:00 80 16 124/75 97 05/24/20 17:52 97.9 F 86 20 133/84 98 Intake and Output 05/24/20 05/24/20 05/25/20 14:59 22:59 06:59 Other: Weight 88.451 kg 88.451 kg GENERAL: The patient is alert and oriented x3, not in any acute distress. Well developed, well nourished. HEENT: Pupils are round and equally reacting to light. EOMI. No scleral icterus. No conjunctival pallor. Normocephalic, atraumatic. No pharyngeal erythema. No thyromegaly. CARDIOVASCULAR: S1 and S2 present. No murmurs, rubs, or gallops. PULMONARY: Chest is clear to auscultation, no wheezing or crackles. ABDOMEN: Soft, nontender, nondistended, normoactive bowel sounds. No palpable organomegaly. MUSCULOSKELETAL: No joint swelling or deformity. EXTREMITIES: No cyanosis, clubbing, or pedal edema. Left foot is a swollen, dusky in color, there is no wound but there is dryness In the middle of the 4 foot NEUROLOGICAL: Gross neurological examination did not reveal any focal deficits. SKIN: No rashes. no petechiae. Results CBC & Chem 7: 05/24/20 19:47 05/24/20 19:47 Labs: Abnormal Lab Results - Last 24 Hours (Table) 05/24/20 Range/Units 19:47 Sodium 147 H (137-145) mmol/L Chloride 110 H (98-107) mmol/L Serum Alcohol 268 H* mg/dL Thrombosis Risk Factor Assmnt - Choose All That Apply Each Factor Represents 1 point: Age 41-60 years Thrombosis Risk Factor Assessment Total Risk Factor Score: 1 Thrombosis Risk Factor Assessment Level: Low Risk Assessment and Plan Assessment: Left foot pain and swelling, rule out infection. Alcohol abuse and intoxication upon admission, at-risk of alcohol withdrawal Depression with suicidal ideation Hypertension Sleep apnea on CPAP/BiPAP Hypothyroidism History of vitamin B12 deficiency Diverticulosis History of syncope and CVA/TIA Nicotine dependence Substance abuse with marijuana Plan: This is a pleasant 49 years old male who presents with alcohol abuse and so p sych dilatation. Continue with CIWA protocol, thiamine, psychiatric consult we are going to order a CAT scan of the left foot and ESR and C-reactive protein. Consult ID team Labs and medication were reviewed.. Continue same treatment. Continue with symptomatic treatment. Resume home medication. Monitor lytes and vitals. DVT and GI prophylaxis. Further recommendationsas per clinical course of the patient DVT prophylaxis: Subcutaneous heparin GI Prophylaxis: Pepcid Prognosis is guarded
[2020-05-25] MEDS: SODIUM CHLORIDE 0.9% 1,000 ML IV SCH ×2 (12:11→15:14)
[2020-05-25] MEDS ORDERED: NALTREXONE HCL 50 MG TAB PO STA (12:56)
--- NOTE | 2020-05-25 13:01 | P.CN ---
Psychiatric Consult - . Consult date: 05/25/20 Consult:: IDENTIFYING DATA: This patient is a , homeless, unemployed, 49-year-old male with significant history of alcohol use disorder was admitted for alcohol detoxification. REASON FOR CONSULT: Depression with SI, ETOH abuse HISTORY OF PRESENT ILLNESS: The patient presented to the hospital on 05/24/2020 was brought to the emergency Department from his doctor's office for suicidal thoughts. The patient reportedly stated that he wanted to jump off a bridge. The patient was admitted to the hospital for alcohol withdrawal. Blood alcohol level in the emergency department was 268. Currently the patient is not reporting any suicidal or homicidal ideation, intention, and/or plan. He states that he likely made the statement while he was intoxicated. He does endorse mild symptoms of depression including low mood and feelings of isolation but is not endorsing any significant symptoms of anhedonia, change in appetite, or difficulty sleeping. He vehemently denies any current suicidal or homicidal ideation, intention, and/or plan and denies any prior attempts at suicide. He reports no access to firearms or other weapons. He denies any rehearsing behaviors. The patient does not report any significant history of bipolar disorder. He reports no increased goal directed behavior, periods of excessive energy, grandiosity, or mood lability. He reports no significant history of auditory or visual hallucinations. He denies any paranoia or other delusions. The patient states that he has been drinking heavily, especially so over the past week. He reports he is drinking up to 2 fifths of liquor per day. He r eports that his last drink was in the afternoon yesterday. He was previously attending AA meetings and has a sponsor. The longest he has been sober was for 14 years but relapsed in 2014 after he was estranged from his children. He denies any history of withdrawal seizures or DTs. He reports going to rehab 3 times. His last stay in rehabilitation was at [place] 1-1/2 years ago. He does report frequent marijuana use. He reports half pack per day of tobacco use. He denies any illicit drug use. PAST PSYCHIATRIC HISTORY: Patient has a a history of alcohol use disorder and depression. The patient recalls being prescribed Wellbutrin in the past. Patient denies any previous psychiatric hospitalizations. He is currently open with counseling services at [facility]. Patient denies any history of suicide attempts in the past. PAST MEDICAL HISTORY: Past Medical History: CVA/TIA, Hypertension, Pneumonia, Sleep Apnea/CPAP/BIPAP, Syncope, Thyroid Disorder Additional Past Medical History / Comment(s): VITAMIN B12 DEFICIENCY ANEMIA, rhabdomyolysis, hypothyroidism, diverticulosis History of Any Multi-Drug Resistant Organisms: None Reported Past Surgical History: Orthopedic Surgery Additional Past Surgical History / Comment(s): BILAT Shoulder Surgery; 3 surgery on left side; one surgery on right Past Anesthesia/Blood Transfusion Reactions: No Reported Reaction Past Psychological History: Anxiety, Depression Additional Psychological History / Comment(s): Major depression disorder-takes wellbutrin ALLERGIES: NO KNOWN DRUG ALLERGIES CHEMICAL DEPENDENCY HISTORY: as per HPI. FAMILY PSYCHIATRIC/SUBSTANCE USE HISTORY: The patient reports maternal and paternal aunts and uncles with alcohol use disorder. He reports no family history of suicide. SOCIAL HISTORY: The patient his of 3 years 23 years ago. He has 4 sons but is only in contact with his older son's. He is currently unemployed and waiting for SSDI. He had a stroke this past July. He denies any current legal issues. He reports no history. His current source of income is through [employer] after hurting his shoulder. He is currently homeless and has been staying in hotels. MENTAL STATUS EXAM: General Appearance: Patient appears to be stated age is alert, pleasant, and cooperative. Patient appears to have fair hygiene and grooming wearing hospital gown with fair eye contact. Behavior: Patient is calmly lying in bed without any agitated behavior. Speech: Patient's speech is fluent and nonpressured. Mood/Affect: Patient reports their mood is "better", affect is congruent and euthymic. Suicidality/Homicidality: Patient denies having any suicidal or homicidal ideation intent or plan. Perceptions: Patient denies any visual hallucinations and denies any auditory hallucinations Though content/process: There is no evidence of any delusional thought content and thought process is linear and goal-directed. Memory and concentration: AOX3, grossly intact for the purposes of this session. Can spell "WORLD" backwards Judgment and insight: Fair IMPRESSIONS: Alcohol use disorder Depressive disorder, likely secondary to alcohol abuse Cannabis abuse Nicotine dependence PLAN: -At this time patient DOES NOT meet criteria for inpatient psychiatric admission -Continue [facility] protocol for alcohol withdrawal. -Would recommend the following medication changes/additions: The patient reports that he is taking Wellbutrin at home but is not listed as a home medication on this chart. Recommend holding this medication during the hospital stay as the medication increases risk for seizure as the patient is going through active withdrawal. The patient is open to starting naltrexone for alcohol cessation. We will start 50 mg of naltrexone daily. -Discontinue one-to-one sitter. -Psychiatry will sign off at this point, please contact with any questions. 05/25/20 12:49
[2020-05-25 13:08] VITALS: BMI 27.9
--- NOTE | 2020-05-25 17:25 | CT ---
EXAMINATION TYPE: CT foot LT wo con DATE OF EXAM: 05/25/2020 COMPARISON: None HISTORY: Left foot pain and swelling CT DLP: 199.0 mGycm Automated exposure control for dose reduction was used. Contrast: None Technique: Axial images at 2 mm thick sections. Reconstructed images in the coronal and sagittal plan es. FINDINGS: No acute osseous abnormality is evident. The cortex appears intact. No acute fractures or dislocation s are evident. Metatarsal tarsal alignment appears normal. There is mild soft tissue swelling present through the dorsum of the foot. At the proximal metatarsal level there is an oval density with some central hypodensity. This measures 1.3 x 0.6 x 1.2 cm. A sm all dorsal hematoma could be considered. IMPRESSION: 1. NO ACUTE FRACTURES IDENTIFIED. 2. SOFT TISSUE SWELLING OVER THE DORSUM OF THE FOOT. A SMALL HEMATOMA MAY BE PRESENT.
[2020-05-25] MEDS: FAMOTIDINE 20 MG TAB PO SCH (20:19)
[2020-05-25] MEDS ORDERED: CEPHALEXIN 500 MG CAP PO SCH (21:00)
[2020-05-25] MEDS ORDERED: ATORVASTATIN 20 MG TAB PO SCH (21:00)
[2020-05-26] MEDS: LEVOTHYROXINE 75 MCG TAB PO SCH (05:53)
[2020-05-26 06:08] VITALS: BP 150/78; PULSE 66; RESP 16; TEMP 97.8
[2020-05-26] MEDS: lisinopriL 20 MG TAB PO SCH (07:33)
[2020-05-26] MEDS: HEPARIN SODIUM,PORCINE 5,000 UNIT/ML 1 ML VIAL SQ SCH (07:33)
[2020-05-26] MEDS: CLOPIDOGREL 75 MG TAB PO SCH (07:33)
[2020-05-26] MEDS: ASPIRIN 81 MG PO SCH (07:33)
[2020-05-26] MEDS: THIAMINE 100 MG TAB PO SCH ×2 (07:33→16:03)
[2020-05-26] MEDS: FAMOTIDINE 20 MG TAB PO SCH (07:33)
[2020-05-26] MEDS: PROPRANOLOL 40 MG TAB PO SCH (07:34)
[2020-05-26] MEDS: DORZOLAMIDE HCL 2% DROPS 10 ML BTL BOTH EYES SCH (07:39)
[2020-05-26] MEDS: LORazepam 2 MG/ML INJ IV PRN (08:44)
[2020-05-26] MEDS ORDERED: NALTREXONE HCL 50 MG TAB PO SCH (09:00)
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
[2020-05-26] MEDS ORDERED: LORazepam 1 MG TAB PO PRN (16:06)
--- NOTE | 2020-05-27 01:21 | P.DS ---
Providers Date of admission: 05/25/20 13:44 Attending physician: Damon Fregoso MD Consults: 05/24/20 20:31 Consult Physician Routine Consulting Provider: Paras Cerda Consult Reason/Comments: suicidal Do you want consulting provider notified?: Yes 05/25/20 11:01 Consult Physician Urgent Consulting Provider: Adeola Stallworth Consult Reason/Comments: recent Left foot infection , now with pain and swelling Do you want consulting provider notified?: Yes 05/26/20 11:07 Consult Physician Urgent Consulting Provider: Raj Govea Consult Reason/Comments: left foot pain and hematoma Do you want consulting provider notified?: Yes Primary care physician: Deion Alvarez Hospital Course: Diagnoses: Left foot pain secondary to hematoma, no infection no need for antibiotics upon discharge Alcohol abuse and intoxication upon admission, with alcohol withdrawal, improved stable, discharge on short benzodiazepine taper Depression with suicidal ideation, while intoxication but denied when patient wa s sober. Patient evaluated and cleared by psychiatrist for discharge Hypertension Sleep apnea on CPAP/BiPAP Hypothyroidism History of vitamin B12 deficiency Diverticulosis History of syncope and CVA/TIA Nicotine dependence Substance abuse with marijuana Hospital course: This is a pleasant 49 years old male with past medical history of hypertension, sleep apnea on CPAP/BiPAP, hypothyroidism, vitamin B12 deficiency, diverticulosis, history of syncope and CVA/TIA. Also he has history of depression and anxiety. He smokes less than half pack per day for 20 years, smokes marijuana and alcohol abuser. Patient was sent from Dr. Alvarez's office for alcohol detox as he is with alcohol abuse and with plan to jump off the/bridge. However when he became sober he denies these suicidal thoughts, he was evaluated by psychiatrist who discontinued sitter and cleared him for discharge. Patient withdrawal symptoms improved significantly and on the day of discharge she was given tapered dose of Ativan 2 days, with extensive instruction is provided for the patient regarding keeping abstinence from alcohol and risk of combining alcohol with benzodiazepine including but not limited to the risk of respiratory depression and/or and he verbalized understanding and acceptance He had left foot pain, CAT scan showed hematoma. No fever or leukocytosis, normal ESR and C-reactive protein, infectious disease team consulted and they does continue with antibiotics, no need for further and Plavix upon discharge. Orthopedic team recommended conservative management and follow-up as an outpatient and patient agrees. Problems and management plan were discussed with the patient and he verbalized understanding and acceptance Patient was found stable and can be discharged home however he needs follow-up as an outpatient. Patient was instructed to follow up with PCP Dr. Alvarez within one week and patient agrees Also patient was instructed to follow up with Dr. Richards in one week and he agrees to call and make appointment Physical exam Gen: patient is a AAOx3, no distress CVS: S1-S2, RRR, no murmur Lungs: B/L CTA, no wheezing Abdomen: soft, no distention, no tenderness, positive bowel sounds Extremity: no leg edema or induration Time spent more than 35 minutes Patient Condition at Discharge: Fair Plan - Discharge Summary Discharge Rx Participant: Yes New Discharge Prescriptions: New Famotidine [Pepcid] 20 mg PO Q12HR #60 tab Naltrexone HCl [Revia] 50 mg PO DAILY #20 tab LORazepam [Ativan] 1 mg PO DIRECTED 2 Days #3 tab Thiamine [Vitamin B-1] 100 mg PO BID-W/MEALS 30 Days #30 tab Continue Levothyroxine Sodium [Synthroid] 75 mcg PO DAILY Fluticasone Nasal [place] [Flonase Nasal [place]] 2 spray EA NOSTRIL DAILY PRN PRN Reason: Allergy Symptoms Cyanocobalamin [Vitamin B-12 Injection] 1,000 mcg SQ QMONTH lisinopriL 20 mg PO BID Propranolol [Inderal] 40 mg PO DAILY Albuterol Sulfate [Proair Hfa] 2 puff INHALATION RT-Q6H PRN PRN Reason: Shortness Of Breath Loratadine [Claritin] 10 mg PO DAILY Dorzolamide HCl/Pf [Dorzolamide 2% Eye Drop] 1 drop BOTH EYES BID Clopidogrel [Plavix] 75 mg PO DAILY Atorvastatin [Lipitor] 80 mg PO HS Aspirin EC [Ecotrin Low Dose] 81 mg PO DAILY Atorvastatin [Lipitor] 20 mg PO HS Discharge Medication List Levothyroxine Sodium [Synthroid] 75 mcg PO DAILY 11/25/16 [History] Fluticasone Nasal [place] [Flonase Nasal [place]] 2 spray EA NOSTRIL DAILY PRN 0 08/15/18 [History] Cyanocobalamin [Vitamin B-12 Injection] 1,000 mcg SQ QMONTH 11/09/18 [History] lisinopriL 20 mg PO BID 03/17/19 [History] Albuterol Sulfate [Proair Hfa] 2 puff INHALATION RT-Q6H PRN 04/12/20 [History] Aspirin EC [Ecotrin Low Dose] 81 mg PO DAILY 04/12/20 [History] Atorvastatin [Lipitor] 80 mg PO HS 04/12/20 [History] Clopidogrel [Plavix] 75 mg PO DAILY 04/12/20 [History] Dorzolamide HCl/Pf [Dorzolamide 2% Eye Drop] 1 drop BOTH EYES BID 04/12/20 [History] Loratadine [Claritin] 10 mg PO DAILY 04/12/20 [History] Propranolol [Inderal] 40 mg PO DAILY 04/12/20 [History] Atorvastatin [Lipitor] 20 mg PO HS 05/24/20 [History] Famotidine [Pepcid] 20 mg PO Q12HR #60 tab 05/26/20 [Rx] LORazepam [Ativan] 1 mg PO DIRECTED 2 Days #3 tab 05/26/20 [Rx] Naltrexone HCl [Revia] 50 mg PO DAILY #20 tab 05/26/20 [Rx] Thiamine [Vitamin B-1] 100 mg PO BID-W/MEALS 30 Days #30 tab 05/26/20 [Rx] Follow up Appointment(s)/Referral(s): Deion Alvarez MD [Primary Care Provider] - 06/02/20 9:30 am Woodrow Hernandez DPM [Doctor of Osteopathic Medicine] - 1 Week (office does not take patient's insurance please ask Dr Castañeda office for recommendations) Patient Instructions/Handouts: Famotidine (By mouth), Lorazepam (By mouth), Thiamine (By mouth), Naltrexone (By mouth), Heart Healthy Diet (DC), Abuse of Alcohol (DC), Alcohol Withdrawal (DC) Activity/Diet/Wound Care/Special Instructions: heart healthy diet activity is restricted till you see your doctor Discharge Disposition: HOME SELF-CARE
== END 2020-05-26 18:05 | disposition home or self-care (01) | DRG 605 ==
LOC: EC 16:08 → 6NMEDSUR 20:31 → 5NMEDONC 22:34 → OBSVTOIN 05-25 13:44
PROVIDERS: ADMIT Internal Medicine; ATTEND Internal Medicine
DX: S90.32XA Contusion of left foot, initial encounter (principal); R45.851 Suicidal ideations; F10.139 Alcohol abuse with withdrawal, unspecified; D51.9 Vitamin B12 deficiency anemia, unspecified; F10.129 Alcohol abuse with intoxication, unspecified; Z20.822 Contact with and (suspected) exposure to COVID-19; F12.90 Cannabis use, unspecified, uncomplicated; Y90.8 Blood alcohol level of 240 mg/100 ml or more; F32.9 Major depressive disorder, single episode, unspecified; F41.9 Anxiety disorder, unspecified; I10 Essential (primary) hypertension; E03.9 Hypothyroidism, unspecified; K57.90 Diverticulosis of intestine, part unspecified, without perforation or abscess without bleeding; G47.30 Sleep apnea, unspecified; L25.9 Unspecified contact dermatitis, unspecified cause; F17.210 Nicotine dependence, cigarettes, uncomplicated; Z71.6 Tobacco abuse counseling; Z79.82 Long term (current) use of aspirin; Z79.02 Long term (current) use of antithrombotics/antiplatelets; Z79.890 Hormone replacement therapy; Z79.899 Other long term (current) drug therapy; Z59.0 Homelessness; Z56.0 Unemployment, unspecified; Z86.19 Personal history of other infectious and parasitic diseases; Z87.01 Personal history of pneumonia (recurrent); Z86.73 Personal history of transient ischemic attack (TIA), and cerebral infarction without residual deficits; Z85.46 Personal history of malignant neoplasm of prostate; V03.90XA Pedestrian on foot injured in collision with car, pick-up truck or van, unspecified whether traffic or nontraffic accident, initial encounter; Z80.7 Family history of other malignant neoplasms of lymphoid, hematopoietic and related tissues
CPT/HCPCS: 36415; 80048; 80320; 82075; 82607; 83735; 85025; 85652; 86140; 87635; 99285

== ENCOUNTER 2020-05-31 06:05 | Emergency (ER) | payer OTHER ==
[2020-05-31 06:14] VITALS: TEMP 99
[2020-05-31] MEDS ORDERED: SODIUM CHLORIDE 0.9% 1,000 ML IV STA (06:26)
[2020-05-31] MEDS ORDERED: LORazepam 2 MG/ML INJ IV STA (06:26)
--- NOTE | 2020-05-31 06:55 | ED ---
Alcohol HPI - General Chief Complaint: Alcohol Stated Complaint: Alcohol Withdrawals Time Seen by Provider: 05/31/20 06:18 Source: patient, RN notes reviewed Mode of arrival: ambulatory Limitations: no limitations - History of Present Illness Initial Comments: 49-year-old male presents emergency Department chief complaint alcohol on withdrawal, left foot pain. Patient was recently half [place] discharge for similar complaints. Patient states there is no discharge on any antibiotics though upon further review patient had full evaluation there is no signs of infection. Patient states since his discharge he started drinking he states he's drink approximately 2 gallons of liquor in 2 days. Patient states that he is had some nausea vomiting feels very shaky. Patient denies been suicidal or homicidal denies any abdominal pain currently. - Related Data Home Medications Medication Instructions Recorded Confirmed Levothyroxine Sodium [Synthroid] 75 mcg PO DAILY 11/25/16 05/31/20 Fluticasone Nasal [place] [Flonase 2 spray EA NOSTRIL DAILY PRN 08/15/18 05/31/20 Nasal [place]] Cyanocobalamin [Vitamin B-12 1,000 mcg SQ QMONTH 11/09/18 05/31/20 Injection] lisinopriL 20 mg PO BID 03/17/19 05/31/20 Albuterol Sulfate [Proair Hfa] 2 puff INHALATION RT-Q6H PRN 04/12/20 05/31/20 Aspirin EC [Ecotrin Low Dose] 81 mg PO DAILY 04/12/20 05/31/20 Atorvastatin [Lipitor] 80 mg PO HS 04/12/20 05/31/20 Clopidogrel [Plavix] 75 mg PO DAILY 04/12/20 05/31/20 Dorzolamide HCl/Pf [Dorzolamide 2% 1 drop BOTH EYES BID 04/12/20 05/31/20 Eye Drop] Loratadine [Claritin] 10 mg PO DAILY 04/12/20 05/31/20 Propranolol [Inderal] 40 mg PO DAILY 04/12/20 05/31/20 Atorvastatin [Lipitor] 20 mg PO HS 05/24/20 05/31/20 LORazepam [Ativan] See Taper PO DIRECTED 05/31/20 05/31/20 Previous Rx's Medication Instructions Recorded Famotidine [Pepcid] 20 mg PO Q12HR #60 tab 05/26/20 Naltrexone HCl [Revia] 50 mg PO DAILY #20 tab 05/26/20 Thiamine [Vitamin B-1] 100 mg PO BID-W/MEALS 30 Days #30 05/26/20 tab Allergies Allergy/AdvReac Type Severity Reaction Status Date / Time No Known Allergies Allergy Verified 05/31/20 07:47 Review of Systems ROS Statement: Those systems with pertinent positive or pertinent negative responses have been documented in the HPI. ROS Other: All systems not noted in ROS Statement are negative. Past Medical History Past Medical History: CVA/TIA, Hypertension, Pneumonia, Sleep Apnea/CPAP/BIPAP, Syncope, Thyroid Disorder Additional Past Medical History / Comment(s): VITAMIN B12 DEFICIENCY ANEMIA, rhabdomyolysis, hypothyroidism, diverticulosis History of Any Multi-Drug Resistant Organisms: None Reported Past Surgical History: Orthopedic Surgery Additional Past Surgical History / Comment(s): BILAT Shoulder Surgery; 3 surgery on left side; one surgery on right Past Anesthesia/Blood Transfusion Reactions: No Reported Reaction Past Psychological History: Anxiety, Depression Smoking Status: Current every day smoker, Vaper Past Alcohol Use History: Abuse, Daily, Heavy Past Drug Use History: Marijuana - Past Family History Mother Family Medical History: No Reported History Father Family Medical History: Cancer Additional Family Medical History / Comment(s): prostate, lymphoma General Exam General appearance: alert, in no apparent distress Head exam: Present: atraumatic, normocephalic, normal inspection Eye exam: Present: normal appearance, PERRL, EOMI. Absent: scleral icterus, conjunctival injection, periorbital swelling ENT exam: Present: normal exam, normal oropharynx, mucous membranes moist Neck exam: Present: normal inspection, full ROM. Absent: tenderness, meningismus, lymphadenopathy Respiratory exam: Present: normal lung sounds bilaterally. Absent: respiratory distress, wheezes, rales, rhonchi, stridor Cardiovascular Exam: Present: normal rhythm, tachycardia, normal heart sounds. Absent: systolic murmur, diastolic murmur, rubs, gallop, clicks GI/Abdominal exam: Present: soft, normal bowel sounds. Absent: distended, tenderness, guarding, rebound, rigid Neurological exam: Present: alert, oriented X3 Skin exam: Present: warm, dry, intact, normal color. Absent: rash Course Vital Signs 05/31/20 05/31/20 06:08 07:43 Temperature 99.0 F Pulse Rate 135 H 106 H Respiratory 20 17 Rate Blood Pressure 149/97 120/66 O2 Sat by Pulse 96 96 Oximetry Medical Decision Making - Medical Decision Making Patient updated and results plan was to either admit or patient call for ride patient states he would call his son or somebody else for right. Patiently reportedly ripped out his IV and Rran out He was awake alert and oriented 4. He is not suicidal or homicidal - Lab Data Result diagrams: 05/31/20 06:41 05/31/20 06:41 Lab Results 05/31/20 05/31/20 Range/Units 06:41 06:41 WBC 9.5 (3.8-10.6) k/uL RBC 5.03 (4.30-5.90) m/uL Hgb 17.1 (13.0-17.5) gm/dL Hct 47.6 (39.0-53.0) % MCV 94.6 (80.0-100.0) fL MCH 33.9 (25.0-35.0) pg MCHC 35.8 (31.0-37.0) g/dL RDW 12.9 (11.5-15.5) % Plt Count 153 (150-450) k/uL MPV 6.7 Neutrophils % 68 % Lymphocytes % 17 % Monocytes % 10 % Eosinophils % 1 % Basophils % 1 % Neutrophils # 6.5 (1.3-7.7) k/uL Lymphocytes # 1.6 (1.0-4.8) k/uL Monocytes # 1.0 (0-1.0) k/uL Eosinophils # 0.1 (0-0.7) k/uL Basophils # 0.1 (0-0.2) k/uL Sodium 140 (137-145) mmol/L Potassium 4.5 (3.5-5.1) mmol/L Chloride 104 (98-107) mmol/L Carbon Dioxide 15 L (22-30) mmol/L Anion Gap 21 mmol/L BUN 22 H (9-20) mg/dL Creatinine 0.98 (0.66-1.25) mg/dL Est GFR (CKD-EPI)AfAm >90 (>60 ml/min/1.73 sqM) Est GFR (CKD-EPI)NonAf >90 (>60 ml/min/1.73 sqM) Glucose 94 (74-99) mg/dL Calcium 9.1 (8.4-10.2) mg/dL Magnesium 1.7 (1.6-2.3) mg/dL Total Bilirubin 0.8 (0.2-1.3) mg/dL AST 61 H (17-59) U/L ALT 66 H (4-49) U/L Alkaline Phosphatase 162 H (38-126) U/L Total Protein 8.5 H (6.3-8.2) g/dL Albumin 4.9 (3.5-5.0) g/dL Lipase 255 (23-300) U/L Serum Alcohol 291 H* mg/dL Disposition Clinical Impression: Alcohol intoxication Disposition: Left Against Medical Advice Referrals: Deion Alvarez MD [Primary Care Provider] - 1-2 days
[2020-05-31 07:02] LABS: Basophils # (A) 0.1 k/uL (0-0.2); Basophils % (A) 1 %; Eosinophils # (A) 0.1 k/uL (0-0.7); Eosinophils % (A) 1 %; HCT 47.6 % (39.0-53.0); HGB 17.1 gm/dL (13.0-17.5); Lymphocytes # (A) 1.6 k/uL (1.0-4.8); Lymphocytes % (A) 17 %; MCH 33.9 pg (25.0-35.0); MCHC 35.8 g/dL (31.0-37.0); MCV 94.6 fL (80.0-100.0); Mean Platelet Volume 6.7; Monocytes % (A) 10 %; Neutrophils # (A) 6.5 k/uL (1.3-7.7); Neutrophils % (A) 68 %; Platelet Count 153 k/uL (150-450); RBC 5.03 m/uL (4.30-5.90); RDW 12.9 % (11.5-15.5); WBC 9.5 k/uL (3.8-10.6)
[2020-05-31 07:25] LABS: ALT 66 U/L (4-49); AST 61 U/L (17-59); African American GFR (CKD) >90 (>60 ml/min/1.73 sqM); Albumin 4.9 g/dL (3.5-5.0); Alkaline Phosphatase 162 U/L (38-126); Anion Gap 21 mmol/L; Blood Urea Nitrogen 22 mg/dL (9-20); Calcium 9.1 mg/dL (8.4-10.2); Carbon Dioxide 15 mmol/L (22-30); Chloride 104 mmol/L (98-107); Glucose 94 mg/dL (74-99); Lipase 255 U/L (23-300); Magnesium 1.7 mg/dL (1.6-2.3); Non-African American GFR(CKD) >90 (>60 ml/min/1.73 sqM); Potassium 4.5 mmol/L (3.5-5.1); Sodium 140 mmol/L (137-145); Total Bilirubin 0.8 mg/dL (0.2-1.3); Total Protein 8.5 g/dL (6.3-8.2)
[2020-05-31 07:35] LABS: Alcohol 291 mg/dL
[2020-05-31 07:44] VITALS: BP 120/66; PULSE 106; RESP 17
== END 2020-05-31 08:45 | disposition left against medical advice (07) ==
LOC: EC 06:05
DX: F10.239 Alcohol dependence with withdrawal, unspecified (principal); I10 Essential (primary) hypertension; Z86.73 Personal history of transient ischemic attack (TIA), and cerebral infarction without residual deficits; F41.9 Anxiety disorder, unspecified; F32.9 Major depressive disorder, single episode, unspecified; F17.200 Nicotine dependence, unspecified, uncomplicated
CPT/HCPCS: 80053; 80320; 82075; 83690; 83735; 85025; 96361; 96374; 99284

== ENCOUNTER 2020-06-02 00:42 | Emergency (ER) | payer OTHER ==
[2020-06-02] MEDS ORDERED: SODIUM CHLORIDE 0.9% 1,000 ML IV STA (01:06)
--- NOTE | 2020-06-02 01:06 | ED ---
Overdose HPI - General Source: RN notes reviewed, old records reviewed Mode of arrival: EMS Limitations: no limitations - History of Present Illness Complaint: intentional overdose -: hour(s) Intent: suicide attempt How Overdose Was Discovered: called family/friend Context: Intentional Overdose: drug/ETOH problems Context: Accidental Overdose: wanted to get high Associated Symptoms: depression Treatments Prior to Arrival: none <Andrea Han - Last Filed: 06/02/20 01:43> <Andrea Brown - Last Filed: 06/02/20 13:38> - General Stated Complaint: Mental health, overdose Time Seen by Provider: 06/02/20 01:06 - History of Present Illness Initial Comments: This is a 49-year-old male to the ER for evaluation patient has overdose symptoms tonight. History of psychiatric illness psychiatric overdose tonight with overdose. Patient is overdosed and alcohol overdose tonight. Patient does admit to suicidal (Andrea Han) - Related Data Home Medications Medication Instructions Recorded Confirmed Levothyroxine Sodium [Synthroid] 75 mcg PO DAILY 11/25/16 06/02/20 Fluticasone Nasal [place] [Flonase 2 spray EA NOSTRIL DAILY PRN 08/15/18 06/02/20 Nasal [place]] Cyanocobalamin [Vitamin B-12 1,000 mcg SQ QMONTH 11/09/18 06/02/20 Injection] lisinopriL 20 mg PO BID 03/17/19 06/02/20 Albuterol Sulfate [Proair Hfa] 2 puff INHALATION RT-Q6H PRN 04/12/20 06/02/20 Aspirin EC [Ecotrin Low Dose] 81 mg PO DAILY 04/12/20 06/02/20 Atorvastatin [Lipitor] 80 mg PO HS 04/12/20 06/02/20 Clopidogrel [Plavix] 75 mg PO DAILY 04/12/20 06/02/20 Dorzolamide HCl/Pf [Dorzolamide 2% 1 drop BOTH EYES BID 04/12/20 06/02/20 Eye Drop] Loratadine [Claritin] 10 mg PO DAILY 04/12/20 06/02/20 Propranolol [Inderal] 40 mg PO DAILY 04/12/20 06/02/20 Atorvastatin [Lipitor] 20 mg PO HS 05/24/20 06/02/20 LORazepam [Ativan] See Taper PO DIRECTED 05/31/20 06/02/20 Previous Rx's Medication Instructions Recorded Famotidine [Pepcid] 20 mg PO Q12HR #60 tab 05/26/20 Naltrexone HCl [Revia] 50 mg PO DAILY #20 tab 05/26/20 Thiamine [Vitamin B-1] 100 mg PO BID-W/MEALS 30 Days #30 05/26/20 tab Allergies Allergy/AdvReac Type Severity Reaction Status Date / Time No Known Allergies Allergy Verified 06/02/20 06:22 Review of Systems ROS Other: All systems not noted in ROS Statement are negative. <Andrea Han - Last Filed: 06/02/20 01:43> ROS Other: All systems not noted in ROS Statement are negative. <Andrea Brown - Last Filed: 06/02/20 13:38> ROS Statement: Those systems with pertinent positive or pertinent negative responses have been documented in the HPI. Past Medical History Past Medical History: CVA/TIA, Hypertension, Pneumonia, Sleep Apnea/CPAP/BIPAP, Syncope, Thyroid Disorder Additional Past Medical History / Comment(s): VITAMIN B12 DEFICIENCY ANEMIA, rhabdomyolysis, hypothyroidism, diverticulosis History of Any Multi-Drug Resistant Organisms: None Reported Past Surgical History: Orthopedic Surgery Additional Past Surgical History / Comment(s): BILAT Shoulder Surgery; 3 surgery on left side; one surgery on right Past Anesthesia/Blood Transfusion Reactions: No Reported Reaction Past Psychological History: Anxiety, Depression Smoking Status: Current every day smoker, Vaper Past Alcohol Use History: Abuse, Daily, Heavy Past Drug Use History: Marijuana - Past Family History Mother Family Medical History: No Reported History Father Family Medical History: Cancer Additional Family Medical History / Comment(s): prostate, lymphoma <Andrea Han - Last Filed: 06/02/20 01:43> General Exam General appearance: alert, in no apparent distress Head exam: Present: atraumatic, normocephalic, normal inspection Eye exam: Present: normal appearance, PERRL, EOMI. Absent: scleral icterus, conjunctival injection, periorbital swelling ENT exam: Present: normal exam, mucous membranes moist Neck exam: Present: normal inspection. Absent: tenderness, meningismus, ly mphadenopathy Respiratory exam: Present: normal lung sounds bilaterally. Absent: respiratory distress, wheezes, rales, rhonchi, stridor Cardiovascular Exam: Present: normal rhythm, tachycardia, normal heart sounds. Absent: systolic murmur, diastolic murmur, rubs, gallop, clicks GI/Abdominal exam: Present: soft, normal bowel sounds. Absent: distended, tenderness, guarding, rebound, rigid Extremities exam: Present: normal inspection, full ROM, normal capillary refill. Absent: tenderness, pedal edema, joint swelling, calf tenderness Back exam: Present: normal inspection Neurological exam: Present: alert, oriented X3, CN II-XII intact Psychiatric exam: Present: normal affect, normal mood Skin exam: Present: warm, dry, intact, normal color. Absent: rash <Andrea Han - Last Filed: 06/02/20 01:43> Course <Andrea Han - Last Filed: 06/02/20 01:43> Vital Signs 06/02/20 06/02/20 06/02/20 01:13 03:20 05:23 Temperature 98.0 F Pulse Rate 110 H 101 H 90 Respiratory 18 16 14 Rate Blood Pressure 175/106 140/93 110/85 O2 Sat by Pulse 94 L 97 96 Oximetry - Reevaluation(s) Reevaluation #1: 06/02/20 01:44 Medical record is reviewed (Andrea Han) Medical Decision Making - Lab Data Result diagrams: 06/02/20 01:06 - EKG Data -: EKG Interpreted by Me (EKG shows sinus rhythm 87 RI 146 QRS 86 QTc 436) <Andrea Han - Last Filed: 06/02/20 01:43> - Lab Data Result diagrams: 06/02/20 01:06 06/02/20 01:55 <Andrea Brown - Last Filed: 06/02/20 13:38> - Medical Decision Making EPS evaluated the patient and determined the patient was safe go home and he will follow-up with a rehab center on Friday. (Andrea Brown) - Lab Data Lab Results 06/02/20 06/02/20 06/02/20 Range/Units 01:06 01:06 01:55 WBC 5.5 (3.8-10.6) k/uL RBC 4.84 (4.30-5.90) m/uL Hgb 16.1 (13.0-17.5) gm/dL Hct 45.7 (39.0-53.0) % MCV 94.5 (80.0-100.0) fL MCH 33.2 (25.0-35.0) pg MCHC 35.1 (31.0-37.0) g/dL RDW 12.9 (11.5-15.5) % Plt Count 116 L (150-450) k/uL MPV 6.9 Neutrophils % 45 % Lymphocytes % 38 % Monocytes % 11 % Eosinophils % 1 % Basophils % 1 % Neutrophils # 2.5 (1.3-7.7) k/uL Lymphocytes # 2.1 (1.0-4.8) k/uL Monocytes # 0.6 (0-1.0) k/uL Eosinophils # 0.1 (0-0.7) k/uL Basophils # 0.1 (0-0.2) k/uL PT 11.4 (9.0-12.0) sec INR 1.1 (<1.2) Sodium 144 (137-145) mmol/L Potassium 4.1 (3.5-5.1) mmol/L Chloride 106 (98-107) mmol/L Carbon Dioxide 24 (22-30) mmol/L Anion Gap 14 mmol/L BUN 17 (9-20) mg/dL Creatinine 0.73 (0.66-1.25) mg/dL Est GFR (CKD-EPI)AfAm >90 (>60 ml/min/1.73 sqM) Est GFR (CKD-EPI)NonAf >90 (>60 ml/min/1.73 sqM) Glucose 96 (74-99) mg/dL Calcium 8.9 (8.4-10.2) mg/dL Total Bilirubin 0.4 (0.2-1.3) mg/dL AST 78 H (17-59) U/L ALT 59 H (4-49) U/L Alkaline Phosphatase 140 H (38-126) U/L Creatine Kinase 557 H (55-170) U/L Total Protein 7.9 (6.3-8.2) g/dL Albumin 4.6 (3.5-5.0) g/dL Urine Color Urine Appearance (Clear) Urine pH (5.0-8.0) Ur Specific [place] (1.001-1.035) Urine Protein (Negative) Urine Glucose (UA) (Negative) Urine Ketones (Negative) Urine Blood (Negative) Urine Nitrite (Negative) Urine Bilirubin (Negative) Urine Urobilinogen (<2.0) mg/dL Ur Leukocyte Esterase (Negative) Urine RBC (0-5) /hpf Urine WBC (0-5) /hpf Ur Squamous Epith Cells (0-4) /hpf Urine Mucus (None) /hpf Salicylates <1.0 mg/dL Urine Opiates Screen (NotDetected) Ur Oxycodone Screen (NotDetected) Urine Methadone Screen (NotDetected) Ur Propoxyphene Screen (NotDetected) Acetaminophen <10.0 ug/mL Ur Barbiturates Screen (NotDetected) U Tricyclic Antidepress (NotDetected) Ur Phencyclidine Scrn (NotDetected) Ur Amphetamines Screen (NotDetected) U Methamphetamines Scrn (NotDetected) U Benzodiazepines Scrn (NotDetected) Urine Cocaine Screen (NotDetected) U Marijuana (THC) Screen (NotDetected) Serum Alcohol 294 H* mg/dL 06/02/20 Range/Units 05:44 WBC (3.8-10.6) k/uL RBC (4.30-5.90) m/uL Hgb (13.0-17.5) gm/dL Hct (39.0-53.0) % MCV (80.0-100.0) fL MCH (25.0-35.0) pg MCHC (31.0-37.0) g/dL RDW (11.5-15.5) % Plt Count (150-450) k/uL MPV Neutrophils % % Lymphocytes % % Monocytes % % Eosinophils % % Basophils % % Neutrophils # (1.3-7.7) k/uL Lymphocytes # (1.0-4.8) k/uL Monocytes # (0-1.0) k/uL Eosinophils # (0-0.7) k/uL Basophils # (0-0.2) k/uL PT (9.0-12.0) sec INR (<1.2) Sodium (137-145) mmol/L Potassium (3.5-5.1) mmol/L Chloride (98-107) mmol/L Carbon Dioxide (22-30) mmol/L Anion Gap mmol/L BUN (9-20) mg/dL Creatinine (0.66-1.25) mg/dL Est GFR (CKD-EPI)AfAm (>60 ml/min/1.73 sqM) Est GFR (CKD-EPI)NonAf (>60 ml/min/1.73 sqM) Glucose (74-99) mg/dL Calcium (8.4-10.2) mg/dL Total Bilirubin (0.2-1.3) mg/dL AST (17-59) U/L ALT (4-49) U/L Alkaline Phosphatase (38-126) U/L Creatine Kinase (55-170) U/L Total Protein (6.3-8.2) g/dL Albumin (3.5-5.0) g/dL Urine Color Yellow Urine Appearance Clear (Clear) Urine pH 5.5 (5.0-8.0) Ur Specific [place] 1.020 (1.001-1.035) Urine Protein 1+ H (Negative) Urine Glucose (UA) Negative (Negative) Urine Ketones Negative (Negative) Urine Blood Trace H (Negative) Urine Nitrite Negative (Negative) Urine Bilirubin Negative (Negative) Urine Urobilinogen <2.0 (<2.0) mg/dL Ur Leukocyte Esterase Negative (Negative) Urine RBC 1 (0-5) /hpf Urine WBC 1 (0-5) /hpf Ur Squamous Epith Cells <1 (0-4) /hpf Urine Mucus Few H (None) /hpf Salicylates mg/dL Urine Opiates Screen Not Detected (NotDetected) Ur Oxycodone Screen Not Detected (NotDetected) Urine Methadone Screen Not Detected (NotDetected) Ur Propoxyphene Screen Not Detected (NotDetected) Acetaminophen ug/mL Ur Barbiturates Screen Not Detected (NotDetected) U Tricyclic Antidepress Not Detected (NotDetected) Ur Phencyclidine Scrn Not Detected (NotDetected) Ur Amphetamines Screen Not Detected (NotDetected) U Methamphetamines Scrn Not Detected (NotDetected) U Benzodiazepines Scrn Detected H (NotDetected) Urine Cocaine Screen Not Detected (NotDetected) U Marijuana (THC) Screen Detected H (NotDetected) Serum Alcohol mg/dL Disposition <Andrea Han - Last Filed: 06/02/20 01:43> Is patient prescribed a controlled substance at d/c from ED?: No Time of Disposition: 13:38 <Andrea Brown - Last Filed: 06/02/20 13:38> Clinical Impression: Alcohol intoxication, Situational depression Disposition: HOME SELF-CARE Instructions (If sedation given, give patient instructions): Depression (ED), Alcohol Intoxication (ED) Referrals: Deion Alvarez MD [Primary Care Provider] - 1-2 days
[2020-06-02 01:21] VITALS: TEMP 98
[2020-06-02 01:35] LABS: Basophils # (A) 0.1 k/uL (0-0.2); Basophils % (A) 1 %; Eosinophils # (A) 0.1 k/uL (0-0.7); Eosinophils % (A) 1 %; HCT 45.7 % (39.0-53.0); HGB 16.1 gm/dL (13.0-17.5); Lymphocytes # (A) 2.1 k/uL (1.0-4.8); Lymphocytes % (A) 38 %; MCH 33.2 pg (25.0-35.0); MCHC 35.1 g/dL (31.0-37.0); MCV 94.5 fL (80.0-100.0); Mean Platelet Volume 6.9; Monocytes # (A) 0.6 k/uL (0-1.0); Monocytes % (A) 11 %; Neutrophils # (A) 2.5 k/uL (1.3-7.7); Neutrophils % (A) 45 %; Platelet Count 116 k/uL (150-450); RBC 4.84 m/uL (4.30-5.90); RDW 12.9 % (11.5-15.5); WBC 5.5 k/uL (3.8-10.6)
[2020-06-02 01:40] LABS: INR 1.1 (<1.2); Prothrombin Time 11.4 sec (9.0-12.0)
[2020-06-02 02:47] LABS: ALT 59 U/L (4-49); AST 78 U/L (17-59); Acetaminophen <10.0 ug/mL; African American GFR (CKD) >90 (>60 ml/min/1.73 sqM); Albumin 4.6 g/dL (3.5-5.0); Alkaline Phosphatase 140 U/L (38-126); Anion Gap 14 mmol/L; Blood Urea Nitrogen 17 mg/dL (9-20); Calcium 8.9 mg/dL (8.4-10.2); Carbon Dioxide 24 mmol/L (22-30); Chloride 106 mmol/L (98-107); Creatine Kinase 557 U/L (55-170); Glucose 96 mg/dL (74-99); Non-African American GFR(CKD) >90 (>60 ml/min/1.73 sqM); Potassium 4.1 mmol/L (3.5-5.1); Salicylate <1.0 mg/dL; Sodium 144 mmol/L (137-145); Total Bilirubin 0.4 mg/dL (0.2-1.3); Total Protein 7.9 g/dL (6.3-8.2)
[2020-06-02 02:54] LABS: Alcohol 294 mg/dL
[2020-06-02 05:24] VITALS: BP 110/85; PULSE 90; RESP 14
[2020-06-02 06:40] LABS: Appearance,Urine Clear (Clear); Bilirubin,Urine Negative (Negative); Blood,Urine Trace (Negative); Color,Urine Yellow; Glucose,Urine (UA) Negative (Negative); Ketones,Urine Negative (Negative); Leukocyte Esterase,Urine Negative (Negative); Mucus,Urine Few /hpf; Nitrite,Urine Negative (Negative); PH, Urine 5.5 (5.0-8.0); Protein,Urine 1+ (Negative); RBC,Urine 1 /hpf (0-5); Squamous Epithelial Cell,Urine <1 /hpf (0-4); Urobilinogen,Urine <2.0 mg/dL (<2.0); WBC,Urine 1 /hpf (0-5)
[2020-06-02 06:42] LABS: Amphetamine Screen,Urine Not Detected (NotDetected); Barbiturate Screen,Urine Not Detected (NotDetected); Benzodiazepines Screen,Urine Detected (NotDetected); Cocaine Screen,Urine Not Detected (NotDetected); Methadone Screen, Urine Not Detected (NotDetected); Opiate Screen,Urine Not Detected (NotDetected); Oxycodone Screen, Urine Not Detected (NotDetected); Phencyclidine Screen,Urine Not Detected (NotDetected); Tricyclic Antidepressant,Urine Not Detected (NotDetected); Urn Cannabinoid Scrn Detected (NotDetected)
[2020-06-02] MEDS ORDERED: LORazepam 2 MG/ML INJ IV STA (06:42)
[2020-06-02] MEDS ORDERED: NICOTINE 21MG/24HR PATCH TRANSDERM STA (06:57)
[2020-06-02] MEDS ORDERED: LORazepam 2 MG/ML INJ IV PRN (09:06)
== END 2020-06-02 14:16 | disposition home or self-care (01) ==
LOC: EC 00:42
DX: T51.92XA Toxic effect of unspecified alcohol, intentional self-harm, initial encounter (principal); F43.21 Adjustment disorder with depressed mood; F41.9 Anxiety disorder, unspecified; F32.9 Major depressive disorder, single episode, unspecified; I10 Essential (primary) hypertension; Z86.73 Personal history of transient ischemic attack (TIA), and cerebral infarction without residual deficits; F17.200 Nicotine dependence, unspecified, uncomplicated
CPT/HCPCS: 82075; 36415; 93005; 80053; 82550; 85025; 85610; 81001; 80306; 80143; 80179; 99285; 96374; G0480; S4990; J2060; 80320

== ENCOUNTER 2020-06-03 18:08 | Observation (INO) | payer OTHER ==
[~2020-06-03 18:08] MED LIST changes: -ACETAMINOPHEN TAB 500 MG TAB PO STA; -DEXAMETHASONE SOD PHOSPHATE 10 MG/ML 1 ML VIAL IV ONE; -GABAPENTIN 300 MG CAP PO STA; -HEPARIN SODIUM,PORCINE 5,000 UNIT/ML 1 ML VIAL SQ ONE; -HYDROmorphone 0.5 MG/0.5 ML SYRINGE IVP PRN; -LACTATED RINGERS 1,000 ML IV SCH; -LIDOCAINE 1% 20 ML VIAL (10MG/ML) FOR IV START INTRADERMA PRN; -ONDANSETRON 4 MG/2 ML VIAL IVP ONE; -TAMSULOSIN 0.4 MG CAP.ER.24H PO STA; +THIAMINE 100 MG TAB PO SCH; -fentaNYL (PF) 50 MCG/ML 2 ML AMP IV PRN
--- NOTE | 2020-06-03 18:39 | ED ---
Alcohol HPI - General Chief Complaint: Alcohol Stated Complaint: ETOH Time Seen by Provider: 06/03/20 18:08 Source: patient, RN notes reviewed Mode of arrival: ambulatory Limitations: no limitations - History of Present Illness Initial Comments: This is a 49-year-old male with a history of alcohol abuse who is today brought in by EMS complaints of alcohol intoxication he states he drank almost a fifth of vodka today he was here yesterday apparently for the same thing. He is supposed to go to [place] in 2 days. He denies any fevers chills nausea vomiting sweats he has gone through DTs in the past he states he just feels weak. No trauma reported. MD Complaint: alcohol intoxication - Related Data Home Medications Medication Instructions Recorded Confirmed Levothyroxine Sodium [Synthroid] 75 mcg PO DAILY 11/25/16 06/02/20 Fluticasone Nasal [place] [Flonase 2 spray EA NOSTRIL DAILY PRN 08/15/18 06/02/20 Nasal [place]] Cyanocobalamin [Vitamin B-12 1,000 mcg SQ QMONTH 11/09/18 06/02/20 Injection] lisinopriL 20 mg PO BID 03/17/19 06/02/20 Albuterol Sulfate [Proair Hfa] 2 puff INHALATION RT-Q6H PRN 04/12/20 06/02/20 Aspirin EC [Ecotrin Low Dose] 81 mg PO DAILY 04/12/20 06/02/20 Atorvastatin [Lipitor] 80 mg PO HS 04/12/20 06/02/20 Clopidogrel [Plavix] 75 mg PO DAILY 04/12/20 06/02/20 Dorzolamide HCl/Pf [Dorzolamide 2% 1 drop BOTH EYES BID 04/12/20 06/02/20 Eye Drop] Loratadine [Claritin] 10 mg PO DAILY 04/12/20 06/02/20 Propranolol [Inderal] 40 mg PO DAILY 04/12/20 06/02/20 Atorvastatin [Lipitor] 20 mg PO HS 05/24/20 06/02/20 LORazepam [Ativan] See Taper PO DIRECTED 05/31/20 06/02/20 Previous Rx's Medication Instructions Recorded Famotidine [Pepcid] 20 mg PO Q12HR #60 tab 05/26/20 Naltrexone HCl [Revia] 50 mg PO DAILY #20 tab 05/26/20 Thiamine [Vitamin B-1] 100 mg PO BID-W/MEALS 30 Days #30 05/26/20 tab Allergies Allergy/AdvReac Type Severity Reaction Status Date / Time No Known Allergies Allergy Verified 06/03/20 18:17 Review of Systems ROS Statement: Those systems with pertinent positive or pertinent negative responses have been documented in the HPI. ROS Other: All systems not noted in ROS Statement are negative. Past Medical History Past Medical History: CVA/TIA, Hypertension, Pneumonia, Sleep Apnea/CPAP/BIPAP, Syncope, Thyroid Disorder Additional Past Medical History / Comment(s): VITAMIN B12 DEFICIENCY ANEMIA, rhabdomyolysis, hypothyroidism, diverticulosis History of Any Multi-Drug Resistant Organisms: None Reported Past Surgical History: Orthopedic Surgery Additional Past Surgical History / Comment(s): BILAT Shoulder Surgery; 3 surgery on left side; one surgery on right Past Anesthesia/Blood Transfusion Reactions: No Reported Reaction Past Psychological History: Anxiety, Depression Smoking Status: Current every day smoker, Vaper Past Alcohol Use History: Abuse, Daily, Heavy Past Drug Use History: Marijuana - Past Family History Mother Family Medical History: No Reported History Father Family Medical History: Cancer Additional Family Medical History / Comment(s): prostate, lymphoma General Exam - General Exam Comments Initial Comments: this is a well-developed well-nourished awake alert but lethargic male with the smell of alcohol conjoiners on his breath Limitations: no limitations General appearance: alert, lethargic Head exam: Present: atraumatic, normocephalic, normal inspection Eye exam: Present: normal appearance, PERRL, EOMI. Absent: scleral icterus, conjunctival injection, periorbital swelling ENT exam: Present: mucous membranes dry Neck exam: Present: normal inspection. Absent: tenderness, meningismus, lymphadenopathy Respiratory exam: Present: normal lung sounds bilaterally. Absent: respiratory distress, wheezes, rales, rhonchi, stridor Cardiovascular Exam: Present: normal rhythm, tachycardia, normal heart sounds. Absent: systolic murmur, diastolic murmur, rubs, gallop, clicks GI/Abdominal exam: Present: soft, normal bowel sounds. Absent: distended, tenderness, guarding, rebound, rigid Extremities exam: Present: normal inspection, full ROM, normal capillary refill. Absent: tenderness, pedal edema, joint swelling, calf tenderness Back exam: Present: normal inspection Neurological exam: Present: alert, oriented X3, CN II-XII intact Psychiatric exam: Present: normal mood, flat affect Skin exam: Present: warm, dry, intact, normal color. Absent: rash Course Vital Signs 06/03/20 18:11 Temperature 98.5 F Pulse Rate 104 H Respiratory 18 Rate Blood Pressure 145/109 O2 Sat by Pulse 95 Oximetry Medical Decision Making - Medical Decision Making Dictated demonstrate elevated alcohol level he has a history of going through withdrawals in the past who will be admitted I did discuss case with Dr. Torres. The CK was pending at that time. He does have alcohol intoxication as well as rhabdomyolysis dehydration. - Lab Data Result diagrams: 06/03/20 18:55 06/03/20 18:55 Lab Results 06/03/20 06/03/20 06/03/20 Range/Units 18:55 18:55 18:55 WBC 5.0 (3.8-10.6) k/uL RBC 4.70 (4.30-5.90) m/uL Hgb 15.8 (13.0-17.5) gm/dL Hct 45.0 (39.0-53.0) % MCV 95.7 (80.0-100.0) fL MCH 33.6 (25.0-35.0) pg MCHC 35.1 (31.0-37.0) g/dL RDW 13.1 (11.5-15.5) % Plt Count 134 L (150-450) k/uL MPV 7.0 Neutrophils % 46 % Lymphocytes % 41 % Monocytes % 7 % Eosinophils % 2 % Basophils % 1 % Neutrophils # 2.3 (1.3-7.7) k/uL Lymphocytes # 2.1 (1.0-4.8) k/uL Monocytes # 0.4 (0-1.0) k/uL Eosinophils # 0.1 (0-0.7) k/uL Basophils # 0.1 (0-0.2) k/uL Sodium 142 (137-145) mmol/L Potassium 4.4 (3.5-5.1) mmol/L Chloride 105 (98-107) mmol/L Carbon Dioxide 24 (22-30) mmol/L Anion Gap 13 mmol/L BUN 13 (9-20) mg/dL Creatinine 0.71 (0.66-1.25) mg/dL Est GFR (CKD-EPI)AfAm >90 (>60 ml/min/1.73 sqM) Est GFR (CKD-EPI)NonAf >90 (>60 ml/min/1.73 sqM) Glucose 92 (74-99) mg/dL Calcium 9.4 (8.4-10.2) mg/dL Magnesium 1.9 (1.6-2.3) mg/dL Total Bilirubin 0.8 (0.2-1.3) mg/dL AST 110 H (17-59) U/L ALT 62 H (4-49) U/L Alkaline Phosphatase 134 H (38-126) U/L Ammonia 17 (<30) umol/L Creatine Kinase 1119 H* (55-170) U/L Total Protein 8.0 (6.3-8.2) g/dL Albumin 4.7 (3.5-5.0) g/dL Lipase 372 H (23-300) U/L Serum Alcohol 285 H* mg/dL Disposition Clinical Impression: Alcohol intoxication, Alcohol withdrawal delirium, Rhabdomyolysis, Dehydration Disposition: ADMITTED IP TO THIS HOSP Condition: Fair Referrals: Deion Alvarez MD [Primary Care Provider] - 1-2 days
[2020-06-03] MEDS ORDERED: SODIUM CHLORIDE 0.9% 1,000 ML with MVI, ADULT NO.4 WITH VIT K 10 ML, THIAMINE 100 MG, F... IV ONE ×4 (19:00)
[2020-06-03 19:05] LABS: Basophils # (A) 0.1 k/uL (0-0.2); Basophils % (A) 1 %; Eosinophils # (A) 0.1 k/uL (0-0.7); Eosinophils % (A) 2 %; HGB 15.8 gm/dL (13.0-17.5); Lymphocytes # (A) 2.1 k/uL (1.0-4.8); Lymphocytes % (A) 41 %; MCH 33.6 pg (25.0-35.0); MCHC 35.1 g/dL (31.0-37.0); MCV 95.7 fL (80.0-100.0); Monocytes # (A) 0.4 k/uL (0-1.0); Monocytes % (A) 7 %; Neutrophils # (A) 2.3 k/uL (1.3-7.7); Neutrophils % (A) 46 %; Platelet Count 134 k/uL (150-450); RDW 13.1 % (11.5-15.5)
[2020-06-03 19:35] LABS: ALT 62 U/L (4-49); AST 110 U/L (17-59); African American GFR (CKD) >90 (>60 ml/min/1.73 sqM); Albumin 4.7 g/dL (3.5-5.0); Alkaline Phosphatase 134 U/L (38-126); Anion Gap 13 mmol/L; Blood Urea Nitrogen 13 mg/dL (9-20); Calcium 9.4 mg/dL (8.4-10.2); Carbon Dioxide 24 mmol/L (22-30); Chloride 105 mmol/L (98-107); Glucose 92 mg/dL (74-99); Lipase 372 U/L (23-300); Magnesium 1.9 mg/dL (1.6-2.3); Non-African American GFR(CKD) >90 (>60 ml/min/1.73 sqM); Potassium 4.4 mmol/L (3.5-5.1); Sodium 142 mmol/L (137-145); Total Bilirubin 0.8 mg/dL (0.2-1.3)
[2020-06-03] MEDS ORDERED: THIAMINE 100 MG/ML 2 ML VIAL IM STA (19:48)
[2020-06-03] MEDS ORDERED: LORazepam 2 MG/ML INJ IV PRN (19:48)
[2020-06-03 19:51] LABS: Creatine Kinase 1119 U/L (55-170)
[2020-06-03 19:52] LABS: Alcohol 285 mg/dL
[2020-06-03] MEDS ORDERED: SODIUM CHLORIDE 0.9% 1,000 ML IV STA (20:10)
[2020-06-03] MEDS ORDERED: NALOXONE 0.4 MG/ML 1 ML VIAL IV PRN (20:12)
[2020-06-03] MEDS: SODIUM CHLORIDE 0.9% 1,000 ML IV SCH (20:39)
[2020-06-03] MEDS: ATORVASTATIN 80 MG TAB PO SCH (21:09)
[2020-06-03] MEDS: lisinopriL 20 MG TAB PO SCH (21:09)
[2020-06-03] MEDS: FAMOTIDINE 20 MG TAB PO SCH (21:09)
[2020-06-03] MEDS: DORZOLAMIDE HCL 2% DROPS 10 ML BTL BOTH EYES SCH (23:31)
[2020-06-04] MEDS: LORazepam 2 MG/ML INJ IV PRN ×5 (00:38→21:14)
[2020-06-04] MEDS: LEVOTHYROXINE 75 MCG TAB PO SCH (05:50)
[2020-06-04] MEDS: SODIUM CHLORIDE 0.9% 1,000 ML IV SCH ×2 (08:11→13:05)
[2020-06-04] MEDS: lisinopriL 20 MG TAB PO SCH ×2 (08:25→21:14)
[2020-06-04] MEDS: LORATADINE 10 MG TAB PO SCH (08:26)
[2020-06-04] MEDS: ASPIRIN 81 MG PO SCH (08:26)
[2020-06-04] MEDS: FAMOTIDINE 20 MG TAB PO SCH ×2 (08:26→21:14)
[2020-06-04] MEDS: THIAMINE 100 MG TAB PO SCH ×2 (08:26→17:22)
[2020-06-04] MEDS: CLOPIDOGREL 75 MG TAB PO SCH (08:26)
[2020-06-04] MEDS: PROPRANOLOL 40 MG TAB PO SCH (08:27)
[2020-06-04] MEDS: NALTREXONE HCL 50 MG TAB PO SCH (08:27)
[2020-06-04] MEDS: DORZOLAMIDE HCL 2% DROPS 10 ML BTL BOTH EYES SCH ×2 (08:27→21:14)
[2020-06-04] MEDS ORDERED: FLUTICASONE 50MCG/SPRAY NASAL 16GM EA NOSTRIL PRN (09:00)
[2020-06-04 11:02] LABS: Basophils % (A) 0 %; Eosinophils # (A) 0.2 k/uL (0-0.7); Eosinophils % (A) 3 %; HGB 13.5 gm/dL (13.0-17.5); Lymphocytes # (A) 1.1 k/uL (1.0-4.8); Lymphocytes % (A) 26 %; MCH 32.7 pg (25.0-35.0); MCHC 33.8 g/dL (31.0-37.0); MCV 96.8 fL (80.0-100.0); Mean Platelet Volume 7.3; Monocytes # (A) 0.3 k/uL (0-1.0); Monocytes % (A) 6 %; Neutrophils # (A) 2.8 k/uL (1.3-7.7); Neutrophils % (A) 64 %; Platelet Count 110 k/uL (150-450); RBC 4.13 m/uL (4.30-5.90); RDW 13.6 % (11.5-15.5); WBC 4.4 k/uL (3.8-10.6)
[2020-06-04 11:12] LABS: African American GFR (CKD) >90 (>60 ml/min/1.73 sqM); Alcohol <10 mg/dL; Anion Gap 6 mmol/L; Blood Urea Nitrogen 16 mg/dL (9-20); Calcium 8.5 mg/dL (8.4-10.2); Carbon Dioxide 25 mmol/L (22-30); Chloride 108 mmol/L (98-107); Creatine Kinase 562 U/L (55-170); Glucose 88 mg/dL (74-99); Lipase 357 U/L (23-300); Non-African American GFR(CKD) >90 (>60 ml/min/1.73 sqM); Potassium 4.2 mmol/L (3.5-5.1); Sodium 139 mmol/L (137-145)
[2020-06-04] MEDS: NICOTINE 14MG/24HR PATCH TRANSDERM SCH (14:11)
--- NOTE | 2020-06-04 18:47 | P.HPIM ---
History of Present Illness H&P Date: 06/04/20 Chief Complaint: Alcohol intoxication This is a 49-year-old male with a history of alcohol abuse who is today brought in by EMS complaints of alcohol intoxication he states he drank almost a fifth of vodka today he was here yesterday apparently for the same thing. He is sup posed to go to [place] in 2 days. He denies any fevers chills nausea vomiting sweats he has gone through DTs in the past he states he just feels weak. No trauma reported. Workup in ED revealed CBC white blood count of 5.0, hemoglobin 15.8 and platelet count of 134, sodium 142, potassium 4.4, BUN/creatinine of 13/0.71 and CK of 1119 Review of Systems REVIEW OF SYSTEMS: CONSTITUTIONAL: No fever, no malaise, no fatigue. HEENT: No recent visual problems or hearing problems. Denied any sore throat. CARDIOVASCULAR: No chest pain, orthopnea, PND, no palpitations, no syncope. PULMONARY: No shortness of breath, no cough, no hemoptysis. GASTROINTESTINAL: No diarrhea, no nausea, no vomiting, no abdominal pain. NEUROLOGICAL: No headaches, no weakness, no numbness. HEMATOLOGICAL: Denies any bleeding or petechiae. GENITOURINARY: Denies any burning micturition, frequency, or urgency. MUSCULOSKELETAL/RHEUMATOLOGICAL: Denies any joint pain, swelling, or any muscle pain. ENDOCRINE: Denies any polyuria or polydipsia. The rest of the 14-point review of systems is negative. Past Medical History Past Medical History: CVA/TIA, Hypertension, Pneumonia, Sleep Apnea/CPAP/BIPAP, Syncope, Thyroid Disorder Additional Past Medical History / Comment(s): VITAMIN B12 DEFICIENCY ANEMIA, rhabdomyolysis, hypothyroidism, diverticulosis History of Any Multi-Drug Resistant Organisms: None Reported Past Surgical History: Orthopedic Surgery Additional Past Surgical History / Comment(s): BILAT Shoulder Surgery; 3 surgery on left side; one surgery on right Past Anesthesia/Blood Transfusion Reactions: No Reported Reaction Smoking Status: Current every day smoker - Past Family History Mother Family Medical History: No Reported History Father Family Medical History: Cancer Additional Family Medical History / Comment(s): prostate, lymphoma Medications and Allergies Home Medications Medication Instructions Recorded Confirmed Type Levothyroxine Sodium [Synthroid] 75 mcg PO DAILY 11/25/16 06/03/20 History Fluticasone Nasal [place] [Flonase 2 spray EA NOSTRIL DAILY PRN 08/15/18 06/03/20 History Nasal [place]] Cyanocobalamin [Vitamin B-12 1,000 mcg SQ QMONTH 11/09/18 06/03/20 History Injection] lisinopriL 20 mg PO BID 03/17/19 06/03/20 History Albuterol Sulfate [Proair Hfa] 2 puff INHALATION RT-Q6H PRN 04/12/20 06/03/20 History Aspirin EC [Ecotrin Low Dose] 81 mg PO DAILY 04/12/20 06/03/20 History Atorvastatin [Lipitor] 80 mg PO HS 04/12/20 06/03/20 History Clopidogrel [Plavix] 75 mg PO DAILY 04/12/20 06/03/20 History Dorzolamide HCl/Pf [Dorzolamide 2% 1 drop BOTH EYES BID 04/12/20 06/03/20 History Eye Drop] Loratadine [Claritin] 10 mg PO DAILY 04/12/20 06/03/20 History Propranolol [Inderal] 40 mg PO DAILY 04/12/20 06/03/20 History Atorvastatin [Lipitor] 20 mg PO HS 05/24/20 06/03/20 History Famotidine [Pepcid] 20 mg PO Q12HR #60 tab 05/26/20 06/03/20 Rx Naltrexone HCl [Revia] 50 mg PO DAILY #20 tab 05/26/20 06/03/20 Rx Thiamine [Vitamin B-1] 100 mg PO BID-W/MEALS 30 Days #30 05/26/20 06/03/20 Rx tab LORazepam [Ativan] See Taper PO DIRECTED 05/31/20 06/03/20 History Allergies Allergy/AdvReac Type Severity Reaction Status Date / Time No Known Allergies Allergy Verified 06/03/20 18:17 Physical Exam Vitals: Vital Signs Temp Pulse Pulse Resp BP BP Pulse Ox 06/04/20 08:00 91 06/04/20 02:00 98.3 F 110 H 18 119/69 94 L 06/03/20 22:46 98.2 F 104 H 18 121/75 98 06/03/20 21:46 98.3 F 97 18 103/64 99 06/03/20 20:49 98.3 F 96 18 136/99 99 06/03/20 18:11 98.5 F 104 H 18 145/109 95 Intake and Output 06/03/20 06/04/20 06/04/20 22:59 06:59 14:59 Intake Total 500 Balance 500 Intake: Oral 500 Other: Voiding Method Toilet Urinal # Voids 1 Weight 86.183 kg 86.183 kg General appearance: alert, lethargic Head exam: Present: atraumatic, normocephalic, normal inspection Eye exam: Present: normal appearance, PERRL, EOMI. Absent: scleral icterus, conjunctival injection, periorbital swelling ENT exam: Present: mucous membranes dry Neck exam: Present: normal inspection. Absent: tenderness, meningismus, lymphadenopathy Respiratory exam: Present: normal lung sounds bilaterally. Absent: respiratory distress, wheezes, rales, rhonchi, stridor Cardiovascular Exam: Present: normal rhythm, tachycardia, normal heart sounds. Absent: systolic murmur, diastolic murmur, rubs, gallop, clicks GI/Abdominal exam: Present: soft, normal bowel sounds. Absent: distended, tenderness, guarding, rebound, rigid Extremities exam: Present: normal inspection, full ROM, normal capillary refill. Absent: tenderness, pedal edema, joint swelling, calf tenderness Back exam: Present: normal inspection Neurological exam: Present: alert, oriented X3, CN II-XII intact Psychiatric exam: Present: normal mood, flat affect Skin exam: Present: warm, dry, intact, normal color. Absent: rash Results CBC & Chem 7: 06/04/20 10:11 06/04/20 10:11 Labs: Abnormal Lab Results - Last 24 Hours (Table) 06/03/20 06/03/20 Range/Units 18:55 18:55 Plt Count 134 L (150-450) k/uL AST 110 H (17-59) U/L ALT 62 H (4-49) U/L Alkaline Phosphatase 134 H (38-126) U/L Creatine Kinase 1119 H* (55-170) U/L Lipase 372 H (23-300) U/L Serum Alcohol 285 H* mg/dL Thrombosis Risk Factor Assmnt - Choose All That Apply Each Factor Represents 1 point: Age 41-60 years, Obesity (BMI >25) Thrombosis Risk Factor Assessment Total Risk Factor Score: 2 Thrombosis Risk Factor Assessment Level: Low Risk Assessment and Plan Assessment: 1. EtOH intoxication and withdrawal - Admit to cardiac monitoring; IV fluids in form of banana bag; CIWA protocol with Ativan; recommend Neurontin and Librium is not stable with CIWA protocol 2. Rhabdomyolysis; IV fluid hydration form of normal saline; monitor renal function at lites closely; monitor CPK 3. Accelerated hypertension; resume home dose of lisinopril 20 mg twice a day and Inderal 40 mg daily; monitor blood pressure closely for need for further adjustment 4. Transaminitis; possibly related to chronic alcohol abuse 5. Hypothyroidism; levothyroxin 75 MCG daily 6. CAD; stable on aspirin, statins and Plavix 75 mg daily 7. Hyperlipidemia; Lipitor 20 mg by mouth daily at bedtime DVT prophylaxis; SCDs CODE STATUS; full code
[2020-06-04] MEDS: ATORVASTATIN 80 MG TAB PO SCH (21:14)
[2020-06-05] MEDS: SODIUM CHLORIDE 0.9% 1,000 ML IV SCH ×5 (01:54→20:30)
[2020-06-05] MEDS: LEVOTHYROXINE 75 MCG TAB PO SCH (05:49)
[2020-06-05] MEDS: lisinopriL 20 MG TAB PO SCH ×2 (09:10→20:26)
[2020-06-05] MEDS: LORATADINE 10 MG TAB PO SCH (09:10)
[2020-06-05] MEDS: PROPRANOLOL 40 MG TAB PO SCH (09:10)
[2020-06-05] MEDS: FAMOTIDINE 20 MG TAB PO SCH ×2 (09:10→20:26)
[2020-06-05] MEDS: ASPIRIN 81 MG PO SCH (09:10)
[2020-06-05] MEDS: DORZOLAMIDE HCL 2% DROPS 10 ML BTL BOTH EYES SCH ×2 (09:10→20:26)
[2020-06-05] MEDS: THIAMINE 100 MG TAB PO SCH ×2 (09:10→17:24)
[2020-06-05] MEDS: CLOPIDOGREL 75 MG TAB PO SCH (09:10)
[2020-06-05] MEDS: NICOTINE 14MG/24HR PATCH TRANSDERM SCH (09:11)
[2020-06-05] MEDS: NALTREXONE HCL 50 MG TAB PO SCH (09:11)
[2020-06-05 09:34] LABS: Basophils # (A) 0.01 X 10*3/uL (0.00-0.10); Basophils % (A) 0.3 %; Eosinophils # (A) 0.19 X 10*3/uL (0.04-0.35); Eosinophils % (A) 4.8 %; HCT 37.8 % (39.6-50.0); HGB 12.8 g/dL (13.0-17.0); Lymphocytes # (A) 1.42 X 10*3/uL (0.90-5.00); MCH 32.4 pg (27.0-32.0); MCHC 33.9 g/dL (32.0-37.0); MCV 95.7 fL (80.0-97.0); Mean Platelet Volume 10.3 fL (9.5-12.2); Monocytes # (A) 0.35 X 10*3/uL (0.20-1.00); Monocytes % (A) 8.9 %; Neutrophils # (A) 1.97 X 10*3/uL (1.80-7.70); Platelet Count 95 X 10*3/uL (140-440); RBC 3.95 X 10*6/uL (4.40-5.60); RDW 12.5 % (11.5-14.5); WBC 3.94 X 10*3/uL (4.50-10.00)
[2020-06-05 11:50] LABS: African American GFR (CKD) 123.3 (60.0-200.0); Anion Gap 5.4 mmol/L (4.00-12.00); BUN/Creat Ratio 16.25 Ratio (12.00-20.00); Calcium 8.4 mg/dL (8.7-10.3); Carbon Dioxide 25.6 mmol/L (21.6-31.8); Non-African American GFR(CKD) 106.4 (60.0-200.0); Potassium 3.8 mmol/L (3.5-5.5)
[2020-06-05] MEDS: amLODIPine 10 MG TAB PO SCH (12:55)
[2020-06-05] MEDS: LORazepam 2 MG/ML INJ IV PRN ×2 (16:24→21:02)
[2020-06-05] MEDS ORDERED: ALBUTEROL HFA INHALER INHALATION PRN (16:44)
[2020-06-05] MEDS ORDERED: Magnesium Replacement Protocol 1 EACH MISC MISCELLANE PRN (16:44)
[2020-06-05] MEDS ORDERED: Potassium Replacement Protocol 1 EACH MISC MISCELLANE PRN (16:44)
[2020-06-05] MEDS ORDERED: cloNIDine HCL 0.1 MG TAB PO PRN (16:45)
[2020-06-05] MEDS: cloNIDine HCL 0.1 MG TAB PO SCH ×2 (17:31→22:16)
--- NOTE | 2020-06-05 18:07 | PN ---
PROGRESS NOTE I am covering for Dr. Deion Alvarez. DATE OF SERVICE: 06/05/2020 This 49-year-old gentleman who was admitted with EtOH intoxication withdrawal is being closely monitored. Patient has features of acute delirium tremens. Patient is mildly confused. The patient's platelets are 95, and the patient's alcohol is less than 10 at this time. Past medical history reviewed. REVIEW OF SYSTEMS: CARDIOVASCULAR SYSTEM: No angina, palpitations. RESPIRATORY SYSTEM: As mentioned earlier. GI: As mentioned earlier. : No dysuria or retention. NERVOUS SYSTEM: No numbness, weakness. PHYSICAL EXAMINATION: Patient is alert and oriented x1. Pulse 75, blood pressure 196/114, respiration 19, temperature 96.7, pulse ox 97% on room air. HEENT: Conjunctivae normal. NECK: No jugular venous distention. CARDIOVASCULAR SYSTEM: S1, S2 muffled. RESPIRATORY SYSTEM: Breath sounds diminished at the bases. A few scattered rhonchi and crackles. ABDOMEN: Soft, non-tender. LEGS: No edema. No swelling. NERVOUS SYSTEM: Diffuse tremors. LABS: WBC 3.2, hemoglobin 12.8. CURRENT MEDICATIONS: Reviewed. They include aspirin, Norvasc, Plavix, vitamin B12, Synthroid, Zestril. Doses are reviewed. ASSESSMENT: 1. Acute alcohol withdrawal syndrome and acute delirium tremens. 2. Change in mental status, acute metabolic encephalopathy secondary to delirium tremens. 3. Hypertensive urgency. 4. Acute rhabdomyolysis. 5. Transaminitis. 6. Hypothyroidism. 7. History of coronary artery disease. 8. Hyperlipidemia. 9. Leukopenia. 10.Anemia. 11.Thrombocytopenia. 12.Elevated AST, ALT. 13.Elevated creatine kinase. 14.Elevated lipase with possible mild pancreatitis. 15.History of hypertension. 16.History of cerebrovascular accident. 17.History of sleep apnea. 18.History of vitamin B12 deficiency. 19.History of anxiety, depression. 20.History of nicotine dependence. 21.FULL CODE. RECOMMENDATIONS AND DISCUSSION: In this 49-year-old gentleman who presented with multiple complex medical problems, we will monitor the patient closely, continue the current medications, continue symptomatic treatment. Will initiate clonidine and use p.r.n. as well. Otherwise, continue the rest of the medications. Supplement vitamins. DVT prophylaxis. Otherwise, I would also recommend continuing with CIWA protocol with Ativan for alcohol withdrawal symptoms. Otherwise, I would cut down the IV fluids. Repeat labs. Dr. Alvarez will follow. Further recommendations to follow. MMODL / IJN: [id number] /
[2020-06-05] MEDS: ATORVASTATIN 80 MG TAB PO SCH (20:26)
[2020-06-05] MEDS: HEPARIN SODIUM,PORCINE/PF 5,000 UNIT/0.5 ML SYRINGE SQ SCH (20:27)
[2020-06-05 23:47] LABS: Appearance,Urine Clear (Clear); Bilirubin,Urine Negative (Negative); Blood,Urine Negative (Negative); Color,Urine Light Yellow; Glucose,Urine (UA) Negative (Negative); Ketones,Urine Negative (Negative); Leukocyte Esterase,Urine Negative (Negative); Nitrite,Urine Negative (Negative); Protein,Urine Negative (Negative); Specific Gravity,Urine 1.002 (1.001-1.035); Urobilinogen,Urine <2.0 mg/dL (<2.0)
[2020-06-06] MEDS: LORazepam 2 MG/ML INJ IV PRN ×2 (01:37→07:38)
[2020-06-06 04:42] VITALS: BP 133/87; RESP 14; TEMP 97.6
[2020-06-06] MEDS: LEVOTHYROXINE 75 MCG TAB PO SCH (05:21)
[2020-06-06] MEDS: amLODIPine 10 MG TAB PO SCH (07:30)
[2020-06-06] MEDS: THIAMINE 100 MG TAB PO SCH (07:30)
[2020-06-06] MEDS: CLOPIDOGREL 75 MG TAB PO SCH (07:30)
[2020-06-06] MEDS: LORATADINE 10 MG TAB PO SCH (07:31)
[2020-06-06] MEDS: HEPARIN SODIUM,PORCINE/PF 5,000 UNIT/0.5 ML SYRINGE SQ SCH (07:31)
[2020-06-06] MEDS: ASPIRIN 81 MG PO SCH (07:31)
[2020-06-06] MEDS: FAMOTIDINE 20 MG TAB PO SCH (07:31)
[2020-06-06] MEDS: lisinopriL 20 MG TAB PO SCH (07:31)
[2020-06-06] MEDS: PROPRANOLOL 40 MG TAB PO SCH (07:32)
[2020-06-06] MEDS: NALTREXONE HCL 50 MG TAB PO SCH (07:32)
[2020-06-06] MEDS: NICOTINE 14MG/24HR PATCH TRANSDERM SCH (07:33)
[2020-06-06] MEDS: DORZOLAMIDE HCL 2% DROPS 10 ML BTL BOTH EYES SCH (07:45)
[2020-06-06] MEDS: cloNIDine HCL 0.1 MG TAB PO SCH (08:03)
[2020-06-06 08:58] VITALS: PULSE 80
[2020-06-06] MEDS ORDERED: CYANOCOBALAMIN 1,000 MCG/ML 1 ML VIAL SQ SCH (09:00)
[2020-06-06 09:58] LABS: Basophils # (A) 0.02 X 10*3/uL (0.00-0.10); Basophils % (A) 0.5 %; Eosinophils % (A) 4.8 %; HCT 38.5 % (39.6-50.0); HGB 13.2 g/dL (13.0-17.0); Lymphocytes # (A) 1.32 X 10*3/uL (0.90-5.00); Lymphocytes % (A) 31.7 %; MCH 32.5 pg (27.0-32.0); MCHC 34.3 g/dL (32.0-37.0); MCV 94.8 fL (80.0-97.0); Mean Platelet Volume 10.9 fL (9.5-12.2); Monocytes # (A) 0.39 X 10*3/uL (0.20-1.00); Monocytes % (A) 9.4 %; Neutrophils # (A) 2.22 X 10*3/uL (1.80-7.70); Neutrophils % (A) 53.4 %; Platelet Count 91 X 10*3/uL (140-440); RBC 4.06 X 10*6/uL (4.40-5.60); RDW 12.5 % (11.5-14.5); WBC 4.16 X 10*3/uL (4.50-10.00)
[2020-06-06 11:01] LABS: African American GFR (CKD) 130.2 (60.0-200.0); Albumin 3.8 g/dL (3.80-4.90); Albumin/Globulin Ratio 1.73 (1.60-3.17); Anion Gap 9.1 mmol/L (4.00-12.00); BUN/Creat Ratio 12.86 Ratio (12.00-20.00); Calcium 8.8 mg/dL (8.7-10.3); Carbon Dioxide 26.9 mmol/L (21.6-31.8); Globulin 2.2 g/dL (1.6-3.3); Magnesium 1.1 mg/dL (1.5-2.4); Non-African American GFR(CKD) 112.4 (60.0-200.0); Potassium 3.5 mmol/L (3.5-5.5); Total Bilirubin 0.9 mg/dL (0.2-1.2)
[2020-06-06] MEDS ORDERED: MULTIVITAMINS, THERA 1 EACH TAB PO SCH (12:00)
[2020-06-06] MEDS ORDERED: FOLIC ACID 1 MG TAB PO SCH (12:00)
--- NOTE | 2020-06-06 17:55 | P.DS ---
Providers Date of admission: 06/03/20 20:12 Expected date of discharge: 06/06/20 Attending physician: Deion Alvarez Primary care physician: Deion Alvarez - Discharge Diagnosis(es) (1) Alcohol withdrawal Status: Acute Hospital Course: This 29-year-old male presented to the emergency department after reports of drinking about a fifth of vodka, he had several prior visits to the emergency room in the last few days he was admitted for withdrawal symptoms, rhabdomyolysis requiring IV fluid, and accelerated hypertension. He is monitored closely using CIWA protocol and IV fluids until he was able to be discharged to [place] for alcohol rehabilitation Assessment: Acute alcohol withdrawal syndrome and acute delirium tremens Acute metabolic encephalopathy secondary to delirium tremens Hypertensive urgency Acute rhabdomyolysis Transaminitis Hypothyroidism Leukopenia Anemia Thrombocythemia Elevated AST, ALT Elevated creatinine kinase Elevated lipase with possible mild pancreatitis History of hypertension History of cerebrovascular accident History of sleep apnea History of vitamin B12 deficiency History of anxiety and depression History of nicotine dependence Health Concerns: Alcoholism which inhibits his ability to be compliant with medications and treatment Plan - Discharge Summary New Discharge Prescriptions: New Multivitamins, Thera [Multivitamin (formulary)] 1 each PO DAILY@1200 #10 tab amLODIPine [Norvasc] 10 mg PO DAILY #10 tab cloNIDine HCL [Catapres] 0.1 mg PO TID #10 tab Folic Acid 1 mg PO DAILY@1200 #10 tab Nicotine 14Mg/24Hr Patch [Habitrol] 1 patch TRANSDERM DAILY #4 patch Continue Levothyroxine Sodium [Synthroid] 75 mcg PO DAILY Fluticasone Nasal [place] [Flonase Nasal [place]] 2 spray EA NOSTRIL DAILY PRN PRN Reason: Allergy Symptoms Cyanocobalamin [Vitamin B-12 Injection] 1,000 mcg SQ QMONTH lisinopriL 20 mg PO BID Propranolol [Inderal] 40 mg PO DAILY Albuterol Sulfate [Proair Hfa] 2 puff INHALATION RT-Q6H PRN PRN Reason: Shortness Of Breath Loratadine [Claritin] 10 mg PO DAILY Dorzolamide HCl/Pf [Dorzolamide 2% Eye Drop] 1 drop BOTH EYES BID Clopidogrel [Plavix] 75 mg PO DAILY Atorvastatin [Lipitor] 80 mg PO HS Aspirin EC [Ecotrin Low Dose] 81 mg PO DAILY Famotidine [Pepcid] 20 mg PO Q12HR #60 tab Naltrexone HCl [Revia] 50 mg PO DAILY #20 tab Atorvastatin [Lipitor] 20 mg PO HS Thiamine [Vitamin B-1] 100 mg PO BID-W/MEALS 30 Days #30 tab Discontinued LORazepam [Ativan] See Taper PO DIRECTED Discharge Medication List Levothyroxine Sodium [Synthroid] 75 mcg PO DAILY 11/25/16 [History] Fluticasone Nasal [place] [Flonase Nasal [place]] 2 spray EA NOSTRIL DAILY PRN 08/15/18 [History] Cyanocobalamin [Vitamin B-12 Injection] 1,000 mcg SQ QMONTH 11/09/18 [History] lisinopriL 20 mg PO BID 03/17/19 [History] Albuterol Sulfate [Proair Hfa] 2 puff INHALATION RT-Q6H PRN 04/12/20 [History] Aspirin EC [Ecotrin Low Dose] 81 mg PO DAILY 04/12/20 [History] Atorvastatin [Lipitor] 80 mg PO HS 04/12/20 [History] Clopidogrel [Plavix] 75 mg PO DAILY 04/12/20 [History] Dorzolamide HCl/Pf [Dorzolamide 2% Eye Drop] 1 drop BOTH EYES BID 04/12/20 [History] Loratadine [Claritin] 10 mg PO DAILY 04/12/20 [History] Propranolol [Inderal] 40 mg PO DAILY 04/12/20 [History] Atorvastatin [Lipitor] 20 mg PO HS 05/24/20 [History] Famotidine [Pepcid] 20 mg PO Q12HR #60 tab 05/26/20 [Rx] Naltrexone HCl [Revia] 50 mg PO DAILY #20 tab 05/26/20 [Rx] Thiamine [Vitamin B-1] 100 mg PO BID-W/MEALS 30 Days #30 tab 05/26/20 [Rx] Folic Acid 1 mg PO DAILY@1200 #10 tab 06/06/20 [Rx] Multivitamins, Thera [Multivitamin (formulary)] 1 each PO DAILY@1200 #10 tab 06/06/20 [Rx] Nicotine 14Mg/24Hr Patch [Habitrol] 1 patch TRANSDERM DAILY #4 patch 06/06/20 [Rx] amLODIPine [Norvasc] 10 mg PO DAILY #10 tab 06/06/20 [Rx] cloNIDine HCL [Catapres] 0.1 mg PO TID #10 tab 04/06/21 [Rx] Follow up Appointment(s)/Referral(s): Deion Alvarez MD [Primary Care Provider] - 1-2 days Patient Instructions/Handouts: Clonidine (By mouth), Lorazepam (By mouth), Folic Acid (By mouth), Multivitamins, Adult Formula (By mouth), Nicotine (Absorbed through the skin), Amlodipine (By mouth), Alcohol Intoxication (DC), Alcohol Withdrawal (DC) Discharge Disposition: OTHER INSTITUTION NOT DEFINED
== END 2020-06-06 12:57 | disposition other institution (70) ==
LOC: EC 18:08 → 5NMEDONC 20:12
PROVIDERS: ADMIT Family Medicine; ATTEND Family Medicine
DX: F10.231 Alcohol dependence with withdrawal delirium (principal); F10.229 Alcohol dependence with intoxication, unspecified; I16.0 Hypertensive urgency; G93.41 Metabolic encephalopathy; E86.0 Dehydration; M62.82 Rhabdomyolysis; I10 Essential (primary) hypertension; G47.30 Sleep apnea, unspecified; E03.9 Hypothyroidism, unspecified; I25.10 Atherosclerotic heart disease of native coronary artery without angina pectoris; D51.9 Vitamin B12 deficiency anemia, unspecified; K57.90 Diverticulosis of intestine, part unspecified, without perforation or abscess without bleeding; F32.9 Major depressive disorder, single episode, unspecified; F41.9 Anxiety disorder, unspecified; F17.290 Nicotine dependence, other tobacco product, uncomplicated; R74.01 Elevation of levels of liver transaminase levels; E78.5 Hyperlipidemia, unspecified; D72.819 Decreased white blood cell count, unspecified; D69.6 Thrombocytopenia, unspecified; R74.8 Abnormal levels of other serum enzymes; Z99.89 Dependence on other enabling machines and devices; R94.4 Abnormal results of kidney function studies; E66.9 Obesity, unspecified; Z68.27 Body mass index [BMI] 27.0-27.9, adult; Z79.890 Hormone replacement therapy; Z79.82 Long term (current) use of aspirin; Z79.02 Long term (current) use of antithrombotics/antiplatelets; Z79.899 Other long term (current) drug therapy; Z87.01 Personal history of pneumonia (recurrent); Z86.73 Personal history of transient ischemic attack (TIA), and cerebral infarction without residual deficits; Z98.890 Other specified postprocedural states; Z80.7 Family history of other malignant neoplasms of lymphoid, hematopoietic and related tissues; Z80.42 Family history of malignant neoplasm of prostate
CPT/HCPCS: 96376 ×3; 96361; 96366 ×3; 96372 ×3; 96375; 96365; 99285; 36415; 94640; 80053 ×2; 80048 ×2; 82140; 82550 ×2; 83690 ×2; 83735 ×2; 85025 ×4; 81003; 87635; G0378 ×4; G0480 ×2; S4990 ×3; J2060 ×3; J3420; J3411; J1644 ×2; 80320

== ENCOUNTER 2020-08-13 13:15 | Emergency (ER) | payer OTHER ==
[2020-08-13 13:37] VITALS: RESP 18; TEMP 98
[2020-08-13] MEDS ORDERED: ONDANSETRON 4 MG/2 ML VIAL IVP STA (13:52)
--- NOTE | 2020-08-13 13:55 | ED ---
General Adult HPI - General Chief complaint: Chest Pain Stated complaint: Hiccups,sent from dr Time Seen by Provider: 08/13/20 13:35 Source: patient, RN notes reviewed, old records reviewed Mode of arrival: ambulatory Limitations: no limitations - History of Present Illness Initial comments: This is a 50-year-old male with past medical history significant for stroke with some left-sided deficit. Patient also states he has got high blood pressure. Patient states she has history of eating hiccups for 3-4 days at a time. Patient states he started about 3 days ago with hiccups and then he states he hiccups hard and he occasionally will vomit because of the hiccuping. Patient also states his chest is getting sore because of all ankle pain and he called his primary medical care doctor so he wanted to come in to be evaluated. Patient denies any fever chills or cough. Patient states taking a deep breath or coughing does increase his chest discomfort. Patient denies any abdominal pain. Patient denies any diarrhea. Patient denies any swelling to the legs or calf tenderness. Patient denies any trauma. - Related Data Home Medications Medication Instructions Recorded Confirmed Levothyroxine Sodium [Synthroid] 75 mcg PO DAILY 11/25/16 06/03/20 Fluticasone Nasal [place] [Flonase 2 spray EA NOSTRIL DAILY PRN 08/15/18 06/03/20 Nasal [place]] Cyanocobalamin [Vitamin B-12 1,000 mcg SQ QMONTH 11/09/18 06/03/20 Injection] lisinopriL 20 mg PO BID 03/17/19 06/03/20 Albuterol Sulfate [Proair Hfa] 2 puff INHALATION RT-Q6H PRN 04/12/20 06/03/20 Aspirin EC [Ecotrin Low Dose] 81 mg PO DAILY 04/12/20 06/03/20 Atorvastatin [Lipitor] 80 mg PO HS 04/12/20 06/03/20 Clopidogrel [Plavix] 75 mg PO DAILY 04/12/20 06/03/20 Dorzolamide HCl/Pf [Dorzolamide 2% 1 drop BOTH EYES BID 04/12/20 06/03/20 Eye Drop] Loratadine [Claritin] 10 mg PO DAILY 04/12/20 06/03/20 Propranolol [Inderal] 40 mg PO DAILY 04/12/20 06/03/20 Atorvastatin [Lipitor] 20 mg PO HS 05/24/20 06/03/20 Previous Rx's Medication Instructions Recorded Famotidine [Pepcid] 20 mg PO Q12HR #60 tab 05/26/20 Naltrexone HCl [Revia] 50 mg PO DAILY #20 tab 05/26/20 Thiamine [Vitamin B-1] 100 mg PO BID-W/MEALS 30 Days #30 05/26/20 tab Folic Acid 1 mg PO DAILY@1200 #10 tab 06/06/20 Multivitamins, Thera [Multivitamin 1 each PO DAILY@1200 #10 tab 06/06/20 (formulary)] Nicotine 14Mg/24Hr Patch [Habitrol] 1 patch TRANSDERM DAILY #4 patch 06/06/20 amLODIPine [Norvasc] 10 mg PO DAILY #10 tab 06/06/20 cloNIDine HCL [Catapres] 0.1 mg PO TID #10 tab 06/06/20 Allergies Allergy/AdvReac Type Severity Reaction Status Date / Time No Known Allergies Allergy Verified 08/13/20 13:37 Review of Systems ROS Statement: Those systems with pertinent positive or pertinent negative responses have been documented in the HPI. ROS Other: All systems not noted in ROS Statement are negative. Past Medical History Past Medical History: CVA/TIA, Hypertension, Pneumonia, Sleep Apnea/CPAP/BIPAP, Syncope, Thyroid Disorder Additional Past Medical History / Comment(s): VITAMIN B12 DEFICIENCY ANEMIA, rhabdomyolysis, hypothyroidism, diverticulosis History of Any Multi-Drug Resistant Organisms: None Reported Past Surgical History: Orthopedic Surgery Additional Past Surgical History / Comment(s): BILAT Shoulder Surgery; 3 surgery on left side; one surgery on right Past Anesthesia/Blood Transfusion Reactions: No Reported Reaction Past Psychological History: Anxiety, Depression Smoking Status: Current every day smoker Past Alcohol Use History: None Reported Past Drug Use History: None Reported - Past Family History Mother Family Medical History: No Reported History Father Family Medical History: Cancer Additional Family Medical History / Comment(s): prostate, lymphoma General Exam - General Exam Comments Initial Comments: GENERAL: Patient is well-developed and well-nourished. Patient is nontoxic and well- hydrated and is in mild distress. Occasional hiccups ENT: Neck is soft and supple. No significant lymphadenopathy is noted. Oropharynx is clear. Moist mucous membranes. Neck has full range of motion without eliciting any pain. EYES: The sclera were anicteric and conjunctiva were pink and moist. Extraocular movements were intact and pupils were equal round and reactive to light. Eyelids were unremarkable. PULMONARY: Unlabored respirations. Good breath sounds bilaterally. No audible rales rhonchi or wheezing was noted. CARDIOVASCULAR: There is a regular rate and rhythm without any murmurs gallops or rubs. Patient has reproducible chest pain ABDOMEN: Soft and nontender with normal bowel sounds. SKIN: Skin is clear with no lesions or rashes and otherwise unremarkable. NEUROLOGIC: Patient is alert and oriented x3. Cranial nerves II through XII are grossly intact. Motor and sensory are also intact. Normal speech, volume and content. Symmetrical smile. MUSCULOSKELETAL: Normal extremities with adequate strength and full range of motion. No lower extremity swelling or edema. No calf tenderness. LYMPHATICS: No significant lymphadenopathy is noted PSYCHIATRIC: Normal psychiatric evaluation. Limitations: no limitations Course Vital Signs 08/13/20 13:34 Temperature 98 F Pulse Rate 88 Respiratory 18 Rate Blood Pressure 141/94 O2 Sat by Pulse 97 Oximetry Medical Decision Making - Medical Decision Making EKG shows normal sinus rhythm at 80 bpm PA interval is 150 QRS is 90 QT interval 364 QTC is [address] segment elevation or depression. One pack and the room patient continues to picker tender. Patient states his primary medical care doctor was going to put him on a medication and he will follow-up with him tomorrow. - Lab Data Result diagrams: 08/13/20 14:11 08/13/20 14:11 Lab Results 08/13/20 08/13/20 08/13/20 Range/Units 14:11 14:11 14:11 WBC 7.3 (3.8-10.6) k/uL RBC 4.27 L (4.30-5.90) m/uL Hgb 13.9 (13.0-17.5) gm/dL Hct 39.9 (39.0-53.0) % MCV 93.4 (80.0-100.0) fL MCH 32.6 (25.0-35.0) pg MCHC 34.9 (31.0-37.0) g/dL RDW 13.1 (11.5-15.5) % Plt Count 171 (150-450) k/uL MPV 7.3 Neutrophils % 64 % Lymphocytes % 22 % Monocytes % 9 % Eosinophils % 3 % Basophils % 1 % Neutrophils # 4.7 (1.3-7.7) k/uL Lymphocytes # 1.6 (1.0-4.8) k/uL Monocytes # 0.6 (0-1.0) k/uL Eosinophils # 0.2 (0-0.7) k/uL Basophils # 0.0 (0-0.2) k/uL PT 10.0 (9.0-12.0) sec INR 0.9 (<1.2) APTT 20.9 L (22.0-30.0) sec Sodium 141 (137-145) mmol/L Potassium 3.6 (3.5-5.1) mmol/L Chloride 107 (98-107) mmol/L Carbon Dioxide 29 (22-30) mmol/L Anion Gap 5 mmol/L BUN 22 H (9-20) mg/dL Creatinine 0.89 (0.66-1.25) mg/dL Est GFR (CKD-EPI)AfAm >90 (>60 ml/min/1.73 sqM) Est GFR (CKD-EPI)NonAf >90 (>60 ml/min/1.73 sqM) Glucose 126 H (74-99) mg/dL Calcium 8.8 (8.4-10.2) mg/dL Magnesium 1.8 (1.6-2.3) mg/dL Total Bilirubin <0.1 L (0.2-1.3) mg/dL AST 46 (17-59) U/L ALT 68 H (4-49) U/L Alkaline Phosphatase 69 (38-126) U/L Troponin I (0.000-0.034) ng/mL Total Protein 6.2 L (6.3-8.2) g/dL Albumin 3.7 (3.5-5.0) g/dL 08/13/20 Range/Units 14:11 WBC (3.8-10.6) k/uL RBC (4.30-5.90) m/uL Hgb (13.0-17.5) gm/dL Hct (39.0-53.0) % MCV (80.0-100.0) fL MCH (25.0-35.0) pg MCHC (31.0-37.0) g/dL RDW (11.5-15.5) % Plt Count (150-450) k/uL MPV Neutrophils % % Lymphocytes % % Monocytes % % Eosinophils % % Basophils % % Neutrophils # (1.3-7.7) k/uL Lymphocytes # (1.0-4.8) k/uL Monocytes # (0-1.0) k/uL Eosinophils # (0-0.7) k/uL Basophils # (0-0.2) k/uL PT (9.0-12.0) sec INR (<1.2) APTT (22.0-30.0) sec Sodium (137-145) mmol/L Potassium (3.5-5.1) mmol/L Chloride (98-107) mmol/L Carbon Dioxide (22-30) mmol/L Anion Gap mmol/L BUN (9-20) mg/dL Creatinine (0.66-1.25) mg/dL Est GFR (CKD-EPI)AfAm (>60 ml/min/1.73 sqM) Est GFR (CKD-EPI)NonAf (>60 ml/min/1.73 sqM) Glucose (74-99) mg/dL Calcium (8.4-10.2) mg/dL Magnesium (1.6-2.3) mg/dL Total Bilirubin (0.2-1.3) mg/dL AST (17-59) U/L ALT (4-49) U/L Alkaline Phosphatase (38-126) U/L Troponin I <0.012 (0.000-0.034) ng/mL Total Protein (6.3-8.2) g/dL Albumin (3.5-5.0) g/dL Disposition Clinical Impression: Intractable hiccups Disposition: HOME SELF-CARE Condition: Good Instructions (If sedation given, give patient instructions): Hiccups (ED) Is patient prescribed a controlled substance at d/c from ED?: No Referrals: Deion Alvarez MD [Primary Care Provider] - 1-2 days Time of Disposition: 15:15
[2020-08-13 14:34] LABS: Basophils % (A) 1 %; Eosinophils # (A) 0.2 k/uL (0-0.7); Eosinophils % (A) 3 %; HCT 39.9 % (39.0-53.0); HGB 13.9 gm/dL (13.0-17.5); Lymphocytes # (A) 1.6 k/uL (1.0-4.8); Lymphocytes % (A) 22 %; MCH 32.6 pg (25.0-35.0); MCHC 34.9 g/dL (31.0-37.0); MCV 93.4 fL (80.0-100.0); Mean Platelet Volume 7.3; Monocytes # (A) 0.6 k/uL (0-1.0); Monocytes % (A) 9 %; Neutrophils # (A) 4.7 k/uL (1.3-7.7); Neutrophils % (A) 64 %; Platelet Count 171 k/uL (150-450); RBC 4.27 m/uL (4.30-5.90); RDW 13.1 % (11.5-15.5); WBC 7.3 k/uL (3.8-10.6)
[2020-08-13 14:43] LABS: ALT 68 U/L (4-49); AST 46 U/L (17-59); African American GFR (CKD) >90 (>60 ml/min/1.73 sqM); Albumin 3.7 g/dL (3.5-5.0); Alkaline Phosphatase 69 U/L (38-126); Anion Gap 5 mmol/L; Blood Urea Nitrogen 22 mg/dL (9-20); Calcium 8.8 mg/dL (8.4-10.2); Carbon Dioxide 29 mmol/L (22-30); Chloride 107 mmol/L (98-107); Glucose 126 mg/dL (74-99); Magnesium 1.8 mg/dL (1.6-2.3); Non-African American GFR(CKD) >90 (>60 ml/min/1.73 sqM); Potassium 3.6 mmol/L (3.5-5.1); Sodium 141 mmol/L (137-145); Total Bilirubin <0.1 mg/dL (0.2-1.3); Total Protein 6.2 g/dL (6.3-8.2)
--- NOTE | 2020-08-13 14:51 | XR ---
EXAMINATION TYPE: XR chest 2V DATE OF EXAM: 08/13/2020 COMPARISON: 04/13/2020 HISTORY: Chest pain TECHNIQUE: FINDINGS: Heart and mediastinum are normal. Lungs are clear. Diaphragm is normal. Bony thorax is inta ct. IMPRESSION: Normal chest. No adverse change.
[2020-08-13 15:07] LABS: INR 0.9 (<1.2)
[2020-08-13 15:10] LABS: Partial Thromboplastin Time 20.9 sec (22.0-30.0)
[2020-08-13 15:36] VITALS: BP 141/87; PULSE 82
== END 2020-08-13 15:40 | disposition home or self-care (01) ==
LOC: EC 13:15
DX: R06.6 Hiccough (principal); R07.89 Other chest pain; E03.9 Hypothyroidism, unspecified; I10 Essential (primary) hypertension; F17.200 Nicotine dependence, unspecified, uncomplicated; Z86.73 Personal history of transient ischemic attack (TIA), and cerebral infarction without residual deficits; Z79.02 Long term (current) use of antithrombotics/antiplatelets; Z79.890 Hormone replacement therapy; Z79.899 Other long term (current) drug therapy
CPT/HCPCS: 36415; 93005; 80053; 83735; 84484; 85025; 85610; 85730; 71046; 99285; 96374; J2405

== ENCOUNTER → 2021-03-22 | Outpatient (CLI) | payer OTHER ==
--- NOTE | 2021-03-22 16:01 | MR ---
EXAMINATION TYPE: MR angio head wo/w con DATE OF EXAM: 03/22/2021 COMPARISON: MRA Brain 02/18/2019. HISTORY: Aneurysm f/u, no prior surgery, weakness TECHNIQUE: Time of flight images focusing on the [place] were performed without contrast.. 2-D and 3-D postprocessing imaging is performed on independent workstation and reviewed. FINDINGS: Slightly larger caliber dominant right vertebral artery redemonstrated. Vertebral arteries are patent to the basilar junction. There is no significant focal stenosis or aneurysmal change in th e posterior circulation. There is patent but small caliber left-sided posterior communicating artery. There is hypoplastic right sided posterior communicating artery. There is persistent small focal aneurysm or abnormal outpouching Measuring 2-3 mm from the distal rig ht internal carotid artery seen series 301 image 296 coronal postcontrast images and axial image 75 s eries 201 along the medial aspect of the distal right internal carotid artery. This is stable in appe arance from prior exam. Patent tiny caliber anterior communicating artery redemonstrated. No new aneu rysm is seen. No new significant focal stenosis in the anterior circulation. There is partial visualization of a large area of encephalomalacia right parietal lobe in the MCA dis tribution that correlates with CT brain April 12, 2020 known old infarct. 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
== END | disposition home or self-care (01) ==
LOC: RADMRIMAIN 12:37
PROVIDERS: ATTEND Neurological Surgery
DX: I67.1 Cerebral aneurysm, nonruptured (principal)
CPT/HCPCS: 70546; A9585

== ENCOUNTER → 2021-10-08 | Outpatient (CLI) | payer OTHER ==
[2021-10-08 17:58] LABS: HCT 46.2 % (39.6-50.0); HGB 15.5 g/dL (13.0-17.0); MCH 32.4 pg (27.0-32.0); MCHC 33.5 g/dL (32.0-37.0); MCV 96.7 fL (80.0-97.0); Mean Platelet Volume 10.2 fL (9.5-12.2); NRBC Per 100 WBC 0 /100 WBCS (0.0-0.0); Platelet Count 214 X 10*3/uL (140-440); RBC 4.78 X 10*6/uL (4.40-5.60); RDW 13.1 % (11.5-14.5); WBC 7.23 X 10*3/uL (4.50-10.00)
[2021-10-08 18:45] LABS: African American GFR (CKD) 115.9 (60.0-200.0); Albumin 4.6 g/dL (3.8-4.9); Albumin/Globulin Ratio 1.66 (1.60-3.17); Anion Gap 10.1 mmol/L (10.00-18.00); BUN/Creat Ratio 13.92 Ratio (12.00-20.00); Blood Urea Nitrogen 12.5 mg/dL (9.0-27.0); Calcium 9.6 mg/dL (8.7-10.3); Carbon Dioxide 24.8 mmol/L (20.0-27.5); Globulin 2.8 g/dL (1.6-3.3); Potassium 4.6 mmol/L (3.5-5.5); Total Bilirubin 0.3 mg/dL (0.30-1.20); Total Protein 7.4 g/dL (6.2-8.2)
== END | disposition home or self-care (01) ==
LOC: LABWHC1 12:34
PROVIDERS: ATTEND Nurse Practitioner Acute Care
DX: I63.9 Cerebral infarction, unspecified (principal); E55.9 Vitamin D deficiency, unspecified; E53.9 Vitamin B deficiency, unspecified; G25.0 Essential tremor; R42 Dizziness and giddiness
CPT/HCPCS: 36415; 80053; 82306; 82607; 84207; 85027

== ENCOUNTER 2022-01-11 09:25 | Day surgery (SDC) | payer OTHER ==
[2022-01-10 11:59] VITALS: BMI 31.5
[~2022-01-11 09:25] MED LIST changes: +LACTATED RINGERS 1,000 ML IV SCH; -THIAMINE 100 MG TAB PO SCH
[2022-01-11 10:38] VITALS: TEMP 98.2
[2022-01-11] MEDS ORDERED: PROPOFOL 10 MG/ML 20 ML VIAL IV ONE (11:22)
[2022-01-11] MEDS ORDERED: LIDOCAINE 2% INJ 20 MG/ML (2 ML VIAL) ONE (11:22)
--- NOTE | 2022-01-11 11:32 | P.PCN ---
Date of Procedure: 01/11/22 Procedure(s) Performed: BRIEF HISTORY: Patient is a 51-year-old, pleasant, white male scheduled for an upper endoscopy as a part of surveillance of pernicious anemia diagnosed 10 years ago.. PROCEDURE PERFORMED: Esophagogastroduodenoscopy with biopsy. PREOPERATIVE DIAGNOSIS: History of pernicious anemia. IV sedation per anesthesia. PROCEDURE: After informed consent was obtained, the patient was brought into the endoscopy unit. IV sedation was administered by Anesthesia under continuous monitoring. Initially the Olympus GIF-140 video endoscope was inserted into the mouth. Esophagus intubated without any difficulty. It was gradually advanced into the stomach and duodenum and carefully examined. The bulb and the second part of the duodenum appeared normal. The scope at this time was withdrawn to the stomach, adequately insufflated with air, and upon careful examination, mucosa of the antrum mild diffuse gastritis and biopsies were done from this area. In the distal body there were small gastric polyps noted which were biopsied. These polyps measured about 3-4 mm in size. There was mild gastritis in the proximal body the stomach which were also biopsied. Rest of the, body, cardia and the fundus appeared normal. The scope was then withdrawn into the esophagus. The GE junction was located at 39 cm from the incisors. The esophagus appeared normal. There were no erosions or ulcerations seen and the patient tolerated the procedure well. IMPRESSION: 1. Mild diffuse antral gastritis. 2. Small gastric polyps. RECOMMENDATIONS: The findings of this examination were discussed with the patient as well as his family. He was advised to follow with the biopsy results. Recommend repeat surveillance upper endoscopy revealed 2-3 years..
[2022-01-11 11:44] VITALS: BP 134/77; PULSE 100; RESP 16
== END 2022-01-11 12:30 | disposition home or self-care (01) ==
LOC: ORWHC2ENDO 09:25
PROVIDERS: ATTEND Internal Medicine Gastroenterology
DX: K29.50 Unspecified chronic gastritis without bleeding (principal); D51.0 Vitamin B12 deficiency anemia due to intrinsic factor deficiency; K31.7 Polyp of stomach and duodenum; K31.A12 Gastric intestinal metaplasia without dysplasia, involving the body (corpus)
CPT/HCPCS: 88305; 43239; J2704; J2001